=== PATIENT | male | born 1960 | race Caucasian/White ===

== ENCOUNTER 2023-09-29 14:32 | Inpatient (IN) | payer BC, SELFPAY ==
[2023-09-29] VITALS (13 sets, daily range): BP systolic 94–141; BP diastolic 51–78; BMI 30.2; BMI 28.4
[2023-09-29 07:57] LABS: Glucose - Point of Care 155 mg/dl (70-99)
--- NOTE | 2023-09-29 08:17 | PHANOTE ---
med rec note- patent unable to confirm medication at this time, daughters in room do not know patient medication
due spouse normally takes care of medication but they had pasted away about a week ago. called patient pcp at [phone] but they do not open until 9am
[2023-09-29 08:49] LABS: % Basophils 0.1 % (0-2); % Immature Granulocytes 0.5 % (0-0.5); % Lymphocytes 2.9 % (20.5-51.1); % Monocytes 6.8 % (1.7-9.3); % Neutrophils 89.7 % (42.2-75.2); Absolute Immature Granulocytes 0.1 10^3/uL (0-0.05); Absolute Lymphocytes 0.6 10^3/uL (1.2-3.4); Absolute Monocytes 1.3 10^3/uL (0.1-0.6); Absolute Neutrophils 17.3 10^3/uL (1.4-6.5); Hematocrit 39.1 % (39.0-52.0); Hemoglobin 13.5 g/dL (13.0-18.0); Mean Corp Hgb Conc. 34.5 g/dL (33.0-37.0); Mean Corpuscular Hgb 28.8 pg (27.0-31.0); Mean Corpuscular Volume 83.5 fL (80.0-94.0); Mean Platelet Volume 11.1 fL (7.4-10.4); Nucleated Red Blood Cells % 0 % (-); Platelet Count 228 10^3/uL (130-400); Red Blood Cell Count 4.68 10^6/uL (4.70-6.10); Red Cell Dist. Width 12.5 % (11.5-14.5); White Blood Cell Count 19.2 10^3/uL (4.8-10.8)
[2023-09-29 08:59] LABS: APTT 28.7 Sec (23.4-35.0); INR 1.14; PT 14.6 Sec (11.4-14.6)
[2023-09-29 09:07] LABS: ALT (SGPT) 198 U/L (0-50); Albumin 4.4 g/dl (3.5-5.0); Alcohol None Detected; Alkaline Phosphatase 133 U/L (38-126); Blood Urea Nitrogen 31 mg/dl (9-20); Calcium 9.1 mg/dl (8.4-10.2); Carbon Dioxide 22 mmol/L (22-30); Chloride 106 mmol/L (98-107); Estimated Creatinine Clearance 47 ml/min; Glucose 147 mg/dl (70-99); Sodium 140 mmol/L (135-145); Total Bilirubin 0.8 mg/dl (0.2-1.3); Total Protein 6.8 g/dl (6.3-8.2); eGFR 39.64
[2023-09-29 09:21] LABS: AST (SGOT) 1072 U/L (17-59)
[2023-09-29] MEDS: DEPACON 60 MG IV (09:45)
[2023-09-29 10:33] LABS: Urine Albumin 2+ (Neg - Trace); Urine Bilirubin 1+ (Negative); Urine Character Clear (Clear); Urine Color Yellow; Urine Glucose Negative (Negative); Urine Ketone 1+ (Negative); Urine Leukocyte Trace (Negative); Urine Nitrite Negative (Negative); Urine Occult Blood 4+ (Negative); Urine Specific Gravity 1.025 (<1.030); Urine Urobilinogen Negative (Neg - 1+)
[2023-09-29 10:50] LABS: Amphetamines Negative (Negative); Barbiturates Positive (Negative); Benzodiazepines Negative (Negative); Buprenorphine Negative (Negative); Cocaine Negative (Negative); Marijuana Negative (Negative); Methadone Negative (Negative); Methamphetamines Negative (Negative); Opiates Negative (Negative); Phencyclidine Negative (Negative); Tricyclic Antidepressants Negative (Negative)
[2023-09-29] MEDS: NSS 1000 IV ×5 (10:59→23:56)
[2023-09-29 11:12] LABS: Urine Amorphous Seen
--- NOTE | 2023-09-29 11:17 | ED.GENMED ---
History of Present Illness
General
Chief Complaint: Change in Mental Status
Source: patient, family and ambulance crew
Exam Limitations: clinical condition
Time Seen by Provider: 09/29/23 07:59
Nursing documentation reviewed up to this point in time: agreed with
History of Present Illness
History of Present Illness:
62-year-old male with a past medical history of seizures who presents to the emergency room via EMS from home for evaluation of change in mental status after being found down. Patient cannot meaningfully participate in history�initial history was
all obtained from EMS although about an hour after patient arrival his family was at the bedside and able to provide collateral history. Initial EMS report was that patient was found disoriented in his apartment by family�apparently apartment was
messy and patient covered in feces. He apparently had a known history of epilepsy but no witnessed seizure. Last seen normal by family yesterday evening.
On arrival of patient's family they note that patient is normal, highly functioning at baseline�he apparently has a job and rides his bike to work. He apparently lives in an apartment adjacent to family's house; they apparently see him quite
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 They apparently last saw him yesterday evening right around 6 PM and he was normal. Apparently this morning family noted that he had not picked up his newspaper which is
unusual for him. They checked the house security and noted that he had not left for work this morning. For this reason they went to the apartment to check on him and they found that the apartment looked 'like it had been ransacked' and patient was
on the ground leaning on the couch confused and covered in feces. He was wearing the same clothes as he was yesterday. EMS called to bring him to the hospital. He does have a history of seizures but apparently his typical seizures are brief and
have only a transient postictal period.
Review of Systems
Review of Systems
Unable to obtain full review of systems at this time due to: other (Acutely confused)
All Other Systems: Not applicable
Phy Exam
Physical Exam
Physical Exam:
General: Laying in bed sleeping but easily arousable and when he is awake he is agitated
Head: Normocephalic, atraumatic
Eyes: Conjunctiva normal, pupils equal round and reactive to light bilaterally, extraocular movements seem to be tracking across visual field but patient not cooperative with more thorough assessment
Throat: Airway intact, handling secretions
Neck: Trachea midline, supple without meningismus
Lungs: Clear to auscultation bilaterally, no wheezing, rales, rhonchi
Heart: Regular rate and rhythm, no murmurs, gallops, or rubs
Abd: Soft, non distended, no apparent tenderness
Neuro: Patient very difficult to examine given his altered mental state�he is not cooperative with neurologic assessment and only follows very simple one-step commands; no gross cranial nerve deficits noted, he has no dysarthria and is able to speak
a few words but it seems to be having stuttering/repetitive speech and is not consistently answering questions; he is moving all extremities, seems to preferentially move right side but somewhat difficult to assess
Skin: no rash or signs of acute trauma
Extremities: Patient has bilateral lower extremity edema, equal pulses in all extremities
Scores
NIH Stroke Score
Level of Consciousness: 1 - Arousable
LOC Questions: 2-Neither correct
LOC Commands: 1-Performs one correctly
Best Horizontal Gaze: 0-Normal
Visual Benjamin: 0=Normal, no visual loss
Facial Palsy: 0=Normal, symmetrical
Motor - Right Arm: 1=Drift < 10 seconds
Motor - Left Arm: 1=Drift < 10 seconds
Motor - Right Le-Drift < 5 seconds
Motor - Left Le-Drift < 5 seconds
Limb Ataxia: 0-Absent
Sensation: 0-Normal
Best Language: 1-Mild aphasia
Dysarthria: 0-Normal
Extinction and Inattention: 0-No abnormality
Total Score:: 9
Thrombolytic Contraindication
Inclusion and Exclusion criteria reviewed: Yes
Reasons for NON-Tx with Thrombolytics ABSOLUTE Exclusions: Greater than 4.5 hrs from onset of sxs
Heart Failure Risk
Heart Failure Risk Score: Not Applicable
Heart Score for Chest Pain Patients
STEMI patient?: Not applicable
Withdrawal Assessment of Alcohol
Withdrawal Assessment Completed?: Not applicable
Course
Orders/Labs/Results
Orders:
Orders
09/29/23 07:52
EKG [Electrocardiogram (*1)] Urgent
Reason for Study: Other
Other Reason for Exam: change in mental status
09/29/23 07:53
EKG- Treatment ONCE
09/29/23 08:00
CT Head W/o Cont STROKE ALERT Urgent
Comment:
Reason For Exam: expressive aphasia, lethergy
Bedside Glucose- Treatment ONCE
EKG- Treatment ONCE
Vital Signs- Treatment ONCE
Frequency: q30m
Pulse Ox/cont/shift [RESP] Stat
Quantity: 1
09/29/23 08:03
NEUROLOGY CONSULT Urgent
Consulting Provider: Earl Mckeon
Was physician already notified: Yes
09/29/23 08:35
Alcohol Urgent
Complete Blood Count/With Diff Urgent
Comprehensive Metabolic Panel Urgent
Creatine Phosphokinase Urgent
PTT Urgent
Prothrombin Time Urgent
09/29/23 09:00
Valproate Sodium [Depacon] 500 mg 0.9% Sodium Chloride 50 ml [Nss] 50 ml IV Q12H
09/29/23 09:06
Valproate Sodium [Depacon] 1,000 mg 0.9% Sodium Chloride 50 ml [Nss] 50 ml IV NOW
09/29/23 09:29
Add On- LAB Urgent
Tests Added?: CPK
09/29/23 10:19
Drug Screen, Urine [Urine Drug Abuse Screen] Urgent
Date Specimen was Collected: 09/29/23
Time Specimen was Collected: 10:16
Urinalysis Reflex To Culture Urgent
Date Specimen was Collected: 09/29/23
Time Specimen was Collected: 10:16
Urine Microscopic Reflex Cult Urgent
Urine Culture Urgent
FABIEN Source: U
Specimen Description:
Date Specimen was Collected: 09/29/23
Time Specimen was Collected: 10:16
09/29/23 10:36
CR Chest Portable - 1 View Urgent
Comment:
Reason For Exam: confused
Reason Study Needs to be Portable: Unable to Transport
09/29/23 10:55
0.9% Sodium Chloride 1000 ml [Nss] 1,000 ml IV BOLUS
09/29/23 11:00
0.9% Sodium Chloride 1000 ml [Nss] 1,000 ml IV 1,000 mls/hr
09/29/23 11:11
0.9% Sodium Chloride 1000 ml [Nss] 1,000 ml IV BOLUS
09/29/23 11:14
Aspirin 300 mg RECTAL NOW STA
09/29/23 11:21
EEG Routine Routine
Reason for Exam: ? CPS
Neurology Consult:: DR. NICOLE
09/29/23 11:42
Blood Culture Routine
FABIEN Source: Blood/Venous
Specimen Description:
Blood Culture Urgent
FABIEN Source: Blood/Venous
Specimen Description:
09/29/23 14:15
0.9% Sodium Chloride 1000 ml [Nss] 1,000 ml IV 250 mls/hr
09/29/23 14:16
Admit/Transfer Patient As Directed
Co-Sign Provider:
Level of Care: Inpatient admission
Assign to:: IMU- Intermediate Care
Physician / Group: Hospitalist
Diagnosis: Altered mental status
Reason for Hospitalization: Altered mental status
Expected length of stay greater than two midnights?: Yes
ELOS- Estimated Length of Stay in days: 3
I certify the patient meets the requirements for IP care: Yes
09/29/23 21:00
Valproate Sodium [Depacon] 500 mg 0.9% Sodium Chloride 50 ml [Nss] 50 ml IV Q12H
Abnormal Lab Results
09/29/23 09/29/23 09/29/23
07:56 08:35 10:19
WBC 19.2 H 10^3/uL
(4.8-10.8)
RBC 4.68 L 10^6/uL
(4.70-6.10)
MPV 11.1 H fL
(7.4-10.4)
Abs Immat Gran (auto) 0.1 H 10^3/uL
(0-0.05)
Absolute Neuts (auto) 17.3 H 10^3/uL
(1.4-6.5)
Absolute Lymphs (auto) 0.6 L 10^3/uL
(1.2-3.4)
Absolute Monos (auto) 1.3 H 10^3/uL
(0.1-0.6)
Neutrophils % 89.7 H %
(42.2-75.2)
Lymphocytes % 2.9 L %
(20.5-51.1)
BUN 31 H mg/dl
(9-20)
Creatinine 1.9 H mg/dL
(0.7-1.3)
Glucose 147 H mg/dl
(70-99)
AST 1072 H* U/L
(17-59)
ALT 198 H U/L
(0-50)
Alkaline Phosphatase 133 H U/L
(38-126)
Creatine Kinase 28969 H U/L
(55-170)
Urine Ketones 1+ A
(Negative)
Ur Occult Blood Reflex 4+ A
(Negative)
Urine Bilirubin 1+ A
(Negative)
Leukocyte Esterase Rfl Trace A
(Negative)
Urine RBC 3-6 A /HPF
(0-2)
Urine Albumin (Reflex) 2+ A
(Neg - Trace)
Ur Barbiturates Screen Positive H
(Negative)
POC Glucose 155 H mg/dl
(70-99)
09/29/23 08:35
09/29/23 08:35
Vital Signs
Initial and Last Documented VS:
Initial Vital Signs
Temp Pulse Resp BP Pulse Ox
37.2 C 89 24 138/78 93
09/29/23 07:44 09/29/23 07:44 09/29/23 07:44 09/29/23 07:44 09/29/23 07:44
Last Documented Vital Signs
Temp Pulse Resp BP Pulse Ox
37.9 C 59 28 113/73 94
09/29/23 12:00 09/29/23 14:45 09/29/23 14:45 09/29/23 14:00 09/29/23 11:15
MDM/Problems Addressed
Differential Diagnosis Includes:
Seizure with postictal period, acute CVA, drug/alcohol intoxication, infection
MDM/Problems Addressed:
62-year-old male presents to the emergency room acutely confused�found down this morning by family last seen normal 6 PM. Initially limited information and stroke alert was called, patient taken for stat CT head. IV placed labs sent off including
a CBC and a CMP, coags. Will send a urinalysis and obtain a chest x-ray. Check UDS and alcohol level. Case discussed with neurology who will assess at bedside.
CT head negative for any acute pathology. Neurology assessed they suspect more likely this is a seizure with postictal period although stroke must be considered; patient outside safe window for tenecteplase. We are awaiting rest of lab work. They
recommended admission for further workup and observation.
Initial labs reviewed: CBC shows a leukocytosis to 19.2 of unclear clinical significance�could be reactive in the setting of seizure or certainly could be a sign of infection although family does not indicate any infectious symptoms recently. Added
blood cultures. Hold empiric antibiotics given absence of fever, normal blood pressure and heart rate, no focal infectious source. CMP shows creatinine of 1.9 and abnormal transaminases with normal T. bili�question whether patient could have
rhabdomyolysis based on this clinical picture. Added the CPK. IV fluids in progress. Awaiting rest of workup.
Urinalysis positive for blood on dipstick with no significant amount of blood on microscopy�this would be consistent with rhabdomyolysis although CPK is pending. No signs of a urinary tract infection. UDS positive for barbiturates which apparently
patient is taking for seizure control, alcohol level negative. Chest x-ray reviewed by me shows no pneumonia.
CPK is markedly elevated at 75,000 consistent with rhabdomyolysis. IV fluids in progress. Patient's mental status has been essentially unchanged. Low clinical suspicion for meningitis with no fever and with patient's mental state normal yesterday
evening with no infectious signs or symptoms. Suspect this may be a seizure with prolonged postictal period versus acute CVA. Will admit for continued monitoring and treatment; will give a dose of rectal aspirin. Case discussed with hospitalist
for admission.
*Radiology
Radiology exam reviewed: preliminary read by ED provider and radiology read reviewed
*Pulse Oximetry
Patient hypoxic: no
*EKG
Interpreted by ED Provider?: Yes
Heart Rate: 74
Rate: normal
Rhythm: sinus
[place]: normal axis
Interval: normal interval
QRS Pattern: normal QRS
Ischemia: no ischemia
*Critical Care Note
Total Time (30-74mins, 75-104mins- exclusive of procedures): Not Applicable
Data Reviewed
Source: family and ambulance crew
Patient Management
Discussion with other providers: Hospitalist (Discussed with hospitalist) and Dispute Coordinator (Discussed with neurology)
Escalation/DeEscalation of care consider admission/obs:
Admission indicated
ED Attending Note
-
Portions of this chart may have been created with voice recognition software.� Occasional wrong word or��sound alike� substitutions may have occurred due to the inherent limitations of voice recognition software.
Discharge Plan
Departure
Patient Disposition: Admit
Date of Disposition: 09/29/23
Time of Disposition: 11:14
Admit to doctor: Sravanthi
Presentation/result/management discussed w/ accepting MD/DO: Hospitalist
Discharge Problem:
Acute CVA (cerebrovascular accident), Encephalopathy, Rhabdomyolysis, JEFERSON (acute kidney injury)
Interventions
Interventions:
*Risk Screen - Suicide Last Done: 09/29/23 07:44
*General Assessment Last Done: 09/29/23 07:44
*Neglect/Abuse Screening Last Done: 09/29/23 07:44
ED- Fall Risk Assessment Last Done: 09/29/23 07:29
ED-Psychological Assessment Last Done: 09/29/23 07:29
ED- Neurological Assessment Last Done: 09/29/23 14:36
ED- Cardiac Assessment Last Done: 09/29/23 07:29
ED Swallowing Screen Last Done: 09/29/23 11:48
[2023-09-29] MEDS: ASPIRIN 300 MG RECTAL (11:22)
[2023-09-29 11:25] LABS: Creatine Phosphokinase 74353 U/L (55-170)
--- NOTE | 2023-09-29 14:22 | CON.NEURO4 ---
Addendum entered and electronically signed by Earl Mckeon MD 09/29/23 22:45:
Assessment/Plan
1. 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
Plan:
1. Aspirin 81 mg daily.
2. Aspirin 300 mg suppository given in ER
3. Permissive HTN
4. Serial neuro exam
5. Echocardiogram
6. MRI/MRA head
7. Carotid doppler
Original Note:
Consultation - Neurology 4
-
CONSULTING PHYSICIAN: Earl Mckeon MD(Neurology)
REFERRING PHYSICIAN: ER/ Hospitalist
DICTATED BY: Earl Mckeon MD
DATE/TIME OF REQUEST: 09/29/2023
DATE/TIME OF CONSULTATION: September 29, 2023 0900
Reason for Consultation: Altered mental status
History of Present Illness:
This is a 62 year old right handed male with h/o autism, epilepsy since childhood who had been living independently at home who was admitted with c/o altered mental status. As per his sister he was last seen well on Friday at 4ptime and he was at
his baseline(regular speech able to communicate his needs). 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 When his sister went into the house, she found him kneeling over confused and unable to talk. Incontinent and soiled which
he never is at baseline.
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 This morning it was in total disarray. She could not find his seizure medications(Phenobarb, Dilantin, Valium).
She recalls it being filled in June-July 2023
EMS notified and he was brought to the ER. In the ER he was arousable but confused with limited speech. No Motor or sensory deficits.
As per his sister seizures were controlled and he has a breakthrough event once or twice a year with brief postictal phase.
He lived with his mother till her demise earlier this year.
After admission there has been no seizures. All history is obtained through his sisters. Pat speech is restricted and he can tell me his name and birthday.
He can be directed and follows simple one step commands
Past Medical History: Seizure disorder
Surgical History: None
Family History: Noncontributory
Social History: Lives alone at home
Allergies: No known drug allergies
Home Medications: Dilantin 100 mg 3 times a day, Phenobarb 90, Valium
Review of Symptoms:
Patient denies any fever, headache, chest pain, shortness of breath, GI or symptoms.
�Per the HPI.�All systems are reviewed negative except above.
�- Remove any of these problems that patient may have complained about in the HPI.
�- If patient is unresponsive, intubated or demented, say 'Per the HPI. I am unable to obtain a complete review of systems�because of patient's inability to provide history.'
Vital Signs:
Physical Exam:
The patient is afebrile, heart sounds S1 and S2 are (regular / irregular), and chest is clear to auscultation bilaterally.
- If not clear, describe.
NIH Stroke Scale (if applicable):
I performed the NIH stroke scale on the patient. The patient scored 4 on the NIH stroke scale assessment given limited arousal and aphasia:
Neurologic Examination:
The patient is arousable, confused and oriented x person. Speech is nonfluent aphasic He is able to follow commands. Answers are limited to name and birthday. There is aphasia and dysarthria. On cranial nerve assessment, pupils are 3 mm bilateral,
round and reactive to light and accommodation. Visual romero are full. Extraocular movements are intact. Facial sensations are intact and bilaterally symmetrical, there is no facial asymmetry. Hearing is intact bilaterally to normal conversation
volume. Tongue palate and uvula are midline. Sternocleidomastoid strengths are full bilaterally. Motor strengths are 5/5 bilateral upper and lower extremities on medical research [place] scale. There is no drift or involuntary movement noted. Deep
tendon reflexes are + bilateral upper and lower extremities and Babinski is absent bilaterally. Sensations of pain, touch, temperature and vibration are intact and bilaterally symmetrical. There was no extinction noted on double simultaneous
stimulation. Coordination is intact by finger to nose bilaterally.
Lab Results: Addendum
Neuro Imaging: CT head: Left posterior frontal ischemia
Impression:
Mr. MARTHA COLEMAN is a 62 year old M who has presented to the hospital with chief complaint of aphasia secondary to left MCA ischemia/infarction with no motor deficits and is postictal following seizure due to noncompliance with medication.
Given the length of noncompliance with his first generation AEDs and agitation will switch to Depakote for seizure prophylaxis and behavior control
Differentials for the patient's presentation include:
1. Seizure
Recommendations:
1. Load with Depakote 1000 mg IV
2. Depakote 500 mg IV twice a day. May switch to PO once pat awake and can swallow
3. EEG
4. MRI brain without
5. Speech therapy
6. PT/OT
7. Echocardiogram
8. Lipid profile
9. Lipitor
10. Depakote level.
11. B12 level
12. Thiamin
May need placement
Discussed patient care with: ER/Hospitalist
Vital Signs and Labs
-
Vital Signs and Labs:
Vital Signs
Temp Pulse Resp BP Pulse Ox
36.8 C 54 21 109/63 96
09/29/23 19:47 09/29/23 16:43 09/29/23 16:43 09/29/23 15:00 09/29/23 16:43
Lab Results
09/29/23 08:35
09/29/23 08:35
PT 14.6 Sec (11.4-14.6) 09/29/23 08:35
INR 1.14 09/29/23 08:35
APTT 28.7 Sec (23.4-35.0) 09/29/23 08:35
Sodium 140 mmol/L (135-145) 09/29/23 08:35
Potassium 4.0 mmol/L (3.5-5.1) 09/29/23 08:35
BUN 31 mg/dl (9-20) H 09/29/23 08:35
Glucose 147 mg/dl (70-99) H 09/29/23 08:35
Calcium 9.1 mg/dl (8.4-10.2) 09/29/23 08:35
Ur Buprenorphine Cancelled 09/29/23 10:19
Ur Buprenorphine Negative (Negative) 09/29/23 10:19
--- NOTE | 2023-09-29 15:00 | HPS.HSE ---
Addendum entered and electronically signed by Shamir Ruff MD 09/29/23 15:53:
I personally performed a history and physical exam of the patient and discussed management with the resident. I reviewed the resident's note and agree with the documented findings and plan of care HPI/CC except for changes in documentation.
History obtained after discussion with patient's sister. She stated that patient lives in his mother's house she recently. He lives in the main part of the house and sister lives in the in-law suite. Patient has a history of seizures
and he takes phenobarbital. She was also under the impression at 1 point he was on Dilantin and Valium. She is not sure what he takes now. But patient usually lang his medicines on the white board and she did not see the markings since Friday.
He was last seen yesterday afternoon normal. 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 Today he was found slumped over to the couch and covered in feces. Normally his seizures are mild per sister and usually he sleeps and wakes up normal. This
time he was very confused and not recognizing the family which made him call the ambulance.
On examination patient is confused
Keeps repeating his name for any questions asked.
He can sometimes say no to certain questions.
Awake states his name
Cardiovascular system S1-S2 appreciated
Chest x-ray and EKG reviewed by me
Left nipple area with a rash noted
Cardiovascular system S1-S2 appreciated
Chest clear to auscultation
Neuroexam is mostly nonfocal
No muscular tenderness, edema noted
# Change in mental status/TME
Differentials include TME from metabolic reasons,/seizures/CVA
Patient has expressive aphasia
Unclear if this secondary seizures versus RELISH MAKER event
Patient's sister thinks he was on female, Dilantin and Valium at 1 point she is not clear what his current medicines are.
Possibly patient missed medicines since Friday
Get MRI of the brain
EEG obtained-results pending
Continue valproate ordered per neurology
Neurology following
Neurochecks and seizure precautions
Keep n.p.o. until speech evaluation
Aspiration precautions
# Rhabdomyolysis
Likely secondary to seizures
No trauma per sister or heatstroke
IV fluids ordered
Follow CPK levels daily and also creatinine
Watch for any compartment syndrome
# Acute kidney injury
Likely secondary to rhabdo
Add on a urine sodium
Urinalysis noted
IV fluids and follow creatinine
# Albuminuria-follow urine analysis
# Mild fever
Likely secondary to rhabdo
But possible that he has aspiration pneumonia/pneumonitis
Await blood cultures and urine cultures
Chest x-ray reviewed by me
Cover with antibiotics for now and follow clinically
If improving stop antibiotics
# Elevated LFTs-check abdominal Doppler
Likely secondary to rhabdo-follow levels no right upper quadrant tenderness noted
May need serologies if does not improve or normalize.
# DVT prophylaxis-subcutaneous heparin
# Full code
Discussed with nursing and diesel technology instructor
Discussed with patient's sister on the phone
Medically complicated spent more than 75 minutes.
Original Note:
Family Physician
-
Family Physician: Isidro Pa
Chief Complaint
-
Altered Mental Status
History of Present Illness
Pt is a 62 year old male with known history of seizures, who was brought in by EMS after his family found him disoriented, slumped over the couch, covered in feces. Pt is unable to provide more history, but collateral information obtained from
family over the phone revealed that he was last noted to be well yesterday afternoon. He takes phenobarbital for his seizures, and tracks adherence to his medication via a whiteboard in his home. Sister notes that there was no med tracking logged
for Friday and Friday. He has used Dilantin and Valium in the past.
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 He was found when family checked in on him when he was not seen to collect the morning paper as he does daily. Pt's sister told
nursing staff that the family thinks he may have undiagnosed autism. Family is unsure of allergy history.
Medical History
Past Medical History
Past Medical History: Reports Seizures
Past Surgical History: Reports None
Social History
Tobacco: Non-smoker
Alcohol: Former (since 2 years)
Drug: None
Personal: Single
Living: Alone (near family)
Employment: Employed
Family History
Family History: Diabetes (father)
Allergies / Home Medications
Allergies reflects when Allergies were last updated in [facility].
Home Medications with original date entered in [facility]
Allergy/Medication List:
Allergies
Allergy/AdvReac Type Severity Reaction Status Date / Time
No Known Allergies Allergy Unverified 09/29/23 08:56
Home Medications
phenobarbital 64.8 mg tablet 194.4 mg PO DAILY 09/29/23
Review of Systems
-
History Source: Patient
Respiratory: Reports No Symptoms; Denies Cough or Trouble Breathing
Cardiac: Reports No Symptoms; Denies Chest Pain
Abdomen/GI: Reports No Symptoms; Denies Abdominal Pain, Nausea, Vomiting, Diarrhea or Constipated
: Reports No Symptoms
Musculoskeletal: Reports No Symptoms; Denies Muscle Pain or Muscle Stiffness
Neurological: Reports No Symptoms; Denies Headache, Weakness or Numbness
Physical Exam
Vital Signs
Vital Signs
Temp Pulse Resp BP Pulse Ox
100.2 F 59 28 113/73 94
09/29/23 12:00 09/29/23 14:45 09/29/23 14:45 09/29/23 14:00 09/29/23 11:15
Physical Exam
General: Well Developed, Well Nourished, No Apparent Distress and Comfortable; No Respiratory Distress
HEENT: NormoCephalic, Anicteric, Moist mucous membranes, Atraumatic, PERRLA and Other (No cheek or tongue lacerations)
Respiratory: Clear and Non Labored Respirations; No Wheezes, Rales, Rhonchi or Crackles
Cardiac: S1/S2 and Regular Rhythm; No Peripheral Edema, Calf Tenderness or Kristina's Sign
GI: Soft, Non Tender, Non Distended and Normal Bowel Sounds
Musculoskeletal: No Clubbing, No Cyanosis and No Edema
Skin: Warm and Dry
Neuro: Awake, Alert, Oriented (to person only), No Motor Deficits, Nonfocal/grossly intact, No Sensory Deficits, DTR's Intact & Symmetrical (patella) and Other (Expressive aphasia, follows all commands, inapproprate verbal responses)
Psych: Calm
Laboratory Results
-
09/29/23 08:35
09/29/23 08:35
Laboratory Results
PT 14.6 Sec (11.4-14.6) 09/29/23 08:35
INR 1.14 09/29/23 08:35
APTT 28.7 Sec (23.4-35.0) 09/29/23 08:35
Total Bilirubin 0.8 mg/dl (0.2-1.3) 09/29/23 08:35
AST 1072 U/L (17-59) H* 09/29/23 08:35
ALT 198 U/L (0-50) H 09/29/23 08:35
Alkaline Phosphatase 133 U/L (38-126) H 09/29/23 08:35
Impression/Plan
-
IMPRESSION: 62 year old male with history of seizure, who presented with altered mental status
PLAN:
Altered mental status:
CVA/TIA versus seizure postictal state vs other cause:
Steady improvement of neurological status on physical exam
CT head 09/28: No acute intracranial abnormality
ECG: Normal
EEG pending
JEFERSON:
Likely secondary to rhabdo. Creatinine 1.9
-IV fluids.
-Continue to follow BMP
Rhabdomyolysis:
Likely secondary to seizure. No focal muscle tightness or tenderness
-Aggressive IV fluids
Transaminitis:
Likely secondary to rhabdomyolysis vs acute liver failure
AST 1072, ALT 178, INR 1.14
-Check abdominal Doppler, ammonia level
Leukocytosis:
With fever to 100.2. Infectious cause vs rhabdomyolysis
Concern for aspiration from seizure. CXR: Low lung volumes, Minor bibasilar opacity most likely representing subsegmental atelectasis. Start Metronidazole
Urinalysis unremarkable. Urine culture pending
Blood cultures x 2 pending
History of seizure:
EEG pending
- Start Valproate
DVT prophylaxis: Lovenox
Code Status: Full Code
--- NOTE | 2023-09-29 15:36 | EEG.RPT ---
Electroencephalogram Report
Recording
Date of EE09/29/23
Type of EEG: Routine
Length of EEG recordin minutes
Done with Video Recording: Yes
Patient Status: Inpatient
Recording Conditions: Awake and Drowsy
Hyperventilation Performed: Yes
Photic Stimulation Performed: Yes
Report
LESS THAN 1 HOUR REPORT
LESS THAN 1 HOUR EEG INTERPRETATION:
Moderately to severely abnormal study for age based on bursts of generalized and generalized slowing demonstrated bihemispherically equally.
CLINICAL CORRELATION:
This study was suggestive of a generalized cortical disruption which was non-epileptiform.
Clinical correlation is advised.
METHODS:
A 21 channel digitized electroencephalogram (EEG) was performed at the bedside. The 10/20 international system of electrode placement was used with ECG and lateral/vertical eye movements recorded. The Zinio quantitative evaluation system was
utilized.
ELECTROENCEPHALOGRAPHER IMPRESSION(S):
Quality of study
Fair, limited by muscle artifact at times
Background
Medium amplitude
Fair anterior-posterior voltage gradient differentiation
Theta maximal background demonstrated, typically delta
Sleep
Drowsiness present
Hyperventilation
Not performed
Photic Stimulation
Failed to activate the record
ECG
Normal rhythm
--- NOTE | 2023-09-29 16:33 | PTOTSP ---
Dysphagia Evaluation
Oral/pharyngeal swallowing suspected to be grossly WFL. Further speech/language evaluation warranted given signs of expressive greater than receptive aphasia.
Recommend:
1. Regular, Thin Liquids
2. Medications as best tolerated
3. General aspiration precautions
4. Speech/language evaluation.
--- NOTE | 2023-09-29 16:51 | PTCARENOTE ---
Rec'd pt on admission from ED. Complete bed bath given. Pt with expressive aphasia but following most commands. Sinus Nick on tele. Cooperative, remains on room air. Unable to answer admission questions due to aphasia but following motor commands.
passed speech evaluation. vital signs stable.
[2023-09-29] MEDS: FLAGYL 500 MG PO ×2 (17:21→23:15)
[2023-09-29] MEDS: ROCEPHIN 1000 MG IV (17:33)
[2023-09-29] MEDS: STERILE WATER FOR INJECTION 10 ML IV (17:34)
[2023-09-29] MEDS: HEPARIN 5000 UNITS SC (20:23)
[2023-09-29] MEDS: DEPAKOTE (12 HR RELEASE) 500 MG PO (20:23)
[2023-09-30] VITALS (12 sets, daily range): BP systolic 98–142; BP diastolic 63–100; BMI 29.3
--- NOTE | 2023-09-30 00:46 | PTCARENOTE ---
Received pt at change of shift. NIH is a 4; still showing some expressive aphasia with lower extremity ataxia; unable to tell me where he currently is located but now able to state name and correctly. VSS at this time. NSS running at 250
ml/hr. No urine output; bladder scanned pt around 00:00 for 46 ml. Notified BUFFER INFLATED PAD to update her on his status. Pt resting in bed with call leonardo in reach.
[2023-09-30] MEDS: NSS 1000 IV ×4 (03:50→20:25)
[2023-09-30 04:20] LABS: Hematocrit 36.4 % (39.0-52.0); Hemoglobin 12.2 g/dL (13.0-18.0); Mean Corp Hgb Conc. 33.5 g/dL (33.0-37.0); Mean Corpuscular Hgb 28.8 pg (27.0-31.0); Mean Corpuscular Volume 86.1 fL (80.0-94.0); Mean Platelet Volume 10.6 fL (7.4-10.4); Platelet Count 174 10^3/uL (130-400); Red Blood Cell Count 4.23 10^6/uL (4.70-6.10); White Blood Cell Count 15.8 10^3/uL (4.8-10.8)
[2023-09-30 05:11] LABS: ALT (SGPT) 295 U/L (0-50); AST (SGOT) 1142 U/L (17-59); Alkaline Phosphatase 99 U/L (38-126); Blood Urea Nitrogen 43 mg/dl (9-20); Calcium 7.3 mg/dl (8.4-10.2); Carbon Dioxide 20 mmol/L (22-30); Chloride 111 mmol/L (98-107); Estimated Creatinine Clearance 24 ml/min; Glucose 112 mg/dl (70-99); Magnesium 2.3 mg/dl (1.6-2.3); Potassium 4.1 mmol/L (3.5-5.1); Sodium 139 mmol/L (135-145); Total Bilirubin 0.5 mg/dl (0.2-1.3); Total Protein 5.2 g/dl (6.3-8.2); eGFR 18.41
[2023-09-30 05:28] LABS: Creatine Phosphokinase 70520 U/L (55-170)
[2023-09-30 06:08] LABS: Vitamin B12 248 pg/ml (239-931)
--- NOTE | 2023-09-30 06:14 | PTCARENOTE ---
Labs resulted with AST increasing to 1142 and Creat rising to 3.6 from 1.9. Notified MACHINE DESIGN TEACHER. Nephrology consult placed and kirkland order placed and completed to monitor strict I&O. Pt tolerated placement well. 50 ml of tea colored urine drained. UA
sent to lab.
[2023-09-30 06:27] LABS: Urine Albumin 3+ (Neg - Trace); Urine Bilirubin 1+ (Negative); Urine Character Clear (Clear); Urine Color Brown; Urine Glucose 1+ (Negative); Urine Ketone 1+ (Negative); Urine Leukocyte 1+ (Negative); Urine Nitrite Positive (Negative); Urine Occult Blood 4+ (Negative); Urine Urobilinogen Negative (Neg - 1+); Urine pH 6.5 (5.0-9.0)
[2023-09-30 06:59] LABS: Urine Bacteria Many (Negative); Urine White Cell 16-20 /HPF (0-5)
--- NOTE | 2023-09-30 07:59 | W.PN.HOSP.TC ---
Addendum entered and electronically signed by Alvarez Nelson MD 09/30/23 12:19:
Nontraumatic rhabdomyolysis
Addendum entered and electronically signed by Alvarez Nelson MD 09/30/23 11:15:
I saw and evaluated the patient. I reviewed the resident�s note and agree with findings and plan as documented in the resident�s note.
Gen: NAD, AAOx3.
Eyes: EOMI, PERRLA, no scleral icterus.
Neck: supple.
CV: seble, reg rhythm, +S1/S2, no m/r/g.
Resp: CTAB, no rales, wheezes, or rhonchi.
Abd: +BS, soft, NT, ND
Skin: No rashes.
Neuro: CN 2-12 intact, non-focal.
Psych: Normal mood and affect.
CXR: Low lung volumes. Minor bibasilar opacity most likely representing subsegmental atelectasis.
Abd U/S: Nonspecific focal gallbladder wall thickening. No additional findings to suggest acute cholecystitis. Clinical and laboratory correlation recommended. Minimal ascites about the liver.
MRI brain:
1. No acute intracranial abnormality.
2. 2.3 cm lesion at the junction of the right zygomatic arch and maxilla favored to represent an osteoma. Imaging follow-up can be performed to confirm stability.
Acute metabolic encephalopathy due to acute seizure activity and postictal state:
-Case discussed with neurology
-Patient was on phenobarbital prior to admission and missed a couple days of dosing. He is now on Depakote, continue.
Acute kidney injury due to rhabdomyolysis due to acute seizure activity:
-Creatinine is worsening
-Continue IVFs
-check renal U/S
Low grade temperature:
-100.2 �F is not a fever. Leukocytosis could be reactive. Suspect chest x-ray findings due to subsegmental atelectasis.
-Urinalysis noted and could represent urinary tract infection. Continue Rocephin for now pending urine and blood cultures.
Transaminitis:
-Unremarkable abdominal ultrasound
-Hepatocellular injury pattern
-Consult GI
Total time spent on today's encounter was 50 minutes which included time spent in counseling the patient/family regarding diagnosis and treatment plan as listed above, goals of care, and symptom management. Case was discussed with nursing staff,
specialists, and care coordinators/case management. All labs and imaging personally reviewed by me. Remainder the time spent in detailed review of previous records, lab data, imaging, and other medical provider documentation.
Original Note:
Today's Communication/Plan
-
ABX, aggressive IV fluids
Assessment / Plan
Assessment / Plan
IMPRESSION: 62 year old male with history of seizure, who presented with altered mental status
PLAN:
Altered mental status:
CVA/TIA versus seizure postictal state vs TME:
Confused on arrival, with expressive aphasia. Steady improvement of neurological status on physical exam
CT head 09/28: No acute intracranial abnormality
ECG: Normal
EEG pending
Speech therapy evaluation -no aspiration
MRI to follow
Continue Depakote per neurology
Neurochecks, seizure precautions
Appreciate neuro input
JEFERSON:
Likely secondary to rhabdo. Creatinine 1.9 on arrival, worsening
-Continue generous IV fluids.
-Urine Na, Urine Cr labs
-Nephro consult
-Continue to follow BMP
Rhabdomyolysis:
Likely secondary to seizure. No known hx of trauma. No focal muscle tightness or tenderness
-Aggressive IV fluids
-Follow CPK level
Albuminuria:
Follow urinalysis
Transaminitis:
Likely secondary to rhabdomyolysis
AST 1072, ALT 178, INR 1.14, AST, ALT worsening.
-Hepatitis serology
-abdominal Doppler:
Fever, Leukocytosis:
low grade fever to 100.2. Infectious cause vs rhabdomyolysis
Concern for aspiration from seizure. CXR: Low lung volumes, Minor bibasilar opacity most likely representing subsegmental atelectasis. Ceftriaxone plus ceftriaxone to cover possible aspiration pneumonia
Urinalysis unremarkable. Repeat urinalysis positive. Already on ceftriaxone. Await urine culture
Blood cultures x 2 pending
History of seizure:
EEG pending
- Start Valproate
DVT prophylaxis: Lovenox
Code Status: Full Code
Anticipated Discharge: > 48 hours
Subjective/Interval History
-
Date of Service: September 30, 2023
Patient confirmed his phenobarbital dose is 90 mg 3 times daily. Last seizure about 10 years ago.
Objective Data
-
Labs:
Laboratory Results
09/30/23
04:00
WBC 15.8 H
Hgb 12.2 L
Hct 36.4 L
Plt Count 174 D
Sodium 139
Potassium 4.1
Chloride 111 H
Carbon Dioxide 20 L
BUN 43 H
Creatinine 3.6 H
Glucose 112 H
Calcium 7.3 L D
Total Bilirubin 0.5
AST 1142 H*
ALT 295 H
Alkaline Phosphatase 99
Vital Signs:
Vital Signs
Temp Pulse Resp BP Pulse Ox
97.7 F 54 27 127/71 97
09/30/23 07:21 09/30/23 06:00 09/30/23 06:00 09/30/23 06:00 09/30/23 06:00
I&O
09/29/23 09/30/23 10/01/23
06:59 06:59 06:59
Intake Total 3000 / 3000
Balance 3000 / 3000
Review of Systems
-
History Source: Patient
Constitutional: Reports No Symptoms; Denies Fever
Respiratory: Reports No Symptoms; Denies Cough or Trouble Breathing
Cardiac: Reports No Symptoms; Denies Chest Pain or Palpitations
Abdomen/GI: Reports No Symptoms; Denies Abdominal Pain, Nausea or Vomiting
Physical Exam
-
General: No Apparent Distress and Comfortable
Respiratory: Clear to Auscultation and Non Labored Respirations; Negative Wheezes, Rales, Rhonchi or Crackles
Cardiac: Regular Rhythm and S1/S2; Negative Murmur, Rub or Calf Tenderness
GI: Soft, Nontender, Nondistended and Normal Bowel Sounds
Genito-urinary: No Costovertebral Tender, Sanchez and Other (dark urine)
Musculoskeletal: No Clubbing, No Cyanosis, No Edema and Other (No focal tenderness or muscle tightness)
Skin: Warm and Dry
Neuro: Awake, Alert and Oriented
Psych: Calm
[2023-09-30] MEDS: VITAMIN B1 100 MG PO (08:50)
[2023-09-30] MEDS: FLAGYL 500 MG PO ×3 (08:50→20:26)
[2023-09-30] MEDS: DEPAKOTE (12 HR RELEASE) 500 MG PO (08:50)
[2023-09-30] MEDS: HEPARIN 5000 UNITS SC ×2 (08:50→20:25)
[2023-09-30] MEDS: ASPIR LOW (ENTERIC COATED) 81 MG PO (08:50)
--- NOTE | 2023-09-30 10:46 | W.PN.NEURO.1 ---
Today's Communication / Plan
-
62-year-old male with history of seizures who had a prolonged postictal phase whose mental status has improved. He is currently has rhabdomyolysis with worsening renal function and elevated liver enzymes.
PLAN:
1. Stop Depakote
2. Starting Vimpat 50 milligram twice daily
3. Monitor LFTs daily
4. IV fluids
5. Nephrology consult
6. GI consult
Subjective/Objective
Subjective Data
Date of Service: September 30, 2023
Patient is awake and alert and oriented to person place and time. Speech is fluent and the comprehension reading and repetition. He has no difficulty speaking or swallowing. He has no motor or sensory deficits
He is able to tell me about his seizure medications which is Phenobarb 90 mg 3 times a day. He claims compliance
Objective Data
Vital Signs
Temp Pulse Resp BP Pulse Ox
36.5 C 55 24 133/86 95
09/30/23 07:21 09/30/23 08:00 09/30/23 08:00 09/30/23 08:00 09/30/23 08:15
Lab Results
09/30/23 04:00
09/30/23 04:00
PT 14.6 Sec (11.4-14.6) 09/29/23 08:35
INR 1.14 09/29/23 08:35
APTT 28.7 Sec (23.4-35.0) 09/29/23 08:35
Sodium 139 mmol/L (135-145) 09/30/23 04:00
Potassium 4.1 mmol/L (3.5-5.1) 09/30/23 04:00
BUN 43 mg/dl (9-20) H 09/30/23 04:00
Glucose 112 mg/dl (70-99) H 09/30/23 04:00
Calcium 7.3 mg/dl (8.4-10.2) L D 09/30/23 04:00
Vitamin B12 248 pg/ml (056-640) 09/30/23 04:00
Ur Buprenorphine Cancelled 09/29/23 10:19
Ur Buprenorphine Negative (Negative) 09/29/23 10:19
Patient Allergies
No Known Allergies Allergy (Unverified 09/29/23 08:56)
Review of Systems
-
History Source: Patient
All other systems: Reviewed and negative
Constitutional: No Symptoms
EENT: No Symptoms Reported
Respiratory: No Symptoms
Cardiac: No Symptoms
Abdomen/GI: No Symptoms
Genitourinary: No Symptoms
Musculoskeletal: No Symptoms
Skin: No Symptoms
Neuro: No Symptoms
Endocrine: No Symptoms
Hematologic / Lymphatic: No Symptoms
Allergy / Immunology: No Symptoms
Physical Exam
-
General: Well Developed, Well Nourished, No Apparent Distress and Comfortable
Eyes: Unremarkable, No Ptosis and PERRLA
HEENT: Normocephalic, Atraumatic and Poor Dentition
Neck: Full Range of Motion
Respiratory: Clear to Auscultation
Cardiac: Regular Rhythm
GI: Normal Bowel Sounds
Skin: Unremarkable
Extremities: No Clubbing
Extended Neurological Exam
Mood & Affect: Mood Unremarkable and Affect Unremarkable
Attention Span & Concentration: Awake, Alert, Interactive and No Difficulty with 2 Step Request
Memory: Able to Recall
Tremor: Hand Tremor Absent and Head Tremor Absent
Involuntary Movement: None
Speech: Quality Unremarkable, Quantity Unremarkable and Rate of Production Unremarkable
Cranial Nerve II: Left Eye: Pupillary Reactivity Unremarkable, Pupillary Size Unremarkable and Visual Benjamin Intact
Cranial Nerve II: Right Eye: Pupillary Reactivity Unremarkable and Pupillary Size Unremarkable
Cranial Nerves III, IV, : Extraocular Movement: Other (LEFT Esotropia)
Cranial Nerve V: Facial Sensation: Intact to Pin Prick and Intact to Light Touch
Cranial Nerve VII: Facial Symmetry: Normal Facial Symmetry
Cranial Nerve VIII: Hearing: Unremarkable Hearing to Normal Conversational Volume
Cranial Nerves IX, X: Palate Movement: Palate Elevation Symmetric
Cranial Nerve XI: Shoulder Shrug: Unremarkable
Cranial Nerve XII: Tongue Protusion: Midline
Muscle Strength, Overall: Full Throughout
Muscle Bulk & Tone: Bulk Unremarkable and Tone Unremarkable
Pronator Drift: No Drift in Upper Extremities and No Drift in Lower Extremities
Deep Tendon Reflexes: Unremarkable Throughout
Cold Sensation: Unremarkable
Vibration Sensation: Unremarkable
Touch Sensation: Unremarkable
Coordination: [id number] Testing Unremarkable and Reaches for Objects without Difficulty
Babinski Sign: Absent Bilaterally
Gait & Station: Up from Seated Without Problem and Up from Lying with Difficulty
Modified Jellico Score (MRS)
-
Modified Robel Scale (mRS): No significant disability. Able to carry out usual activities.
Score: 1
Data Reviewed
-
MRI Head: Report Reviewed and Image Reviewed
[2023-09-30 11:26] LABS: Osmolality Urine 309 mOsm/kg (300-900)
[2023-09-30 11:46] LABS: Urine Sodium 81 mmol/L (30-90)
[2023-09-30] MEDS: VIMPAT 50 MG PO ×2 (11:46→21:20)
[2023-09-30] MEDS: CALCIUM GLUCONATE 100 IV (11:46)
--- NOTE | 2023-09-30 11:50 | PN.CDI ---
CDI
- -
CDI:
Physician Documentation Request
Admit Date: 09/29/23 14:32
Dear Doctor Yasir,
Please review the following and provide your response in the progress notes.
Clinical Indicators:
- 09/29 PN 'Rhabdomyolysis...Likely secondary to seizure'
- 09/28 ER Physician 'found disoriented in his apartment...Last seen normal by family yesterday evening'
- 09/28-09/29 7L IVF given
Laboratory Tests
09/29/23 09/30/23
08:35 04:00
Creatine Kinase 15757 H 55150 H
Please clarify the rhabdo type:
Traumatic rhabdomyolysis
Non-traumatic rhabdomyolysis
Other
Use of terms such as suspected, likely, concern for, or probable (associated with a specific diagnosis that is being evaluated, monitored, or treated as if it exists) are acceptable and can be coded in the inpatient setting, when documented at the
time of discharge.
Thank you,
René Werner RN
CDI Specialist
Please use your independent medical judgment in providing your response.
--- NOTE | 2023-09-30 11:51 | W.CON.NEPH ---
Consultation
-
Date/Time Consultation Requested: September 30, 2023 8 AM
Date/Time Consultation Performed: September 30, 2023 11 AM
Requesting Provider: Dr. Nelson
Performing Provider: Dr. Castro
Reason for Consultation: JEFERSON
Medical History
-
Chief Complaint: Seizure
History of Present Illness:
This is a 62-year-old gentleman with epilepsy on multiple antiepileptic drugs lives independently at home since his mother . His sister lives in the in-law suite. He does not have any other significant medical history other than history
of autism. He says that he sees his primary care physician Dr. Pa regularly and has blood work several times per year. He does not know the results of his usual blood work. The sister did not see him since Friday afternoon and went to
investigate and found him confused. He was also incontinent of feces. EMS was called and he was brought to emergency room where he was lethargic. He was found to have acute kidney injury which has not worsened with a creatinine up to 3.6. He
also has significant rhabdomyolysis with a CPK greater than 74,000. He also had metabolic acidosis as well as oliguria. We are asked to assist with management of his renal issues.
Past Medical History
Autism
Epilepsy
Social History
Tobacco: Non-Smoker
Alcohol: None
Family History
Family History: Not Pertinent
Allergies / Home Medications
Allergy/AdvReac Type Severity Reaction Status Date / Time
No Known Allergies Allergy Unverified 09/29/23 08:56
�Medication �Instructions �Recorded �Confirmed �Type
phenobarbital 64.8 mg tablet 194.4 mg PO DAILY 09/29/23 History
Review of Systems
-
Currently the patient has no complaints
All other systems: Negative unless noted
Physical Exam
Vital Signs
Vital Signs
Temp Pulse Resp BP Pulse Ox
98.3 F 61 21 142/81 96
09/30/23 11:41 07/09/24 10:38 09/30/23 10:38 09/30/23 10:38 09/30/23 10:38
Lab Results
WBC 15.8 10^3/uL (4.8-10.8) H 09/30/23 04:00
RBC 4.23 10^6/uL (4.70-6.10) L 09/30/23 04:00
Hgb 12.2 g/dL (13.0-18.0) L 09/30/23 04:00
Hct 36.4 % (39.0-52.0) L 09/30/23 04:00
Plt Count 174 10^3/uL (130-400) D 09/30/23 04:00
Sodium 139 mmol/L (135-145) 09/30/23 04:00
Potassium 4.1 mmol/L (3.5-5.1) 09/30/23 04:00
Chloride 111 mmol/L (98-107) H 09/30/23 04:00
Carbon Dioxide 20 mmol/L (22-30) L 09/30/23 04:00
BUN 43 mg/dl (9-20) H 09/30/23 04:00
Creatinine 3.6 mg/dL (0.7-1.3) H 09/30/23 04:00
eGFR 18.41 09/30/23 04:00
Glucose 112 mg/dl (70-99) H 09/30/23 04:00
Calcium 7.3 mg/dl (8.4-10.2) L D 09/30/23 04:00
Albumin 3.0 g/dl (3.5-5.0) L 09/30/23 04:00
Physical Exam
Patient is awake alert oriented and in no distress. Mood and affect were pleasant, insight and judgment were good. Pupils are equal round and reactive to light, extraocular movements are intact, sclera were anicteric. Hearing was normal, ears and
nose are intact. Oropharynx was clear. Neck was supple with trachea midline and no thyromegaly. Heart was regular rate and rhythm without rubs. Lower extremities without edema. Lungs were clear to auscultation bilaterally and with normal
excursion. Abdomen was soft, nontender, with normal active bowel sounds, and no hepatosplenomegaly. Skin was without rash and with normal turgor.
Data Reviewed
-
Radiology: Image Personally Visualized and interpreted (Chest x-ray on September 29, 2023 by my reading shows low lung volumes only)
MRI: Report Reviewed by me (MRI brain on September 30, 2023 shows no acute disease a 2.3 cm lesion at the junction of the right zygomatic arch and maxilla likely osteoma)
Medical Tests (Nuc Med, Echo etc): Image Personally Visualized and interpreted (EKG on September 29, 2023 by my read shows normal sinus rhythm)
Labs: Labs Reviewed by me (Sodium 139, potassium 4.1, bicarbonate 20, BUN 43, creatinine 3.6, calcium 7.3, AST 1142, ALT 295, CPK 70,520, albumin 3.0, urinalysis pH of 6.5 specific gravity 1.0101+ ketones 4+ blood positive nitrate many bacteria,
urine osmolality 309, urine creatinine 246, urine sodium 81, 3+ albumin)
Old Records: Requested
Assessment/Plan
-
Assessment
Seizure/epilepsy
Rhabdomyolysis
Metabolic acidosis
Elevated liver function tests
acute kidney injury
Low-grade fever
Oliguria
Plan
IV fluids with isotonic saline
Replete calcium
Follow urine output
Follow BMP
Follow LFTs
Follow CPK
I discussed with the patient the possibility of dialysis. He would not refuse.
--- NOTE | 2023-09-30 11:56 | CON.GI ---
Addendum entered and electronically signed by Yanique Thompson DO 09/30/23 19:10:
Patient seen and examined independently of JOSE LUIS. I agree with her note with my additions below
John is a 62yoM with history of seizure disorder found to be unresponsive incontinent of stool and feces apparently and rhabdomyolysis based on blood work with a CK of greater than 70,000, AST of greater than 1000, ALT 295, alkaline phosphatase
99, total bilirubin 0.5. Creatinine 3.6. We are asked by the hospitalist to assess his transaminases.
Patient has no known history of liver disease. No alcohol intake no family history of liver disease. Is unaware of ever having abnormal LFTs. Abdominal ultrasound shows nonspecific gallbladder wall thickening but otherwise normal-appearing liver
and no ductal dilatation. No known hepatitis risk factors.
He is comfortable in bed, answering appropriately and eating lunch.
No jaundice, no abdominal pain.
# The pattern of injury is majority AST in the setting of CK greater than 70,000. This is obviously rhabdomyolysis. Hepatocellular injury is majority ALT not AST. His bilirubin and alkaline phosphatase are completely normal. His ultrasound is
normal. Hepatitis panel is negative, Tylenol level is also negative but that would be a significantly elevated ALT. Normal coags. His urine is also brown and tea colored which is consistent.
--- Overall, rhabdomyolysis treatment per primary team and renal --muscle release is majority AST but also some ALT
-- Very rarely will patient develop DIC and would keep an eye on PT PTT, fibrinogen
-- Bilirubin and GGT are not found in muscle which is why the bilirubin is normal
-- if the bilirubin or coags become abnormal, please call us back
will sign off, please call with questions or concerns.
Original Note:
Consultation
-
Date/Time Consultation Requested: 09/30/23 @ 11:15
Date/Time Consultation Performed: 09/30/23 @ 12:00
Requesting Provider: Dr. Nelson
Performing Provider: JOSE LUIS Palomo; Dr. Yanique Thompson
Reason for Consultation: Transaminitis, hepatocellular injury
Medical History
Chief Complaint / HPI
Chief Complaint: Altered Mental Status
History of Present Illness:
The pt is a 62 yo male with a PMH significant for seizures on phenobarbital, who presented to the ER after being found unresponsive with altered mental status. Admitting notes reports that he was found by his family disoriented, slumped over the
couch, and covered in feces. He was essentially obtunded initially upon evaluation and history was obtained from his family. Upon admission he underwent workup for change in mental status with negative brain CT imaging. Chest x-ray showed
atelectasis but no overt signs of pneumonia. He has significant abnormalities of his labs including WBC of 19.2, BUN 31, creatinine 1.9, AST 1072, ALT 198, total bilirubin 0.8, alk phos 133, CPK 74,353. He is suspected to have rhabdomyolysis and
was started on IV fluids. Neurology was consulted given his history of seizures. He underwent an MRI of the brain which showed no acute abnormality but noted a 2.3 cm lesion at the junction of the right zygomatic arch and maxilla favored to
represent an osteoma. His urinalysis did show signs for possible infection and urine culture is pending. Blood cultures were sent which are negative to date. Due to his abnormal LFTs, he underwent an ultrasound of the abdomen with Doppler which
showed nonspecific focal gallbladder wall thickening with no additional findings to suggest acute cholecystitis. The liver appeared normal in size with normal echogenicity. There is no evidence of intrahepatic or extrahepatic biliary ductal
dilation. There is also minimal ascites about the liver. He is being evaluated by nephrology and neurology. The patient denies any history of liver disease. He denies any history of hepatitis or IV drug use. He denies any high risk behaviors.
He denies any changes in medications. He does not recall the events leading up to his hospitalization but reports he was feeling well prior to this. He denies any significant use of Tylenol or NSAIDs. He denies further denies any abdominal pain,
nausea, vomiting, dysphagia, odynophagia, fevers, chills, change of bowel habits, melena, hematochezia, hematemesis, weight loss, or loss of appetite. He has no significant family history for GI cancers or disorders. He denies any alcohol use. He
denies any smoking history. He continues on IV fluids for rhabdomyolysis. He is pending a renal ultrasound today. He was placed on antibiotics with ceftriaxone and Flagyl for possible UTI versus other abdominal etiology. He has never had an EGD
or colonoscopy.
Past Medical History
Past Medical History: Seizures
Past Surgical History: None
Social History
Tobacco: Non-Smoker
Alcohol: None
Drug: None
Living: With Family
Family History
Family History: Reviewed & Not Pertinent
Allergies / Home Medications
Allergy/AdvReac Type Severity Reaction Status Date / Time
No Known Allergies Allergy Unverified 09/29/23 08:56
�Medication �Instructions �Recorded
phenobarbital 64.8 mg tablet 194.4 mg PO DAILY 09/29/23
Review of Systems
-
History Source: Patient
Constitutional: Reports No Symptoms
EENT: Reports No Symptoms
Respiratory: Reports No Symptoms
Cardiac: Reports No Symptoms
Abdomen/GI: Reports No Symptoms
: Reports No Symptoms
Musculoskeletal: Reports No Symptoms
Skin: Reports No Symptoms
Neurological: Reports No Symptoms
Vital Signs
Temp Pulse Resp BP Pulse Ox
98.3 F 61 21 142/81 96
09/30/23 11:41 09/30/23 10:38 09/30/23 10:38 09/30/23 10:38 09/30/23 10:38
Physical Exam
Exam
General: Well Developed, Well Nourished, No Apparent Distress and Comfortable
HEENT: Normocephalic, Anicteric and Atraumatic
Respiratory: Clear
Cardiac: S1/S2 and Regular Rhythm
Breast: N/A
GI: Soft, Non Tender, Non Distended and Normal Bowel Sounds
Musculoskeletal: No Edema
Skin: Warm and Dry
Neuro: Awake, Alert and Oriented
Psych: Calm
Results
WBC 15.8 10^3/uL (4.8-10.8) H 09/30/23 04:00
Hgb 12.2 g/dL (13.0-18.0) L 09/30/23 04:00
Hct 36.4 % (39.0-52.0) L 09/30/23 04:00
MCV 86.1 fL (80.0-94.0) 09/30/23 04:00
Plt Count 174 10^3/uL (130-400) D 09/30/23 04:00
Absolute Neuts (auto) 17.3 10^3/uL (1.4-6.5) H 09/29/23 08:35
PT 14.6 Sec (11.4-14.6) 09/29/23 08:35
INR 1.14 09/29/23 08:35
APTT 28.7 Sec (23.4-35.0) 09/29/23 08:35
Sodium 139 mmol/L (135-145) 09/30/23 04:00
Potassium 4.1 mmol/L (3.5-5.1) 09/30/23 04:00
Chloride 111 mmol/L (98-107) H 09/30/23 04:00
Carbon Dioxide 20 mmol/L (22-30) L 09/30/23 04:00
BUN 43 mg/dl (9-20) H 09/30/23 04:00
Creatinine 3.6 mg/dL (0.7-1.3) H 09/30/23 04:00
Calcium 7.3 mg/dl (8.4-10.2) L D 09/30/23 04:00
Total Bilirubin 0.5 mg/dl (0.2-1.3) 09/30/23 04:00
AST 1142 U/L (17-59) H* 09/30/23 04:00
ALT 295 U/L (0-50) H 09/30/23 04:00
Alkaline Phosphatase 99 U/L (38-126) 07/09/24 04:00
Diagnostic Image Results:
09/29/23 CT Head: IMPRESSION: Mildly limited study as a result of motion artifact. No acute intracranial abnormality.
09/29/23 CXR: IMPRESSION: Low lung volumes. Minor bibasilar opacity most likely representing subsegmental atelectasis.
09/29/23 US doppler abdomen: Nonspecific focal gallbladder wall thickening. No additional findings to suggest acute cholecystitis. Clinical and laboratory correlation recommended. Minimal ascites about the liver.
09/30/23 Brain MRI: 1. No acute intracranial abnormality. 2. 2.3 cm lesion at the junction of the right zygomatic arch and maxilla favored to represent an osteoma. Imaging follow-up can be performed to confirm stability.
Prior GI Procedures:
EGD: none
Colonoscopy: none
Assessment / Plan
-
The pt is a 62 yo male with a PMH significant for seizures on phenobarbital, who presented to the ER after being found unresponsive with altered mental status, found to have rhabdomyolysis with significant JEFERSON and transaminitis. Has also had
intermittent episodes of hypotension as well. His LFT pattern is consistent with rhabdomyolysis. He denies any history of liver disease. He denies alcohol use. He denies any new medications. He has had worsening renal function with nephrology
following. Ultrasound Doppler imaging of the abdomen did not reveal any liver or biliary etiology.
Problem list:
-Altered mental status, improved
-Rhabdomyolysis
-Abnormal LFTs, AST greater than ALT pattern
-JEFERSON
-History of seizures on phenobarbital
-Possible UTI
-Leukocytosis, possibly reactive versus infectious etiology
Recommendations:
-Etiology of abnormal LFTs likely secondary to rhabdomyolysis versus low flow state given intermittent hypotension versus other. With primarily hepatocellular pattern
--- He has had normal Doppler imaging of the abdomen with no liver or biliary etiology. His LFT pattern with AST significant greater than ALT is consistent with rhabdo. CPK is over 70,000 but trending down.
-At this time recommend to trend LFTs
-Will add hepatitis serologies along and a Tylenol level although I do not anticipate this will be positive
-Would avoid hepatotoxic medications
-Nephrology and neurology are following
-Further management as per hospitalist
-No further recommendations at this time, but can monitor in the periphery and reevaluate if his LFTs are not improving
-
-
Thank you for consultation and allowing me to participate in the patient's care. Please call the front end developer javascript html css GI physician during the after hours with any questions or concerns.
[2023-09-30] MEDS: LOTRIMIN 1% CREAM 1 APPLIC TOPICAL ×2 (12:00→20:25)
[2023-09-30 14:46] LABS: Acetaminophen < 10 ug/ml (10-30)
--- NOTE | 2023-09-30 14:49 | PTCARENOTE ---
Assumed care of patient at beginning of this shift from previous RN. Patient able to say that he is in the hospital, but said [place] instead of [place]. He is able to give the year but forgetful to month. He was able to give his birthday
without difficulty. NIHSS = 3; no aphasia noted. Patient tolerating his diet. Patient's sister was in to visit and asked for basin in case patient became sick. This nurse went in to assess and patient stated he was not nauseous. MRI brain, Vascular
carotids and renal US completed. See worklist for full assessment and vital signs; see MAR for med administration.
[2023-09-30 16:04] LABS: Hepatitis B Surface Antigen Negative (Negative)
[2023-09-30 16:21] LABS: Hepatitis B Surface Antibody Negative; Hepatitis C Antibody Negative (Negative)
--- NOTE | 2023-09-30 17:25 | CM ---
Patient with Dx Altered mental status, seizure, JEFERSON, Rhabdomyolysis. Room air. Receiving IVF, IV Abx.
Met with patient and his sister Tawny;
the patient resides with his sister Martha and brother in law in a split level house with 6 [address] & 4 stairs to bedroom/bath.
The patient has been independent in ADLs and ambulation.
He was active and working however does not drive - he uses his bicycle to go to work or stores.
The patient has no DME, prior VN or SNF.
PCP - Isidro Pa
Pharmacy - [facility]
The patient has 4 sisters.
CM will follow patient for d/c needs.
Plan home.
[2023-09-30] MEDS: STERILE WATER FOR INJECTION 10 ML IV (17:34)
[2023-09-30] MEDS: ROCEPHIN 1000 MG IV (17:34)
[2023-09-30 17:54] LABS: Hepatitis A Antibody, Total Negative (Negative)
[2023-09-30] MEDS: NSS IV (20:26)
[2023-10-01] VITALS (20 sets, daily range): BP systolic 122–166; BP diastolic 69–82; BMI 31.3
[2023-10-01] MEDS: NSS 1000 IV ×2 (00:33→04:46)
[2023-10-01 04:21] LABS: Hematocrit 35.1 % (39.0-52.0); Hemoglobin 11.8 g/dL (13.0-18.0); Mean Corpuscular Volume 85.8 fL (80.0-94.0); Red Blood Cell Count 4.09 10^6/uL (4.70-6.10); White Blood Cell Count 15.5 10^3/uL (4.8-10.8)
[2023-10-01 04:22] LABS: Mean Corp Hgb Conc. 33.6 g/dL (33.0-37.0); Mean Corpuscular Hgb 28.9 pg (27.0-31.0); Mean Platelet Volume 10.8 fL (7.4-10.4); Platelet Count 165 10^3/uL (130-400); Red Cell Dist. Width 12.9 % (11.5-14.5)
[2023-10-01 04:41] LABS: INR 1.23; PT 15.3 Sec (11.4-14.6)
[2023-10-01 04:49] LABS: ALT (SGPT) 233 U/L (0-50); AST (SGOT) 449 U/L (17-59); Albumin 2.7 g/dl (3.5-5.0); Alkaline Phosphatase 89 U/L (38-126); Blood Urea Nitrogen 52 mg/dl (9-20); Calcium 7.3 mg/dl (8.4-10.2); Carbon Dioxide 15 mmol/L (22-30); Chloride 115 mmol/L (98-107); Estimated Creatinine Clearance 16 ml/min; Glucose 127 mg/dl (70-99); Potassium 4.3 mmol/L (3.5-5.1); Sodium 139 mmol/L (135-145); Total Bilirubin 0.3 mg/dl (0.2-1.3); Total Protein 4.8 g/dl (6.3-8.2); eGFR 10.18
[2023-10-01 05:39] LABS: Creatine Phosphokinase 29148 U/L (55-170)
--- NOTE | 2023-10-01 07:12 | W.PN.HOSP.TC ---
Addendum entered and electronically signed by Alvarez Nelson MD 10/01/23 13:09:
I saw and evaluated the patient. I reviewed the resident�s note and agree with findings and plan as documented in the resident�s note.
Gen: NAD, AAOx3.
Eyes: EOMI, PERRLA, no scleral icterus.
Neck: supple.
CV: seble, reg rhythm, +S1/S2, no m/r/g.
Resp: CTAB, no rales, wheezes, or rhonchi.
Abd: +BS, soft, NT, ND
Skin: No rashes.
Neuro: CN 2-12 intact, non-focal.
Psych: Normal mood and affect.
CXR: Low lung volumes. Minor bibasilar opacity most likely representing subsegmental atelectasis.
Abd U/S: Nonspecific focal gallbladder wall thickening. No additional findings to suggest acute cholecystitis. Clinical and laboratory correlation recommended. Minimal ascites about the liver.
Renal U/S: No evidence for pelvicalyceal dilation of either kidney. There appears to be a small amount of fluid surrounding each kidney. Suggestion of increased echogenicity of renal parenchyma bilaterally, a nonspecific finding suggesting medical
renal disease.
MRI brain:
1. No acute intracranial abnormality.
2. 2.3 cm lesion at the junction of the right zygomatic arch and maxilla favored to represent an osteoma. Imaging follow-up can be performed to confirm stability.
Acute metabolic encephalopathy due to acute seizure activity and postictal state as well as JEFERSON/rhabdo:
-Case discussed with neurology
-Patient was on phenobarbital prior to admission and missed a couple days of dosing. He is now on Depakote, continue.
Acute kidney injury due to rhabdomyolysis due to acute seizure activity:
-Creatinine continues to worsen
-renal U/S with medical renal disease
-case discussed with nephrology, will start HD
Low grade temperature:
-100.2 �F was not a fever. Leukocytosis likely reactive. Suspect chest x-ray findings due to subsegmental atelectasis.
-Urine culture no growth, blood cultures no growth to date
-Stop antibiotics
Transaminitis:
-due to rhabdomyolysis
-Unremarkable abdominal ultrasound
-Hepatocellular injury has been ruled out
-Improving
-Appreciate GI
Total time spent on today's encounter was 51 minutes which included time spent in counseling the patient/family regarding diagnosis and treatment plan as listed above, goals of care, and symptom management. Case was discussed with nursing staff,
specialists, and care coordinators/case management. All labs and imaging personally reviewed by me. Remainder the time spent in detailed review of previous records, lab data, imaging, and other medical provider documentation.
Original Note:
Today's Communication/Plan
-
IV fluids, hemodialysis
Assessment / Plan
Assessment / Plan
IMPRESSION: 62 year old male with history of seizure, who presented with altered mental status
PLAN:
Altered mental status:
Likely prolonged postictal state vs TME
Confused on arrival, with expressive aphasia. Appears at baseline mental status
CT head 09/28: No acute intracranial abnormality
ECG: Normal
EEG: suggestive of a generalized cortical disruption which was non-epileptiform
Speech therapy evaluation - no aspiration
MRI: No acute intracranial abnormality: Negative for flow-limiting carotid stenosis
Now on Lacosamide for seizure per neurology
-Neurochecks, seizure precautions
-Appreciate neuro input
JEFERSON:
Likely secondary to rhabdo. Creatinine 1.9 on arrival, worsenin.9
Oliguria: 125ml urine output in 24 hrs. 6.5kg Wt gain
-Continue generous IV fluids.
-Appreciate nephro input.
-Hemodialysis per nephro
-Continue to follow kidney function and urine output
Non-traumatic rhabdomyolysis:
Secondary to seizure. No known hx of trauma. No focal muscle tightness or tenderness
Improving. 29,148
-Aggressive IV fluids, hemodialysis
-Follow CPK level
Albuminuria:
Follow urinalysis
Transaminitis:
Likely secondary to rhabdomyolysis
AST 1072, ALT 178, INR 1.14, AST, ALT improving. Normal Bilirubin, acetaminophen wnl
-Hepatitis serology: negative
-abdominal US: Nonspecific focal gallbladder wall thickening, minimal ascites.
Leukocytosis:
Likely rhabdomyolysis
Concern for aspiration from seizure. CXR: Low lung volumes, Minor bibasilar opacity most likely representing subsegmental atelectasis.
Urinalysis unremarkable. Urine culture: no growth.
Blood cultures: Normal
- Normal lung exam, no symptoms. Discontinue Metronidazole and ceftriaxone
DVT prophylaxis: Lovenox
Code Status: Full Code
Anticipated Discharge: > 48 hours
Subjective/Interval History
-
Date of Service: October 01, 2023
Objective Data
-
Labs:
Laboratory Results
10/01/23
04:12
WBC 15.5 H
Hgb 11.8 L
Hct 35.1 L
Plt Count 165
PT 15.3 H
INR 1.23
Sodium 139
Potassium 4.3
Chloride 115 H
Carbon Dioxide 15 L
BUN 52 H
Creatinine 5.9 H*
Glucose 127 H
Calcium 7.3 L
Total Bilirubin 0.3
AST 449 H
ALT 233 H
Alkaline Phosphatase 89
Vital Signs:
Vital Signs
Temp Pulse Resp BP Pulse Ox
98.6 F 48 21 135/70 98
10/01/23 03:50 10/01/23 06:00 10/01/23 06:00 10/01/23 06:00 10/01/23 06:00
I&O
09/30/23 10/01/23 10/02/23
06:59 06:59 06:59
Intake Total 3000 / 3000 3690 / 3690
Output Total 125 / 125
Balance 3000 / 3000 3565 / 3565
Review of Systems
-
History Source: Patient
Constitutional: Denies Fever
Respiratory: Denies No Symptoms, Cough or Trouble Breathing
Cardiac: Denies Chest Pain
Abdomen/GI: Denies Abdominal Pain, Nausea or Vomiting
Physical Exam
-
General: Well Developed and Well Nourished
HEENT: Moist Mucous Membranes
Respiratory: Clear to Auscultation and Non Labored Respirations; Negative Wheezes, Rales, Rhonchi or Crackles
Cardiac: Regular Rhythm and S1/S2; Negative Murmur or Rub
GI: Soft, Nontender, Normal Bowel Sounds and Distended
Musculoskeletal: No Clubbing, No Cyanosis, Edema, Right Lower Extrem and Edema, Left Lower Extrem
Skin: Warm and Dry
Neuro: Awake, Alert and Oriented
Psych: Calm
[2023-10-01] MEDS: VITAMIN B1 100 MG PO (07:51)
[2023-10-01] MEDS: LOTRIMIN 1% CREAM 1 APPLIC TOPICAL ×2 (07:51→21:12)
[2023-10-01] MEDS: VIMPAT 50 MG PO ×2 (07:51→21:10)
[2023-10-01] MEDS: FLAGYL 500 MG PO (07:51)
--- NOTE | 2023-10-01 08:03 | W.PN.NEPH.PH ---
Today's Communication / Plan
-
For temporary dialysis catheter and dialysis today
IV fluids discontinued as patient becoming anuricwith positive I's and O's balance
Assessment/Plan
-
Assessment
Seizure/epilepsy
Rhabdomyolysis
Metabolic acidosis
Elevated liver function tests
acute kidney injury
Low-grade fever
Oliguria
Plan
IV fluids off as patient uop now decreasing
JEFERSON worsening to 5.9, essentially anuric overnight
Metabolic acidosis worsening
CPK levels down to 29,000 from 70,000
We will initiate dialysis today
IR consulted for temporary dialysis catheter placed
Follow BMP
Follow LFTs
Follow CPK
Patient is at high clinical risk with worsening renal failure in need of acute dialysis
-
-
Date of Service: October 01, 2023
CC / HPI / ROS
-
Chief Complaint:
Acute renal failure
History of Present Illness:
Acute renal failure worsened
Metabolic acidosis persist
Hemodynamically stable
Review of Systems
No chest pain or shortness of breath
Anuric
Labs
-
Labs:
WBC 15.5 10^3/uL (4.8-10.8) H 10/01/23 04:12
RBC 4.09 10^6/uL (4.70-6.10) L 10/01/23 04:12
Hgb 11.8 g/dL (13.0-18.0) L 10/01/23 04:12
Hct 35.1 % (39.0-52.0) L 10/01/23 04:12
Plt Count 165 10^3/uL (130-400) 10/01/23 04:12
Sodium 139 mmol/L (135-145) 10/01/23 04:12
Potassium 4.3 mmol/L (3.5-5.1) 10/01/23 04:12
Chloride 115 mmol/L (98-107) H 10/01/23 04:12
Carbon Dioxide 15 mmol/L (22-30) L 10/01/23 04:12
BUN 52 mg/dl (9-20) H 10/01/23 04:12
Creatinine 5.9 mg/dL (0.7-1.3) H* 10/01/23 04:12
eGFR 10.18 10/01/23 04:12
Glucose 127 mg/dl (70-99) H 10/01/23 04:12
Calcium 7.3 mg/dl (8.4-10.2) L 10/01/23 04:12
Albumin 2.7 g/dl (3.5-5.0) L 10/01/23 04:12
Physical Exam
-
Vital Signs:
Vital Signs
Temp Pulse Resp BP Pulse Ox
98.6 F 48 21 135/70 98
10/01/23 03:50 10/01/23 06:00 10/01/23 06:00 10/01/23 06:00 10/01/23 06:00
Cardiovascular:: Regular rate and rhythm
Respiratory:: Bilateral: CTA
Lung Excursion:: Normal
Abdomen:: Nontender and Soft
Bowel Sounds:: Normal
Extremity Edema:: None: Bilateral:
Sanchez Catheter: Yes
[2023-10-01] MEDS: HEPARIN 5000 UNITS SC ×2 (08:25→21:10)
[2023-10-01] MEDS: ASPIR LOW (ENTERIC COATED) 81 MG PO (08:25)
[2023-10-01] MEDS: NSS IV (08:30)
[2023-10-01 10:50] LABS: Magnesium 2.2 mg/dl (1.6-2.3); Phosphorus 4.8 mg/dl (2.5-4.5)
--- NOTE | 2023-10-01 14:56 | W.PN.NEPH.HD ---
Assessment
-
Patient seen on hemodialysis
Dialysis via IJ temporary catheter
UF 1 kg
systolic blood pressure stable at 145
Mannitol x 2
HD again tomorrow
Progress Note - Hemodialysis
-
Date of Service: October 01, 2023
Duration: 15 minutes and 2 hours
Potassium Bath: 2
Calcium Bath: 2.5
Opti-Dialyzer: 160
Ultrafiltration: Other (.5kg-1kg)
Blood Flow: 200
Dialysate Flow: 600
Heparin: none
EPO: none
[2023-10-01] MEDS: MANNITOL 25% 12.5 GRAMS IV ×2 (15:00→16:04)
--- NOTE | 2023-10-01 15:34 | PTCARENOTE ---
Assumed care of patient at beginning of this shift from previous RN. Patient awake, alert, talkative; he knows he is in the hospital but states, '[place]' instead of [place]. Dr Nelson, Dr Maldonado and Dr Mckeon all made aware of patient's weight
gain (up approx 14lbs since yesterday) and Cr 5.9 (up from 3.6 yesterday). Patient ordered HD (currently receiving tx) after temp R IJ HD cath placed in IR. NIHSS =2. See worklist for full assessment and vital signs, see MAR for med administration.
[2023-10-01] MEDS: HEPARIN 2200 UNITS INTRACATH (16:50)
--- NOTE | 2023-10-01 19:30 | PTCARENOTE ---
Patient to be transferred to [address] [place] [address]; report given to
--- NOTE | 2023-10-01 20:58 | W.PN.NEURO.1 ---
Today's Communication / Plan
-
Pat to proceed with dialysis
Neuro Assessment/Plan
Assessment
62 yr. old male admitted with breakthrough seizure and rhabdomyolysis with acute renal failure
Plan
Continue Vimpat
Start Dialysis
Subjective/Objective
Subjective Data
Date of Service: October 01, 2023
Pat doing well has had no seizures. Oriented x 3. Speech fluent. No difficulty swallowing. No weakness or numbness. Able to sit stand without issues States that he has not urinated in the last 2 days, but he is not concerned
Objective Data
Vital Signs
Temp Pulse Resp BP Pulse Ox
37.1 C 57 16 150/81 97
10/01/23 20:16 10/01/23 20:16 10/01/23 20:16 10/01/23 20:16 10/01/23 20:16
Lab Results
10/01/23 04:12
10/01/23 04:12
PT 15.3 Sec (11.4-14.6) H 10/01/23 04:12
INR 1.23 10/01/23 04:12
APTT 28.7 Sec (23.4-35.0) 09/29/23 08:35
Sodium 139 mmol/L (135-145) 10/01/23 04:12
Potassium 4.3 mmol/L (3.5-5.1) 10/01/23 04:12
BUN 52 mg/dl (9-20) H 10/01/23 04:12
Glucose 127 mg/dl (70-99) H 10/01/23 04:12
Calcium 7.3 mg/dl (8.4-10.2) L 10/01/23 04:12
Phosphorus Cancelled 10/01/23 08:24
Vitamin B12 248 pg/ml (239-931) 09/30/23 04:00
Ur Buprenorphine Cancelled 09/29/23 10:19
Ur Buprenorphine Negative (Negative) 09/29/23 10:19
Patient Allergies
No Known Allergies Allergy (Unverified 09/29/23 08:56)
Review of Systems
-
History Source: Patient
Constitutional: Weight Gain
Cardiac: No Symptoms
Abdomen/GI: No Symptoms
Genitourinary: Other (No urine output)
Musculoskeletal: No Symptoms
Skin: No Symptoms
Neuro: No Symptoms
Endocrine: No Symptoms
Hematologic / Lymphatic: No Symptoms
Allergy / Immunology: No Symptoms
Physical Exam
-
General: Well Developed, Well Nourished, No Apparent Distress and Comfortable
Eyes: Unremarkable
HEENT: Normocephalic, Atraumatic, Anicteric and Moist Mucous Membranes
Neck: No Bruits Bilaterally and Full Range of Motion
Respiratory: Clear to Auscultation
Cardiac: Regular Rhythm
GI: Normal Bowel Sounds
Skin: Unremarkable
Extremities: No Clubbing, No Cyanosis and Edema +1
Psych: Unremarkable
Extended Neurological Exam
Mood & Affect: Mood Unremarkable
Attention Span & Concentration: Awake, Alert, Interactive and No Difficulty with 2 Step Request
Memory: Unremarkable and Able to Recall
Tremor: Hand Tremor Absent and Head Tremor Absent
Involuntary Movement: None
Speech: Quality Unremarkable and Quantity Unremarkable
Cranial Nerve II: Left Eye: Pupillary Reactivity Unremarkable, Pupillary Size Unremarkable and Visual Benjamin Grossly Intact
Cranial Nerve II: Right Eye: Pupillary Reactivity Unremarkable, Pupillary Size Unremarkable and Visual Benjamin Grossly Intact
Cranial Nerves III, IV, : Extraocular Movement: Extraocular Movement Full in all Directions
Cranial Nerve V: Facial Sensation: Facial Sensation Unremarkable to Cold, Intact to Pin Prick and Intact to Light Touch
Cranial Nerve VII: Facial Symmetry: Normal Facial Symmetry
Cranial Nerve VIII: Hearing: Unremarkable Hearing to Normal Conversational Volume
Cranial Nerves IX, X: Palate Movement: Palate Elevation Symmetric
Cranial Nerve XI: Shoulder Shrug: Unremarkable
Cranial Nerve XII: Tongue Protusion: Midline
Muscle Strength, Overall: Full Throughout
Muscle Bulk & Tone: Bulk Unremarkable
Pronator Drift: No Drift in Upper Extremities
Deep Tendon Reflexes: Trace Throughout
Cold Sensation: Unremarkable
Vibration Sensation: Unremarkable
Touch Sensation: Unremarkable
Coordination: [id number]-qrcxxq Testing Unremarkable and Reaches for Objects without Difficulty
Babinski Sign: Absent Bilaterally
Modified Robel Score (MRS)
-
Modified Rockwall Scale (mRS): No significant disability. Able to carry out usual activities.
Score: 1
Data Reviewed
-
Medical Test Reports: Report Reviewed
Labs: Report Reviewed
Reviewed with: Physician and Nurse
[2023-10-02] VITALS (7 sets, daily range): BP systolic 148–161; BP diastolic 72–87; BMI 31.0
[2023-10-02 06:22] LABS: Hemoglobin 11.9 g/dL (13.0-18.0); Mean Corpuscular Hgb 28.8 pg (27.0-31.0); Mean Corpuscular Volume 84.7 fL (80.0-94.0); Platelet Count 167 10^3/uL (130-400); Red Blood Cell Count 4.13 10^6/uL (4.70-6.10); Red Cell Dist. Width 12.8 % (11.5-14.5); White Blood Cell Count 11.9 10^3/uL (4.8-10.8)
[2023-10-02 06:32] LABS: INR 1.19; PT 15.2 Sec (11.4-14.6)
[2023-10-02 06:59] LABS: ALT (SGPT) 207 U/L (0-50); AST (SGOT) 255 U/L (17-59); Albumin 2.9 g/dl (3.5-5.0); Alkaline Phosphatase 87 U/L (38-126); Blood Urea Nitrogen 50 mg/dl (9-20); Calcium 7.5 mg/dl (8.4-10.2); Carbon Dioxide 17 mmol/L (22-30); Chloride 108 mmol/L (98-107); Estimated Creatinine Clearance 15 ml/min; Glucose 88 mg/dl (70-99); Potassium 4.2 mmol/L (3.5-5.1); Sodium 135 mmol/L (135-145); Total Bilirubin 0.5 mg/dl (0.2-1.3); Total Protein 4.9 g/dl (6.3-8.2); eGFR 9.06
[2023-10-02 07:09] LABS: Creatine Phosphokinase 12752 U/L (55-170)
--- NOTE | 2023-10-02 08:43 | W.PN.HOSP.TC ---
Addendum entered and electronically signed by Alvarez Nelson MD 10/02/23 10:52:
I saw and evaluated the patient. I reviewed the resident�s note and agree with findings and plan as documented in the resident�s note.
Gen: NAD, AAOx3.
Eyes: EOMI, PERRLA, no scleral icterus.
Neck: supple.
CV: RRR, +S1/S2, no m/r/g.
Resp: remains CTAB, no rales, wheezes, or rhonchi.
Abd: remains +BS, soft, NT, ND
Skin: No rashes.
Neuro: CN 2-12 intact, non-focal.
Psych: Normal mood and affect.
CXR: Low lung volumes. Minor bibasilar opacity most likely representing subsegmental atelectasis.
Abd U/S: Nonspecific focal gallbladder wall thickening. No additional findings to suggest acute cholecystitis. Clinical and laboratory correlation recommended. Minimal ascites about the liver.
Renal U/S: No evidence for pelvicalyceal dilation of either kidney. There appears to be a small amount of fluid surrounding each kidney. Suggestion of increased echogenicity of renal parenchyma bilaterally, a nonspecific finding suggesting medical
renal disease.
MRI brain:
1. No acute intracranial abnormality.
2. 2.3 cm lesion at the junction of the right zygomatic arch and maxilla favored to represent an osteoma. Imaging follow-up can be performed to confirm stability.
Acute metabolic encephalopathy due to acute seizure activity and postictal state as well as JEFERSON/rhabdo:
-Patient was on phenobarbital prior to admission and missed a couple days of dosing. He is now on vimpat, continue.
Acute kidney injury due to rhabdomyolysis due to acute seizure activity:
-Creatinine continues to worsen
-renal U/S with medical renal disease
-started on HD
Low grade temperature:
-100.2 �F was not a fever. Leukocytosis likely reactive, improved. Suspect chest x-ray findings due to subsegmental atelectasis.
-Urine culture no growth, blood cultures no growth to date
-antibiotics have been stopped
Transaminitis:
-due to rhabdomyolysis
-Unremarkable abdominal ultrasound
-Hepatocellular injury has been ruled out
-Improving
Original Note:
Today's Communication/Plan
-
Dialysis
Assessment / Plan
Assessment / Plan
IMPRESSION: 62 year old male with history of seizure, who presented with altered mental status
PLAN:
Altered mental status:
Likely multifactorial: Prolonged postictal state + TME secondary to rhabdomyolysis/JEFERSON
Confused on arrival, with expressive aphasia. Appears at baseline mental status
CT head 09/28: No acute intracranial abnormality
ECG: Normal
EEG: suggestive of a generalized cortical disruption which was non-epileptiform
Speech therapy evaluation - no aspiration
MRI: No acute intracranial abnormality: Negative for flow-limiting carotid stenosis
Now on Lacosamide for seizure per neurology
-Neurochecks, seizure precautions
-Appreciate neuro input
JEFERSON:
Likely secondary to rhabdo. Creatinine 1.9 on arrival, worsenin.5
Oliguria noted. on HD
-Appreciate nephro input.
-Hemodialysis per nephro today
-Continue to follow kidney function and urine output
Non-traumatic rhabdomyolysis:
Secondary to seizure. No known hx of trauma. No focal muscle tightness or tenderness
Improving. CPK 12,752
-hemodialysis
-Follow CPK level
Albuminuria:
Follow urinalysis
Transaminitis:
Secondary to rhabdomyolysis
AST 1072, ALT 178, INR 1.14, AST, ALT improving. Normal Bilirubin, acetaminophen wnl
-Hepatitis serology: negative
-abdominal US: Nonspecific focal gallbladder wall thickening, minimal ascites.
-Appreciate GI input
Leukocytosis:
Likely rhabdomyolysis
Concern for aspiration from seizure. CXR: Low lung volumes, Minor bibasilar opacity most likely representing subsegmental atelectasis.
Urinalysis unremarkable. Urine culture: no growth.
Blood cultures: Normal
- Normal lung exam, no symptoms. Discontinue Metronidazole and ceftriaxone
DVT prophylaxis: Lovenox
Code Status: Full Code
Anticipated Discharge: > 48 hours
Subjective/Interval History
-
Date of Service: October 02, 2023
NIH = 0
Objective Data
-
Labs:
Laboratory Results
10/02/23
05:37
WBC 11.9 H
Hgb 11.9 L
Hct 35.0 L
Plt Count 167
PT 15.2 H
INR 1.19
Sodium 135
Potassium 4.2
Chloride 108 H
Carbon Dioxide 17 L
BUN 50 H
Creatinine 6.5 H*
Glucose 88
Calcium 7.5 L
Total Bilirubin 0.5
AST 255 H
ALT 207 H
Alkaline Phosphatase 87
Vital Signs:
Vital Signs
Temp Pulse Resp BP Pulse Ox
98.7 F 62 16 161/83 99
10/02/23 07:25 10/02/23 07:25 10/02/23 07:25 10/02/23 07:25 10/02/23 07:25
I&O
10/01/23 10/02/23 10/03/23
06:59 06:59 06:59
Intake Total 3690 / 3690 240 / 240
Output Total 125 / 125 50 / 50
Balance 3565 / 3565 190 / 190
Review of Systems
-
History Source: Patient
Constitutional: Reports No Symptoms; Denies Fever or Fatigue
Respiratory: Reports No Symptoms; Denies Cough or Trouble Breathing
Cardiac: Reports No Symptoms; Denies Chest Pain or Palpitations
Abdomen/GI: Reports Constipated; Denies Abdominal Pain or Diarrhea
Breast: Reports No Symptoms
Genitourinary: Reports Other (anuria)
Neuro: Denies Dizzy or Headache
Physical Exam
-
General: No Apparent Distress and Comfortable
HEENT: Normocephalic, Atraumatic, Moist Mucous Membranes and Anicteric
Respiratory: Clear to Auscultation and Non Labored Respirations; Negative Wheezes, Rales, Rhonchi or Crackles
Cardiac: Regular Rhythm, S1/S2 and Bradycardic; Negative Murmur, Rub or Calf Tenderness
GI: Soft, Nontender, Nondistended and Normal Bowel Sounds
Musculoskeletal: No Clubbing, No Cyanosis, Edema, Right Lower Extrem (2+) and Edema, Left Lower Extrem (2+)
Skin: Warm, Dry and Rash
Neuro: Awake, Alert, Oriented, No Motor Deficits and No Sensory Deficits
Psych: Calm
--- NOTE | 2023-10-02 08:43 | W.PN.NEPH.HD ---
Assessment
-
Patient seen on hemodialysis in setting of acute kidney injury secondary to rhabdomyolysis
CPK levels down to ~12K
Urine output remains an uric via Sanchez
Creatinine rising to 6.5 despite first dialysis initiated on 10/01/2019
Mannitol held on dialysis due to hypertension
Will attempt 0.5 kg UF, systolic blood pressure currently at 160
Dialysis will be performed again tomorrow, orders provided
Progress Note - Hemodialysis
-
Date of Service: October 02, 2023
Duration: 30 minutes and 2 hours
Potassium Bath: 3
Calcium Bath: 2.5
Opti-Dialyzer: 160
Ultrafiltration: Other (.5kg)
Blood Flow: 250
Dialysate Flow: 600
Heparin: None
EPO: None
[2023-10-02] MEDS: VIMPAT PO (11:02)
[2023-10-02] MEDS: VIMPAT 100 MG PO ×2 (11:08→20:12)
[2023-10-02] MEDS: VITAMIN B1 100 MG PO (11:08)
[2023-10-02] MEDS: ASPIR LOW (ENTERIC COATED) 81 MG PO (11:08)
[2023-10-02] MEDS: HEPARIN 5000 UNITS SC ×2 (11:08→20:12)
[2023-10-02] MEDS: LOTRIMIN 1% CREAM 1 APPLIC TOPICAL ×2 (11:10→20:12)
--- NOTE | 2023-10-02 12:45 | W.PN.NEURO.1 ---
Today's Communication / Plan
-
Patient to proceed with dialysis
Vimpat dose increased to 100 mg twice daily
Neuro Assessment/Plan
Assessment
62 yr. old male admitted with breakthrough seizure and rhabdomyolysis with acute renal failure undergoing Hemodialysis
Plan
Continue Vimpat 100 mg twice daily
Continue Dialysis
Subjective/Objective
Subjective Data
Date of Service: October 02, 2023
No breakthrough seizures following admission. On Vimpat 50 mg twice daily. Patient has had no urine output...Patient tolerating hemodialysis. Day 2 of hemodialysis.
Objective Data
Vital Signs
Temp Pulse Resp BP Pulse Ox
36.7 C 59 16 149/80 96
10/02/23 11:40 10/02/23 11:40 10/02/23 11:40 10/02/23 11:40 10/02/23 11:40
Lab Results
10/02/23 05:37
10/02/23 05:37
PT 15.2 Sec (11.4-14.6) H 10/02/23 05:37
INR 1.19 10/02/23 05:37
APTT 28.7 Sec (23.4-35.0) 09/29/23 08:35
Sodium 135 mmol/L (135-145) 10/02/23 05:37
Potassium 4.2 mmol/L (3.5-5.1) 10/02/23 05:37
BUN 50 mg/dl (9-20) H 10/02/23 05:37
Glucose 88 mg/dl (70-99) 10/02/23 05:37
Calcium 7.5 mg/dl (8.4-10.2) L 10/02/23 05:37
Phosphorus Cancelled 10/01/23 08:24
Vitamin B12 248 pg/ml (239-931) 09/30/23 04:00
Ur Buprenorphine Cancelled 09/29/23 10:19
Ur Buprenorphine Negative (Negative) 09/29/23 10:19
Patient Allergies
No Known Allergies Allergy (Unverified 09/29/23 08:56)
Review of Systems
-
History Source: Patient
Constitutional: No Symptoms
EENT: No Symptoms Reported
Respiratory: No Symptoms
Cardiac: No Symptoms
Abdomen/GI: No Symptoms
Genitourinary: Other (No urinary output)
Musculoskeletal: No Symptoms
Skin: No Symptoms
Neuro: No Symptoms
Endocrine: No Symptoms
Hematologic / Lymphatic: No Symptoms
Allergy / Immunology: No Symptoms
Physical Exam
-
General: Well Developed, Well Nourished, No Apparent Distress and Comfortable
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
HEENT: Normocephalic, Atraumatic and Anicteric
Neck: No Bruits Bilaterally and Full Range of Motion
Respiratory: Clear to Auscultation
Cardiac: Regular Rhythm
GI: Normal Bowel Sounds
Skin: Unremarkable
Extremities: No Clubbing
Psych: Unremarkable
Extended Neurological Exam
Mood & Affect: Mood Unremarkable and Affect Unremarkable
Attention Span & Concentration: Awake, Alert, Interactive and No Difficulty with 2 Step Request
Memory: Unremarkable and Able to Recall
Tremor: Hand Tremor Absent and Head Tremor Absent
Involuntary Movement: None
Speech: Quality Unremarkable, Quantity Unremarkable and Rate of Production Unremarkable
Cranial Nerve II: Left Eye: Pupillary Reactivity Unremarkable, Pupillary Size Unremarkable and Visual Benjamin Grossly Intact
Cranial Nerve II: Right Eye: Pupillary Reactivity Unremarkable, Pupillary Size Unremarkable and Visual Benjamin Grossly Intact
Cranial Nerves III, IV, : Extraocular Movement: Extraocular Movement Left (Left eye esotropia since childhood)
Cranial Nerve V: Facial Sensation: Facial Sensation Unremarkable to Cold, Intact to Pin Prick and Intact to Light Touch
Cranial Nerve VII: Facial Symmetry: Normal Facial Symmetry
Cranial Nerve VIII: Hearing: Unremarkable Hearing to Normal Conversational Volume
Cranial Nerves IX, X: Palate Movement: Palate Elevation Symmetric
Cranial Nerve XI: Shoulder Shrug: Unremarkable
Cranial Nerve XII: Tongue Protusion: Midline
Muscle Strength, Overall: Full Throughout
Muscle Bulk & Tone: Bulk Unremarkable and Tone Unremarkable
Pronator Drift: No Drift in Upper Extremities and No Drift in Lower Extremities
Deep Tendon Reflexes: Trace Throughout
Cold Sensation: Unremarkable
Vibration Sensation: Unremarkable
Touch Sensation: Unremarkable
Coordination: [id number] Testing Unremarkable
Babinski Sign: Absent Bilaterally
Gait & Station: Unremarkable Arm Swing
Data Reviewed
-
Total Time Spent with Patient (in minutes): CPK has decreased from 29,148 to12,750. Liver enzymes levels improving
--- NOTE | 2023-10-02 15:03 | CM ---
Reviewed the chart notes patient and his sister Leanne at the bedside. Patient received HD today and plan is for HD tomorrow. Patient will need PT/OT evaluation for discharge planning purposes. CM continues to be available to patient/family and is
monitoring medical plan for needs at discharge.
Plan: Discharge plans will depend on the patient's progress.
[2023-10-02 19:05] LABS: Hepatitis B Core Ab, Total Negative (Negative)
[2023-10-03 03:28] VITALS: BP 144/78
[2023-10-03 06:00] VITALS: BMI 31.2
[2023-10-03 07:39] VITALS: BP 165/80
[2023-10-03] MEDS: VIMPAT 100 MG PO ×2 (08:22→19:41)
[2023-10-03] MEDS: ASPIR LOW (ENTERIC COATED) 81 MG PO (08:22)
[2023-10-03] MEDS: HEPARIN 5000 UNITS SC ×2 (08:23→19:41)
[2023-10-03] MEDS: LOTRIMIN 1% CREAM 1 APPLIC TOPICAL ×2 (08:24→19:42)
--- NOTE | 2023-10-03 08:40 | W.PN.HOSP.TC ---
Addendum entered and electronically signed by Alvarez Nelson MD 10/03/23 10:45:
I saw and evaluated the patient. I reviewed the resident�s note and agree with findings and plan as documented in the resident�s note.
Gen: NAD, Awake and alert
Eyes: EOMI, PERRLA, no scleral icterus.
Neck: supple.
CV: remains RRR, +S1/S2, no m/r/g.
Resp: Continues to remain CTAB, no rales, wheezes, or rhonchi.
Abd: Continues to remain +BS, soft, NT, ND
Skin: No rashes.
Neuro: CN 2-12 intact, non-focal.
Psych: Normal mood and affect.
CXR: Low lung volumes. Minor bibasilar opacity most likely representing subsegmental atelectasis.
Abd U/S: Nonspecific focal gallbladder wall thickening. No additional findings to suggest acute cholecystitis. Clinical and laboratory correlation recommended. Minimal ascites about the liver.
Renal U/S: No evidence for pelvicalyceal dilation of either kidney. There appears to be a small amount of fluid surrounding each kidney. Suggestion of increased echogenicity of renal parenchyma bilaterally, a nonspecific finding suggesting medical
renal disease.
MRI brain:
1. No acute intracranial abnormality.
2. 2.3 cm lesion at the junction of the right zygomatic arch and maxilla favored to represent an osteoma. Imaging follow-up can be performed to confirm stability.
Acute metabolic encephalopathy due to acute seizure activity and postictal state as well as JEFERSON/rhabdo:
-Patient was on phenobarbital prior to admission and missed a couple days of dosing. He is now on vimpat, continue.
Acute kidney injury due to rhabdomyolysis due to acute seizure activity:
-Creatinine was worsening
-renal U/S with medical renal disease
-started on HD which continued
Low grade temperature:
-100.2 �F was not a fever. Leukocytosis likely reactive, improved. Suspect chest x-ray findings due to subsegmental atelectasis.
-Urine culture no growth, blood cultures no growth to date
-antibiotics have been stopped
Transaminitis:
-due to rhabdomyolysis
-Unremarkable abdominal ultrasound
-Hepatocellular injury has been ruled out
Essential hypertension:
-start Procardia XL 30 mg daily
All AM labs pending
Discussed with renal and neurology.
Original Note:
Today's Communication/Plan
-
Hemodialysis
Assessment / Plan
Assessment / Plan
IMPRESSION: 62 year old male with history of seizure, who presented with altered mental status
PLAN:
Altered mental status:
Likely multifactorial: Prolonged postictal state + TME secondary to rhabdomyolysis/JEFERSON
Confused on arrival, with expressive aphasia. Appears at baseline mental status
CT head 09/28: No acute intracranial abnormality
ECG: Normal
EEG: suggestive of a generalized cortical disruption which was non-epileptiform
Speech therapy evaluation - no aspiration
MRI: No acute intracranial abnormality: Negative for flow-limiting carotid stenosis
Now on Lacosamide 100 BID for seizure per neurology
-Neurochecks, seizure precautions
-Appreciate neuro input
JEFERSON:
Likely secondary to rhabdo. Creatinine 1.9 on arrival, worsening. Chemistries pending
Anuria noted. on HD
-Appreciate nephro input.
-Hemodialysis per nephro today
-Continue to follow kidney function and urine output
Non-traumatic rhabdomyolysis:
Secondary to seizure. No known hx of trauma. No focal muscle tightness or tenderness
Improving.
-hemodialysis
-Follow CPK level
Albuminuria:
Follow urinalysis
Transaminitis:
Secondary to rhabdomyolysis
AST 1072, ALT 178, INR 1.14, AST, ALT improving. Normal Bilirubin, acetaminophen wnl
-Hepatitis serology: negative
-abdominal US: Nonspecific focal gallbladder wall thickening, minimal ascites.
-Appreciate GI input
Leukocytosis:
Likely rhabdomyolysis
There was concern for aspiration from seizure. Normal physical exam. CXR: Low lung volumes, Minor bibasilar opacity most likely representing subsegmental atelectasis.
Urinalysis unremarkable. Urine culture: no growth.
Blood cultures: Normal
- Normal lung exam, no symptoms. Abx discontinued
DVT prophylaxis: Lovenox
Code Status: Full Code
Anticipated Discharge: > 48 hours
Subjective/Interval History
-
Date of Service: October 03, 2023
Objective Data
-
Labs:
Laboratory Results
10/03/23
07:00
Sodium Pending
Potassium Pending
Chloride Pending
Carbon Dioxide Pending
BUN Pending
Creatinine Pending
Glucose Pending
Calcium Pending
Vital Signs:
Vital Signs
Temp Pulse Resp BP Pulse Ox
98.2 F 60 18 165/80 93
10/03/23 07:39 10/03/23 07:39 10/03/23 07:39 10/03/23 07:39 10/03/23 07:39
I&O
10/02/23 10/03/23 10/04/23
06:59 06:59 06:59
Intake Total 240 / 240 720 / 720
Output Total 50 / 50
Balance 190 / 190 720 / 720
Review of Systems
-
History Source: Patient
Constitutional: Reports No Symptoms; Denies Fever or Fatigue
Respiratory: Reports No Symptoms; Denies Cough or Trouble Breathing
Cardiac: Reports No Symptoms; Denies Chest Pain, Palpitations or Syncope
Abdomen/GI: Reports Constipated
Genitourinary: Reports Other (anuria)
Physical Exam
-
HEENT: Moist Mucous Membranes and Anicteric
Respiratory: Clear to Auscultation and Non Labored Respirations; Negative Wheezes, Rales, Rhonchi or Crackles
Cardiac: Regular Rhythm and S1/S2; Negative Murmur, Rub or Calf Tenderness
GI: Soft, Nontender, Nondistended and Normal Bowel Sounds
Musculoskeletal: No Clubbing, No Cyanosis, Edema, Right Lower Extrem (2+) and Edema, Left Lower Extrem (2+)
Skin: Warm and Dry
Neuro: Awake, Alert and Oriented
Psych: Calm
[2023-10-03 10:20] VITALS: BP 164/88
--- NOTE | 2023-10-03 10:54 | W.PN.NEURO.1 ---
Today's Communication / Plan
-
Continue Vimpat 100 mg BID
Continue HD
Neuro Assessment/Plan
Assessment
62 yr. old male admitted with breakthrough seizure and rhabdomyolysis with acute renal failure undergoing Hemodialysis worsening creatinine
Plan
Continue Vimpat 100 mg twice daily
Continue Dialysis
Daily labs
Subjective/Objective
Subjective Data
Date of Service: October 03, 2023
Patient continues to remain seizure-free on Vimpat. Completed 2 sessions of hemodialysis. No urine output
Objective Data
Vital Signs
Temp Pulse Resp BP Pulse Ox
36.3 C 56 18 164/88 95
10/03/23 10:20 10/03/23 10:20 10/03/23 10:20 10/03/23 10:20 10/03/23 10:20
Lab Results
10/02/23 05:37
PT 15.2 Sec (11.4-14.6) H 10/02/23 05:37
INR 1.19 10/02/23 05:37
APTT 28.7 Sec (23.4-35.0) 09/29/23 08:35
Sodium 135 mmol/L (135-145) 10/02/23 05:37
Potassium 4.2 mmol/L (3.5-5.1) 10/02/23 05:37
BUN 50 mg/dl (9-20) H 10/02/23 05:37
Glucose 88 mg/dl (70-99) 10/02/23 05:37
Calcium 7.5 mg/dl (8.4-10.2) L 10/02/23 05:37
Phosphorus Cancelled 10/01/23 08:24
Vitamin B12 248 pg/ml (239-931) 09/30/23 04:00
Ur Buprenorphine Cancelled 09/29/23 10:19
Ur Buprenorphine Negative (Negative) 09/29/23 10:19
Patient Allergies
No Known Allergies Allergy (Unverified 09/29/23 08:56)
Review of Systems
-
History Source: Patient
Constitutional: No Symptoms
EENT: No Symptoms Reported
Respiratory: No Symptoms
Cardiac: No Symptoms
Abdomen/GI: No Symptoms
Genitourinary: Difficulty Voiding
Musculoskeletal: No Symptoms
Skin: No Symptoms
Neuro: No Symptoms
Endocrine: No Symptoms
Hematologic / Lymphatic: No Symptoms
Allergy / Immunology: No Symptoms
Physical Exam
-
General: Well Developed, Well Nourished, No Apparent Distress and Comfortable
Eyes: Unremarkable, No Ptosis and PERRLA
HEENT: Normocephalic, Atraumatic, Anicteric and Unremarkable
Neck: No Bruits Bilaterally and Full Range of Motion
Respiratory: Clear to Auscultation
Cardiac: Regular Rhythm and No Murmur
GI: Normal Bowel Sounds
Skin: Unremarkable
Extremities: No Clubbing
Psych: Unremarkable
Extended Neurological Exam
Mood & Affect: Mood Unremarkable and Affect Unremarkable
Attention Span & Concentration: Awake, Alert, Interactive and No Difficulty with 2 Step Request
Memory: Unremarkable
Tremor: Hand Tremor Absent and Head Tremor Absent
Involuntary Movement: None
Speech: Quality Unremarkable, Quantity Unremarkable and Rate of Production Unremarkable
Cranial Nerve II: Left Eye: Pupillary Reactivity Unremarkable
Vital Signs and Labs
-
Vital Signs and Labs:
Vital Signs
Temp Pulse Resp BP Pulse Ox
37.3 C 75 17 147/83 95
10/03/23 19:15 10/03/23 19:15 10/03/23 19:15 10/03/23 19:15 10/03/23 19:15
Lab Results
10/02/23 05:37
10/03/23 10:46
PT 15.2 Sec (11.4-14.6) H 10/02/23 05:37
INR 1.19 10/02/23 05:37
APTT 28.7 Sec (23.4-35.0) 09/29/23 08:35
Sodium 137 mmol/L (135-145) 10/03/23 10:46
Potassium 5.2 mmol/L (3.5-5.1) H 10/03/23 10:46
BUN 54 mg/dl (9-20) H 10/03/23 10:46
Glucose 93 mg/dl (70-99) 10/03/23 10:46
Calcium 7.9 mg/dl (8.4-10.2) L 10/03/23 10:46
Phosphorus 5.7 mg/dl (2.5-4.5) H 10/03/23 10:46
Vitamin B12 248 pg/ml (239-931) 09/30/23 04:00
Ur Buprenorphine Cancelled 09/29/23 10:19
Ur Buprenorphine Negative (Negative) 09/29/23 10:19
[2023-10-03 11:30] LABS: ALT (SGPT) 194 U/L (0-50); AST (SGOT) 186 U/L (17-59); Albumin 3.3 g/dl (3.5-5.0); Alkaline Phosphatase 100 U/L (38-126); Blood Urea Nitrogen 54 mg/dl (9-20); Calcium 7.9 mg/dl (8.4-10.2); Carbon Dioxide 23 mmol/L (22-30); Chloride 103 mmol/L (98-107); Creatine Phosphokinase 4583 U/L (55-170); Direct Bilirubin 0.5 mg/dl (0.0-0.4); Estimated Creatinine Clearance 11 ml/min; Glucose 93 mg/dl (70-99); Magnesium 2.1 mg/dl (1.6-2.3); Phosphorus 5.7 mg/dl (2.5-4.5); Potassium 5.2 mmol/L (3.5-5.1); Sodium 137 mmol/L (135-145); Total Bilirubin 0.6 mg/dl (0.2-1.3); Total Protein 5.4 g/dl (6.3-8.2); eGFR 6.57
--- NOTE | 2023-10-03 11:32 | CM ---
Reviewed the chart notes. Patient scheduled to have HD today. CM continues to be available to patient/family and is monitoring medical plan for needs at discharge.
Plan: Discharge plans will depend on the patient's progress. If patient to continue with HD at discharge will need to set-up outpatient HD.
[2023-10-03] MEDS: SENOKOT 17.2 MG PO ×2 (11:38→19:41)
[2023-10-03] MEDS: PROCARDIA XL (EXTENDED RELEASE) 30 MG PO (11:38)
[2023-10-03] MEDS: MIRALAX 17 GRAMS PO (11:39)
--- NOTE | 2023-10-03 13:02 | W.PN.NEPH.HD ---
Assessment
-
Seen on HD. no complaints. VSS, access temp CVC
anuric still
Progress Note - Hemodialysis
-
Date of Service: October 03, 2023
Duration: 45 minutes and 2 hours
Potassium Bath: 3
Calcium Bath: 2.5
Opti-Dialyzer: 160
Ultrafiltration: Other (1kg)
Blood Flow: 400
Dialysate Flow: 600
Heparin: no
EPO: no
[2023-10-03] MEDS: HEPARIN 2100 UNITS INTRACATH (15:03)
[2023-10-03 15:32] VITALS: BP 161/70
[2023-10-03 19:15] VITALS: BP 147/83
[2023-10-03 23:31] VITALS: BP 150/73
[2023-10-04 03:59] VITALS: BP 154/79
[2023-10-04 07:40] VITALS: BP 155/81
[2023-10-04 07:42] LABS: Hematocrit 35.8 % (39.0-52.0); Hemoglobin 12.4 g/dL (13.0-18.0); Mean Corp Hgb Conc. 34.6 g/dL (33.0-37.0); Mean Corpuscular Hgb 29.6 pg (27.0-31.0); Mean Corpuscular Volume 85.4 fL (80.0-94.0); Mean Platelet Volume 11.6 fL (7.4-10.4); Platelet Count 164 10^3/uL (130-400); Red Blood Cell Count 4.19 10^6/uL (4.70-6.10); Red Cell Dist. Width 12.1 % (11.5-14.5); White Blood Cell Count 11.6 10^3/uL (4.8-10.8)
--- NOTE | 2023-10-04 07:57 | W.PN.HOSP.TC ---
Today's Communication/Plan
-
see bold
Assessment / Plan
Assessment / Plan
Gen: NAD, awake and alert
Eyes: EOMI, PERRLA, no scleral icterus.
Neck: supple.
CV: remains RRR, +S1/S2, no m/r/g.
Resp: remains CTAB, no rales, wheezes, or rhonchi.
Abd: +BS, soft, NT, ND
Skin: No rashes.
Neuro: CN 2-12 intact, non-focal.
Psych: Normal mood and affect.
09/29/23 11:42 Blood/Venous Blood Culture - Preliminary
No Growth in 4 days- Final report to follow
09/29/23 11:42 Blood/Venous Blood Culture - Preliminary
No Growth in 4 days- Final report to follow
09/29/23 10:19 Urine Urine Culture - Final
NO GROWTH
CXR: Low lung volumes. Minor bibasilar opacity most likely representing subsegmental atelectasis.
Abd U/S: Nonspecific focal gallbladder wall thickening. No additional findings to suggest acute cholecystitis. Clinical and laboratory correlation recommended. Minimal ascites about the liver.
Renal U/S: No evidence for pelvicalyceal dilation of either kidney. There appears to be a small amount of fluid surrounding each kidney. Suggestion of increased echogenicity of renal parenchyma bilaterally, a nonspecific finding suggesting medical
renal disease.
MRI brain:
1. No acute intracranial abnormality.
2. 2.3 cm lesion at the junction of the right zygomatic arch and maxilla favored to represent an osteoma. Imaging follow-up can be performed to confirm stability.
Acute metabolic encephalopathy due to acute seizure activity and postictal state as well as JEFERSON/rhabdo:
-Patient was on phenobarbital prior to admission and missed a couple days of dosing. He is now on vimpat, continue.
Acute kidney injury due to nontraumatic rhabdomyolysis due to acute seizure activity:
-Creatinine worsening, CPK improving
-renal U/S with medical renal disease
-started on HD which continues
Low grade temperature:
-100.2 �F was not a fever. Leukocytosis likely reactive, improved. Suspect chest x-ray findings due to subsegmental atelectasis.
-Urine culture no growth, blood cultures no growth to date
-antibiotics have been stopped
Transaminitis:
-due to rhabdomyolysis
-Unremarkable abdominal ultrasound
-Hepatocellular injury has been ruled out
Essential hypertension:
-cont Procardia XL 30 mg daily
FULL/Lovenox
Anticipated Discharge: > 48 hours
Subjective/Interval History
-
Date of Service: October 04, 2023
No new complaints.
Objective Data
-
Labs:
Laboratory Results
10/04/23
06:42
WBC Pending
Hgb Pending
Hct Pending
Plt Count Pending
Sodium Pending
Potassium Pending
Chloride Pending
Carbon Dioxide Pending
BUN Pending
Creatinine Pending
Glucose Pending
Calcium Pending
Total Bilirubin Pending
AST Pending
ALT Pending
Alkaline Phosphatase Pending
Vital Signs:
Vital Signs
Temp Pulse Resp BP Pulse Ox
98.2 F 56 16 155/81 92
10/04/23 07:40 10/04/23 07:40 10/04/23 07:40 10/04/23 07:40 10/04/23 07:40
I&O
10/03/23 10/04/23 10/05/23
06:59 06:59 06:59
Intake Total 720 / 720 720 / 720
Output Total 50 / 50
Balance 720 / 720 670 / 670
[2023-10-04 08:03] LABS: ALT (SGPT) 175 U/L (0-50); AST (SGOT) 137 U/L (17-59); Alkaline Phosphatase 89 U/L (38-126); Blood Urea Nitrogen 49 mg/dl (9-20); Calcium 7.8 mg/dl (8.4-10.2); Carbon Dioxide 24 mmol/L (22-30); Chloride 101 mmol/L (98-107); Estimated Creatinine Clearance 13 ml/min; Glucose 96 mg/dl (70-99); Sodium 134 mmol/L (135-145); Total Bilirubin 0.5 mg/dl (0.2-1.3); Total Protein 5.1 g/dl (6.3-8.2); eGFR 7.75
--- NOTE | 2023-10-04 09:20 | W.PN.NEPH.PH ---
Today's Communication / Plan
-
follow BMP
Assessment/Plan
-
Assessment
Seizure/epilepsy
Rhabdomyolysis
Metabolic acidosis
Elevated liver function tests
acute kidney injury
Low-grade fever
Oliguria
Plan
follow BMP
follow UOP
HD friday
if no recovery soon will need to change to tunnelled HD CVC
-
-
Date of Service: October 04, 2023
CC / HPI / ROS
-
Chief Complaint:
Acute renal failure
History of Present Illness:
tolerated HD yesterday
still anuric essentially
Metabolic acidosis better
Hemodynamically stable
Review of Systems
No chest pain or shortness of breath
Anuric
flat affect
Labs
-
Labs:
WBC 11.6 10^3/uL (4.8-10.8) H 10/04/23 06:42
RBC 4.19 10^6/uL (4.70-6.10) L 10/04/23 06:42
Hgb 12.4 g/dL (13.0-18.0) L 10/04/23 06:42
Hct 35.8 % (39.0-52.0) L 10/04/23 06:42
Plt Count 164 10^3/uL (130-400) 10/04/23 06:42
Sodium 134 mmol/L (135-145) L 10/04/23 06:42
Potassium 4.0 mmol/L (3.5-5.1) 10/04/23 06:42
Chloride 101 mmol/L (98-107) 10/04/23 06:42
Carbon Dioxide 24 mmol/L (22-30) 10/04/23 06:42
BUN 49 mg/dl (9-20) H 10/04/23 06:42
Creatinine 7.4 mg/dL (0.7-1.3) H* 10/04/23 06:42
eGFR 7.75 10/04/23 06:42
Glucose 96 mg/dl (70-99) 10/04/23 06:42
Calcium 7.8 mg/dl (8.4-10.2) L 10/04/23 06:42
Phosphorus 5.7 mg/dl (2.5-4.5) H 10/03/23 10:46
Albumin 3.0 g/dl (3.5-5.0) L 10/04/23 06:42
Physical Exam
-
Vital Signs:
Vital Signs
Temp Pulse Resp BP Pulse Ox
98.2 F 56 16 155/81 92
10/04/23 07:40 10/04/23 07:40 10/04/23 07:40 10/04/23 07:40 10/04/23 07:40
Cardiovascular:: Regular rate and rhythm
Respiratory:: Bilateral: CTA
Lung Excursion:: Normal
Abdomen:: Nontender and Soft
Bowel Sounds:: Normal
Extremity Edema:: None: Bilateral:
[2023-10-04] MEDS: PROCARDIA XL (EXTENDED RELEASE) 30 MG PO (09:46)
[2023-10-04] MEDS: VIMPAT 100 MG PO (09:46)
[2023-10-04] MEDS: ASPIR LOW (ENTERIC COATED) 81 MG PO (09:46)
[2023-10-04] MEDS: HEPARIN 5000 UNITS SC ×2 (09:46→20:11)
[2023-10-04] MEDS: SENOKOT 17.2 MG PO ×2 (09:46→20:11)
[2023-10-04] MEDS: MIRALAX 17 GRAMS PO (09:46)
[2023-10-04] MEDS: LOTRIMIN 1% CREAM 1 APPLIC TOPICAL ×2 (09:52→20:11)
[2023-10-04 11:49] VITALS: BP 155/82
[2023-10-04 15:20] VITALS: BP 177/89
[2023-10-04 16:26] VITALS: BP 177/89
--- NOTE | 2023-10-04 16:52 | PTCARENOTE ---
Found pt sitting on edge of bed with dangling IJ and heart monitor off at bedside. Gown with blood on it. IJ site still sutured in but not actively bleeding. Manager Of [employer] made aware of situation. Need order for IR consult in am to replace IJ.
Pt unaware that he was not suppose to pull at objects attached to him. Will cont to monitor.
--- NOTE | 2023-10-04 17:06 | PTCARENOTE ---
Iv team made aware of expose IJ natalie was pulled out by pt. Suture cut to remove dangling IJ and dressing replaced by IV team. Pt stable. Site made sterile and Tegaderm applied. Will cont to monitor.
--- NOTE | 2023-10-04 17:10 | VATNOTE ---
Called to assess HDC being removed by patient. However dangling HDC noted with no blood oozing. This VAT RN cut one suture on left side of HDC, to remove dangling catheter as white catheter was already laying on patients back side of neck. HDC now
removed entirely and cleansed with chloraprep and vaseline gauze applied, folded 4x4 and tegaderm dsg. Informed PCNMagy, to notify turpentiner for IR consult for am to have HDC replaced.
[2023-10-04] MEDS: VIMPAT 150 MG PO (20:04)
[2023-10-04 23:34] VITALS: BP 150/81
[2023-10-05 04:53] VITALS: BMI 30.4
--- NOTE | 2023-10-05 05:40 | W.PN.NEURO.1 ---
Today's Communication / Plan
-
Continue Vimpat 150 mg BID. May titrate to 200mg BID. May need Phenobarb for future breakthrough seizure
Continue Hemodialysis
Neuro Assessment/Plan
Assessment
62 yr. old male admitted with breakthrough seizure and rhabdomyolysis with acute renal failure undergoing Hemodialysis worsening creatinine
Plan
Continue Vimpat 100 mg twice daily
Continue Dialysis
Daily labs
Subjective/Objective
Subjective Data
Date of Service: October 04, 2023
Mr Wesley had an episode of confusion with aphasia and slurred speech. No tonic clonic activity
Objective Data
Vital Signs
Temp Pulse Resp BP Pulse Ox
37.0 C 63 18 150/81 95
10/04/23 23:34 10/04/23 23:34 10/04/23 23:34 10/04/23 23:34 10/04/23 23:34
Lab Results
10/04/23 06:42
PT 15.2 Sec (11.4-14.6) H 10/02/23 05:37
INR 1.19 10/02/23 05:37
APTT 28.7 Sec (23.4-35.0) 09/29/23 08:35
Sodium 134 mmol/L (135-145) L 10/04/23 06:42
Potassium 4.0 mmol/L (3.5-5.1) 10/04/23 06:42
BUN 49 mg/dl (9-20) H 10/04/23 06:42
Glucose 96 mg/dl (70-99) 10/04/23 06:42
Calcium 7.8 mg/dl (8.4-10.2) L 10/04/23 06:42
Phosphorus 5.7 mg/dl (2.5-4.5) H 10/03/23 10:46
Vitamin B12 248 pg/ml (239-931) 09/30/23 04:00
Ur Buprenorphine Cancelled 09/29/23 10:19
Ur Buprenorphine Negative (Negative) 09/29/23 10:19
Patient Allergies
No Known Allergies Allergy (Unverified 09/29/23 08:56)
[2023-10-05 05:55] LABS: Blood Urea Nitrogen 64 mg/dl (9-20); Calcium 7.8 mg/dl (8.4-10.2); Carbon Dioxide 25 mmol/L (22-30); Chloride 99 mmol/L (98-107); Creatine Phosphokinase 852 U/L (55-170); Estimated Creatinine Clearance 10 ml/min; Glucose 116 mg/dl (70-99); Sodium 133 mmol/L (135-145); eGFR 5.82
[2023-10-05 07:53] VITALS: BP 158/87
[2023-10-05] MEDS: ASPIR LOW (ENTERIC COATED) 81 MG PO (08:05)
[2023-10-05] MEDS: PROCARDIA XL (EXTENDED RELEASE) 30 MG PO (08:05)
[2023-10-05] MEDS: MIRALAX 17 GRAMS PO (08:05)
--- NOTE | 2023-10-05 08:05 | W.PN.NEPH.PH ---
Today's Communication / Plan
-
Lasix trial
Assessment/Plan
-
Assessment
Seizure/epilepsy
Rhabdomyolysis
Metabolic acidosis
Elevated liver function tests
acute kidney injury
Low-grade fever
Oliguria
Plan
follow BMP
follow UOP
HD friday
Lasix trial
Tunneled HD catheter tomorrow
No evidence of recovery currently
-
-
Date of Service: October 05, 2023
CC / HPI / ROS
-
Chief Complaint:
Acute renal failure
History of Present Illness:
tolerated HD Friday
still anuric essentially
Metabolic acidosis better
Hemodynamically stable
Pulled out temporary dialysis catheter overnight
Review of Systems
No chest pain or shortness of breath
Anuric
flat affect
Labs
-
Labs:
WBC 11.6 10^3/uL (4.8-10.8) H 10/04/23 06:42
RBC 4.19 10^6/uL (4.70-6.10) L 10/04/23 06:42
Hgb 12.4 g/dL (13.0-18.0) L 10/04/23 06:42
Hct 35.8 % (39.0-52.0) L 10/04/23 06:42
Plt Count 164 10^3/uL (130-400) 10/04/23 06:42
Sodium 133 mmol/L (135-145) L 10/05/23 05:04
Potassium 4.0 mmol/L (3.5-5.1) 10/05/23 05:04
Chloride 99 mmol/L (98-107) 10/05/23 05:04
Carbon Dioxide 25 mmol/L (22-30) 10/05/23 05:04
BUN 64 mg/dl (9-20) H 10/05/23 05:04
Creatinine 9.4 mg/dL (0.7-1.3) H* 10/05/23 05:04
eGFR 5.82 10/05/23 05:04
Glucose 116 mg/dl (70-99) H 10/05/23 05:04
Calcium 7.8 mg/dl (8.4-10.2) L 10/05/23 05:04
Phosphorus 5.7 mg/dl (2.5-4.5) H 10/03/23 10:46
Albumin 3.0 g/dl (3.5-5.0) L 10/04/23 06:42
Physical Exam
-
Vital Signs:
Vital Signs
Temp Pulse Resp BP Pulse Ox
98.0 F 59 18 158/87 92
10/05/23 07:53 10/05/23 07:53 10/05/23 07:53 10/05/23 07:53 10/05/23 07:53
Cardiovascular:: Regular rate and rhythm
Respiratory:: Bilateral: Coarse
Lung Excursion:: Normal
Abdomen:: Nontender and Soft
Bowel Sounds:: Normal
Extremity Edema:: +3: Bilateral:
[2023-10-05] MEDS: HEPARIN 5000 UNITS SC ×2 (08:06→19:45)
[2023-10-05] MEDS: SENOKOT 17.2 MG PO ×2 (08:08→19:45)
[2023-10-05] MEDS: VIMPAT 150 MG PO ×2 (08:08→19:45)
[2023-10-05] MEDS: LASIX 80 MG IV (08:42)
[2023-10-05] MEDS: FLUSH (NSS) 2 FLUSH IV (08:43)
[2023-10-05] MEDS: LOTRIMIN 1% CREAM 1 APPLIC TOPICAL ×2 (08:43→19:45)
--- NOTE | 2023-10-05 09:17 | W.PN.HOSP.TC ---
Today's Communication/Plan
-
see bold
Assessment / Plan
Assessment / Plan
Gen: NAD, awake and alert
Eyes: EOMI, PERRLA, no scleral icterus.
Neck: supple.
CV: Continues to remain RRR, +S1/S2, no m/r/g.
Resp: Continues to remain CTAB, no rales, wheezes, or rhonchi.
Abd: +BS, soft, NT, ND
Skin: No rashes.
Neuro: Remains CN 2-12 intact, non-focal.
Psych: Normal mood and affect.
09/29/23 11:42 Blood/Venous Blood Culture - Final
No Growth - Final Report
09/29/23 11:42 Blood/Venous Blood Culture - Final
No Growth - Final Report
09/29/23 10:19 Urine Urine Culture - Final
NO GROWTH
CXR: Low lung volumes. Minor bibasilar opacity most likely representing subsegmental atelectasis.
Abd U/S: Nonspecific focal gallbladder wall thickening. No additional findings to suggest acute cholecystitis. Clinical and laboratory correlation recommended. Minimal ascites about the liver.
Renal U/S: No evidence for pelvicalyceal dilation of either kidney. There appears to be a small amount of fluid surrounding each kidney. Suggestion of increased echogenicity of renal parenchyma bilaterally, a nonspecific finding suggesting medical
renal disease.
MRI brain:
1. No acute intracranial abnormality.
2. 2.3 cm lesion at the junction of the right zygomatic arch and maxilla favored to represent an osteoma. Imaging follow-up can be performed to confirm stability.
Acute metabolic encephalopathy due to acute seizure activity and postictal state as well as JEFERSON/rhabdo:
-Patient was on phenobarbital prior to admission and missed a couple days of dosing. He is now on vimpat, continue.
Acute kidney injury due to nontraumatic rhabdomyolysis due to acute seizure activity:
-Creatinine worsening, CPK improving
-renal U/S with medical renal disease
-started on HD which continues
-Lasix trial
Low grade temperature:
-100.2 �F was not a fever. Leukocytosis likely reactive, improved. Suspect chest x-ray findings due to subsegmental atelectasis.
-Urine culture no growth, blood cultures no growth to date
-antibiotics have been stopped
Transaminitis:
-due to rhabdomyolysis
-Unremarkable abdominal ultrasound
-Hepatocellular injury has been ruled out
Essential hypertension:
-increase Procardia XL to 60mg daily
FULL/Lovenox
Anticipated Discharge: > 48 hours
Subjective/Interval History
-
Date of Service: October 05, 2023
No new complaints.
Objective Data
-
Labs:
Laboratory Results
10/05/23
05:04
Sodium 133 L
Potassium 4.0
Chloride 99
Carbon Dioxide 25
BUN 64 H
Creatinine 9.4 H*
Glucose 116 H
Calcium 7.8 L
Vital Signs:
Vital Signs
Temp Pulse Resp BP Pulse Ox
98.0 F 59 18 158/87 92
10/05/23 07:53 10/05/23 07:53 10/05/23 07:53 10/05/23 07:53 10/05/23 07:53
I&O
10/04/23 10/05/23 10/06/23
06:59 06:59 06:59
Intake Total 720 / 720 840 / 840
Output Total 50 / 50 0 / 0
Balance 670 / 670 840 / 840
[2023-10-05 14:22] VITALS: BP 138/89; BP_SYST 64
[2023-10-05 15:13] VITALS: BP 149/82
[2023-10-05 15:25] VITALS: BP 157/89
[2023-10-05 23:23] VITALS: BP 159/91
[2023-10-06] VITALS (27 sets, daily range): BP systolic 81–169; BP diastolic 50–92; PULSE 74; BMI 30.8; BMI 29.8
[2023-10-06 07:33] LABS: Hematocrit 34.3 % (39.0-52.0); Hemoglobin 11.9 g/dL (13.0-18.0); Mean Corp Hgb Conc. 34.7 g/dL (33.0-37.0); Mean Corpuscular Hgb 29.1 pg (27.0-31.0); Mean Corpuscular Volume 83.9 fL (80.0-94.0); Mean Platelet Volume 11.1 fL (7.4-10.4); Platelet Count 200 10^3/uL (130-400); Red Blood Cell Count 4.09 10^6/uL (4.70-6.10); Red Cell Dist. Width 12.4 % (11.5-14.5); White Blood Cell Count 14.3 10^3/uL (4.8-10.8)
[2023-10-06] MEDS: MIRALAX 17 GRAMS PO (07:40)
[2023-10-06] MEDS: SENOKOT 17.2 MG PO (07:41)
[2023-10-06 07:42] LABS: INR 1.29; PT 15.9 Sec (11.4-14.6)
[2023-10-06] MEDS: LOTRIMIN 1% CREAM 1 APPLIC TOPICAL ×2 (07:43→21:10)
[2023-10-06 08:12] LABS: Blood Urea Nitrogen 81 mg/dl (9-20); Calcium 8.1 mg/dl (8.4-10.2); Carbon Dioxide 23 mmol/L (22-30); Chloride 100 mmol/L (98-107); Estimated Creatinine Clearance 8 ml/min; Glucose 105 mg/dl (70-99); Potassium 4.5 mmol/L (3.5-5.1); Sodium 135 mmol/L (135-145); eGFR 4.43
--- NOTE | 2023-10-06 08:40 | W.PN.HOSP.TC ---
Today's Communication/Plan
-
see bold
Assessment / Plan
Assessment / Plan
Gen: remains NAD, awake and alert
Eyes: remains EOMI, PERRLA, no scleral icterus.
Neck: supple.
CV: RRR, +S1/S2, no m/r/g.
Resp: CTAB, no rales, wheezes, or rhonchi.
Abd: remains +BS, soft, NT, ND
Skin: No rashes.
Neuro: CN 2-12 intact, non-focal.
Psych: Normal mood and affect.
09/29/23 11:42 Blood/Venous Blood Culture - Final
No Growth - Final Report
09/29/23 11:42 Blood/Venous Blood Culture - Final
No Growth - Final Report
09/29/23 10:19 Urine Urine Culture - Final
NO GROWTH
CXR: Low lung volumes. Minor bibasilar opacity most likely representing subsegmental atelectasis.
Abd U/S: Nonspecific focal gallbladder wall thickening. No additional findings to suggest acute cholecystitis. Clinical and laboratory correlation recommended. Minimal ascites about the liver.
Renal U/S: No evidence for pelvicalyceal dilation of either kidney. There appears to be a small amount of fluid surrounding each kidney. Suggestion of increased echogenicity of renal parenchyma bilaterally, a nonspecific finding suggesting medical
renal disease.
MRI brain:
1. No acute intracranial abnormality.
2. 2.3 cm lesion at the junction of the right zygomatic arch and maxilla favored to represent an osteoma. Imaging follow-up can be performed to confirm stability.
Acute metabolic encephalopathy due to acute seizure activity and postictal state as well as JEFERSON/rhabdo:
-Patient was on phenobarbital prior to admission and missed a couple days of dosing. He is now on vimpat, continue.
Acute kidney injury due to nontraumatic rhabdomyolysis due to acute seizure activity:
-Creatinine worsening, CPK improving
-renal U/S with medical renal disease
-started on HD which continues
Low grade temperature:
-100.2 �F was not a fever. Leukocytosis likely reactive, improved. Suspect chest x-ray findings due to subsegmental atelectasis.
-Urine culture no growth, blood cultures no growth to date
-antibiotics have been stopped
Transaminitis:
-due to rhabdomyolysis
-Unremarkable abdominal ultrasound
-Hepatocellular injury has been ruled out
Essential hypertension:
-cont Procardia XL to 60mg daily
FULL/Lovenox
Anticipated Discharge: > 48 hours
Subjective/Interval History
-
Date of Service: October 06, 2023
No new complaints.
Objective Data
-
Labs:
Laboratory Results
10/06/23
07:11
WBC 14.3 H
Hgb 11.9 L
Hct 34.3 L
Plt Count 200 D
PT 15.9 H
INR 1.29
Sodium 135
Potassium 4.5
Chloride 100
Carbon Dioxide 23
BUN 81 H
Creatinine 11.8 H*
Glucose 105 H
Calcium 8.1 L
Vital Signs:
Vital Signs
Temp Pulse Resp BP Pulse Ox
98.1 F 62 18 159/91 96
10/05/23 23:23 10/05/23 23:23 10/05/23 23:23 10/05/23 23:23 10/05/23 23:23
I&O
10/05/23 10/06/23 10/07/23
06:59 06:59 06:59
Intake Total 840 / 840 1250 / 1250
Output Total 0 / 0
Balance 840 / 840 1250 / 1250
[2023-10-06] MEDS: HEPARIN 2300 UNITS INTRACATH (11:42)
[2023-10-06] MEDS: PROCARDIA XL (EXTENDED RELEASE) 60 MG PO (11:46)
[2023-10-06] MEDS: VIMPAT 150 MG PO (11:47)
[2023-10-06] MEDS: ASPIR LOW (ENTERIC COATED) 81 MG PO (11:47)
[2023-10-06] MEDS: HEPARIN 5000 UNITS SC ×2 (11:49→20:28)
--- NOTE | 2023-10-06 11:57 | W.PN.NEPH.HD ---
Assessment
-
- feeling well on HD no complaints
- minimal swelling noted with higher pressures, increased UF goal
Progress Note - Hemodialysis
-
Date of Service: October 06, 2023
Duration: 30 minutes and 3 hours
Potassium Bath: 2
Calcium Bath: 2.5
Opti-Dialyzer: 160
Ultrafiltration: Other (2L)
Blood Flow: 400
Dialysate Flow: 600
--- NOTE | 2023-10-06 16:36 | CM ---
Reviewed the chart notes. Patient received HD today. Per nephrology, 'no evidence of recovery currently'. CM continues to be available to patient/family and is monitoring medical plan for needs at discharge.
Plan: Discharge plans will depend on the patient's progress.
[2023-10-06 17:27] LABS: Glucose - Point of Care 125 mg/dl (70-99)
--- NOTE | 2023-10-06 17:49 | W.PN.UPDATE ---
Update Note
Progress Note Update
patient with active tonic clonic seizure, called in for TIE BINDER evaluation. Patient with active RUE and facial twitching consistent with acute seizure. Patient was admitted with seizure activity and is on Vimpat. Notably was previously on phenobarbital
so this may represent a withdrawal seizure.
Plan:
d/w floor RN and TIE BINDER team
VSS stable and glucose 125
stat 1mg Ativan now
Keppra load with 2g now and then Keppra 500mg q12h
check basic labs
check EEG
all above discussed with Neurology who agrees with above
Family sister Leanne updated
Transfer to ICU for close airway monitoring
--- NOTE | 2023-10-06 18:00 | PTCARENOTE ---
Medsitter phone went off and RN went in to find pt having a seizure. Seizure precautions maintained, RR called, tx pt to the ICU. Report given to HYDRAULIC MINER by this RN.
--- NOTE | 2023-10-06 18:13 | W.PN.NEURO.1 ---
Today's Communication / Plan
-
-Continue Vimpat same dosing
-Add Levetiracetam 500 mg q12hr after 2000 mg IV load
-If further seizure will need to restart Phenobarbital
-Check EEG
-Follow mental status
Neuro Assessment/Plan
Assessment
62 yr. old male admitted with breakthrough seizure and rhabdomyolysis with acute renal failure undergoing Hemodialysis worsening creatinine
At home on phenobarbital
Subjective/Objective
Subjective Data
Date of Service: October 06, 2023
Seizure starting with right arm then face clonic movements then generalizing, got 1 mg Ativan, getting Keppra load, nonverbal
Objective Data
Vital Signs
Temp Pulse Resp BP Pulse Ox
98.2 F 68 18 135/75 97
10/06/23 15:20 10/06/23 15:20 10/06/23 15:20 10/06/23 15:20 10/06/23 15:20
PT 15.9 Sec (11.4-14.6) H 10/06/23 07:11
INR 1.29 10/06/23 07:11
APTT 28.7 Sec (23.4-35.0) 09/29/23 08:35
Sodium 135 mmol/L (135-145) 10/06/23 07:11
Potassium 4.5 mmol/L (3.5-5.1) 10/06/23 07:11
BUN 81 mg/dl (9-20) H 10/06/23 07:11
Glucose 105 mg/dl (70-99) H 10/06/23 07:11
Calcium 8.1 mg/dl (8.4-10.2) L 10/06/23 07:11
Phosphorus 5.7 mg/dl (2.5-4.5) H 10/03/23 10:46
Vitamin B12 248 pg/ml (239-931) 09/30/23 04:00
Ur Buprenorphine Cancelled 09/29/23 10:19
Ur Buprenorphine Negative (Negative) 09/29/23 10:19
Patient Allergies
phenobarbital Allergy (Verified 10/06/23 17:54)
Pt. does not remember reaction
Review of Systems
-
Unable to obtain full review of systems at this time due to: Lethargy
Physical Exam
-
General: No Apparent Distress
Eyes: No Ptosis
HEENT: Normocephalic
Neck: No Bruits Bilaterally
Respiratory: Clear to Auscultation
Cardiac: Regular Rhythm
GI: Soft and Non-tender
Psych: Confused
Extended Neurological Exam
Attention Span & Concentration: Other (Obtunded, minimal grimace to pain, GCS E1V1M4, best motor response withdrawal)
Tremor: Hand Tremor Absent
Speech: Mute
Cranial Nerve II: Left Eye: Pupillary Reactivity Unremarkable and Pupillary Size Unremarkable
Cranial Nerve II: Right Eye: Pupillary Reactivity Unremarkable and Pupillary Size Unremarkable
Cranial Nerves III, IV, : Extraocular Movement: Other (Left gaze deviation)
--- NOTE | 2023-10-06 18:37 | PTCARENOTE ---
1726- arrived to pt's room for rapid response.Right arm and hand coarse tremors noted.Eyes deviated to the right.Slight reaction to threat?Snoring respirations.O2 6l NC applied.
1730-Whole facial twitching noted in addition to ongoing right arm and hand tremors.
1734-Tonic clonic movement noted bl upper and lower extremities.Eyes deviated to the left.Drs Chana and Aljean carlos texted.
1737-BL tonic clonic movement stopped.Left upper extremity twitching noted. + apnea lasting ~ 20 seconds. Snoring respirations.Incontinent of moderate amount yellow urine.
1744-facial twitching noted.
1747-1mg Ativan IV given as per MD order.
1750-Pt transported to ICU via bed.
Eyes deviated to the left.No response to tactile or noxious stimuli noted. Heart rate 79.BP 147/79.Decreased breath sounds throughout.POX 93% O2 6l NC.No BM.Circular rash noted around left areola.Pt's sister updated by MD.Seizure precautions
maintained.
--- NOTE | 2023-10-06 19:10 | PTCARENOTE ---
Eyes remain deviated.Down to left.+ bl eye twitching noted.Dr Velez made aware.
--- NOTE | 2023-10-06 19:35 | PTCARENOTE ---
Dr. Laureano notified about pt with consistent L eye deviation and twitching. Phenobarb ordered, notified of phenobarb allergy in chart. No knowledge of existing allergy or reaction found, MD continuing with med order. care ongoing.
[2023-10-06] MEDS: VIMPAT 200 MG IV (20:28)
[2023-10-06] MEDS: PHENOBARBITAL 65 MG IV (20:29)
[2023-10-06 20:50] LABS: Venous Blood Gas B.E. -0.7 mmol/L (-4 to +4); Venous Blood Gas HCO3 24.2 mmol/L (22-27); Venous Blood Gas pCO2 40 mmHg (35-48); Venous Blood Gas pH 7.39 (7.32-7.43); Venous Blood Gas pO2 232 mmHg (30-50)
[2023-10-06 20:58] LABS: Hematocrit 33.7 % (39.0-52.0); Hemoglobin 11.9 g/dL (13.0-18.0); Mean Corp Hgb Conc. 35.3 g/dL (33.0-37.0); Mean Corpuscular Hgb 29.3 pg (27.0-31.0); Mean Platelet Volume 10.6 fL (7.4-10.4); Platelet Count 184 10^3/uL (130-400); Red Blood Cell Count 4.06 10^6/uL (4.70-6.10); Red Cell Dist. Width 12.4 % (11.5-14.5); White Blood Cell Count 15.1 10^3/uL (4.8-10.8)
--- NOTE | 2023-10-06 21:07 | W.PN.UPDATE ---
Update Note
Progress Note Update
2110 Patient continuing to have refractory seizure activity. Despite receiving IV Vimpat and phenobarbital. Case discussed with neurology and decision made to intubation patient and start patient on 40 mcg/kg/min of Propofol and increase as
needed to help with seizure activity. Patient intubated without any issues. Sister updated.
[2023-10-06] MEDS: SENOKOT PO (21:10)
[2023-10-06] MEDS: DIPRIVAN 100 IV (21:10)
[2023-10-06 21:12] LABS: Blood Urea Nitrogen 58 mg/dl (9-20); Calcium 7.9 mg/dl (8.4-10.2); Carbon Dioxide 24 mmol/L (22-30); Chloride 98 mmol/L (98-107); Estimated Creatinine Clearance 10 ml/min; Glucose 116 mg/dl (70-99); Potassium 4.4 mmol/L (3.5-5.1); Sodium 134 mmol/L (135-145); Triglycerides 217 mg/dl (10-149); eGFR 6.21
[2023-10-06] MEDS: OFIRMEV 100 IV (21:12)
[2023-10-06 21:13] LABS: Dilantin < 3.0 ug/ml (10-20)
[2023-10-06] MEDS: VIMPAT PO (21:18)
--- NOTE | 2023-10-06 22:00 | PTCARENOTE ---
190- rec'd patient. pt not responsive, L eye deivation noted. SR on monitor, on 6L NC, diminished breath sounds. condom cath in place.
2019- pt with seizure activity (left hand twitching then jerking movements). ICU APPLIANCE SERVICE TECHNICIAN made aware, phenobarb and vimpat doses given. pt continued with seizure activity despite medication. ICU APPLIANCE SERVICE TECHNICIAN contacted neurology and decided to intubate patient for
airway protection. LOAN INSPECTOR at bedside, intubated with #8 ETT, 23 at lip on R side. vent settings: AC 16/500/5/60%. b/l breath sounds noted. propofol gtt initiated at 40mcg per ICU APPLIANCE SERVICE TECHNICIAN order with max dose of 60mcg. oral care provided. b/l soft wrist
restraints applied. sister updated by ICU APPLIANCE SERVICE TECHNICIAN. bladder scan for 168ml, pt not incontinent at this time. rectal temp 100.5, dose of ofirmev given. care ongoing.
--- NOTE | 2023-10-06 22:04 | W.PN.ANESINT ---
Anesthesia Intubation Note
- Intubation Note
Intubation Note:
Diagnosis: epilepticus
Blade: mac 3
Tube Size: 8.0
Depth: 23
Side Taped:right
Drugs Used: 80 mg propofol, 100mg succinylcholine
Grade View: 1
EtCO2 Present: yes
Atraumatic: yes
Attempts: 1
Insertion Start and Stop Time:
SaO2 Pre: 93
SaO2 Post: 97
Glidescope Used: yes
Other Airway Adjustments:
Pre-Oxygenated: yes
Portable Chest X-Ray:
RSI:
Suctioned: yes
Bilateral Breath Sounds Confirmed: yes
Vent Settings:
Settings per ___Attending Physician
[2023-10-06] MEDS: LEVOPHED 250 IV (22:53)
[2023-10-07] VITALS (56 sets, daily range): BP systolic 96–170; BP diastolic 52–96; BMI 29.8
[2023-10-07] MEDS: DIPRIVAN 100 IV ×5 (00:21→12:17)
--- NOTE | 2023-10-07 00:27 | PTCARENOTE ---
levo gtt initiated to maintain SBP >90. prop titrated per protocol. oral care provided. FiO2 decreased to 40%, pt satting 100%. care ongoing.
[2023-10-07 04:12] LABS: Hematocrit 30.7 % (39.0-52.0); Hemoglobin 10.6 g/dL (13.0-18.0); Mean Corp Hgb Conc. 34.5 g/dL (33.0-37.0); Mean Corpuscular Hgb 29.7 pg (27.0-31.0); Platelet Count 185 10^3/uL (130-400); Red Blood Cell Count 3.57 10^6/uL (4.70-6.10); Red Cell Dist. Width 12.6 % (11.5-14.5); White Blood Cell Count 11.7 10^3/uL (4.8-10.8)
[2023-10-07 04:59] LABS: Blood Urea Nitrogen 62 mg/dl (9-20); Calcium 7.6 mg/dl (8.4-10.2); Carbon Dioxide 23 mmol/L (22-30); Chloride 100 mmol/L (98-107); Estimated Creatinine Clearance 9 ml/min; Glucose 108 mg/dl (70-99); Sodium 132 mmol/L (135-145); eGFR 5.82
--- NOTE | 2023-10-07 05:00 | PTCARENOTE ---
AM labs sent. CHG bath, condom cath removed, pt bladder scanned for 154ml. oral care provided, pt repositioned. levo gtt titrated off, prop gtt continues. care ongoing.
--- NOTE | 2023-10-07 07:37 | W.PN.HOSP.TC ---
Addendum entered and electronically signed by Tere Fishman MD 10/07/23 08:08:
Total critical care time spent 40 min
Original Note:
Today's Communication/Plan
-
see A/P
Assessment / Plan
Assessment / Plan
CXR: Low lung volumes. Minor bibasilar opacity most likely representing subsegmental atelectasis.
Abd U/S: Nonspecific focal gallbladder wall thickening. No additional findings to suggest acute cholecystitis. Clinical and laboratory correlation recommended. Minimal ascites about the liver.
Renal U/S: No evidence for pelvicalyceal dilation of either kidney. There appears to be a small amount of fluid surrounding each kidney. Suggestion of increased echogenicity of renal parenchyma bilaterally, a nonspecific finding suggesting medical
renal disease.
MRI brain:
1. No acute intracranial abnormality.
2. 2.3 cm lesion at the junction of the right zygomatic arch and maxilla favored to represent an osteoma. Imaging follow-up can be performed to confirm stability.
A/P:
Acute metabolic encephalopathy due to acute seizure activity and postictal state as well as JEFERSON/rhabdo:
-Patient was on phenobarbital prior to admission and missed a couple days of dosing.
-active seizure noted (active RUE and facial twitching/ tonic clonic seizure) 10/05, s/p Keppra 2g load
-was started Keppra 500 Q12H -> restarted phenobarbital, cont Vimpat now at 200 BID
-Intubated for airway protection, cont sedation with Propofol
-Levophed started 10/05 for BP control
-EEG
-Neuro on board
Acute kidney injury due to nontraumatic rhabdomyolysis due to acute seizure activity
Now ESRD
-renal U/S with medical renal disease
-started on HD, to continue
Fever noted 10/05, likely due to active seizure at that time
-Check repeat blood culture
-Urine and blood culture from 09/28 showed no growth
-repeat CXR 10/05 after intubation noted slightly increased opacity in the retrocardiac left lower lobe, atelectasis versus pneumonia. Minor infiltrate versus atelectasis in the medial right lung base.
-Procal not useful in this case with ESRD
-Would restart empiric Abx Ceftriaxone/doxycycline while trending Temp curve and await repeat blood culture
Transaminitis due to rhabdomyolysis
-Unremarkable abdominal ultrasound
-Hepatocellular injury has been ruled out
Essential hypertension:
-cont Procardia XL to 60mg daily with holding parameter
FULL/Lovenox
DW RN
updated sister on the phone
Anticipated Discharge: > 48 hours
Subjective/Interval History
-
Date of Service: October 07, 2023
Objective Data
-
Labs:
Laboratory Results
10/06/23 10/07/23 10/07/23
20:50 04:04 04:05
WBC 15.1 H 11.7 H
Hgb 11.9 L 10.6 L
Hct 33.7 L 30.7 L
Plt Count 184 185
Sodium 134 L 132 L
Potassium 4.4 4.0
Chloride 98 100
Carbon Dioxide 24 23
BUN 58 H 62 H
Creatinine 8.9 H* 9.4 H*
Glucose 116 H 108 H
Calcium 7.9 L 7.6 L
Vital Signs:
Vital Signs
Temp Pulse Resp BP Pulse Ox
37.2 C 56 16 101/55 100
10/07/23 04:37 10/07/23 06:00 10/07/23 06:00 10/07/23 06:00 10/07/23 06:00
I&O
10/06/23 10/07/23 10/08/23
06:59 06:59 06:59
Intake Total 1250 / 1250 403.6 / 403.6
Balance 1250 / 1250 403.6 / 403.6
Review of Systems
-
Unable to obtain full review of systems at this time due to: Patient Intubation
Physical Exam
-
General: Intubated and Appears Chronically Ill
Respiratory: Clear to Auscultation and Non Labored Respirations; Negative Accessory Resp Muscle Use
Cardiac: Regular Rhythm and S1/S2
GI: Soft and Nondistended
Musculoskeletal: No Clubbing, No Cyanosis, Edema, Right Lower Extrem (2+) and Edema, Left Lower Extrem (2+)
Skin: Warm and Dry
Neuro: Sedated
Data Reviewed
-
Diagnostic Radiology: Image personally visualized and interpreted and Report Reviewed by me
Labs: Labs Reviewed by me
[2023-10-07] MEDS: ASPIR LOW (ENTERIC COATED) PO (07:45)
[2023-10-07] MEDS: MIRALAX PO (07:46)
--- NOTE | 2023-10-07 08:00 | PTCARENOTE ---
Received pt with eyes closed.Eyes open briefly to verbal stimuli.+ withdrawal to noxious stim bl upper and lower extremities.OLEGARIO 3mm.Does not follow commands.SB-SR noted.Propofol at 50 mcg maintained for anti epileptic.#8 ETT to vent.AC 16 500 40%
+5.No spontaneous breaths noted.+ gag and cough.Lung sounds decreased throughout.NPO.No BM.No void at this time.Skin integrity as documented.
[2023-10-07] MEDS: LOTRIMIN 1% CREAM 1 APPLIC TOPICAL ×2 (08:07→21:33)
[2023-10-07] MEDS: HEPARIN 5000 UNITS SC ×2 (08:07→16:14)
[2023-10-07] MEDS: PHENOBARBITAL 65 MG IV ×3 (08:08→21:34)
[2023-10-07] MEDS: PROCARDIA XL (EXTENDED RELEASE) PO (08:15)
[2023-10-07] MEDS: SENOKOT PO ×2 (08:15→21:00)
--- NOTE | 2023-10-07 08:51 | EEG.RPT ---
Electroencephalogram Report
Recording
Date of EE10/07/23
Length of EEG recordin hour 4 minutes
Patient Status: Inpatient
Recording Conditions: Drowsy and Asleep
Hyperventilation Performed: No
Photic Stimulation Performed: Yes
Report
GREATER THAN 1 HOUR EEG REPORT
GREATER THAN 1 HOUR EEG INTERPRETATION:
Minimally-mildly abnormal study for age based on generalized slowing demonstrated bihemispheric equally. No seizures or epileptiform discharges seen.
CLINICAL CORRELATION:
Moderate diffuse slowing is non-specific as to etiology and reflects mild hemispheric dysfunction, can be seen in variety of toxic metabolic encephalopathies as well as sedation.
Clinical correlation is advised.
METHODS:
A 21-channel digital electroencephalogram (EEG) was performed in the ICU. The 10/20 international system of electrode placement was used with ECG and lateral/vertical eye movements recorded. [employer] system quantitative analysis was performed.
Duration 1 hour 4 minutes.
IMPRESSION(S):
Quality:
Good
Background
Medium amplitude background mainly of delta background
No normal posterior dominant rhythm is seen
No background asymmetry seen
Sleep
Drowsiness present
Hyperventilation
Not performed
Photic Stimulation
Failed to activate the record
ECG
Normal rhythm
Abnormalities
Moderate diffuse slowing, no seizures or epileptiform discharges seen
--- NOTE | 2023-10-07 09:00 | PTCARENOTE ---
NIHSS deferred at this time secondary to propofol gtt.
[2023-10-07] MEDS: PROTONIX IV 40 MG IV (09:51)
[2023-10-07] MEDS: NSS (PRESERVATIVE FREE) 10 ML IV (09:51)
[2023-10-07] MEDS: VIMPAT 200 MG IV ×2 (09:56→21:33)
--- NOTE | 2023-10-07 10:00 | PTCARENOTE ---
Neuro check completed.Pt opened eyes to voice.No eye contact.Did move fingers to command.
[2023-10-07] MEDS: STERILE WATER FOR INJECTION 10 ML IV (10:14)
[2023-10-07] MEDS: ROCEPHIN 1000 MG IV (10:14)
--- NOTE | 2023-10-07 10:15 | PTCARENOTE ---
Propofol weaned with goal to SBT as per MD order.
[2023-10-07] MEDS: VIBRAMYCIN 260 MG IV (10:22)
--- NOTE | 2023-10-07 10:35 | CON.INTV ---
Consultation
Consultation Request
Date/Time Consultation Requested: 10/07/2023
Date/Time Consultation Performed: 10/07/2023
Requesting Provider: Dr. Zayas
Performing Provider: Dr. Kenneth Rojas
Reason for Consultation: Status epilepticus
Medical History
-
History of Present Illness:
62-year-old man with history of seizure disorder, autism, who was admitted initially on 09/29/2023. Patient has history of seizures and takes phenobarbital. 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
He was found down at home covered in feces. He was confused. Admitted for seizure activity. Possibly was not taking medications for a few days, details are not clear. Patient lives with his sister.
He was found to have significant rhabdomyolysis with acute kidney injury. He was fluid resuscitated and eventually required dialysis.
He was also started on antiseizure medications.
On 10/06/2023 patient developed active tonic-clonic seizure despite antiseizure medication. Due to refractory seizure activity despite Keppra loading, Vimpat he was transferred to the critical care unit. Intubated smoothly without any complications.
He was placed on a propofol drip
He was loaded with phenobarbital.
This morning 10/07/2023, he is comfortable on mechanical ventilation. On propofol drip. Opens eyes to verbal stimuli. Hemodynamically stable.
Mechanical ventilation settings acceptable, pulmonary mechanics acceptable.
Developed a low-grade fever. Chest x-ray with possible retrocardiac opacity atelectasis versus pneumonia. Started on antibiotics per primary team
Past Medical History
Past Medical History: Other (See assessment and plan section)
Social History
Tobacco: Non-smoker
Alcohol: Former (Since 2-year)
Drug: None
Personal: Single
Living: Alone (Sister lives in the same house)
Employment: Employed ([employer])
Family History
Family History: Unable to Obtain
Allergies / Home Medications
Allergies
Allergy/AdvReac Type Severity Reaction Status Date / Time
phenobarbital Allergy Pt. does Verified 10/06/23 17:54
not
remember
reaction
Home Medications
�Medication �Instructions �Recorded �Confirmed �Last Taken �Type
phenobarbital 64.8 mg tablet 194.4 mg PO DAILY 09/29/23 Unknown History
Review of Systems
-
Unable to Obtain full review of systems at this time due to: Patient Intubation
Vitals / Labs / Diagnostic Testing
Vital Signs
Temp Pulse Resp BP Pulse Ox
98.4 F 56 16 101/55 98
10/07/23 07:42 10/07/23 06:00 10/07/23 06:00 10/07/23 06:00 10/07/23 08:08
Lab Data
10/07/23 04:04
10/07/23 04:05
Microbiology
09/29/23 11:42 Blood/Venous Blood Culture - Final
No Growth - Final Report
09/29/23 11:42 Blood/Venous Blood Culture - Final
No Growth - Final Report
Diagnostic Testing:
Physical Exam
-
HEENT: Normocephalic and Other (ET tube in place without secretion)
Cardiovascular: S1/S2
Respiratory: Non-Labored Respirations
GI: Soft and Non Distended
Neurology: Other (Lethargic, sedated. Opening eyes to verbal stimuli.)
Skin: Warm and Good Color
General: Respiratory Distress
Assessment
-
62-year-old man admitted with change in mental status, likely due to seizures. Severe rhabdomyolysis, acute kidney injury requiring dialysis. Subsequently on 10/06/2023 developed refractory seizures despite Keppra and Vimpat. Transferred to the
critical care unit for IV phenobarbital loading, intubated for airway protection. We were consulted for evaluation.
Toxic metabolic encephalopathy: Status epilepticus-unclear whether patient was not taking his phenobarbital.
Brain MRI unremarkable.
Respiratory failure for airway protection intubated 10/06/2023
Rhabdomyolysis due to seizures
Acute kidney injury: Due to rhabdomyolysis/ATN-requiring acute dialysis this admission
Low-grade fever
Conditions present prior admission:
Hypertension
History of seizures
? Autism
Assessment and plan:
Critically ill, intubated for airway protection due to persistent seizures despite antiepileptic drugs.
-
EEG this morning without seizure activity
On phenobarbital/Vimpat
Propofol drip
Neurology following the patient
Per neurology okay to proceed with spontaneous breathing trial if patient appropriate.
-
Mechanical ventilation settings reviewed
ABG with adequate oxygenation on ventilation
No significant oxygen requirements
Lung exam relatively clear
Pulmonary mechanics acceptable
Chest x-ray noted with possible retrocardiac opacity, atelectasis versus infiltrate
Will attempt to wean off propofol and try spontaneous breathing trial today.
-
Initially hypotensive, now vasopressors discontinued
Okay to continue maintenance IV fluids for now.
-
Low-grade fevers 10/06/2023
Cannot rule out aspiration event.
Started on antibiotics 10/07/2023 per primary team. Will favor short course of antibiotics.
Continue to monitor closely.
-
N.p.o. for now
Head of the bed elevated
If not extubated today place Dobbhoff tube and tube feedings will be started
-
Acute kidney injury: Continue dialysis as needed per nephrology
Avoid nephrotoxic drugs
Right subclavian temporary dialysis catheter in place
Monitor electrolytes daily
-
DVT prophylaxis subcu heparin
GI prophylaxis with PPI
-
Critical care statement: A total of 38 minutes of critical care time was provided for this patient today. This includes management of unstable vital signs, evaluation of the patient at bedside, reviewing the patient's pertinent medical records
including ventilator settings, arterial blood gases, radiographs, microbiology, laboratory evaluations and discussion with primary team, critical care nursing, and respiratory therapy.

Reviewed:
CXR: 10/06/2023, low lung volumes. Minor bibasilar opacity most likely representing subsegmental atelectasis.
MRI brain:
1. No acute intracranial abnormality.
2. 2.3 cm lesion at the junction of the right zygomatic arch and maxilla favored to represent an osteoma. Imaging follow-up can be performed to confirm stability.
--- NOTE | 2023-10-07 11:14 | W.PN.NEURO.1 ---
Today's Communication / Plan
-
Increased to Vimpat 200 mg twice daily
Outpatient will need Midazolam nasal spray for breakthrough seizures.
Titrate downward propofol if possible
Phenobarbital 65 mg TID, may change to PO
monitor daily EEGs
Neuro Assessment/Plan
Assessment
62 yr. old male admitted with breakthrough seizure and rhabdomyolysis with acute renal failure undergoing Hemodialysis worsening creatinine
At home on phenobarbital
Plan
Increased to Vimpat 200 mg twice daily
Continue Dialysis
Outpatient will need Midazolam nasal spray for breakthrough seizures.
Titrate downward propofol if possible
Phenobarbital 65 mg TID, may change to PO
monitor daily EEGs
Will follow
Subjective/Objective
Subjective Data
Date of Service: October 07, 2023
Patient unable to provide own medical history
Objective Data
Vital Signs
Temp Pulse Resp BP Pulse Ox
36.5 C 56 16 101/55 97
10/07/23 11:08 10/07/23 06:00 10/07/23 06:00 10/07/23 06:00 10/07/23 10:52
Lab Results
10/07/23 04:04
10/07/23 04:05
PT 15.9 Sec (11.4-14.6) H 10/06/23 07:11
INR 1.29 10/06/23 07:11
APTT 28.7 Sec (23.4-35.0) 09/29/23 08:35
Sodium 132 mmol/L (135-145) L 10/07/23 04:05
Potassium 4.0 mmol/L (3.5-5.1) 10/07/23 04:05
BUN 62 mg/dl (9-20) H 10/07/23 04:05
Glucose 108 mg/dl (70-99) H 10/07/23 04:05
Calcium 7.6 mg/dl (8.4-10.2) L 10/07/23 04:05
Phosphorus 5.7 mg/dl (2.5-4.5) H 10/03/23 10:46
Vitamin B12 248 pg/ml (239-931) 09/30/23 04:00
Ur Buprenorphine Cancelled 09/29/23 10:19
Ur Buprenorphine Negative (Negative) 09/29/23 10:19
Patient Allergies
No Known Allergies Allergy (Verified 10/07/23 10:42)
Review of Systems
-
Unable to obtain full review of systems at this time due to: Lethargy
History Source: Patient
All other systems: Reviewed and negative
Physical Exam
-
General: No Apparent Distress and Intubated
Eyes: No Ptosis
HEENT: Normocephalic and Atraumatic
Neck: Full Range of Motion
Respiratory: Negative Accessory Resp Muscle Use
Cardiac: No JVD
GI: Non-distended
Skin: Unremarkable
Extremities: No Clubbing, No Cyanosis and No Edema
Psych: Unable to Assess
Extended Neurological Exam
Mood & Affect: Unable to Assess
Attention Span & Concentration: Lethargic, Closes Eyes after Stimulation (Instantly) and Other (GCS [id number])
Memory: Unable to Assess
Tremor: Hand Tremor Absent and Head Tremor Absent
Speech: Mute
Cranial Nerve II: Left Eye: Pupillary Size Unremarkable
Cranial Nerve II: Right Eye: Pupillary Size Unremarkable
Cranial Nerves III, IV, : Extraocular Movement: Other (Left gaze deviation)
Cranial Nerve VII: Facial Symmetry: Normal Facial Symmetry
Muscle Strength, Overall: Spontaneously Moves
Muscle Bulk & Tone: Bulk Unremarkable
Pronator Drift: Unable to Assess
Cold Sensation: Unable to Assess
Vibration Sensation: Unable to Assess
Gait & Station: Unable to Assess
Data Reviewed
-
MRI Head: Report Reviewed
EEG: Report Reviewed
Labs: Report Reviewed
Reviewed with: Physician and Nurse
Old Records: Summarized
Past History
Past History
ED Past Medical History: Seizures
Medications
-
Medications:
Generic Name Dose Route Start Last Admin
Trade Name Freq PRN Reason Stop Dose Admin
Aspirin 81 mg 09/30/23 08:00 10/07/23 07:45
Aspirin 81 Mg (Enteric Coated) Tablet PO 10/28/23 07:59 Not Given
DAILY LI
Ceftriaxone Sodium 1,000 mg 10/07/23 08:00 10/07/23 10:14
Ceftriaxone 1000 Mg / 10 Ml Vial IV 1,000 mg
Q24H LI Administration
Clotrimazole 0 applic 09/30/23 11:00 10/07/23 08:07
Clotrimazole 1% (Cream) 30 Gram Tube TOPICAL 10/28/23 10:59 1 applic
BID LI Administration
Heparin Sodium 5,000 units 10/07/23 16:00
Heparin 5,000 Units/Ml 1 Ml Vial SC 11/04/23 15:59
Q8 LI
Acetaminophen 1,000 mg in 100 mls @ 400 mls/hr 10/06/23 20:34 10/06/23 21:12
Ofirmev IV 10/07/23 20:33 100 mls
Q6HPRN PRN Administration
Temp > 100.4
Protocol
Propofol 1,000,000 mcg in 100 mls @ 0 mls/hr 10/06/23 21:00 10/07/23 09:29
Diprivan IV 100 mls
PER PROTOCOL LI Administration
Protocol
Per Protocol
Norepinephrine Bitartrate 4 mg in 250 mls @ 0 mls/hr 10/06/23 23:00 10/06/23 22:53
Levophed IV 250 mls
PER PROTOCOL LI Administration
Protocol
Per Protocol
Doxycycline Hyclate 100 mg/ 260 mls @ 260 mls/hr 10/07/23 10:00 10/07/23 10:22
Sodium Chloride IV 260 mls
Q12 LI Administration
Lacosamide 200 mg 10/07/23 09:00 10/07/23 09:56
Lacosamide (10 Mg/Ml) 200 Mg/20 Ml Vial IV 10/21/23 08:59 200 mg
Q12 LI Administration
Lorazepam 2 mg 10/06/23 20:25
Lorazepam 2 Mg/Ml Vial IV 11/03/23 20:24
Q4HPRN PRN
seizure
Nifedipine 60 mg 10/06/23 08:00 10/07/23 08:15
Nifedipine 30 Mg Extended Release Tablet PO 11/03/23 07:59 Not Given
DAILY LI
Pantoprazole Sodium 40 mg 10/07/23 09:00 10/07/23 09:51
Pantoprazole Sodium 40 Mg/10 Ml Vial IV 11/04/23 08:59 40 mg
DAILY LI Administration
Phenobarbital Sodium 65 mg 10/06/23 19:40 10/07/23 08:08
Phenobarbital (65 Mg/Ml) 1 Ml Vial IV 11/05/23 19:39 65 mg
TID LI Administration
Polyethylene Glycol 17 grams 10/03/23 10:00 10/07/23 07:46
Polyethylene Glycol Powder 17 Grams Packet PO 10/31/23 09:59 Not Given
DAILY LI
Sennosides 17.2 mg 10/03/23 10:00 10/07/23 08:15
Sennosides (Senokot) 8.6 Mg Tablet PO 10/31/23 09:59 Not Given
BID LI
Sodium Chloride 0 flush 09/29/23 17:00 10/05/23 08:43
Sodium Chloride 0.9% (Flush) Syringe IV 10/27/23 16:59 2 flush
PER PROTOCOL LI Administration
Sodium Chloride 1 ml 10/06/23 20:32
Nss (Pf) 10 Ml Vial For Ativan 2 Mg Dose IV 11/03/23 20:31
Q4HPRN PRN
IV LORAZEPAM DILUTION
Sodium Chloride 10 ml 10/07/23 09:00 10/07/23 09:51
Sodium Chloride 0.9% (Preservative Free) 10 Ml Vial IV 11/04/23 08:59 10 ml
DAILY LI Administration
Sterile Water 10 ml 10/07/23 08:00 10/07/23 10:14
Sterile Water For Injection 10 Ml Vial IV 11/04/23 07:59 10 ml
Q24H LI Administration
--- NOTE | 2023-10-07 12:00 | PTCARENOTE ---
Pt assessed, no change from previous assessment. No seizure activity, follows simple commands with persistent verbal stimulation. Propofol gtt weaned down to 35mcg/hr in preparation for SBT.
--- NOTE | 2023-10-07 13:55 | W.PN.NEPH.PH ---
Today's Communication / Plan
-
- HD tomorrow
Assessment/Plan
-
Assessment
Seizure/epilepsy
Rhabdomyolysis
Metabolic acidosis
Elevated liver function tests
acute kidney injury
Low-grade fever
Oliguria
Plan
HD tomorrow per usual schedule
intubated overnight for airway protection in the setting of seizures
follow BMP
follow UOP
No evidence of recovery currently
-
-
Date of Service: October 07, 2023
CC / HPI / ROS
-
Chief Complaint:
Acute renal failure
History of Present Illness:
tolerated HD Friday
still anuric essentially
Metabolic acidosis better
Hemodynamically stable
TDC in place
Review of Systems
intubated and sedated
anuric
Labs
-
Labs:
WBC 11.7 10^3/uL (4.8-10.8) H 10/07/23 04:04
RBC 3.57 10^6/uL (4.70-6.10) L 10/07/23 04:04
Hgb 10.6 g/dL (13.0-18.0) L 10/07/23 04:04
Hct 30.7 % (39.0-52.0) L 10/07/23 04:04
Plt Count 185 10^3/uL (130-400) 10/07/23 04:04
Sodium 132 mmol/L (135-145) L 10/07/23 04:05
Potassium 4.0 mmol/L (3.5-5.1) 10/07/23 04:05
Chloride 100 mmol/L (98-107) 10/07/23 04:05
Carbon Dioxide 23 mmol/L (22-30) 10/07/23 04:05
BUN 62 mg/dl (9-20) H 10/07/23 04:05
Creatinine 9.4 mg/dL (0.7-1.3) H* 10/07/23 04:05
eGFR 5.82 10/07/23 04:05
Glucose 108 mg/dl (70-99) H 10/07/23 04:05
Calcium 7.6 mg/dl (8.4-10.2) L 10/07/23 04:05
Phosphorus 5.7 mg/dl (2.5-4.5) H 10/03/23 10:46
Albumin 3.0 g/dl (3.5-5.0) L 10/04/23 06:42
Physical Exam
-
Vital Signs:
Vital Signs
Temp Pulse Resp BP Pulse Ox
97.7 F 48 11 109/63 99
10/07/23 11:08 10/07/23 13:30 10/07/23 13:30 10/07/23 13:30 10/07/23 13:30
Cardiovascular:: Regular rate and rhythm
Respiratory:: Bilateral: Coarse
Lung Excursion:: Normal
Abdomen:: Nontender and Soft
Bowel Sounds:: Normal
Extremity Edema:: None: Bilateral:
Sanchez Catheter: No
--- NOTE | 2023-10-07 15:18 | PTCARENOTE ---
Pt extubated as per MD order without difficulty. Pt with slow speech, but answers questions appropriately. Pt denies pain. Restraints d/c'd, medsitter put in place.
--- NOTE | 2023-10-07 15:33 | CON.ID ---
Consultation
-
Date/Time Consultation Requested: 10/07/2015 08:14
Date/Time Consultation Performed: 10/07/2023 1515
Requesting Provider: Dr. Fishman
Performing Provider: Dr. Braun
Reason for Consultation: Fever
Chief Complaint / Past History
History of Present Illness
John Wesley is a 62-year-old man with a significant past medical history of seizure disorder being evaluated at the request of Dr. Fishman in regards to fever. History is obtained from chart review, along with patient interview.
The patient initially presented to the emergency room at [facility] on 09/28 for change in mental status after being found by his family in his apartment disheveled and covered with feces. They evidently had seen him the day before, but when
they checked in to see how he was doing the following day, they found him as above. He was brought to the emergency room, where he was noted to have a leukocytosis, and was found to have rhabdomyolysis. Additionally he was found to be in JEFERSON.
His hospital course thus far has been significant for respiratory failure requiring ventilator support, along with requiring hemodialysis. His white count has fluctuated since admission. Late yesterday, he developed fever, and was placed on
empiric antibiotics. He was extubated earlier today. Infectious Diseases is asked to comment upon further antimicrobial management.
At present, little history is available from the patient as mental status is somewhat depressed. Additionally, he may be having ongoing seizure activity.
Past History
Additional Past Medical History:
Seizure disorder
Past Surgical History: None
Allergy History:
No Known Allergies Allergy (Verified 10/07/23 10:42)
Medications Reviewed: Yes
Current Antibiotics:
Ceftriaxone
Doxycycline
Social History
Tobacco: Non-Smoker
Alcohol: None
Drug: None
Personal: Single
Living: Alone
Review of Systems
Vital Signs
Temp Pulse Resp BP Pulse Ox
97.7 F 60 10 147/86 97
10/07/23 15:28 10/07/23 14:10 10/07/23 14:10 10/07/23 14:00 10/07/23 14:10
Physical Exam
Physical Exam
Constitutional: Acutely Ill and Non-toxic
Head: Normocephalic
Eyes: Pupils Equal, Pupils Round, No Conjunctival Hemorrhage and Sclera Anicteric
Cardiovascular: Regular Rate and S1/S2; Negative S3/S4
Pulmonary: Clear; Negative Wheezes or Rales
Gastrointestinal: Soft, Non Distended and Normal Bowel Sounds
Extremities: Negative Edema, Cyanosis or Erythema
Skin: Warm and Dry; Negative Rash or Jaundice
Neurological: Awake and Other; Negative Meningeal Signs
Psychological: Calm
.
Lab / Diagnostic Study Results
10/07/23 04:04
10/07/23 04:05
Abs Immat Gran (auto) 0.1 10^3/uL (0-0.05) H 09/29/23 08:35
Absolute Neuts (auto) 17.3 10^3/uL (1.4-6.5) H 09/29/23 08:35
Absolute Lymphs (auto) 0.6 10^3/uL (1.2-3.4) L 09/29/23 08:35
Absolute Monos (auto) 1.3 10^3/uL (0.1-0.6) H 09/29/23 08:35
Absolute Basos (auto) 0.0 10^3/uL (0-0.2) 09/29/23 08:35
Immature Gran % 0.5 % (0-0.5) 09/29/23 08:35
Neutrophils % 89.7 % (42.2-75.2) H 09/29/23 08:35
Lymphocytes % 2.9 % (20.5-51.1) L 09/29/23 08:35
Monocytes % 6.8 % (1.7-9.3) 09/29/23 08:35
Eosinophils % 0.0 % (0-6) 09/29/23 08:35
Basophils % 0.1 % (0-2) 09/29/23 08:35
PT 15.9 Sec (11.4-14.6) H 10/06/23 07:11
INR 1.29 10/06/23 07:11
Urine WBC 16-20 /HPF (0-5) A 09/30/23 06:09
Ur Squamous Epith Cells 3-5 /LPF (Few) 09/29/23 10:19
Microbiology Results
Micro:
10/07/23 10:13 MRSA Screen - Pending
Nose
10/07/23 10:13 Blood Culture - Pending
Blood/Venous
09/29/23 11:42 Blood Culture - Final
Blood/Venous No Growth - Final Report
09/29/23 11:42 Blood Culture - Final
Blood/Venous No Growth - Final Report
09/29/23 10:19 Urine Culture - Final
Urine NO GROWTH
Imaging:
10/06/2023 CXR (portable): Slightly increased opacity in the retrocardiac left lower lobe which may be atelectasis versus pneumonia. Minor infiltrate versus atelectasis in the right medial lung base. No pneumothorax seen. Please see full dictation
for additional detail.
Assessment / Plan
Fever
-Suspect may be secondary to ongoing seizure activity
Leukocytosis
JEFERSON now on hemodialysis
Rhabdomyolysis
Seizures
Recommendations:
Doubt fever is secondary to infectious process at present.
Would discontinue further antibiotics for now, with close clinical observation.
Monitor white count and temperature curve.
Will continue to follow along with you.
[2023-10-07] MEDS: ATIVAN 1 MG IV ×2 (15:43→15:46)
[2023-10-07] MEDS: NSS (PRESERVATIVE FREE) 0.5 ML IV (15:45)
--- NOTE | 2023-10-07 15:54 | W.PN.UPDATE ---
Update Note
Progress Note Update
Called to see patient.
Patient with less responsiveness having been extubated and with gaze preference to the left with flexion contractures at the elbow and wrist on the left.
Plan: Patient likely experiencing recurrent focal onset seizures with impaired awareness which is likely due to unclear etiology intractable epilepsy
Provide lorazepam 1 mg followed by 1 mg IV
Provide Brivaracetam as a third agent with loading of 300 mg followed by 100 mg twice a day.
Will repeat EEG in a.m.
[2023-10-07] MEDS: BRIVIACT 300 MG IV (16:02)
[2023-10-07] MEDS: THIAMINE INJECTION 100 MG IV (16:14)
--- NOTE | 2023-10-07 16:14 | W.PN.UPDATE ---
Update Note
Progress Note Update
Extubated after spontaneous breathing trial.
Tolerating well.
Had focal seizures. Neurology was notified. Additional adjustment of medication has been given.
Head of the bed elevation
N.p.o.
End-tidal CO2 monitoring.
--- NOTE | 2023-10-07 16:22 | PTCARENOTE ---
1530-Dr Braun at bedside noted facial contorting and left downward gaze preference.Pt assessed.Increased tone noted to left upper extremity,also arm is flexed.Pt does intermittently answer questions and following commands.Right upper extremity
tremors noted.Dr Aguilar made aware. Ativan IV given as ordered.Dr Aguilar at bedside.Brivacaetam given as ordered.
--- NOTE | 2023-10-07 17:20 | PTCARENOTE ---
Pt is more awake, oriented x2. NIHSS able to be completed with persistent reinforcement of commands, NIHSS = 3, see flowsheet. Attempted swallow screen with PO intake; pt opens mouth when prompted but does not swallow on command, despite multiple
commands. Pt's mouth suctioned, oral care performed.
--- NOTE | 2023-10-07 21:00 | PTCARENOTE ---
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 [place]. when asked to raise RUE pt will raise LUE instead, when assisted to encourage lifting RUE- extremity shaky. Sat 96% on 2LNC. B/L IV intact.
medsitter maintained. bed alarm on.
[2023-10-08] VITALS (51 sets, daily range): BP systolic 127–161; BP diastolic 40–128; PULSE 60; O2SAT 90; BMI 29.9
[2023-10-08] MEDS: HEPARIN 5000 UNITS SC ×3 (00:36→17:43)
--- NOTE | 2023-10-08 03:00 | DOWNTIME ---
There was a [employer] Client Lighter Captain Downtime on 10/08/2023 from 0100 to 10/08/2023 at 0255. Downtime documentation of patient's care, including medication administrations, has been reconciled in the electronic record per guidelines. Refer to the
patient's paper chart under the miscellaneous tab to see printed paper medication records and downtime forms.
[2023-10-08 04:50] LABS: % Basophils 0.3 % (0-2); % Eosinophils 1.8 % (0-6); % Immature Granulocytes 3.4 % (0-0.5); % Lymphocytes 4.6 % (20.5-51.1); % Monocytes 7.8 % (1.7-9.3); % Neutrophils 82.1 % (42.2-75.2); Absolute Eosinophils 0.2 10^3/uL (0-0.7); Absolute Immature Granulocytes 0.3 10^3/uL (0-0.05); Absolute Lymphocytes 0.5 10^3/uL (1.2-3.4); Absolute Monocytes 0.8 10^3/uL (0.1-0.6); Absolute Neutrophils 8.1 10^3/uL (1.4-6.5); Hemoglobin 11.1 g/dL (13.0-18.0); Mean Corp Hgb Conc. 33.6 g/dL (33.0-37.0); Mean Corpuscular Hgb 28.3 pg (27.0-31.0); Mean Corpuscular Volume 84.2 fL (80.0-94.0); Mean Platelet Volume 11.1 fL (7.4-10.4); Nucleated Red Blood Cells % 0 % (-); Platelet Count 201 10^3/uL (130-400); Red Blood Cell Count 3.92 10^6/uL (4.70-6.10); Red Cell Dist. Width 12.5 % (11.5-14.5); White Blood Cell Count 9.9 10^3/uL (4.8-10.8)
[2023-10-08 05:15] LABS: ALT (SGPT) 72 U/L (0-50); AST (SGOT) 30 U/L (17-59); Alkaline Phosphatase 92 U/L (38-126); Blood Urea Nitrogen 76 mg/dl (9-20); Carbon Dioxide 21 mmol/L (22-30); Chloride 100 mmol/L (98-107); Estimated Creatinine Clearance 8 ml/min; Glucose 81 mg/dl (70-99); Potassium 4.4 mmol/L (3.5-5.1); Sodium 135 mmol/L (135-145); Total Bilirubin 0.6 mg/dl (0.2-1.3); Total Protein 5.2 g/dl (6.3-8.2); eGFR 4.72
--- NOTE | 2023-10-08 07:22 | W.PN.HOSP.TC ---
Today's Communication/Plan
-
see A/P
Assessment / Plan
Assessment / Plan
CXR: Low lung volumes. Minor bibasilar opacity most likely representing subsegmental atelectasis.
Abd U/S: Nonspecific focal gallbladder wall thickening. No additional findings to suggest acute cholecystitis. Clinical and laboratory correlation recommended. Minimal ascites about the liver.
Renal U/S: No evidence for pelvicalyceal dilation of either kidney. There appears to be a small amount of fluid surrounding each kidney. Suggestion of increased echogenicity of renal parenchyma bilaterally, a nonspecific finding suggesting medical
renal disease.
MRI brain:
1. No acute intracranial abnormality.
2. 2.3 cm lesion at the junction of the right zygomatic arch and maxilla favored to represent an osteoma. Imaging follow-up can be performed to confirm stability.
A/P:
Acute metabolic encephalopathy due to acute seizure and postictal state as well as JEFERSON/rhabdo:
-Patient was on phenobarbital prior to admission and missed a couple days of dosing.
-active seizure noted (active RUE and facial twitching/ tonic clonic seizure) 10/05, s/p Keppra 2g load
-was started Keppra 500 Q12H -> restarted phenobarbital, also added Brivaracetam BID with Vimpat now at 200 BID
-Intubated for airway protection 10/05, extubated 10/06
-Off Levophed
-EEG 10/06: Moderate diffuse slowing, no seizures or epileptiform discharges seen
-Neuro on board
Acute kidney injury due to nontraumatic rhabdomyolysis due to acute seizure activity
Now ESRD
-renal U/S with medical renal disease
-started on HD, to continue
Fever noted 10/05, likely due to active seizure at that time
-Urine and blood culture from 09/28 showed no growth
-Follow repeat blood culture
-repeat CXR 10/05 after intubation noted slightly increased opacity in the retrocardiac left lower lobe, atelectasis versus pneumonia. Minor infiltrate versus atelectasis in the medial right lung base.
-Procal not useful in this case with ESRD
-was restarted empiric Abx Ceftriaxone/doxycycline -> now off
-Appreciate ID input
Transaminitis due to rhabdomyolysis, resolving
-Unremarkable abdominal ultrasound
-Hepatocellular injury has been ruled out
Essential hypertension:
-cont Procardia XL to 60mg daily with holding parameter
FULL/HSQ
DW RN
updated sister on the phone
Anticipated Discharge: > 48 hours
Subjective/Interval History
-
Date of Service: October 08, 2023
Objective Data
-
Labs:
Laboratory Results
10/08/23
04:12
WBC 9.9
Hgb 11.1 L
Hct 33.0 L
Plt Count 201
Sodium 135
Potassium 4.4
Chloride 100
Carbon Dioxide 21 L
BUN 76 H
Creatinine 11.2 H*
Glucose 81
Calcium 8.0 L
Total Bilirubin 0.6
AST 30
ALT 72 H
Alkaline Phosphatase 92
Vital Signs:
Vital Signs
Temp Pulse Resp BP Pulse Ox
36.7 C 58 21 154/76 94
10/08/23 07:15 10/08/23 06:00 10/08/23 06:00 10/08/23 06:00 10/08/23 06:00
I&O
10/07/23 10/08/23 10/09/23
06:59 06:59 06:59
Intake Total 403.6 / 433.5 188.3 / 188.3
Output Total 0 / 0
Balance 403.6 / 433.5 188.3 / 188.3
Review of Systems
-
Unable to obtain full review of systems at this time due to: Acuity
Physical Exam
-
General: Appears Chronically Ill
HEENT: Oxygen (2L NC)
Respiratory: Clear to Auscultation and Non Labored Respirations; Negative Accessory Resp Muscle Use
Cardiac: Regular Rhythm and S1/S2
GI: Soft and Nondistended
Musculoskeletal: No Clubbing, No Cyanosis, Edema, Right Lower Extrem (2+) and Edema, Left Lower Extrem (2+)
Skin: Warm and Dry
Neuro: Awake
Psych: Calm
--- NOTE | 2023-10-08 07:53 | W.PN.NEURO.1 ---
Today's Communication / Plan
-
-Continue Phenobarbital, Brivaracetam, Lacosamide at current doses
--Tentatively would like to have him on 2 seizure medications only upon discharge
--Monitor clinically for seizure
--Follow renal function
Supportive care
Will follow
Neuro Assessment/Plan
Assessment
62 yr. old male admitted with breakthrough seizure and rhabdomyolysis with acute renal failure undergoing Hemodialysis worsening creatinine
Patient has focal epilepsy, currently uncontrolled, did have episode of status epilepticus here 10/05 after several days of no seizures in hospital after an initial seizure prompting admission
At home on phenobarbital, phenytoin, valium
Suspect there was either medication non-compliance or simply head breakthrough seizure from epilepsy
JEFERSON and metabolic derangements could have triggered futher seizure
Suspicion of some degree of status epilepticus due to being off phenobarbital
Subjective/Objective
Subjective Data
Date of Service: October 08, 2023
Extubated yesterday, tells me he takes Phenobarbital, Dilantin, and valium at home
Objective Data
Vital Signs
Temp Pulse Resp BP Pulse Ox
98.1 F 58 21 154/76 94
10/08/23 07:15 10/08/23 06:00 10/08/23 06:00 10/08/23 06:00 10/08/23 06:00
Lab Results
10/08/23 04:12
10/08/23 04:12
PT 15.9 Sec (11.4-14.6) H 10/06/23 07:11
INR 1.29 10/06/23 07:11
APTT 28.7 Sec (23.4-35.0) 09/29/23 08:35
Sodium 135 mmol/L (135-145) 10/08/23 04:12
Potassium 4.4 mmol/L (3.5-5.1) 10/08/23 04:12
BUN 76 mg/dl (9-20) H 10/08/23 04:12
Glucose 81 mg/dl (70-99) 10/08/23 04:12
Calcium 8.0 mg/dl (8.4-10.2) L 10/08/23 04:12
Phosphorus 5.7 mg/dl (2.5-4.5) H 10/03/23 10:46
Vitamin B12 248 pg/ml (239-931) 09/30/23 04:00
Ur Buprenorphine Cancelled 09/29/23 10:19
Ur Buprenorphine Negative (Negative) 09/29/23 10:19
Patient Allergies
No Known Allergies Allergy (Verified 10/07/23 10:42)
Review of Systems
-
All other systems: Reviewed and negative
Constitutional: No Symptoms
EENT: No Symptoms Reported
Respiratory: No Symptoms
Cardiac: No Symptoms
Abdomen/GI: No Symptoms
Genitourinary: No Symptoms
Musculoskeletal: No Symptoms
Skin: No Symptoms
Neuro: See existing Neuro Note
Endocrine: No Symptoms
Hematologic / Lymphatic: No Symptoms
Allergy / Immunology: No Symptoms
Physical Exam
-
General: Comfortable; Negative Respiratory Distress
Eyes: No Ptosis
HEENT: Normocephalic
Neck: No Bruits Bilaterally
Respiratory: Clear to Auscultation
Cardiac: Regular Rhythm
GI: Normal Bowel Sounds
Skin: Unremarkable
Extremities: No Clubbing
Psych: Negative Agitated
Extended Neurological Exam
Attention Span & Concentration: Other (Awake and alert, answers basic questions appropriately, gives some medical history)
Memory: Reduced
Tremor: Hand Tremor Absent
Involuntary Movement: None
Speech: Negative Expressive Aphasia, Receptive Aphasia or Dysarthric
Cranial Nerve II: Left Eye: Pupillary Reactivity Unremarkable and Pupillary Size Unremarkable
Cranial Nerve II: Right Eye: Pupillary Reactivity Unremarkable and Pupillary Size Unremarkable
Cranial Nerves III, IV, : Extraocular Movement: Other (Left gaze preference, overcomes and can look to the right)
Cranial Nerve VII: Facial Symmetry: Normal Facial Symmetry
Muscle Strength, Overall: Other (Left arm drift)
Pronator Drift: Drift in Left Upper Extremity
Data Reviewed
-
CT Head: Report Reviewed and Image Reviewed
EEG: Report Reviewed
[2023-10-08] MEDS: PHENOBARBITAL 65 MG IV ×3 (07:55→22:26)
[2023-10-08] MEDS: PROTONIX IV 40 MG IV (07:55)
[2023-10-08] MEDS: NSS (PRESERVATIVE FREE) 10 ML IV (07:55)
[2023-10-08] MEDS: BRIVIACT 100 MG IV ×2 (07:56→19:40)
[2023-10-08] MEDS: THIAMINE INJECTION 100 MG IV (07:57)
[2023-10-08] MEDS: VIMPAT 200 MG IV ×2 (07:57→19:40)
[2023-10-08] MEDS: LOTRIMIN 1% CREAM 1 APPLIC TOPICAL ×2 (07:58→19:52)
--- NOTE | 2023-10-08 09:00 | PTCARENOTE ---
Received pt with eyes open.Oriented x 3.Tends to answer questions with 1 word answers.Occasionally perseverates.Follows commands consistently.+[place].Left upper and lower extremity slightly weaker.No drift or droop noted.Denies pain.No seizure activity
noted.Remote viewing maintained for pt safety.SB noted.Right HD cath intact.POX 94% on RA.Decreased breath sounds throughout.Pt encouraged to cough and deep breath.Pt seen by Speech Therapy.Swallowed oral medications with water without difficulty.Is
consistently refusing food and drink.Encouraged to eat.No BM.No void.Skin integrity as documented.Plan of care discussed with pt.EEG is ongoing at this time.
--- NOTE | 2023-10-08 09:56 | W.PN.ID1 ---
Date of Service
Date of Service: October 08, 2023
Today's Communication
Observe off antibiotics
Assessment / Plan
Fever
- improved
Leukocytosis
- improved
JEFERSON
- on hemodialysis
Rhabdomyolysis
Seizures
Recommendations:
Continue off antibiotics at the present, with close clinical observation.
Continue to monitor white count and temperature curve.
Will continue to follow along with you.
Chief Complaint
-: Leukocytosis and Pneumonia
Subjective / Review of Systems
Review of Systems: No Fever
Vital Signs / Physical Exam
Vital Signs
Vital Signs
Temp Pulse Resp BP Pulse Ox
98.1 F 58 21 154/76 94
10/08/23 07:15 10/08/23 06:00 10/08/23 06:00 10/08/23 06:00 10/08/23 06:00
Physical Exam
Constitutional: No Acute Distress, Comfortable and Non-toxic
Eyes: No Conjunctival Hemorrhage and Sclera Anicteric
Cardiovascular: S1/S2; Negative S3/S4 or Murmur
Pulmonary: Non Labored
Gastrointestinal: Soft, Non Tender, Non Distended and Normal Bowel Sounds
Extremities: Edema (1+) and Pulses; Negative Cyanosis or Erythema
Neurological: Other (Arousable and responsive)
Psychological: Calm
Lines: HD Cath (Right ACW.)
Objective Data
Lab Data
Lab Results
10/08/23 04:12
10/08/23 04:12
PT 15.9 Sec (11.4-14.6) H 10/06/23 07:11
INR 1.29 10/06/23 07:11
APTT 28.7 Sec (23.4-35.0) 09/29/23 08:35
Estimated Creat Clear 8 ml/min 10/08/23 04:12
Total Bilirubin 0.6 mg/dl (0.2-1.3) 10/08/23 04:12
AST 30 U/L (17-59) 10/08/23 04:12
ALT 72 U/L (0-50) H 10/08/23 04:12
Alkaline Phosphatase 92 U/L (38-126) 10/08/23 04:12
Most recent labs reviewed.
Chest X-Ray: Image Reviewed and Report Reviewed
Micro Results:
10/07/23 10:13 MRSA Screen - Pending
Nose
10/07/23 10:13 Blood Culture - Pending
Blood/Venous
09/29/23 11:42 Blood Culture - Final
Blood/Venous No Growth - Final Report
09/29/23 11:42 Blood Culture - Final
Blood/Venous No Growth - Final Report
09/29/23 10:19 Urine Culture - Final
Urine NO GROWTH
Imaging:
10/06/2023 CXR (portable): Slightly increased opacity in the retrocardiac left lower lobe which may be atelectasis versus pneumonia. Minor infiltrate versus atelectasis in the right medial lung base. No pneumothorax seen. Please see full dictation
for additional detail.
[2023-10-08] MEDS: PROCARDIA XL (EXTENDED RELEASE) 60 MG PO (10:29)
[2023-10-08] MEDS: ASPIR LOW (ENTERIC COATED) 81 MG PO (10:29)
--- NOTE | 2023-10-08 10:29 | EEG.RPT ---
Electroencephalogram Report
Recording
Date of EE10/08/23
Type of EEG: Routine
Length of EEG recordin minutes
Done with Video Recording: Yes
Patient Status: Inpatient
Recording Conditions: Awake and Drowsy
Hyperventilation Performed: No
Photic Stimulation Performed: Yes
Report
GREATER THAN 1 HOUR EEG REPORT
GREATER THAN 1 HOUR EEG INTERPRETATION:
Moderately-severely abnormal EEG for age due to intermittent 2/s medium amplitude polyspike and wave discharges with a background of slowing.
CLINICAL CORRELATION:
This study was suggestive of a high-risk for subclinical seizures, generalized in nature. In comparison with the prior studies, the multi-spike and wave discharges are new. Clinical correlation is advised.
METHODS:
A 21 channel digitized electroencephalogram (EEG) was performed at the bedside in the ICU. The 10/20 international system of electrode placement was used with ECG and lateral/vertical eye movements recorded. Video was recorded. Persyst quantitative
EEG evaluation was utilized.
ELECTROENCEPHALOGRAPHER IMPRESSION(S):
Quality of study: Good
Background
Amplitude: Unremarkable
Anterior-Posterior Organization: Good
Maximum: Theta
Asymmetry: None
Sleep
Drowsiness demonstrated by attenuation of the background rhythm
Photic Stimulation
Failed to activate the record
ECG
Normal sinus rhythm
ABNORMAL EEG Activity
Seen intermittently arrhythmically were medium amplitude fairly-well organized 2/s spike and wave discharges, generalizing, lasting for 2 second intervals. On page 145 the technicians and trades workers noted the patient extending arms and repeating phrases which was
associated with an increase in bifrontal frontal beta and multi-spike wave discharges.
[2023-10-08] MEDS: MIRALAX PO (10:30)
[2023-10-08] MEDS: SENOKOT 17.2 MG PO ×2 (10:30→19:40)
--- NOTE | 2023-10-08 10:40 | W.PN.INTV ---
Today's Communication / Plan
Recommendations
Dialysis today
Increase activity as able
A speech evaluation
Continue antiepileptic drugs
Continue antibiotic therapy
Incentive spirometry as able
Possible transfer to telemetry later today if there is no further seizures
Assessment
-
62-year-old man admitted with change in mental status, likely due to seizures. Severe rhabdomyolysis, acute kidney injury requiring dialysis. Subsequently on 10/06/2023 developed refractory seizures despite Keppra and Vimpat. Transferred to the
critical care unit for IV phenobarbital loading, intubated for airway protection. We were consulted for evaluation.
Toxic metabolic encephalopathy: Status epilepticus-unclear whether patient was not taking his phenobarbital.
Brain MRI unremarkable.
Respiratory failure for airway protection intubated 10/06/2023
Rhabdomyolysis due to seizures
Acute kidney injury: Due to rhabdomyolysis/ATN-requiring acute dialysis this admission
Low-grade fever
Conditions present prior admission:
Hypertension
History of seizures
? Autism
Assessment and plan:
Extubated 10/07/2023
Tolerating well without significant oxygen supplementation requirements
Lung exam with scattered rhonchi but not bronchospastic.
-
No further seizure activity since yesterday.
On phenobarbital/Vimpat
Status post propofol drip.
Neurology following the patient
-
Continue supplementation of oxygen as needed to maintain pulse ox above 90%.
Chest x-ray noted with possible retrocardiac opacity, atelectasis versus infiltrate
Encourage incentive spirometry
Acute activity as able
-
Initially hypotensive, now vasopressors discontinued
Okay to continue maintenance IV fluids for now.
-
Low-grade fevers 10/06/2023
Cannot rule out aspiration event.
Started on antibiotics 10/07/2023 per primary team. Recommend 5 days of antibiotics, once able to take orals transition to Augmentin
-
Speech evaluation, advance diet if able
Head of the bed elevated
-
Acute kidney injury: Continue dialysis as needed per nephrology
Avoid nephrotoxic drugs
Right subclavian temporary dialysis catheter in place
Monitor electrolytes daily
-
DVT prophylaxis subcu heparin
GI prophylaxis with PPI
-
If able to tolerate dialysis, out of bed, diet without breakthrough seizures then transferred to telemetry.
If transferred to telemetry critical care team will sign off.

Reviewed:
CXR: 10/06/2023, low lung volumes. Minor bibasilar opacity most likely representing subsegmental atelectasis.
MRI brain:
1. No acute intracranial abnormality.
2. 2.3 cm lesion at the junction of the right zygomatic arch and maxilla favored to represent an osteoma. Imaging follow-up can be performed to confirm stability.
Subjective Dataa
Subjective Data
Date of Service:
Date of Service: October 08, 2023
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
Subjective:
Remains extubated overnight
No further seizure activity
This morning with no particular complaints per
Denies any headache or blurry vision
Denies weakness
Denies nausea vomit
Review of Systems
General: Fever (n)
Cardiopulmonary: Dyspnea (n) and Cough (n)
GI: Abdominal Pain (n) and Nausea (n)
Neuro: Headache (n)
Objective Data
Data Reviewed
Vital Signs / I&O / Oxygen:
Vital Signs
Temp Pulse Resp BP Pulse Ox
98.1 F 58 21 140/70 94
10/08/23 07:15 10/08/23 06:00 10/08/23 06:00 10/08/23 10:29 10/08/23 06:00
Intake and Output
10/07/23 10/08/23 10/09/23
06:59 06:59 06:59
Intake Total 403.6 / 433.5 188.3 / 188.3
Output Total 0 / 0
Balance 403.6 / 433.5 188.3 / 188.3
SaO2 [A/C] 99
SaO2 94
Nasal Cannula flow liters per 2
minute
Physical Exam
General: Respiratory Distress (n) and Comfortable
HEENT: Normocephalic
Cardiovascular: S1-S2 and Regular Rhythm
Respiratory: Wheeze (n) and Rhonchi (Mild)
GI: Soft and Non Distended
Neurology: Awake, Alert and No Motor Deficits
Skin: Warm
Labs/Micro/Reports
Lab Data
10/08/23 04:12
10/08/23 04:12
Microbiology
10/07/23 10:13 Blood/Venous Blood Culture - Preliminary
No Growth in 24 hours- Final report to follow
--- NOTE | 2023-10-08 10:47 | PTOTSP ---
Dysphagia Therapy
Patient presents with at least mild-moderate oral and minimal pharyngeal dysphagia signs suspected to be due to acute changes to mentation after recent seizure.
Recommend:
1. IDDSI Level 6 (Soft/Bite Sized), Thin Liquids
2. Medications - whole and/or crushed in puree
3. Strategies: Full supervision, assist as needed, PO only when awake/alert, small single sips/bites, alternate sips/bites, check for oral residue
4. Oral care 3x daily
5. Continued dysphagia tx at the acute care level. Consider continued assessment of speech/language/cognition when no-longer felt to have acute factors impacting (i.e., recent seizure, medications).
*Discontinue oral diet if worsened cognition and/or worsened pocketing observed.
--- NOTE | 2023-10-08 12:30 | PTCARENOTE ---
Pt assessed.No change in assessment noted.PT/OT attempted to assist pt oob to chair.Pt was unable to follow directions and seemed to have disjointed muscle movement.HD is ongoing.Pt's niece at bedside.Plan of care discussed.Case management made
aware that the pt's sister Leanne would like a call regarding future plans.
--- NOTE | 2023-10-08 14:20 | CM ---
Addendum entered by Rafael Neumann 10/08/23 15:16:
CM had a long conversation with pt's sister Leanne and she brought her concerns regarding pt's well being and especially taking care of himself. Per Leanne, pt raised by his mother who 11 weeks ago. Pt has been on disability for all his life due to
Epilepsy and pt has been working at [employer]. Pt lives alone in mother's house and pt's sister lives in in-law suite attached to mother's house and she and her are checking on the pt periodically.
Per sister, pt might not able to manage his medications and he stopped his seizure meds. Pt's sister brought her concerns regarding obtaining POA and Living Will and pt's sister has been notified that this CN will provide with a copy of POA and
AD/Living Will and explained the process of completing.
Pt's sister is aware that PT and OT recommend SNF level of care. A list of SNFs discussed with pt;s sister and she stated she and her 2 other sister will come to tomorrow to meet with CM do discussed pt's discharge plan in details.
Original Note:
CM following re: discharge planning.
Reviewed pt's chart, met with pt. Per Rounds meeting, HD today, intubated 10/05, extubated yesterday, continue supportive care. pt might need outpatient HD treatment set up, will coordinate with bulk driver.
PT and OT evaluations noted - SNF level of care recommended. pt is aware, a list of SNFs provided and pt stated he will discuss it with his sister.
D/C plan: preferred SNF when medically stable with possible outpatient HD treatment
CM will follow with discharge plan updates as hospitalization progresses
--- NOTE | 2023-10-08 14:25 | W.PN.NEPH.HD ---
Assessment
-
Seen on HD. no complaints. VSS< access ok. not eating.
will need to identify POA in family
Progress Note - Hemodialysis
-
Date of Service: October 08, 2023
Duration: 30 minutes and 3 hours
Potassium Bath: 3
Calcium Bath: 2.5
Opti-Dialyzer: 160
Ultrafiltration: Other (2kg)
Blood Flow: 400
Dialysate Flow: 600
Heparin: 0
EPO: 0
--- NOTE | 2023-10-08 15:52 | W.PN.UPDATE ---
Update Note
Progress Note Update
No further seizures.
Hemodynamically stable
Tolerated dialysis
Will transfer to IMU.
Critical care team will sign off. Please call pulmonary if any respiratory issues arise.
--- NOTE | 2023-10-08 17:00 | PTCARENOTE ---
Pt assessed.No change in assessment noted.HD completed.2 kg off as per HD RN.Pt is more conversant.He ate 95% of his dinner tray as a complete feed.No difficulty chewing or swallowing noted.
[2023-10-09] VITALS (21 sets, daily range): BP systolic 101–164; BP diastolic 58–96; PULSE 68–69; O2SAT 97; BMI 29.5
[2023-10-09] MEDS: HEPARIN 5000 UNITS SC ×4 (00:55→23:34)
--- NOTE | 2023-10-09 03:50 | PTCARENOTE ---
Pt Ox2. Follows simple commands. NIH = 2, mild aphasia and ataxia--LE. Generalized weakness. Breath sounds diminished t/o. Pt on 2L NC while awake. Desat to 89% while asleep, NC increased to 4L while asleep. SR to sinus seble. Oliguric, no urine
output noted at this time. Safe environment maintained, medsitter continues, call leonardo within reach.
[2023-10-09 05:55] LABS: % Basophils 0.4 % (0-2); % Eosinophils 2.3 % (0-6); % Immature Granulocytes 2.6 % (0-0.5); % Lymphocytes 4.5 % (20.5-51.1); % Monocytes 7.9 % (1.7-9.3); % Neutrophils 82.3 % (42.2-75.2); Absolute Eosinophils 0.2 10^3/uL (0-0.7); Absolute Immature Granulocytes 0.2 10^3/uL (0-0.05); Absolute Lymphocytes 0.4 10^3/uL (1.2-3.4); Absolute Monocytes 0.7 10^3/uL (0.1-0.6); Absolute Neutrophils 7.5 10^3/uL (1.4-6.5); Hematocrit 35.7 % (39.0-52.0); Hemoglobin 12.1 g/dL (13.0-18.0); Mean Corp Hgb Conc. 33.9 g/dL (33.0-37.0); Mean Corpuscular Hgb 29.4 pg (27.0-31.0); Mean Corpuscular Volume 86.7 fL (80.0-94.0); Mean Platelet Volume 10.7 fL (7.4-10.4); Nucleated Red Blood Cells % 0 % (-); Platelet Count 198 10^3/uL (130-400); Red Blood Cell Count 4.12 10^6/uL (4.70-6.10); Red Cell Dist. Width 12.5 % (11.5-14.5); White Blood Cell Count 9.1 10^3/uL (4.8-10.8)
[2023-10-09 06:18] LABS: ALT (SGPT) 60 U/L (0-50); AST (SGOT) 25 U/L (17-59); Alkaline Phosphatase 114 U/L (38-126); Blood Urea Nitrogen 56 mg/dl (9-20); Calcium 8.2 mg/dl (8.4-10.2); Carbon Dioxide 23 mmol/L (22-30); Chloride 98 mmol/L (98-107); Estimated Creatinine Clearance 9 ml/min; Glucose 112 mg/dl (70-99); Potassium 3.9 mmol/L (3.5-5.1); Sodium 134 mmol/L (135-145); Total Bilirubin 0.5 mg/dl (0.2-1.3); Total Protein 5.3 g/dl (6.3-8.2); eGFR 5.75
[2023-10-09] MEDS: VIMPAT IV (08:40)
[2023-10-09] MEDS: PHENOBARBITAL IV (08:40)
[2023-10-09] MEDS: BRIVIACT IV (08:40)
[2023-10-09] MEDS: NSS (PRESERVATIVE FREE) IV (08:50)
[2023-10-09] MEDS: PROTONIX IV IV (08:50)
[2023-10-09] MEDS: ASPIR LOW (ENTERIC COATED) 81 MG PO (09:00)
[2023-10-09] MEDS: PROCARDIA XL (EXTENDED RELEASE) 60 MG PO (09:00)
[2023-10-09] MEDS: SENOKOT 17.2 MG PO ×2 (09:00→21:39)
[2023-10-09] MEDS: MIRALAX 17 GRAMS PO (09:00)
[2023-10-09] MEDS: LUMINAL 64.8 MG PO ×3 (09:00→21:44)
[2023-10-09] MEDS: VITAMIN B1 100 MG PO (09:00)
[2023-10-09] MEDS: PROTONIX 40 MG PO (09:00)
[2023-10-09] MEDS: LOTRIMIN 1% CREAM 1 APPLIC TOPICAL ×2 (09:01→21:41)
[2023-10-09] MEDS: THIAMINE INJECTION IV (09:12)
--- NOTE | 2023-10-09 09:58 | W.PN.HOSP.TC ---
Today's Communication/Plan
-
Discharge planning for rehab with dialysis
Continue wean off oxygen as possible
Assessment / Plan
Assessment / Plan
CXR: Low lung volumes. Minor bibasilar opacity most likely representing subsegmental atelectasis.
Abd U/S: Nonspecific focal gallbladder wall thickening. No additional findings to suggest acute cholecystitis. Clinical and laboratory correlation recommended. Minimal ascites about the liver.
Renal U/S: No evidence for pelvicalyceal dilation of either kidney. There appears to be a small amount of fluid surrounding each kidney. Suggestion of increased echogenicity of renal parenchyma bilaterally, a nonspecific finding suggesting medical
renal disease.
MRI brain:
1. No acute intracranial abnormality.
2. 2.3 cm lesion at the junction of the right zygomatic arch and maxilla favored to represent an osteoma. Imaging follow-up can be performed to confirm stability.

Acute metabolic encephalopathy due to acute seizure and postictal state as well as JEFERSON/rhabdo:
-Patient was on phenobarbital prior to admission and missed a couple days of dosing.
-active seizure noted (active RUE and facial twitching/ tonic clonic seizure) 10/05, s/p Keppra 2g load
-Intubated for airway protection 10/05, extubated 10/06
-Off of levophed
-EEG 10/06: Moderate diffuse slowing, no seizures or epileptiform discharges seen
-Neuro following and help appreciated
-Currently on regimen of phenobarbital/Vimpat -no reported seizure episode in last 48 hours
Acute kidney injury due to nontraumatic rhabdomyolysis due to acute seizure activity
Now ESRD on HD
-renal U/S with medical renal disease
-Right chest tunneled catheter site clean, no erythema/drainage
-Nephrology following and getting dialysis periodically
Fever noted 10/05, likely due to active seizure at that time
-Urine and blood culture from 09/28 showed no growth
- blood culture remains negative till date.
-repeat CXR 10/05 after intubation noted slightly increased opacity in the retrocardiac left lower lobe, atelectasis versus pneumonia. Minor infiltrate versus atelectasis in the medial right lung base.
-Procal not useful in this case with ESRD
-was restarted empiric Abx Ceftriaxone/doxycycline -> continue monitoring off of antibiotics.
-Appreciate ID input
Ventilator dependent respiratory failure -for airway protection
Acute hypoxic respiratory insufficiency
-Currently on oxygen 2-3 L per nasal cannula continue wean off as possible
Transaminitis due to rhabdomyolysis, resolving
-Unremarkable abdominal ultrasound
-Hepatocellular injury has been ruled out
Essential hypertension:
-cont Procardia XL to 60mg daily with holding parameter
Hyponatremia
-minimal, observe
FULL/HSQ
Anticipated Discharge: > 48 hours
Subjective/Interval History
-
Date of Service: October 09, 2023
Patient sitting comfortably in chair
Remains on oxygen 3 L nasal cannula
Able to provide some information although remains pleasantly disoriented in my opinion
Afebrile overnight
No acute issues reported
Objective Data
-
Labs:
Laboratory Results
10/09/23
05:32
WBC 9.1
Hgb 12.1 L
Hct 35.7 L
Plt Count 198
Sodium 134 L
Potassium 3.9
Chloride 98
Carbon Dioxide 23
BUN 56 H
Creatinine 9.5 H*
Glucose 112 H
Calcium 8.2 L
Total Bilirubin 0.5
AST 25
ALT 60 H
Alkaline Phosphatase 114
Vital Signs:
Vital Signs
Temp Pulse Resp BP Pulse Ox
98.1 F 87 19 125/86 95
10/09/23 07:34 10/09/23 09:00 10/09/23 09:00 10/09/23 09:00 10/09/23 08:42
I&O
10/08/23 10/09/23 10/10/23
06:59 06:59 06:59
Intake Total 188.3 / 188.3 120 / 120
Output Total 0 / 0 0 / 0 0 / 0
Balance 188.3 / 188.3 120 / 120 0 / 0
Review of Systems
-
Respiratory: Reports No Symptoms
Cardiac: Reports No Symptoms
Abdomen/GI: Reports No Symptoms
Physical Exam
-
General: Appears Chronically Ill
HEENT: Oxygen (3L NC)
Respiratory: Clear to Auscultation and Non Labored Respirations
Cardiac: Regular Rhythm and S1/S2; Negative Murmur
GI: Soft and Nondistended
Musculoskeletal: No Edema
Skin: Warm and Dry
Neuro: Awake, Alert and No Motor Deficits; Negative Oriented
Psych: Calm
--- NOTE | 2023-10-09 10:12 | W.PN.NEURO.1 ---
Today's Communication / Plan
-
-Stop Brivaracetam
-Switch to PO Phenobarbital 64.8 TID and Lacosamide 200 mg PO
-Follow clinically for seizure
-Minimize sedating medications
Neuro Assessment/Plan
Assessment
62 yr. old male admitted with breakthrough seizure and rhabdomyolysis with acute renal failure undergoing Hemodialysis worsening creatinine
Patient has focal epilepsy, currently uncontrolled, did have episode of status epilepticus here 10/05 after several days of no seizures in hospital after an initial seizure prompting admission
At home on phenobarbital, phenytoin, valium
Suspect there was either medication non-compliance or simply head breakthrough seizure from epilepsy
JEFERSON and metabolic derangements could have triggered futher seizure
Suspicion of some degree of status epilepticus due to being off phenobarbital
Subjective/Objective
Subjective Data
Date of Service: October 09, 2023
Patient awakens easily to voice, conversational, knows is in hospital, no complaints
Objective Data
Vital Signs
Temp Pulse Resp BP Pulse Ox
98.1 F 87 19 125/86 95
10/09/23 07:34 10/09/23 09:00 10/09/23 09:00 10/09/23 09:00 10/09/23 08:42
Lab Results
10/09/23 05:32
10/09/23 05:32
PT 15.9 Sec (11.4-14.6) H 10/06/23 07:11
INR 1.29 10/06/23 07:11
APTT 28.7 Sec (23.4-35.0) 09/29/23 08:35
Sodium 134 mmol/L (135-145) L 10/09/23 05:32
Potassium 3.9 mmol/L (3.5-5.1) 10/09/23 05:32
BUN 56 mg/dl (9-20) H 10/09/23 05:32
Glucose 112 mg/dl (70-99) H 10/09/23 05:32
Calcium 8.2 mg/dl (8.4-10.2) L 10/09/23 05:32
Phosphorus 5.7 mg/dl (2.5-4.5) H 10/03/23 10:46
Vitamin B12 248 pg/ml (239-931) 09/30/23 04:00
Ur Buprenorphine Cancelled 09/29/23 10:19
Ur Buprenorphine Negative (Negative) 09/29/23 10:19
Patient Allergies
No Known Allergies Allergy (Verified 10/07/23 10:42)
Review of Systems
-
History Source: Patient
All other systems: Reviewed and negative
Constitutional: No Symptoms
EENT: No Symptoms Reported
Respiratory: No Symptoms
Cardiac: No Symptoms
Abdomen/GI: No Symptoms
Genitourinary: No Symptoms
Musculoskeletal: No Symptoms
Skin: No Symptoms
Neuro: See existing Neuro Note
Endocrine: No Symptoms
Hematologic / Lymphatic: No Symptoms
Allergy / Immunology: No Symptoms
Physical Exam
-
General: Comfortable and Appears Stated Age
Eyes: No Ptosis
HEENT: Normocephalic
Neck: Full Range of Motion
Respiratory: Clear to Auscultation and No Dyspnea
Cardiac: Regular Rhythm and No Murmur
GI: Soft and Non-tender
Skin: Warm and Dry; Negative Rash
Extremities: No Cyanosis
Psych: Negative Agitated
Extended Neurological Exam
Attention Span & Concentration: Awake, Alert, Interactive and No Difficulty with 2 Step Request
Memory: Reduced and Other (Recalls medical history, seizure history, medications)
Tremor: Hand Tremor Absent
Speech: Negative Expressive Aphasia, Receptive Aphasia or Dysarthric
Cranial Nerve II: Left Eye: Pupillary Reactivity Unremarkable and Pupillary Size Unremarkable
Cranial Nerve II: Right Eye: Pupillary Reactivity Unremarkable and Pupillary Size Unremarkable
Cranial Nerves III, IV, : Extraocular Movement: Extraocular Movement Full in all Directions
Muscle Strength, Overall: Full Throughout
Pronator Drift: No Drift in Upper Extremities
Data Reviewed
-
CT Head: Report Reviewed and Image Reviewed
EEG: Report Reviewed
[2023-10-09] MEDS: VIMPAT 200 MG PO ×2 (10:39→21:41)
--- NOTE | 2023-10-09 10:44 | W.PN.NEPH.PH ---
Today's Communication / Plan
-
HD tomorrow
Assessment/Plan
-
Assessment
Seizure/epilepsy
Rhabdomyolysis
Metabolic acidosis
Elevated liver function tests
acute kidney injury
Low-grade fever
Oliguria
Plan
HD tomorrow per usual schedule
follow [facility]
No evidence of recovery currently, will need OP HD arrangements
-
-
Date of Service: October 09, 2023
CC / HPI / ROS
-
Chief Complaint:
Acute renal failure
History of Present Illness:
tolerated HD yesterday
still anuric essentially
Hemodynamically stable
no new seizures
Review of Systems
no CP/SOB
anuric
Labs
-
Labs:
WBC 9.1 10^3/uL (4.8-10.8) 10/09/23 05:32
RBC 4.12 10^6/uL (4.70-6.10) L 10/09/23 05:32
Hgb 12.1 g/dL (13.0-18.0) L 10/09/23 05:32
Hct 35.7 % (39.0-52.0) L 10/09/23 05:32
Plt Count 198 10^3/uL (130-400) 10/09/23 05:32
Sodium 134 mmol/L (135-145) L 10/09/23 05:32
Potassium 3.9 mmol/L (3.5-5.1) 10/09/23 05:32
Chloride 98 mmol/L (98-107) 10/09/23 05:32
Carbon Dioxide 23 mmol/L (22-30) 10/09/23 05:32
BUN 56 mg/dl (9-20) H 10/09/23 05:32
Creatinine 9.5 mg/dL (0.7-1.3) H* 10/09/23 05:32
eGFR 5.75 10/09/23 05:32
Glucose 112 mg/dl (70-99) H 10/09/23 05:32
Calcium 8.2 mg/dl (8.4-10.2) L 10/09/23 05:32
Phosphorus 5.7 mg/dl (2.5-4.5) H 10/03/23 10:46
Albumin 3.0 g/dl (3.5-5.0) L 10/09/23 05:32
Physical Exam
-
Vital Signs:
Vital Signs
Temp Pulse Resp BP Pulse Ox
98.1 F 87 19 125/86 95
10/09/23 07:34 10/09/23 09:00 10/09/23 09:00 10/09/23 09:00 10/09/23 08:42
Cardiovascular:: Regular rate and rhythm
Respiratory:: Bilateral: Coarse
Lung Excursion:: Normal
Abdomen:: Nontender and Soft
Bowel Sounds:: Normal
Extremity Edema:: +1: Bilateral:
--- NOTE | 2023-10-09 10:50 | PTCARENOTE ---
Patient sitting in chair position in bed. Answers orientation questions appropriately. Slow to respond. Pleasantly confused and forgetful at times. Asking RN 'what trouble have you been in' upon every entry into room. Requiring reminders about fall
risk. Bed alarm on and medsitter in place. VSS. Attempted to wean to RA. Pulse ox 88%. Placed back on 2L nc. No seizure activity observed.
--- NOTE | 2023-10-09 11:10 | W.PN.ID1 ---
Date of Service
Date of Service: October 09, 2023
Today's Communication
sign off
Assessment / Plan
Fever
- improved
Leukocytosis
- Appears resolved
JEFERSON
- on hemodialysis
Rhabdomyolysis
Seizures
Recommendations:
White count and temperature curve remains normal off antibiotics.
Overall appears clinically stable from a Infectious Disease standpoint.
Little more to offer at this time.
Will see again at your request.
����������������������������������������������������������
Chief Complaint
-: Leukocytosis and Pneumonia
Subjective / Review of Systems
Review of Systems: No Fever and No Chills
Vital Signs / Physical Exam
Vital Signs
Vital Signs
Temp Pulse Resp BP Pulse Ox
98.1 F 76 22 164/96 94
10/09/23 07:34 10/09/23 10:00 10/09/23 10:00 10/09/23 10:00 10/09/23 10:00
Physical Exam
Constitutional: No Acute Distress, Comfortable, Chronically Ill and Non-toxic
Cardiovascular: S1/S2; Negative S3/S4
Pulmonary: Clear and Non Labored
Gastrointestinal: Soft, Non Tender and Non Distended
Neurological: Awake and Alert
Psychological: Calm
Objective Data
Lab Data
Lab Results
10/09/23 05:32
10/09/23 05:32
PT 15.9 Sec (11.4-14.6) H 10/06/23 07:11
INR 1.29 10/06/23 07:11
APTT 28.7 Sec (23.4-35.0) 09/29/23 08:35
Estimated Creat Clear 9 ml/min 10/09/23 05:32
Total Bilirubin 0.5 mg/dl (0.2-1.3) 10/09/23 05:32
AST 25 U/L (17-59) 10/09/23 05:32
ALT 60 U/L (0-50) H 10/09/23 05:32
Alkaline Phosphatase 114 U/L (38-126) 10/09/23 05:32
Most recent labs reviewed.
Micro Results:
10/07/23 10:13 Blood Culture - Preliminary
Blood/Venous No Growth in 48 hours- Final report to follow
10/07/23 10:13 MRSA Screen - Final
Nose No Methicillin Resistant Staphylococcus aureus isolated.
09/29/23 11:42 Blood Culture - Final
Blood/Venous No Growth - Final Report
09/29/23 11:42 Blood Culture - Final
Blood/Venous No Growth - Final Report
09/29/23 10:19 Urine Culture - Final
Urine NO GROWTH
Imaging:
10/06/2023 CXR (portable): Slightly increased opacity in the retrocardiac left lower lobe which may be atelectasis versus pneumonia. Minor infiltrate versus atelectasis in the right medial lung base. No pneumothorax seen. Please see full dictation
for additional detail.
Care Review
Plan reviewed with: Physician (Nephrology)
--- NOTE | 2023-10-09 11:17 | PTCARENOTE ---
Addendum entered by Kandy Pack RN 10/09/23 11:37:
Pt OOB in chair. Chair alarm on.
Original Note:
PT/OT at bedside.
--- NOTE | 2023-10-09 12:14 | PTCARENOTE ---
Patient downgraded to tele.
--- NOTE | 2023-10-09 14:42 | CM ---
CM following re: discharge planning.
Reviewed pt's chart, met with pt.
CM has a long family meeting with 3 pt's sisters to discuss detailed options of discharge planning, community resources, etc. Pt's sisters requested a copy of POA and it provided with explanation of how to complete. Per Nephrology, pt still
receiving acute dialysis with a potential of kidney recovery and pt's sisters are aware that SNF option will depend whether or not pt will need outpatient HD treatment for a short term or permanent. A list of SNFs provided. Per sisters, if pt needs
outpatient HD treatment then following SNFs preferred: [facility], [facility], [facility] or [facility]. Per sisters, if pt will not need outpatient HD treatment then they requested [facility]. Pt's sisters are aware that
PT and OT recommend SNF level of care at discharge. Pt;s sister stated they are working with p[t's employer on short term disability and they feel that they will apply for a [place] or [place] [facility]. per sisters, pt will be 63 year old next week. CM
provided pt's sister with resources of community based living including personal assisted vs prison care. Per sisters, pt will not be able to continue living alone and they are looking for more structured form of living.
D/C plan: preferred SNF.
CM will follow with discharge plan updates as hospitalization progresses.
--- NOTE | 2023-10-09 15:11 | PTCARENOTE ---
Report given to DAVID Kang. Patient to be moved after lunch.
--- NOTE | 2023-10-09 16:09 | TRANSFER ---
Patient transferred in bed to room 424 with belongings.
--- NOTE | 2023-10-09 16:23 | PTCARENOTE ---
Pt received as transfer from ICU. AAOx3. NSR on surveillance monitor. HR 70s. SaO2 90% on RA. VSS. Neuro check WDL. Per Dr. Wu, no need to continue NIHSS for pt. Seizure precautions in place. R CW HD cath dressing CDI. Pt remains on med sitter at this
time. Assessment documented. Pt resting in bed, call leonardo in reach.
[2023-10-10] VITALS (7 sets, daily range): BP systolic 149–171; BP diastolic 74–87; BMI 30.3
[2023-10-10] MEDS: LUMINAL 64.8 MG PO ×3 (08:46→21:02)
[2023-10-10] MEDS: PROCARDIA XL (EXTENDED RELEASE) 60 MG PO (08:46)
[2023-10-10] MEDS: VIMPAT 200 MG PO ×2 (08:46→21:02)
[2023-10-10] MEDS: VITAMIN B1 100 MG PO (08:47)
[2023-10-10] MEDS: ASPIR LOW (ENTERIC COATED) 81 MG PO (08:47)
[2023-10-10] MEDS: SENOKOT 17.2 MG PO ×2 (08:47→21:02)
[2023-10-10] MEDS: MIRALAX 17 GRAMS PO (08:47)
[2023-10-10] MEDS: HEPARIN 5000 UNITS SC ×3 (08:47→23:00)
[2023-10-10] MEDS: PROTONIX 40 MG PO (08:47)
[2023-10-10] MEDS: LOTRIMIN 1% CREAM 1 APPLIC TOPICAL ×2 (08:48→21:02)
[2023-10-10 08:52] LABS: Hematocrit 32.5 % (39.0-52.0); Hemoglobin 10.9 g/dL (13.0-18.0)
--- NOTE | 2023-10-10 09:06 | W.PN.NEURO.1 ---
Today's Communication / Plan
-
-Remain off Brivaracetam
-Continue Phenobarbital 63.8 TID
-Lacosamide 200 mg BID
-Follow renal function
-Minimize sedating medications
-Appears will continue to need hemodialysis
Neuro Assessment/Plan
Assessment
62 yr. old male admitted with breakthrough seizure and rhabdomyolysis with acute renal failure undergoing Hemodialysis worsening creatinine
Patient has focal epilepsy, currently uncontrolled, did have episode of status epilepticus here 10/05 after several days of no seizures in hospital after an initial seizure prompting admission
At home on phenobarbital, phenytoin, valium
Suspect there was either medication non-compliance or simply head breakthrough seizure from epilepsy
JEFERSON and metabolic derangements could have triggered futher seizure
Suspicion of some degree of status epilepticus due to being off phenobarbital
Subjective/Objective
Subjective Data
Date of Service: October 10, 2023
No acute events, patient with no complaints, inquires about when he can go home, discussed my recommendation to come off Dilantin, use Lacosamide instead
Objective Data
Vital Signs
Temp Pulse Resp BP Pulse Ox
98 F 61 20 171/87 98
10/10/23 07:55 10/10/23 08:46 10/10/23 07:55 10/10/23 08:46 10/10/23 07:55
Lab Results
10/10/23 07:31
PT 15.9 Sec (11.4-14.6) H 10/06/23 07:11
INR 1.29 10/06/23 07:11
APTT 28.7 Sec (23.4-35.0) 09/29/23 08:35
Sodium 134 mmol/L (135-145) L 10/09/23 05:32
Potassium 3.9 mmol/L (3.5-5.1) 10/09/23 05:32
BUN 56 mg/dl (9-20) H 10/09/23 05:32
Glucose 112 mg/dl (70-99) H 10/09/23 05:32
Calcium 8.2 mg/dl (8.4-10.2) L 10/09/23 05:32
Phosphorus 5.7 mg/dl (2.5-4.5) H 10/03/23 10:46
Vitamin B12 248 pg/ml (239-931) 09/30/23 04:00
Ur Buprenorphine Cancelled 09/29/23 10:19
Ur Buprenorphine Negative (Negative) 09/29/23 10:19
Patient Allergies
No Known Allergies Allergy (Verified 10/07/23 10:42)
Review of Systems
-
History Source: Patient
All other systems: Reviewed and negative
Constitutional: No Symptoms
EENT: No Symptoms Reported
Respiratory: No Symptoms
Cardiac: No Symptoms
Abdomen/GI: No Symptoms
Genitourinary: No Symptoms
Musculoskeletal: No Symptoms
Skin: No Symptoms
Neuro: See existing Neuro Note
Endocrine: No Symptoms
Hematologic / Lymphatic: No Symptoms
Allergy / Immunology: No Symptoms
Physical Exam
-
General: Comfortable and Appears Stated Age
Eyes: No Ptosis and Other (Clear)
HEENT: Other (Right dialysis catheter in place clean dry no abnormalities, covered)
Neck: Full Range of Motion
Respiratory: No Dyspnea; Negative Wheezes
Cardiac: No Murmur
GI: Soft and Non-tender
Skin: Warm and Dry; Negative Rash
Psych: Intact Judgement/Insight; Negative Confused or Agitated
Extended Neurological Exam
Attention Span & Concentration: Awake, Alert and Interactive
Tremor: Hand Tremor Absent
Involuntary Movement: None
Speech: Negative Expressive Aphasia, Receptive Aphasia or Dysarthric
Cranial Nerve II: Left Eye: Pupillary Reactivity Unremarkable and Pupillary Size Unremarkable
Cranial Nerve II: Right Eye: Pupillary Reactivity Unremarkable and Pupillary Size Unremarkable
Cranial Nerves III, IV, : Extraocular Movement: Extraocular Movement Full in all Directions
Muscle Strength, Overall: Full Throughout
Pronator Drift: No Drift in Upper Extremities
Deep Tendon Reflexes: Trace Throughout
Data Reviewed
-
CT Head: Report Reviewed and Image Reviewed
EEG: Report Reviewed
--- NOTE | 2023-10-10 09:36 | W.PN.HOSP.TC ---
Today's Communication/Plan
-
discharge planning for rehab with HD
Assessment / Plan
Assessment / Plan
CXR: Low lung volumes. Minor bibasilar opacity most likely representing subsegmental atelectasis.
Abd U/S: Nonspecific focal gallbladder wall thickening. No additional findings to suggest acute cholecystitis. Clinical and laboratory correlation recommended. Minimal ascites about the liver.
Renal U/S: No evidence for pelvicalyceal dilation of either kidney. There appears to be a small amount of fluid surrounding each kidney. Suggestion of increased echogenicity of renal parenchyma bilaterally, a nonspecific finding suggesting medical
renal disease.
MRI brain:
1. No acute intracranial abnormality.
2. 2.3 cm lesion at the junction of the right zygomatic arch and maxilla favored to represent an osteoma. Imaging follow-up can be performed to confirm stability.

Acute metabolic encephalopathy due to acute seizure and postictal state as well as JEFERSON/rhabdo:
-Patient was on phenobarbital prior to admission and missed a couple days of dosing.
-active seizure noted (active RUE and facial twitching/ tonic clonic seizure) 10/05, s/p Keppra 2g load
-Intubated for airway protection 10/05, extubated 10/06
-Off of levophed
-EEG 10/06: Moderate diffuse slowing, no seizures or epileptiform discharges seen
-Neuro following and help appreciated
-Currently on regimen of phenobarbital/Vimpat -no reported seizure episode in last 48 hours
Acute kidney injury due to nontraumatic rhabdomyolysis due to acute seizure activity
Now ESRD on HD
-renal U/S with medical renal disease
-Right chest tunneled catheter site clean, no erythema/drainage
-Nephrology following and getting dialysis periodically
Fever noted 10/05, likely due to active seizure at that time
-Urine and blood culture from 09/28 showed no growth
- blood culture remains negative till date.
-repeat CXR 10/05 after intubation noted slightly increased opacity in the retrocardiac left lower lobe, atelectasis versus pneumonia. Minor infiltrate versus atelectasis in the medial right lung base.
-Procal not useful in this case with ESRD
-was restarted empiric Abx Ceftriaxone/doxycycline -> continue monitoring off of antibiotics.
-Appreciate ID input
Ventilator dependent respiratory failure -for airway protection
Acute hypoxic respiratory insufficiency
-weaned off of o2
Transaminitis due to rhabdomyolysis, resolving
-Unremarkable abdominal ultrasound
-Hepatocellular injury has been ruled out
Essential hypertension:
-cont Procardia XL to 60mg daily with holding parameter
Hyponatremia
-minimal, observe
FULL/HSQ
Anticipated Discharge: Within 24 hours
Subjective/Interval History
-
Date of Service: October 10, 2023
resting comfortably in bed
no reported seizure episodes
mentation better
Objective Data
-
Labs:
Laboratory Results
10/10/23
07:31
Hgb 10.9 L
Hct 32.5 L
Sodium Pending
Potassium Pending
Chloride Pending
Carbon Dioxide Pending
BUN Pending
Creatinine Pending
Glucose Pending
Calcium Pending
Vital Signs:
Vital Signs
Temp Pulse Resp BP Pulse Ox
98 F 61 20 171/87 98
10/10/23 07:55 10/10/23 08:46 10/10/23 07:55 10/10/23 08:46 10/10/23 07:55
I&O
10/09/23 10/10/23 10/11/23
06:59 06:59 06:59
Intake Total 120 / 120 600 / 600
Output Total 0 / 0 0 / 0
Balance 120 / 120 600 / 600
Review of Systems
-
Respiratory: Reports No Symptoms
Cardiac: Reports No Symptoms
Abdomen/GI: Reports No Symptoms
Physical Exam
-
General: Appears Chronically Ill
Respiratory: Clear to Auscultation and Non Labored Respirations
Cardiac: Regular Rhythm and S1/S2; Negative Murmur
GI: Soft, Nontender and Nondistended
Musculoskeletal: No Edema
Skin: Warm and Dry
Neuro: Awake, Alert and No Motor Deficits; Negative Oriented
Psych: Calm
--- NOTE | 2023-10-10 09:49 | W.PN.HOSP.TC ---
Today's Communication/Plan
-
discharge planning for rehab
Assessment / Plan
Assessment / Plan
CXR: Low lung volumes. Minor bibasilar opacity most likely representing subsegmental atelectasis.
Abd U/S: Nonspecific focal gallbladder wall thickening. No additional findings to suggest acute cholecystitis. Clinical and laboratory correlation recommended. Minimal ascites about the liver.
Renal U/S: No evidence for pelvicalyceal dilation of either kidney. There appears to be a small amount of fluid surrounding each kidney. Suggestion of increased echogenicity of renal parenchyma bilaterally, a nonspecific finding suggesting medical
renal disease.
MRI brain:
1. No acute intracranial abnormality.
2. 2.3 cm lesion at the junction of the right zygomatic arch and maxilla favored to represent an osteoma. Imaging follow-up can be performed to confirm stability.

Acute metabolic encephalopathy due to acute seizure and postictal state as well as JEFERSON/rhabdomyolysis:
-Patient was on phenobarbital prior to admission and missed a couple days of dosing.
-active seizure noted (active RUE and facial twitching/ tonic clonic seizure) 10/05, s/p Keppra 2g load
-Intubated for airway protection 10/05, extubated 10/06
-Off of Levophed
-EEG 10/06: Moderate diffuse slowing, no seizures or epileptiform discharges seen
-Neuro following and help appreciated
-Currently on regimen of phenobarbital/Vimpat -no reported seizure episode in last 48 hours
Acute kidney injury due to nontraumatic rhabdomyolysis due to acute seizure activity
Now ESRD on HD
-renal U/S with medical renal disease
-Right chest tunneled catheter site clean, no erythema/drainage
-Nephrology following and getting dialysis periodically
Fever noted 10/05, likely due to active seizure at that time
-Urine and blood culture from 09/28 showed no growth
- blood culture remains negative till date.
-repeat CXR 10/05 after intubation noted slightly increased opacity in the retrocardiac left lower lobe, atelectasis versus pneumonia. Minor infiltrate versus atelectasis in the medial right lung base.
-Procal not useful in this case with ESRD
-was restarted empiric Abx Ceftriaxone/doxycycline -> continue monitoring off of antibiotics.
-Appreciate ID input
Ventilator dependent respiratory failure -for airway protection - extubated
Acute hypoxic respiratory insufficiency -resolved
-weaned off of o2
Transaminitis due to rhabdomyolysis, resolving
-Unremarkable abdominal ultrasound
-Hepatocellular injury has been ruled out
Essential hypertension:
-cont Procardia XL to 60mg daily with holding parameter
Hyponatremia
-minimal, observe
FULL/HSQ
Anticipated Discharge: Today
Subjective/Interval History
-
Date of Service: October 10, 2023
no issues overnight
Objective Data
-
Labs:
Laboratory Results
10/10/23
07:31
Hgb 10.9 L
Hct 32.5 L
Sodium Pending
Potassium Pending
Chloride Pending
Carbon Dioxide Pending
BUN Pending
Creatinine Pending
Glucose Pending
Calcium Pending
Vital Signs:
Vital Signs
Temp Pulse Resp BP Pulse Ox
98 F 61 20 171/87 98
10/10/23 07:55 10/10/23 08:46 10/10/23 07:55 10/10/23 08:46 10/10/23 07:55
I&O
10/09/23 10/10/23 10/11/23
06:59 06:59 06:59
Intake Total 120 / 120 600 / 600
Output Total 0 / 0 0 / 0
Balance 120 / 120 600 / 600
Review of Systems
-
Respiratory: Reports No Symptoms
Cardiac: Reports No Symptoms
Abdomen/GI: Reports No Symptoms
Physical Exam
-
General: Appears Chronically Ill
Respiratory: Clear to Auscultation and Non Labored Respirations
Cardiac: Regular Rhythm and S1/S2; Negative Murmur
GI: Soft, Nontender and Nondistended
Musculoskeletal: No Edema
Skin: Warm and Dry
Neuro: Awake, Alert and No Motor Deficits; Negative Oriented
Psych: Calm
[2023-10-10 09:53] LABS: Blood Urea Nitrogen 68 mg/dl (9-20); Calcium 8.4 mg/dl (8.4-10.2); Carbon Dioxide 23 mmol/L (22-30); Chloride 98 mmol/L (98-107); Estimated Creatinine Clearance 8 ml/min; Glucose 105 mg/dl (70-99); Sodium 133 mmol/L (135-145); eGFR 4.57
--- NOTE | 2023-10-10 15:34 | W.PN.NEPH.HD ---
Assessment
-
- doing well on HD
- no complaints
Progress Note - Hemodialysis
-
Date of Service: October 10, 2023
Duration: 30 minutes and 3 hours
Potassium Bath: 3
Calcium Bath: 2.5
Opti-Dialyzer: 160
Ultrafiltration: Other
Blood Flow: 400
Dialysate Flow: 600
[2023-10-10] MEDS: HEPARIN 4300 UNITS INTRACATH (16:03)
--- NOTE | 2023-10-10 16:06 | CM ---
TC from sister Leanne.
Skilled facilities [facility] is interested in [facility], did not want [facility].
PT/OT recommending skilled rehab.
Will need auth.
Plan: skilled rehab, new HD.
referrals entered.
--- NOTE | 2023-10-10 18:02 | PTCARENOTE ---
Addendum entered by Lupe Garza LPN 10/10/23 18:06:
medsitter discontinued
Original Note:
pt was received in bed with bilateral eyes closed. pt was easily aroused to sound and touch. pt denied any discomfort or pain during this shift. pt did not make any attempt to stand unassisted and was not seen with any seizure activity during this
shift. pt received his dialysis and had 2 kilos removed. pt remains in bed watching television with call leonardo within reach and bed in the lowest position possible
[2023-10-11 03:00] VITALS: BP 163/88
[2023-10-11 06:00] VITALS: BMI 29.2
[2023-10-11 08:10] VITALS: BP 186/97
[2023-10-11] MEDS: LUMINAL 64.8 MG PO ×3 (08:51→21:08)
[2023-10-11] MEDS: MIRALAX 17 GRAMS PO (08:51)
[2023-10-11] MEDS: VIMPAT 200 MG PO ×2 (08:52→21:10)
[2023-10-11] MEDS: ASPIR LOW (ENTERIC COATED) 81 MG PO (08:52)
[2023-10-11] MEDS: LOTRIMIN 1% CREAM 1 APPLIC TOPICAL ×2 (08:52→21:08)
[2023-10-11] MEDS: PROTONIX 40 MG PO (08:53)
[2023-10-11] MEDS: SENOKOT 17.2 MG PO ×2 (08:53→21:08)
[2023-10-11] MEDS: HEPARIN 5000 UNITS SC ×2 (08:54→17:21)
[2023-10-11] MEDS: PROCARDIA XL (EXTENDED RELEASE) 60 MG PO (08:54)
[2023-10-11] MEDS: VITAMIN B1 100 MG PO (08:56)
[2023-10-11 10:04] LABS: Blood Urea Nitrogen 53 mg/dl (9-20); Calcium 8.3 mg/dl (8.4-10.2); Carbon Dioxide 25 mmol/L (22-30); Chloride 96 mmol/L (98-107); Estimated Creatinine Clearance 10 ml/min; Glucose 93 mg/dl (70-99); Potassium 4.3 mmol/L (3.5-5.1); Sodium 133 mmol/L (135-145); eGFR 6.47
--- NOTE | 2023-10-11 10:42 | W.PN.NEPH.PH ---
Today's Communication / Plan
-
- HD on Friday
Assessment/Plan
-
Assessment
Seizure/epilepsy
Rhabdomyolysis
Metabolic acidosis
Elevated liver function tests
acute kidney injury
Low-grade fever
Oliguria
Plan
HD Friday per usual schedule
follow UOP
No evidence of recovery currently, will need OP HD arrangements
-
-
Date of Service: October 11, 2023
CC / HPI / ROS
-
Chief Complaint:
Acute renal failure
History of Present Illness:
tolerated HD yesterday
still anuric essentially
Hemodynamically stable
no new seizures
Review of Systems
no CP/SOB
anuric
Labs
-
Labs:
WBC 9.1 10^3/uL (4.8-10.8) 10/09/23 05:32
RBC 4.12 10^6/uL (4.70-6.10) L 10/09/23 05:32
Hgb 10.9 g/dL (13.0-18.0) L 10/10/23 07:31
Hct 32.5 % (39.0-52.0) L 10/10/23 07:31
Plt Count 198 10^3/uL (130-400) 10/09/23 05:32
Sodium 133 mmol/L (135-145) L 10/11/23 07:43
Potassium 4.3 mmol/L (3.5-5.1) 10/11/23 07:43
Chloride 96 mmol/L (98-107) L 10/11/23 07:43
Carbon Dioxide 25 mmol/L (22-30) 10/11/23 07:43
BUN 53 mg/dl (9-20) H 10/11/23 07:43
Creatinine 8.6 mg/dL (0.7-1.3) H* 10/11/23 07:43
eGFR 6.47 10/11/23 07:43
Glucose 93 mg/dl (70-99) 10/11/23 07:43
Calcium 8.3 mg/dl (8.4-10.2) L 10/11/23 07:43
Phosphorus 5.7 mg/dl (2.5-4.5) H 10/03/23 10:46
Albumin 3.0 g/dl (3.5-5.0) L 10/09/23 05:32
Physical Exam
-
Vital Signs:
Vital Signs
Temp Pulse Resp BP Pulse Ox
98.9 F 60 19 186/97 94
10/11/23 08:10 10/11/23 08:54 10/11/23 08:10 10/11/23 08:54 10/11/23 08:10
Cardiovascular:: Regular rate and rhythm
Respiratory:: Bilateral: CTA
Lung Excursion:: Normal
Abdomen:: Nontender and Soft
Bowel Sounds:: Normal
Extremity Edema:: None: Bilateral:
Sanchez Catheter: No
--- NOTE | 2023-10-11 11:14 | W.PN.HOSP.TC ---
Today's Communication/Plan
-
Medically cleared for discharge. Case management aware.
Assessment / Plan
Assessment / Plan
Gen: NAD, AAOx3.
Eyes: EOMI, PERRLA, no scleral icterus.
Neck: supple.
CV: RRR, +S1/S2, no m/r/g.
Resp: CTAB, no rales, wheezes, or rhonchi.
Abd: +BS, soft, NT, ND
Skin: No rashes.
Neuro: CN 2-12 intact, non-focal.
Psych: Normal mood and affect.
10/07/23 10:13 Blood/Venous Blood Culture - Preliminary
No Growth in 4 days- Final report to follow
10/07/23 10:13 Nose MRSA Screen - Final
No Methicillin Resistant Staphylococcus aureus isolated.
09/29/23 11:42 Blood/Venous Blood Culture - Final
No Growth - Final Report
09/29/23 11:42 Blood/Venous Blood Culture - Final
No Growth - Final Report
09/29/23 10:19 Urine Urine Culture - Final
NO GROWTH
CXR: Low lung volumes. Minor bibasilar opacity most likely representing subsegmental atelectasis.
Abd U/S: Nonspecific focal gallbladder wall thickening. No additional findings to suggest acute cholecystitis. Clinical and laboratory correlation recommended. Minimal ascites about the liver.
Renal U/S: No evidence for pelvicalyceal dilation of either kidney. There appears to be a small amount of fluid surrounding each kidney. Suggestion of increased echogenicity of renal parenchyma bilaterally, a nonspecific finding suggesting medical
renal disease.
MRI brain:
1. No acute intracranial abnormality.
2. 2.3 cm lesion at the junction of the right zygomatic arch and maxilla favored to represent an osteoma. Imaging follow-up can be performed to confirm stability.
Acute metabolic encephalopathy due to acute seizure and postictal state as well as JEFERSON/rhabdo:
-Patient was on phenobarbital prior to admission and missed a couple days of dosing.
-active seizure noted (active RUE and facial twitching/ tonic clonic seizure) 10/05, s/p Keppra 2g load
-Intubated for airway protection 10/05, extubated 10/06
-Off of Levophed
-EEG 10/06: Moderate diffuse slowing, no seizures or epileptiform discharges seen
-Neuro following
-Currently on regimen of phenobarbital/Vimpat
-had seizure activity 10/06/23, none since. Fever at that time was likely due to seizure activity. Was briefly restarted on Rocephin/Doxy, now off abx.
Acute kidney injury due to nontraumatic rhabdomyolysis due to acute seizure activity:
-Now ESRD on HD
-renal U/S with medical renal disease
-Nephrology following and getting dialysis periodically
Transaminitis due to rhabdomyolysis, resolving
-Unremarkable abdominal ultrasound
-Hepatocellular injury has been ruled out
Essential hypertension:
-cont Procardia XL to 60mg daily with holding parameter
Hyponatremia
-minimal, observe
FULL/Heparin
Anticipated Discharge: Today
Subjective/Interval History
-
Date of Service: October 11, 2023
No new complaints.
Objective Data
-
Labs:
Laboratory Results
10/11/23
07:43
Sodium 133 L
Potassium 4.3
Chloride 96 L
Carbon Dioxide 25
BUN 53 H
Creatinine 8.6 H*
Glucose 93
Calcium 8.3 L
Vital Signs:
Vital Signs
Temp Pulse Resp BP Pulse Ox
98.9 F 60 19 186/97 94
10/11/23 08:10 10/11/23 08:54 10/11/23 08:10 10/11/23 08:54 10/11/23 08:10
I&O
10/10/23 10/11/23 10/12/23
06:59 06:59 06:59
Intake Total 600 / 600 1040 / 1040
Output Total 0 / 0 100 / 100
Balance 600 / 600 940 / 940
[2023-10-11 11:40] VITALS: BP 157/83
[2023-10-11 16:00] VITALS: BP 176/85
[2023-10-11 23:00] VITALS: BP 168/94
[2023-10-12] MEDS: HEPARIN 5000 UNITS SC ×3 (00:15→15:48)
[2023-10-12 03:00] VITALS: BP 170/89
[2023-10-12 06:00] VITALS: BMI 29.4
[2023-10-12 07:52] VITALS: BP 162/91
[2023-10-12] MEDS: VITAMIN B1 100 MG PO (08:06)
[2023-10-12] MEDS: LUMINAL 64.8 MG PO ×3 (08:07→20:40)
[2023-10-12] MEDS: PROCARDIA XL (EXTENDED RELEASE) 60 MG PO (08:07)
[2023-10-12] MEDS: MIRALAX 17 GRAMS PO (08:07)
[2023-10-12] MEDS: ASPIR LOW (ENTERIC COATED) 81 MG PO (08:07)
[2023-10-12] MEDS: PROTONIX 40 MG PO (08:07)
[2023-10-12] MEDS: VIMPAT 200 MG PO ×2 (08:07→20:40)
[2023-10-12] MEDS: SENOKOT 17.2 MG PO ×2 (08:07→20:40)
[2023-10-12] MEDS: LOTRIMIN 1% CREAM 1 APPLIC TOPICAL ×2 (08:08→20:46)
[2023-10-12 08:49] LABS: Blood Urea Nitrogen 63 mg/dl (9-20); Calcium 8.7 mg/dl (8.4-10.2); Carbon Dioxide 26 mmol/L (22-30); Chloride 96 mmol/L (98-107); Estimated Creatinine Clearance 8 ml/min; Glucose 98 mg/dl (70-99); Potassium 5.3 mmol/L (3.5-5.1); Sodium 133 mmol/L (135-145); eGFR 5.04
--- NOTE | 2023-10-12 10:35 | W.PN.HOSP.TC ---
Today's Communication/Plan
-
see bold
Assessment / Plan
Assessment / Plan
Gen: NAD, AAOx3.
Eyes: EOMI, PERRLA, no scleral icterus.
Neck: supple.
CV: remains RRR, +S1/S2, no m/r/g.
Resp: remains CTAB, no rales, wheezes, or rhonchi.
Abd: remains +BS, soft, NT, ND
Skin: No rashes.
Neuro: CN 2-12 intact, non-focal.
Psych: Normal mood and affect.
10/07/23 10:13 Blood/Venous Blood Culture - Final
No Growth - Final Report
10/07/23 10:13 Nose MRSA Screen - Final
No Methicillin Resistant Staphylococcus aureus isolated.
09/29/23 11:42 Blood/Venous Blood Culture - Final
No Growth - Final Report
09/29/23 11:42 Blood/Venous Blood Culture - Final
No Growth - Final Report
09/29/23 10:19 Urine Urine Culture - Final
NO GROWTH
CXR: Low lung volumes. Minor bibasilar opacity most likely representing subsegmental atelectasis.
Abd U/S: Nonspecific focal gallbladder wall thickening. No additional findings to suggest acute cholecystitis. Clinical and laboratory correlation recommended. Minimal ascites about the liver.
Renal U/S: No evidence for pelvicalyceal dilation of either kidney. There appears to be a small amount of fluid surrounding each kidney. Suggestion of increased echogenicity of renal parenchyma bilaterally, a nonspecific finding suggesting medical
renal disease.
MRI brain:
1. No acute intracranial abnormality.
2. 2.3 cm lesion at the junction of the right zygomatic arch and maxilla favored to represent an osteoma. Imaging follow-up can be performed to confirm stability.
Acute metabolic encephalopathy due to acute seizure and postictal state as well as JEFERSON/rhabdo:
-Patient was on phenobarbital prior to admission and missed a couple days of dosing.
-active seizure noted (active RUE and facial twitching/ tonic clonic seizure) 10/05, s/p Keppra 2g load
-Intubated for airway protection 10/05, extubated 10/06
-Off of Levophed
-EEG 10/06: Moderate diffuse slowing, no seizures or epileptiform discharges seen
-Neuro following
-Currently on regimen of phenobarbital/Vimpat
-had seizure activity 10/06/23, none since. Fever at that time was likely due to seizure activity. Was briefly restarted on Rocephin/Doxy, now off abx.
Acute kidney injury due to nontraumatic rhabdomyolysis due to acute seizure activity:
-Now ESRD on HD
-renal U/S with medical renal disease
-Nephrology following and getting dialysis periodically
Transaminitis due to rhabdomyolysis, resolving
-Unremarkable abdominal ultrasound
-Hepatocellular injury has been ruled out
Essential hypertension:
-cont Procardia XL to 60mg daily with holding parameter
Hyponatremia
-minimal, observe
FULL/Heparin
Medically cleared for discharge after hemodialysis on 10/13/23. Case management aware.
Anticipated Discharge: Within 24 hours
Subjective/Interval History
-
Date of Service: October 12, 2023
No new complaints.
Objective Data
-
Labs:
Laboratory Results
10/12/23
07:40
Sodium 133 L
Potassium 5.3 H
Chloride 96 L
Carbon Dioxide 26
BUN 63 H
Creatinine 10.6 H*
Glucose 98
Calcium 8.7
Vital Signs:
Vital Signs
Temp Pulse Resp BP Pulse Ox
98.8 F 66 17 162/91 94
10/12/23 07:52 10/12/23 08:07 10/12/23 07:52 10/12/23 08:07 10/12/23 07:52
I&O
10/11/23 10/12/23 10/13/23
06:59 06:59 06:59
Intake Total 1040 / 1040 1230 / 1230
Output Total 100 / 100 50 / 50
Balance 940 / 940 1180 / 1180
--- NOTE | 2023-10-12 13:17 | W.PN.NEPH.PH ---
Today's Communication / Plan
-
- HD Friday
Assessment/Plan
-
Assessment
Seizure/epilepsy
Rhabdomyolysis
Metabolic acidosis
Elevated liver function tests
acute kidney injury
Low-grade fever
Oliguria
Plan
HD Friday per usual schedule
follow UOP
No evidence of recovery currently, will need OP HD arrangements
-
-
Date of Service: October 12, 2023
CC / HPI / ROS
-
Chief Complaint:
Acute renal failure
History of Present Illness:
tolerated HD yesterday
still anuric essentially with fast rate of rise in between HD sessions
Hemodynamically stable
no new seizures
Review of Systems
no CP/SOB
anuric
Labs
-
Labs:
WBC 9.1 10^3/uL (4.8-10.8) 10/09/23 05:32
RBC 4.12 10^6/uL (4.70-6.10) L 10/09/23 05:32
Hgb 10.9 g/dL (13.0-18.0) L 10/10/23 07:31
Hct 32.5 % (39.0-52.0) L 10/10/23 07:31
Plt Count 198 10^3/uL (130-400) 10/09/23 05:32
Sodium 133 mmol/L (135-145) L 10/12/23 07:40
Potassium 5.3 mmol/L (3.5-5.1) H 10/12/23 07:40
Chloride 96 mmol/L (98-107) L 10/12/23 07:40
Carbon Dioxide 26 mmol/L (22-30) 10/12/23 07:40
BUN 63 mg/dl (9-20) H 10/12/23 07:40
Creatinine 10.6 mg/dL (0.7-1.3) H* 10/12/23 07:40
eGFR 5.04 10/12/23 07:40
Glucose 98 mg/dl (70-99) 10/12/23 07:40
Calcium 8.7 mg/dl (8.4-10.2) 10/12/23 07:40
Phosphorus 5.7 mg/dl (2.5-4.5) H 10/03/23 10:46
Albumin 3.0 g/dl (3.5-5.0) L 10/09/23 05:32
Physical Exam
-
Vital Signs:
Vital Signs
Temp Pulse Resp BP Pulse Ox
98.8 F 66 17 162/91 94
10/12/23 07:52 10/12/23 08:07 10/12/23 07:52 10/12/23 08:07 10/12/23 07:52
Cardiovascular:: Regular rate and rhythm
Respiratory:: Bilateral: CTA
Lung Excursion:: Normal
Abdomen:: Nontender and Soft
Bowel Sounds:: Normal
Extremity Edema:: None: Bilateral:
Sanchez Catheter: No
--- NOTE | 2023-10-12 14:01 | CM ---
Chart reviewed and patient is for skilled placement possible at [facility] or [facility], therapeutic case manager will need updated PT/OT notes to proceed with skilled placement. Patient is a new HD patient and HD will need to be arranged.
Plan; Skilled placement.
[2023-10-12 15:15] VITALS: BP 152/98; PULSE 60; O2SAT 97
[2023-10-12 15:18] VITALS: BP 152/98
[2023-10-12 23:28] VITALS: BP 176/89
[2023-10-13] MEDS: HEPARIN 5000 UNITS SC ×3 (00:13→16:40)
[2023-10-13 01:41] VITALS: BP 158/84
[2023-10-13 06:14] VITALS: BMI 29.3
[2023-10-13 07:10] VITALS: BP 170/93
[2023-10-13] MEDS: ASPIR LOW (ENTERIC COATED) 81 MG PO (08:58)
[2023-10-13] MEDS: SENOKOT 17.2 MG PO ×2 (08:59→20:10)
[2023-10-13] MEDS: PROTONIX 40 MG PO (08:59)
[2023-10-13] MEDS: VIMPAT 200 MG PO ×2 (08:59→20:10)
[2023-10-13] MEDS: MIRALAX 17 GRAMS PO (08:59)
[2023-10-13] MEDS: LOTRIMIN 1% CREAM 1 APPLIC TOPICAL ×2 (08:59→20:09)
[2023-10-13] MEDS: PROCARDIA XL (EXTENDED RELEASE) 60 MG PO (09:00)
[2023-10-13] MEDS: LUMINAL 64.8 MG PO ×3 (09:00→21:01)
[2023-10-13] MEDS: VITAMIN B1 100 MG PO (09:01)
--- NOTE | 2023-10-13 09:26 | CM ---
Addendum entered by Lala Gerardo 10/13/23 14:52:
Faxed request for level II assessment to [facility]. no response to .
Addendum entered by Lala Gerardo 10/13/23 10:38:
VM left for [facility], requesting review of PASSR form.
Addendum entered by Lala Gerardo 10/13/23 10:27:
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 Patient has lived with family all his life, but his mother recently June and he will need detention placement most likely due to
sister. Patient sister indicated that they could not care for patient and he is new to HD. Patient will need Level II assessment, CM will call to [facility], CM will continue to follow for discharge planning needs.
Plan; SNF pending Level II assessment.
Original Note:
Patient looking for SNF; referrals sent awaiting response. Will need auth. Patient may need community HD bed prior to acceptance, CM will follow with possible SNF options. CM will continue to follow for discharge planning needs.
Plan; SNF
[2023-10-13 10:57] LABS: Albumin 3.2 g/dl (3.5-5.0); Blood Urea Nitrogen 74 mg/dl (9-20); Calcium 8.6 mg/dl (8.4-10.2); Carbon Dioxide 24 mmol/L (22-30); Chloride 93 mmol/L (98-107); Estimated Creatinine Clearance 8 ml/min; Glucose 169 mg/dl (70-99); Phosphorus 6.8 mg/dl (2.5-4.5); Potassium 5.1 mmol/L (3.5-5.1); Sodium 129 mmol/L (135-145); eGFR 4.77
[2023-10-13 11:17] LABS: Hematocrit 32.7 % (39.0-52.0); Hemoglobin 11.5 g/dL (13.0-18.0); Mean Corp Hgb Conc. 35.2 g/dL (33.0-37.0); Mean Corpuscular Hgb 29.3 pg (27.0-31.0); Mean Corpuscular Volume 83.2 fL (80.0-94.0); Mean Platelet Volume 10.7 fL (7.4-10.4); Platelet Count 246 10^3/uL (130-400); Red Blood Cell Count 3.93 10^6/uL (4.70-6.10); Red Cell Dist. Width 12.3 % (11.5-14.5); White Blood Cell Count 15.1 10^3/uL (4.8-10.8)
[2023-10-13 15:10] VITALS: BP 151/91
--- NOTE | 2023-10-13 15:16 | W.PN.NEPH.HD ---
Assessment
-
pt seen during HD
vitals stable, SBP 150
UF as tolerates
CVC functions well
need placement, CM working
hyponatremia dilutional -cont FR
no renal recovery noted yet, although unmeasured void noted
monitor leucocytosis, no fever
Progress Note - Hemodialysis
-
Date of Service: October 13, 2023
Duration: 30 minutes and 3 hours
Potassium Bath: 2
Calcium Bath: 2.5
Opti-Dialyzer: 160
Ultrafiltration: Other (1-1.5kg)
Blood Flow: 400
Dialysate Flow: 600
Heparin: no
EPO: no
[2023-10-13 23:00] VITALS: BP 170/64
[2023-10-14] MEDS: ATIVAN 0.25 MG PO (01:05)
[2023-10-14] MEDS: HEPARIN 5000 UNITS SC ×3 (01:06→15:10)
[2023-10-14 06:00] VITALS: BMI 28.5
[2023-10-14 07:04] VITALS: BP 175/87
[2023-10-14] MEDS: LOTRIMIN 1% CREAM 1 APPLIC TOPICAL ×2 (08:32→21:05)
[2023-10-14] MEDS: ASPIR LOW (ENTERIC COATED) 81 MG PO (08:32)
[2023-10-14] MEDS: MIRALAX 17 GRAMS PO (08:33)
[2023-10-14] MEDS: PROCARDIA XL (EXTENDED RELEASE) 60 MG PO (08:33)
[2023-10-14] MEDS: LUMINAL 64.8 MG PO ×3 (08:33→21:05)
[2023-10-14] MEDS: VITAMIN B1 100 MG PO (08:34)
[2023-10-14] MEDS: SENOKOT 17.2 MG PO ×2 (08:34→21:05)
[2023-10-14] MEDS: VIMPAT 200 MG PO ×2 (08:34→21:05)
[2023-10-14] MEDS: PROTONIX 40 MG PO (08:34)
[2023-10-14 12:09] VITALS: BP 119/80; BP 150/82; PULSE 76; O2SAT 88
[2023-10-14 13:21] VITALS: BP 122/75; BP 127/75; PULSE 84
--- NOTE | 2023-10-14 14:46 | W.PN.NEPH.PH ---
Today's Communication / Plan
-
HD tomorrow
add hydralaizne for HTN
Assessment/Plan
-
Assessment
Seizure/epilepsy
Rhabdomyolysis
Metabolic acidosis
Elevated liver function tests
acute kidney injury
Low-grade fever
Oliguria
Plan
HD MWF schedule
BP are high-cont CCB, add hydralazine,
also try UF as tolerates-wt decreasaing
CM working on HD unit placement
no evidence of recovery currently though unmeasured voids noted
d/w pt
-
-
Date of Service: October 14, 2023
CC / HPI / ROS
-
Chief Complaint:
Acute renal failure
History of Present Illness:
tolerated HD yesterday
Hemodynamically stable, has high Bps
no new seizures
Review of Systems
no CP/SOB
no dysuria
Labs
-
Labs:
WBC 15.1 10^3/uL (4.8-10.8) H 10/13/23 10:41
RBC 3.93 10^6/uL (4.70-6.10) L 10/13/23 10:41
Hgb 11.5 g/dL (13.0-18.0) L 10/13/23 10:41
Hct 32.7 % (39.0-52.0) L 10/13/23 10:41
Plt Count 246 10^3/uL (130-400) D 10/13/23 10:41
Sodium 129 mmol/L (135-145) L 10/13/23 09:35
Potassium 5.1 mmol/L (3.5-5.1) 10/13/23 09:35
Chloride 93 mmol/L (98-107) L 10/13/23 09:35
Carbon Dioxide 24 mmol/L (22-30) 10/13/23 09:35
BUN 74 mg/dl (9-20) H 10/13/23 09:35
Creatinine 11.1 mg/dL (0.7-1.3) H* 10/13/23 09:35
eGFR 4.77 10/13/23 09:35
Glucose 169 mg/dl (70-99) H 10/13/23 09:35
Calcium 8.6 mg/dl (8.4-10.2) 10/13/23 09:35
Phosphorus 6.8 mg/dl (2.5-4.5) H 10/13/23 09:35
Albumin 3.2 g/dl (3.5-5.0) L 10/13/23 09:35
Physical Exam
-
Vital Signs:
Vital Signs
Temp Pulse Resp BP Pulse Ox
98.2 F 60 18 175/87 94
10/14/23 07:04 10/14/23 07:04 10/14/23 07:04 10/14/23 07:04 10/14/23 08:45
Cardiovascular:: Regular rate and rhythm
Respiratory:: Bilateral: CTA
Lung Excursion:: Normal
Abdomen:: Nontender and Soft
Extremity Edema:: None: Bilateral:
Sanchez Catheter: No
--- NOTE | 2023-10-14 14:51 | CM ---
Spoke with patent and sister Leanne.
Explained Level 2 evaluation to sister Leanne.
Per Leanne she and her siblings are working on completing POA forms.
Level 2 forms completed, signed by patient and faxed to [facility] [phone].
Per Leanne she is looking for LTC for her brother.
Referrals to [facility] and [facility].
Plan: skilled rehab once level 2 [facility]
Patient will require insurance authorization once bed available.
[2023-10-14 15:00] VITALS: BP 141/84
--- NOTE | 2023-10-14 16:04 | PTOTSP ---
ST Follow-Up
Pt continues to present with mild oral dysphagia and mildly reduced insight/judgment pertaining to safety. No overt s/s of penetration or aspiration observed at bedside.
Recommendations:
- Pt can be upgraded to REGULAR SOLIDS with THIN LIQUIDS, and MEDS TOLERATED.
- General aspiration precautions: make sure pt cuts his food into small bite sizes, eat slowly, and spit out anything he can't chew.
- SOLAR INSTALLER PV will continue to follow to ensure pt is safely consuming this recommended diet upgrade.
--- NOTE | 2023-10-14 16:20 | W.PN.HOSP.TC ---
Today's Communication/Plan
-
d/c planning for SNF
Assessment / Plan
Assessment / Plan
CXR: Low lung volumes. Minor bibasilar opacity most likely representing subsegmental atelectasis.
Abd U/S: Nonspecific focal gallbladder wall thickening. No additional findings to suggest acute cholecystitis. Clinical and laboratory correlation recommended. Minimal ascites about the liver.
Renal U/S: No evidence for pelvicalyceal dilation of either kidney. There appears to be a small amount of fluid surrounding each kidney. Suggestion of increased echogenicity of renal parenchyma bilaterally, a nonspecific finding suggesting medical
renal disease.
MRI brain:
1. No acute intracranial abnormality.
2. 2.3 cm lesion at the junction of the right zygomatic arch and maxilla favored to represent an osteoma. Imaging follow-up can be performed to confirm stability.

Acute metabolic encephalopathy due to acute seizure and postictal state as well as JEFERSON/rhabdomyolysis:
-Patient was on phenobarbital prior to admission and missed a couple days of dosing.
-active seizure noted (active RUE and facial twitching/ tonic clonic seizure) 10/05, s/p Keppra 2g load
-Intubated for airway protection 10/05, extubated 10/06
-Off of Levophed
-EEG 10/06: Moderate diffuse slowing, no seizures or epileptiform discharges seen
-Neuro following and help appreciated
-Currently on regimen of phenobarbital/Vimpat -no reported seizure episode in last 48 hours
Acute kidney injury due to nontraumatic rhabdomyolysis due to acute seizure activity
Now ESRD on HD
-renal U/S with medical renal disease
-Right chest tunneled catheter site clean, no erythema/drainage
-Nephrology following and getting dialysis periodically
Fever noted 10/05, likely due to active seizure at that time
-Urine and blood culture from 09/28 showed no growth
- blood culture remains negative till date.
-repeat CXR 10/05 after intubation noted slightly increased opacity in the retrocardiac left lower lobe, atelectasis versus pneumonia. Minor infiltrate versus atelectasis in the medial right lung base.
-Procal not useful in this case with ESRD
-was restarted empiric Abx Ceftriaxone/doxycycline -> continue monitoring off of antibiotics.
-Appreciate ID input
Ventilator dependent respiratory failure -for airway protection - extubated
Acute hypoxic respiratory insufficiency -resolved
-weaned off of o2
Transaminitis due to rhabdomyolysis, resolving
-Unremarkable abdominal ultrasound
-Hepatocellular injury has been ruled out
Essential hypertension:
-cont Procardia XL to 60mg daily with holding parameter
Hyponatremia
-minimal, observe
FULL/HSQ
Delayed entry for service provided on 10/13/23 AM
Anticipated Discharge: Today
Subjective/Interval History
-
Date of Service: October 13, 2023
no complains overnight
Objective Data
-
Vital Signs:
Vital Signs
Temp Pulse Resp BP Pulse Ox
98.2 F 66 17 141/84 95
10/14/23 15:00 10/14/23 15:00 10/14/23 15:00 10/14/23 15:00 10/14/23 15:00
I&O
10/13/23 10/14/23 10/15/23
06:59 06:59 06:59
Intake Total 720 / 720 720 / 720
Balance 720 / 720 720 / 720
Review of Systems
-
Respiratory: Reports No Symptoms
Cardiac: Reports No Symptoms
Abdomen/GI: Reports No Symptoms
Physical Exam
-
General: Appears Chronically Ill
Respiratory: Clear to Auscultation and Non Labored Respirations
Cardiac: Regular Rhythm and S1/S2; Negative Murmur
GI: Soft, Nontender and Nondistended
Musculoskeletal: No Edema
Skin: Warm and Dry
Neuro: Awake, Alert and No Motor Deficits; Negative Oriented
Psych: Calm
--- NOTE | 2023-10-14 17:02 | W.PN.HOSP.TC ---
Today's Communication/Plan
-
needs level II clearance per CM
zyprexa ordered to use in night
Assessment / Plan
Assessment / Plan
CXR: Low lung volumes. Minor bibasilar opacity most likely representing subsegmental atelectasis.
Abd U/S: Nonspecific focal gallbladder wall thickening. No additional findings to suggest acute cholecystitis. Clinical and laboratory correlation recommended. Minimal ascites about the liver.
Renal U/S: No evidence for pelvi-calyceal dilation of either kidney. There appears to be a small amount of fluid surrounding each kidney. Suggestion of increased echogenicity of renal parenchyma bilaterally, a nonspecific finding suggesting medical
renal disease.
MRI brain:
1. No acute intracranial abnormality.
2. 2.3 cm lesion at the junction of the right zygomatic arch and maxilla favored to represent an osteoma. Imaging follow-up can be performed to confirm stability.

Acute metabolic encephalopathy due to acute seizure and postictal state as well as JEFERSON/rhabdomyolysis:
-Patient was on phenobarbital prior to admission and missed a couple days of dosing.
-active seizure noted (active RUE and facial twitching/ tonic clonic seizure) 10/05, s/p Keppra 2g load
-Intubated for airway protection 10/05, extubated 10/06
-Off of Levophed
-EEG 10/06: Moderate diffuse slowing, no seizures or epileptiform discharges seen
-Neuro following and help appreciated
-Currently on regimen of phenobarbital/Vimpat -no reported seizure episode in last 48 hours
-Patient had an episode of confusion last night and required 1:1 monitoring, started on zyprexa night time dose for now.
Acute kidney injury due to nontraumatic rhabdomyolysis due to acute seizure activity
Now ESRD on HD
-renal U/S with medical renal disease
-Right chest tunneled catheter site clean, no erythema/drainage
-Nephrology following and getting dialysis periodically
-Check renal profile in morning.
Fever noted 10/05, likely due to active seizure at that time
-Urine and blood culture from 09/28 showed no growth
- blood culture remains negative till date.
-repeat CXR 10/05 after intubation noted slightly increased opacity in the retrocardiac left lower lobe, atelectasis versus pneumonia. Minor infiltrate versus atelectasis in the medial right lung base.
-Procal not useful in this case with ESRD
-was restarted empiric Abx Ceftriaxone/doxycycline -> continue monitoring off of antibiotics.
-Appreciate ID input
Ventilator dependent respiratory failure -for airway protection - extubated
Acute hypoxic respiratory insufficiency -resolved
-weaned off of o2
Transaminitis due to rhabdomyolysis, resolving
-Unremarkable abdominal ultrasound
-Hepatocellular injury has been ruled out
Essential hypertension:
-cont Procardia XL to 60mg daily with holding parameter
Hyponatremia
-minimal, observe
FULL/HSQ
Anticipated Discharge: Today
Subjective/Interval History
-
Date of Service: October 14, 2023
patient denies of having any issues
overnight patient had episode of confusion
patient does not remember events of night, apparently was trying to go to bathroom
Objective Data
-
Vital Signs:
Vital Signs
Temp Pulse Resp BP Pulse Ox
98.2 F 66 17 141/84 95
10/14/23 15:00 10/14/23 15:00 10/14/23 15:00 10/14/23 15:00 10/14/23 15:00
I&O
10/13/23 10/14/23 10/15/23
06:59 06:59 06:59
Intake Total 720 / 720 720 / 720
Balance 720 / 720 720 / 720
Review of Systems
-
Respiratory: Reports No Symptoms
Cardiac: Reports No Symptoms
Abdomen/GI: Reports No Symptoms
Physical Exam
-
General: Appears Chronically Ill
Respiratory: Clear to Auscultation and Non Labored Respirations
Cardiac: Regular Rhythm and S1/S2; Negative Murmur
GI: Soft, Nontender and Nondistended
Musculoskeletal: No Edema
Skin: Warm and Dry
Neuro: Awake, Alert and No Motor Deficits; Negative Oriented
Psych: Calm
[2023-10-14] MEDS: APRESOLINE 25 MG PO (21:05)
[2023-10-14] MEDS: ZYPREXA 5 MG PO (21:05)
[2023-10-14 23:00] VITALS: BP 154/88
[2023-10-15] MEDS: HEPARIN 5000 UNITS SC ×3 (00:28→16:18)
[2023-10-15 06:00] VITALS: BMI 28.7
[2023-10-15 07:14] VITALS: BP 168/78
[2023-10-15] MEDS: MIRALAX 17 GRAMS PO (08:34)
[2023-10-15] MEDS: ASPIR LOW (ENTERIC COATED) 81 MG PO (08:35)
[2023-10-15] MEDS: PROCARDIA XL (EXTENDED RELEASE) 60 MG PO ×2 (08:35→21:14)
[2023-10-15] MEDS: SENOKOT 17.2 MG PO ×2 (08:35→21:15)
[2023-10-15] MEDS: APRESOLINE 25 MG PO ×2 (08:35→21:14)
[2023-10-15] MEDS: LUMINAL 64.8 MG PO ×3 (08:36→21:15)
[2023-10-15] MEDS: VITAMIN B1 100 MG PO (08:36)
[2023-10-15] MEDS: PROTONIX 40 MG PO (08:36)
[2023-10-15] MEDS: VIMPAT 200 MG PO ×2 (08:36→21:15)
[2023-10-15] MEDS: LOTRIMIN 1% CREAM 1 APPLIC TOPICAL ×2 (08:36→21:16)
[2023-10-15 10:14] LABS: Hematocrit 34.5 % (39.0-52.0); Hemoglobin 11.9 g/dL (13.0-18.0); Mean Corp Hgb Conc. 34.5 g/dL (33.0-37.0); Mean Corpuscular Volume 86.9 fL (80.0-94.0); Mean Platelet Volume 10.8 fL (7.4-10.4); Platelet Count 241 10^3/uL (130-400); Red Blood Cell Count 3.97 10^6/uL (4.70-6.10); Red Cell Dist. Width 12.7 % (11.5-14.5); White Blood Cell Count 10.8 10^3/uL (4.8-10.8)
--- NOTE | 2023-10-15 11:25 | CM ---
Addendum entered by Ana Rosa Talbert 10/16/23 15:51:
Roxy from [facility] will be out to completed level 2 evaluation tomorrow between 10-11 am.
Addendum entered by Ana Rosa Talbert 10/16/23 15:46:
Psychiatric evaluation completed and faxed to [phone].
Plan: skilled rehab once level 2 completed.
Addendum entered by Ana Rosa Talbert 10/15/23 14:20:
Additional infor sent to [facility].
Addendum entered by Ana Rosa Talbert 10/15/23 11:39:
TC to [facility], fax received minus 3 pages of the PASSR, will refax to [phone].
Original Note:
patient remains on 1:1.
Level 2 eval (P).
Spoke with sister Leanne- they are going to visit the facilities today and will let CM know which facility is preferred- [facility] or [facility].
Plan: skilled rehab once bed available, level 2 completed, and auth obtained.
[2023-10-15 11:26] LABS: Albumin 3.6 g/dl (3.5-5.0); Blood Urea Nitrogen 46 mg/dl (9-20); Calcium 9.1 mg/dl (8.4-10.2); Carbon Dioxide 23 mmol/L (22-30); Chloride 96 mmol/L (98-107); Estimated Creatinine Clearance 11 ml/min; Glucose 88 mg/dl (70-99); Phosphorus 6.4 mg/dl (2.5-4.5); Potassium 4.7 mmol/L (3.5-5.1); Sodium 132 mmol/L (135-145); eGFR 7.02
[2023-10-15] MEDS: HEPARIN 500 UNITS IV ×2 (12:10→13:10)
--- NOTE | 2023-10-15 14:01 | W.PN.HOSP.TC ---
Today's Communication/Plan
-
waiting SNF rehab placement
continue HS zyprexa
Assessment / Plan
Assessment / Plan
CXR: Low lung volumes. Minor bibasilar opacity most likely representing subsegmental atelectasis.
Abd U/S: Nonspecific focal gallbladder wall thickening. No additional findings to suggest acute cholecystitis. Clinical and laboratory correlation recommended. Minimal ascites about the liver.
Renal U/S: No evidence for pelvi-calyceal dilation of either kidney. There appears to be a small amount of fluid surrounding each kidney. Suggestion of increased echogenicity of renal parenchyma bilaterally, a nonspecific finding suggesting medical
renal disease.
MRI brain:
1. No acute intracranial abnormality.
2. 2.3 cm lesion at the junction of the right zygomatic arch and maxilla favored to represent an osteoma. Imaging follow-up can be performed to confirm stability.

Acute metabolic encephalopathy due to acute seizure and postictal state as well as JEFERSON/rhabdomyolysis:
-Patient was on phenobarbital prior to admission and missed a couple days of dosing.
-active seizure noted (active RUE and facial twitching/ tonic clonic seizure) 10/05, s/p Keppra 2g load
-Intubated for airway protection 10/05, extubated 10/06
-Off of Levophed
-EEG 10/06: Moderate diffuse slowing, no seizures or epileptiform discharges seen
-Neuro following and help appreciated
-Currently on regimen of phenobarbital/Vimpat -no reported seizure episode in last 48 hours
-Patient had an episode of confusion last night and required 1:1 monitoring, started on Zyprexa night time small dose for now.
Acute kidney injury due to nontraumatic rhabdomyolysis due to acute seizure activity
Now ESRD on HD
-renal U/S with medical renal disease
-Right chest tunneled catheter site clean, no erythema/drainage
-Nephrology following and getting dialysis periodically
Fever noted 10/05, likely due to active seizure at that time
-Urine and blood culture from 09/28 showed no growth
- blood culture remains negative till date.
-repeat CXR 10/05 after intubation noted slightly increased opacity in the retrocardiac left lower lobe, atelectasis versus pneumonia. Minor infiltrate versus atelectasis in the medial right lung base.
-Procal not useful in this case with ESRD
-was restarted empiric Abx Ceftriaxone/doxycycline -> continue monitoring off of antibiotics.
-Appreciate ID input
Ventilator dependent respiratory failure -for airway protection - extubated
Acute hypoxic respiratory insufficiency -resolved
-weaned off of o2
Transaminitis due to rhabdomyolysis, resolving
-Unremarkable abdominal ultrasound
-Hepatocellular injury has been ruled out
Essential hypertension:
-cont Procardia XL to 60mg daily with holding parameter
Hyponatremia
-minimal, observe
FULL/HSQ
Anticipated Discharge: > 48 hours
Subjective/Interval History
-
Date of Service: October 15, 2023
Denies any episodes of nighttime disorientation/confusion
no other reported problems
Objective Data
-
Labs:
Laboratory Results
10/15/23
08:56
WBC 10.8
Hgb 11.9 L
Hct 34.5 L
Plt Count 241
Sodium 132 L
Potassium 4.7
Chloride 96 L
Carbon Dioxide 23
BUN 46 H
Creatinine 8.0 H*
Glucose 88
Calcium 9.1
Vital Signs:
Vital Signs
Temp Pulse Resp BP Pulse Ox
98.2 F 67 16 168/78 91
10/15/23 07:14 10/15/23 07:14 10/15/23 07:14 10/15/23 07:14 10/15/23 07:14
I&O
10/14/23 10/15/23 10/16/23
06:59 06:59 06:59
Intake Total 720 / 720 1080 / 1080 450 / 450
Output Total 50 / 50
Balance 720 / 720 1030 / 1030 450 / 450
Review of Systems
-
Respiratory: Reports No Symptoms
Cardiac: Reports No Symptoms
Abdomen/GI: Reports No Symptoms
Physical Exam
-
General: Appears Chronically Ill
Respiratory: Clear to Auscultation and Non Labored Respirations
Cardiac: Regular Rhythm and S1/S2; Negative Murmur
GI: Soft, Nontender and Nondistended
Musculoskeletal: No Edema
Skin: Warm and Dry
Neuro: Awake, Alert and No Motor Deficits; Negative Oriented
Psych: Calm
--- NOTE | 2023-10-15 14:19 | W.PN.NEPH.HD ---
Assessment
-
- no complaints on HD
- awaiting placement
Progress Note - Hemodialysis
-
Date of Service: October 15, 2023
Duration: 30 minutes and 3 hours
Potassium Bath: 3
Calcium Bath: 2.5
Opti-Dialyzer: 160
Ultrafiltration: Other
Blood Flow: 400
Dialysate Flow: 600
[2023-10-15 16:05] VITALS: BP 151/89
[2023-10-15] MEDS: ZYPREXA 5 MG PO (21:15)
[2023-10-15 23:00] VITALS: BP 130/78
[2023-10-16] MEDS: HEPARIN 5000 UNITS SC ×3 (00:22→15:04)
[2023-10-16 06:00] VITALS: BMI 27.8
[2023-10-16 07:35] VITALS: BP 140/85
[2023-10-16] MEDS: MIRALAX 17 GRAMS PO (07:52)
[2023-10-16] MEDS: PROTONIX 40 MG PO (07:53)
[2023-10-16] MEDS: LUMINAL 64.8 MG PO ×3 (07:53→21:16)
[2023-10-16] MEDS: APRESOLINE 25 MG PO ×2 (07:53→21:17)
[2023-10-16] MEDS: VIMPAT 200 MG PO ×2 (07:53→21:16)
[2023-10-16] MEDS: PROCARDIA XL (EXTENDED RELEASE) 60 MG PO ×2 (07:53→21:17)
[2023-10-16] MEDS: ASPIR LOW (ENTERIC COATED) 81 MG PO (07:53)
[2023-10-16] MEDS: SENOKOT 17.2 MG PO ×2 (07:53→21:16)
[2023-10-16] MEDS: VITAMIN B1 100 MG PO (07:53)
[2023-10-16] MEDS: LOTRIMIN 1% CREAM 1 APPLIC TOPICAL ×2 (07:54→21:16)
[2023-10-16 11:01] VITALS: BP 145/76; PULSE 92
--- NOTE | 2023-10-16 14:01 | W.PN.NEPH.PH ---
Today's Communication / Plan
-
- HD tomorrow
Assessment/Plan
-
Assessment
Seizure/epilepsy
Rhabdomyolysis
Metabolic acidosis
Elevated liver function tests
acute kidney injury
Low-grade fever
Oliguria
Plan
HD MWF schedule
BP are high-cont CCB, add hydralazine,
also try UF as tolerates-wt decreasaing
CM working on HD unit placement
no evidence of recovery currently though unmeasured voids noted
d/w pt
-
-
Date of Service: October 16, 2023
CC / HPI / ROS
-
Chief Complaint:
Acute renal failure
History of Present Illness:
tolerated HD yesterday
Hemodynamically stable, has high Bps
no new seizures
Review of Systems
no CP/SOB
no dysuria
Labs
-
Labs:
WBC 10.8 10^3/uL (4.8-10.8) 10/15/23 08:56
RBC 3.97 10^6/uL (4.70-6.10) L 10/15/23 08:56
Hgb 11.9 g/dL (13.0-18.0) L 10/15/23 08:56
Hct 34.5 % (39.0-52.0) L 10/15/23 08:56
Plt Count 241 10^3/uL (130-400) 10/15/23 08:56
Sodium 132 mmol/L (135-145) L 10/15/23 08:56
Potassium 4.7 mmol/L (3.5-5.1) 10/15/23 08:56
Chloride 96 mmol/L (98-107) L 10/15/23 08:56
Carbon Dioxide 23 mmol/L (22-30) 07/24/24 08:56
BUN 46 mg/dl (9-20) H 10/15/23 08:56
Creatinine 8.0 mg/dL (0.7-1.3) H* 10/15/23 08:56
eGFR 7.02 10/15/23 08:56
Glucose 88 mg/dl (70-99) 10/15/23 08:56
Calcium 9.1 mg/dl (8.4-10.2) 10/15/23 08:56
Phosphorus 6.4 mg/dl (2.5-4.5) H 10/15/23 08:56
Albumin 3.6 g/dl (3.5-5.0) 10/15/23 08:56
Physical Exam
-
Vital Signs:
Vital Signs
Temp Pulse Resp BP Pulse Ox
99.1 F 69 18 140/85 92
10/16/23 07:35 10/16/23 07:35 10/16/23 07:35 10/16/23 07:35 10/16/23 07:35
Cardiovascular:: Regular rate and rhythm
Respiratory:: Bilateral: CTA
Lung Excursion:: Normal
Abdomen:: Nontender and Soft
Bowel Sounds:: Normal
Extremity Edema:: +1: Bilateral:
Sanchez Catheter: No
[2023-10-16 14:18] VITALS: BP 129/80
--- NOTE | 2023-10-16 14:45 | CON.MD ---
Consultation - Medical
-
patient seen chart reviewed. discussed w nursing. the patient is a 63 year old male admitted for a seizure after being found down unresponsive. he was found to have suffered aphasia secondary to left mca ischemia. he has hx of sz disorder and at
this point has been stabilized on vimpat and phenobarbital. he is speaking normally at this point. further complications included kidney injury secondary to rhabdo, transaminase elevation also thought related to rhabdo. see medical hx below. the
patient denies any psych hx . he has been neither depressed nor anxious. 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 he sleeps okay. appetite is good. he can enjoy some
activities. until now energy level has been normal. he offers no particular complaint at this point. he has been taking zyprexa 5 mg after an episode a few days ago of agitation in the evening and is currently on med sitter but nursing reports no
issues w his behavior
past psychiatric hx patient denies prior psych hx
past medical hx see above the patient also has hx htn mri shows no acute changes. he is currently on dialysis cxr raised ? atelectasis vs pneumonia but infectious disease did not feel patient was infected and recommended dc of antibiotics. mild
hyponatremia (132) since admission qtc 426 some elevations of bp noted in the record. mild anemia w hgb 11.9 creatinine over * (atn)
fh denied
substance abuse denied
social resides within family home. sister is also living there . both parents . patient is one of five children. he works at [employer] see above hobbies include reading newspaper walking riding his bike and collecting baseball cards
supportive family
mse pleasant 63 year old seated in chair. speech and thought process normal. no psychosis mood is good affect ok no si low aver intelligence fully oriented knows president and who is running for president. insight judgment seem okay
dx adjustment disorder unspecified
plan would consider dc of med sitter as patient very pleasant and cooperative and nursing sees no reason to continue either. not clear whether patient still needs zyprexa would cut back to 2.5 mg and if not further incidents over the next week
would dc. this assessment being done for a level two placement. psych will sign off at this point.
--- NOTE | 2023-10-16 15:13 | W.PN.HOSP.TC ---
Today's Communication/Plan
-
zyprexa dose decreased
psych consulted
discharge planning for rehab
Assessment / Plan
Assessment / Plan
CXR: Low lung volumes. Minor bibasilar opacity most likely representing subsegmental atelectasis.
Abd U/S: Nonspecific focal gallbladder wall thickening. No additional findings to suggest acute cholecystitis. Clinical and laboratory correlation recommended. Minimal ascites about the liver.
Renal U/S: No evidence for pelvi-calyceal dilation of either kidney. There appears to be a small amount of fluid surrounding each kidney. Suggestion of increased echogenicity of renal parenchyma bilaterally, a nonspecific finding suggesting medical
renal disease.
MRI brain:
1. No acute intracranial abnormality.
2. 2.3 cm lesion at the junction of the right zygomatic arch and maxilla favored to represent an osteoma. Imaging follow-up can be performed to confirm stability.

Acute metabolic encephalopathy due to acute seizure and postictal state as well as JEFERSON/rhabdomyolysis:
-Patient was on phenobarbital prior to admission and missed a couple days of dosing.
-active seizure noted (active RUE and facial twitching/ tonic clonic seizure) 10/05, s/p Keppra 2g load
-Intubated for airway protection 10/05, extubated 10/06
-Off of Levophed
-EEG 10/06: Moderate diffuse slowing, no seizures or epileptiform discharges seen
-Neuro following and help appreciated
-Currently on regimen of phenobarbital/Vimpat -no reported seizure episode in last 48 hours
-Patient had an episode of confusion last night and required 1:1 monitoring, started on Zyprexa night time small dose for now.
Acute kidney injury due to nontraumatic rhabdomyolysis due to acute seizure activity
Now ESRD on HD
-renal U/S with medical renal disease
-Right chest tunneled catheter site clean, no erythema/drainage
-Nephrology following and getting dialysis periodically
Fever noted 10/05, likely due to active seizure at that time
-Urine and blood culture from 09/28 showed no growth
- blood culture remains negative till date.
-repeat CXR 10/05 after intubation noted slightly increased opacity in the retrocardiac left lower lobe, atelectasis versus pneumonia. Minor infiltrate versus atelectasis in the medial right lung base.
-Procal not useful in this case with ESRD
-was restarted empiric Abx Ceftriaxone/doxycycline -> continue monitoring off of antibiotics.
-Appreciate ID input
Ventilator dependent respiratory failure -for airway protection - extubated
Acute hypoxic respiratory insufficiency -resolved
-weaned off of o2
Transaminitis due to rhabdomyolysis, resolving
-Unremarkable abdominal ultrasound
-Hepatocellular injury has been ruled out
Essential hypertension:
-cont Procardia XL to 60mg daily with holding parameter
Hyponatremia
-minimal, observe
FULL/HSQ
Anticipated Discharge: Today
Subjective/Interval History
-
Date of Service: October 16, 2023
no complains overnight
Objective Data
-
Vital Signs:
Vital Signs
Temp Pulse Resp BP Pulse Ox
99.1 F 69 18 140/85 92
10/16/23 07:35 10/16/23 07:35 10/16/23 07:35 10/16/23 07:35 10/16/23 07:35
I&O
10/15/23 10/16/23 10/17/23
06:59 06:59 06:59
Intake Total 1080 / 1080 2029
Output Total 50 / 50
Balance 1030 / 1030 2029
Review of Systems
-
Respiratory: Reports No Symptoms
Cardiac: Reports No Symptoms
Abdomen/GI: Reports No Symptoms
Physical Exam
-
General: Negative Appears in Distress
HEENT: Negative Oxygen
Neuro: Awake, Alert, Oriented and No Motor Deficits
Psych: Calm
[2023-10-16] MEDS: ZYPREXA 2.5 MG PO (21:16)
[2023-10-16 23:08] VITALS: BP 149/78
[2023-10-17] MEDS: HEPARIN 5000 UNITS SC ×4 (01:00→23:18)
[2023-10-17 06:00] VITALS: BMI 27.8
[2023-10-17 07:25] VITALS: BP 143/85
[2023-10-17 08:14] LABS: Hematocrit 33.8 % (39.0-52.0); Hemoglobin 11.5 g/dL (13.0-18.0); Mean Corpuscular Hgb 29.5 pg (27.0-31.0); Mean Corpuscular Volume 86.7 fL (80.0-94.0); Mean Platelet Volume 10.1 fL (7.4-10.4); Platelet Count 233 10^3/uL (130-400); Red Cell Dist. Width 12.8 % (11.5-14.5); White Blood Cell Count 7.4 10^3/uL (4.8-10.8)
[2023-10-17 08:43] LABS: Blood Urea Nitrogen 45 mg/dl (9-20); Calcium 9.1 mg/dl (8.4-10.2); Carbon Dioxide 29 mmol/L (22-30); Chloride 99 mmol/L (98-107); Estimated Creatinine Clearance 14 ml/min; Glucose 105 mg/dl (70-99); Potassium 4.1 mmol/L (3.5-5.1); Sodium 137 mmol/L (135-145); eGFR 9.53
[2023-10-17] MEDS: LUMINAL 64.8 MG PO ×3 (08:52→22:03)
[2023-10-17] MEDS: ASPIR LOW (ENTERIC COATED) 81 MG PO (08:52)
[2023-10-17] MEDS: LOTRIMIN 1% CREAM 1 APPLIC TOPICAL ×2 (08:54→20:12)
--- NOTE | 2023-10-17 10:08 | W.PN.NEPH.HD ---
Assessment
-
pt seen during hD
vitals stable
cr seem to decreasing, monitor pre HD cr
cont HD for time being likely hoping to see renal recovery
await HD unit palcement
Progress Note - Hemodialysis
-
Date of Service: October 17, 2023
Duration: 30 minutes and 3 hours
Potassium Bath: 3
Calcium Bath: 2.5
Opti-Dialyzer: 160
Ultrafiltration: Other (1-2kg)
Blood Flow: 400
Dialysate Flow: 600
Heparin: no
EPO: no
[2023-10-17] MEDS: VITAMIN B1 100 MG PO (11:33)
[2023-10-17] MEDS: PROTONIX 40 MG PO (11:34)
[2023-10-17] MEDS: VIMPAT 200 MG PO ×2 (11:34→20:13)
[2023-10-17] MEDS: SENOKOT 17.2 MG PO ×2 (11:35→20:13)
[2023-10-17] MEDS: PROCARDIA XL (EXTENDED RELEASE) 60 MG PO (11:35)
[2023-10-17] MEDS: APRESOLINE 25 MG PO ×2 (11:35→20:12)
[2023-10-17] MEDS: MIRALAX 17 GRAMS PO (11:38)
--- NOTE | 2023-10-17 12:15 | CM ---
Addendum entered by Ana Rosa Talbert 10/17/23 15:03:
Flow sheets, face sheet and ss# faxed to [phone].
Addendum entered by Ana Rosa Talbert 10/17/23 12:37:
[facility] requesting H+P, nephrology notes, HD sheets, labs, CXR or PPD, hep b surface antigen.
Addendum entered by Ana Rosa Talbert 10/17/23 12:30:
Spoke with patients sister Leanne.
She toured [facility] and would like patient to go there post hospitalization.
[facility] liaison updated.
[facility] Liaison updated and will send clinicals for HD clearance via [facility] to [facility] per liaisons request.
Original Note:
Patient seen bedside.
Roxy from [facility] out to completed level 2 eval.
Bed available at [facility] once level 2 received.
Patient will need insurance auth.
HD today.
PT/OT recommending skilled rehab.
Plan: await level 2 determination, then skilled rehab.
[2023-10-17 14:07] VITALS: BP 141/79; PULSE 97; O2SAT 97
--- NOTE | 2023-10-17 14:22 | W.PN.HOSP.TC ---
Today's Communication/Plan
-
d/c planning for rehab
Assessment / Plan
Assessment / Plan
CXR: Low lung volumes. Minor bibasilar opacity most likely representing subsegmental atelectasis.
Abd U/S: Nonspecific focal gallbladder wall thickening. No additional findings to suggest acute cholecystitis. Clinical and laboratory correlation recommended. Minimal ascites about the liver.
Renal U/S: No evidence for pelvi-calyceal dilation of either kidney. There appears to be a small amount of fluid surrounding each kidney. Suggestion of increased echogenicity of renal parenchyma bilaterally, a nonspecific finding suggesting medical
renal disease.
MRI brain:
1. No acute intracranial abnormality.
2. 2.3 cm lesion at the junction of the right zygomatic arch and maxilla favored to represent an osteoma. Imaging follow-up can be performed to confirm stability.

Acute metabolic encephalopathy due to acute seizure and postictal state as well as JEFERSON/rhabdomyolysis:
-Patient was on phenobarbital prior to admission and missed a couple days of dosing.
-active seizure noted (active RUE and facial twitching/ tonic clonic seizure) 10/05, s/p Keppra 2g load
-Intubated for airway protection 10/05, extubated 10/06
-Off of Levophed
-EEG 10/06: Moderate diffuse slowing, no seizures or epileptiform discharges seen
-Neuro following and help appreciated
-Currently on regimen of phenobarbital/Vimpat -no reported seizure for last one week.
-Patient had an episode of confusion friday night and required 1:1 monitoring, now off of it.
-zyprexa dose decreased, psych input noted.
Acute kidney injury due to nontraumatic rhabdomyolysis due to acute seizure activity
Now ESRD on HD
-renal U/S with medical renal disease
-Right chest tunneled catheter site clean, no erythema/drainage
-Nephrology following and getting dialysis periodically
Fever noted 10/05, likely due to active seizure at that time
-Urine and blood culture from 09/28 showed no growth
- blood culture remains negative till date.
-repeat CXR 10/05 after intubation noted slightly increased opacity in the retrocardiac left lower lobe, atelectasis versus pneumonia. Minor infiltrate versus atelectasis in the medial right lung base.
-Procal not useful in this case with ESRD
-was restarted empiric Abx Ceftriaxone/doxycycline -> continue monitoring off of antibiotics.
-Appreciate ID input
Ventilator dependent respiratory failure -for airway protection - extubated
Acute hypoxic respiratory insufficiency -resolved
-weaned off of o2
Transaminitis due to rhabdomyolysis, resolving
-Unremarkable abdominal ultrasound
-Hepatocellular injury has been ruled out
Essential hypertension:
-cont Procardia XL to 60mg daily with holding parameter
Hyponatremia
-minimal, observe
FULL/HSQ
Anticipated Discharge: > 48 hours
Subjective/Interval History
-
Date of Service: October 17, 2023
no complains
Objective Data
-
Labs:
Laboratory Results
10/17/23
08:00
WBC 7.4
Hgb 11.5 L
Hct 33.8 L
Plt Count 233
Sodium 137
Potassium 4.1
Chloride 99
Carbon Dioxide 29
BUN 45 H
Creatinine 6.2 H*
Glucose 105 H
Calcium 9.1
Vital Signs:
Vital Signs
Temp Pulse Resp BP Pulse Ox
97.9 F 73 18 164/83 96
07/26/24 07:25 10/17/23 11:35 10/17/23 07:25 10/17/23 11:35 10/17/23 08:40
I&O
10/16/23 10/17/23 10/18/23
06:59 06:59 06:59
Intake Total 2029 840 / 840
Balance 2029 840 / 840
Review of Systems
-
Respiratory: Reports No Symptoms
Cardiac: Reports No Symptoms
Abdomen/GI: Reports No Symptoms
Physical Exam
-
General: Negative Appears in Distress
HEENT: Negative Oxygen
Neuro: Awake, Alert, Oriented and No Motor Deficits
Psych: Calm
[2023-10-17 15:03] VITALS: BP 115/73
[2023-10-17] MEDS: PROCARDIA XL (EXTENDED RELEASE) PO (20:13)
[2023-10-17] MEDS: ZYPREXA 2.5 MG PO (22:03)
[2023-10-17 23:22] VITALS: BP 134/75
[2023-10-18 06:00] VITALS: BMI 27.0
[2023-10-18 07:00] VITALS: BP 146/85
[2023-10-18] MEDS: VITAMIN B1 100 MG PO (09:05)
[2023-10-18] MEDS: APRESOLINE 25 MG PO ×2 (09:05→19:32)
[2023-10-18] MEDS: PROCARDIA XL (EXTENDED RELEASE) 60 MG PO ×2 (09:05→19:33)
[2023-10-18] MEDS: VIMPAT 200 MG PO ×2 (09:05→19:32)
[2023-10-18] MEDS: LUMINAL 64.8 MG PO ×3 (09:05→21:32)
[2023-10-18] MEDS: PROTONIX 40 MG PO (09:05)
[2023-10-18] MEDS: ASPIR LOW (ENTERIC COATED) 81 MG PO (09:06)
[2023-10-18] MEDS: HEPARIN 5000 UNITS SC ×3 (09:06→23:03)
[2023-10-18] MEDS: SENOKOT 17.2 MG PO ×2 (09:06→19:33)
[2023-10-18] MEDS: LOTRIMIN 1% CREAM 1 APPLIC TOPICAL ×2 (09:06→19:30)
[2023-10-18] MEDS: MIRALAX 17 GRAMS PO (09:07)
--- NOTE | 2023-10-18 12:48 | W.PN.NEPH.PH ---
Today's Communication / Plan
-
HD on Friday
Assessment/Plan
-
Assessment
Seizure/epilepsy
Rhabdomyolysis
Metabolic acidosis
Elevated liver function tests
acute kidney injury
Low-grade fever
Oliguria
Plan
HD MWF schedule
BP are stable on CCB and hydralazine,
cr seem to improve and subjective increase in UOP likely some renal recovery is expected, follow pre HD cr
CM working on HD unit placement
no evidence of recovery currently though unmeasured voids noted
d/w pt
-
-
Date of Service: October 18, 2023
CC / HPI / ROS
-
Chief Complaint:
Acute renal failure
History of Present Illness:
tolerated HD yesterday
Hemodynamically stable,
no new seizures
wt decreasing
Review of Systems
no CP/SOB
no dysuria
Labs
-
Labs:
WBC 7.4 10^3/uL (4.8-10.8) 10/17/23 08:00
RBC 3.90 10^6/uL (4.70-6.10) L 10/17/23 08:00
Hgb 11.5 g/dL (13.0-18.0) L 10/17/23 08:00
Hct 33.8 % (39.0-52.0) L 10/17/23 08:00
Plt Count 233 10^3/uL (130-400) 10/17/23 08:00
Sodium 137 mmol/L (135-145) 10/17/23 08:00
Potassium 4.1 mmol/L (3.5-5.1) 10/17/23 08:00
Chloride 99 mmol/L (98-107) 10/17/23 08:00
Carbon Dioxide 29 mmol/L (22-30) 10/17/23 08:00
BUN 45 mg/dl (9-20) H 10/17/23 08:00
Creatinine 6.2 mg/dL (0.7-1.3) H* 10/17/23 08:00
eGFR 9.53 10/17/23 08:00
Glucose 105 mg/dl (70-99) H 10/17/23 08:00
Calcium 9.1 mg/dl (8.4-10.2) 10/17/23 08:00
Phosphorus 6.4 mg/dl (2.5-4.5) H 10/15/23 08:56
Albumin 3.6 g/dl (3.5-5.0) 10/15/23 08:56
Physical Exam
-
Vital Signs:
Vital Signs
Temp Pulse Resp BP Pulse Ox
98.5 F 73 16 146/85 97
10/18/23 07:00 10/18/23 07:00 10/18/23 07:00 10/18/23 07:00 10/18/23 07:00
Cardiovascular:: Regular rate and rhythm
Respiratory:: Bilateral: CTA
Lung Excursion:: Normal
Abdomen:: Nontender and Soft
Extremity Edema:: None: Bilateral:
Sanchez Catheter: No
--- NOTE | 2023-10-18 14:03 | W.PN.HOSP.TC ---
Today's Communication/Plan
-
discharge planning for rehab
Assessment / Plan
Assessment / Plan
CXR: Low lung volumes. Minor bibasilar opacity most likely representing subsegmental atelectasis.
Abd U/S: Nonspecific focal gallbladder wall thickening. No additional findings to suggest acute cholecystitis. Clinical and laboratory correlation recommended. Minimal ascites about the liver.
Renal U/S: No evidence for pelvi-calyceal dilation of either kidney. There appears to be a small amount of fluid surrounding each kidney. Suggestion of increased echogenicity of renal parenchyma bilaterally, a nonspecific finding suggesting medical
renal disease.
MRI brain:
1. No acute intracranial abnormality.
2. 2.3 cm lesion at the junction of the right zygomatic arch and maxilla favored to represent an osteoma. Imaging follow-up can be performed to confirm stability.

Acute metabolic encephalopathy due to acute seizure and postictal state as well as JEFERSON/rhabdomyolysis:
-Patient was on phenobarbital prior to admission and missed a couple days of dosing.
-active seizure noted (active RUE and facial twitching/ tonic clonic seizure) 10/05, s/p Keppra 2g load
-Intubated for airway protection 10/05, extubated 10/06
-Off of Levophed
-EEG 10/06: Moderate diffuse slowing, no seizures or epileptiform discharges seen
-Neuro following and help appreciated
-Currently on regimen of phenobarbital/Vimpat -no reported seizure for last one week.
-Patient had an episode of confusion friday night and required 1:1 monitoring, now off of it.
-Zyprexa dose decreased, psych input noted.
Acute kidney injury due to nontraumatic rhabdomyolysis due to acute seizure activity
Now ESRD on HD
-renal U/S with medical renal disease
-Right chest tunneled catheter site clean, no erythema/drainage
-Nephrology following and getting dialysis periodically
Fever noted 10/05, likely due to active seizure at that time
-Urine and blood culture from 09/28 showed no growth
- blood culture remains negative till date.
-repeat CXR 10/05 after intubation noted slightly increased opacity in the retrocardiac left lower lobe, atelectasis versus pneumonia. Minor infiltrate versus atelectasis in the medial right lung base.
-Procal not useful in this case with ESRD
-was restarted empiric Abx Ceftriaxone/doxycycline -> continue monitoring off of antibiotics.
-Appreciate ID input
Ventilator dependent respiratory failure -for airway protection - extubated
Acute hypoxic respiratory insufficiency -resolved
-weaned off of o2
Transaminitis due to rhabdomyolysis, resolving
-Unremarkable abdominal ultrasound
-Hepatocellular injury has been ruled out
Essential hypertension:
-cont Procardia XL to 60mg daily with holding parameter
Hyponatremia
-minimal, observe
FULL/HSQ
Anticipated Discharge: > 48 hours
Subjective/Interval History
-
Date of Service: October 18, 2023
no issues overnight
Objective Data
-
Vital Signs:
Vital Signs
Temp Pulse Resp BP Pulse Ox
98.5 F 73 16 146/85 97
10/18/23 07:00 10/18/23 07:00 10/18/23 07:00 10/18/23 07:00 10/18/23 07:00
I&O
10/17/23 10/18/23 10/19/23
06:59 06:59 06:59
Intake Total 840 / 840 720 / 720
Balance 840 / 840 720 / 720
Review of Systems
-
Respiratory: Reports No Symptoms
Cardiac: Reports No Symptoms
Abdomen/GI: Reports No Symptoms
Physical Exam
-
General: Negative Appears in Distress
HEENT: Negative Oxygen
Neuro: Awake, Alert, Oriented and No Motor Deficits
Psych: Calm
--- NOTE | 2023-10-18 14:54 | CM ---
CM reviewed chart, awaiting level 2 determination from [facility]. All clinicals previously faxed to [facility] for HD/SNF. Patient will need insurance auth for SNF. CM will continue to follow for all discharge planning needs.
Plan; awaiting level 2 from [facility], SNF [facility].
[2023-10-18 15:00] VITALS: BP 138/80
[2023-10-18] MEDS: ZYPREXA 2.5 MG PO (21:32)
[2023-10-18 23:20] VITALS: BP 138/71
[2023-10-19 06:00] VITALS: BMI 26.7
[2023-10-19 07:41] VITALS: BP 143/78
[2023-10-19] MEDS: ASPIR LOW (ENTERIC COATED) 81 MG PO (08:16)
[2023-10-19] MEDS: VIMPAT 200 MG PO ×2 (08:17→19:58)
[2023-10-19] MEDS: LUMINAL 64.8 MG PO ×3 (08:17→22:42)
[2023-10-19] MEDS: APRESOLINE 25 MG PO ×2 (08:17→19:57)
[2023-10-19] MEDS: SENOKOT 17.2 MG PO ×2 (08:17→19:58)
[2023-10-19] MEDS: PROCARDIA XL (EXTENDED RELEASE) 60 MG PO ×2 (08:17→19:57)
[2023-10-19] MEDS: VITAMIN B1 100 MG PO (08:17)
[2023-10-19] MEDS: PROTONIX 40 MG PO (08:17)
[2023-10-19] MEDS: LOTRIMIN 1% CREAM 1 APPLIC TOPICAL ×2 (08:18→19:57)
[2023-10-19] MEDS: HEPARIN 5000 UNITS SC ×2 (08:18→16:06)
[2023-10-19] MEDS: MIRALAX 17 GRAMS PO (08:18)
[2023-10-19 09:48] LABS: Blood Urea Nitrogen 44 mg/dl (9-20); Calcium 9.5 mg/dl (8.4-10.2); Carbon Dioxide 26 mmol/L (22-30); Chloride 99 mmol/L (98-107); Estimated Creatinine Clearance 15 ml/min; Glucose 191 mg/dl (70-99); Potassium 4.2 mmol/L (3.5-5.1); Sodium 136 mmol/L (135-145); eGFR 10.54
[2023-10-19] MEDS: DULCOLAX 10 MG RECTAL (10:12)
--- NOTE | 2023-10-19 10:14 | PTCARENOTE ---
pt without bowel movement since 10/13. Dr Wu aware. Ordered stat suppository and Lactulose for 6 doses. Pt updated on new orders.
--- NOTE | 2023-10-19 13:00 | W.PN.HOSP.TC ---
Today's Communication/Plan
-
Awaiting SNF placement
Assessment / Plan
Assessment / Plan
CXR: Low lung volumes. Minor bibasilar opacity most likely representing subsegmental atelectasis.
Abd U/S: Nonspecific focal gallbladder wall thickening. No additional findings to suggest acute cholecystitis. Clinical and laboratory correlation recommended. Minimal ascites about the liver.
Renal U/S: No evidence for pelvi-calyceal dilation of either kidney. There appears to be a small amount of fluid surrounding each kidney. Suggestion of increased echogenicity of renal parenchyma bilaterally, a nonspecific finding suggesting medical
renal disease.
MRI brain:
1. No acute intracranial abnormality.
2. 2.3 cm lesion at the junction of the right zygomatic arch and maxilla favored to represent an osteoma. Imaging follow-up can be performed to confirm stability.

Acute metabolic encephalopathy due to acute seizure and postictal state as well as JEFERSON/rhabdomyolysis:
-Patient was on phenobarbital prior to admission and missed a couple days of dosing.
-active seizure noted (active RUE and facial twitching/ tonic clonic seizure) 10/05, s/p Keppra 2g load
-Intubated for airway protection 10/05, extubated 10/06
-Off of Levophed
-EEG 10/06: Moderate diffuse slowing, no seizures or epileptiform discharges seen
-Neuro following and help appreciated
-Currently on regimen of phenobarbital/Vimpat -no reported seizure for last one week.
-Patient had an episode of confusion friday night and required 1:1 monitoring, now off of it.
-Zyprexa dose decreased, psych input noted.
Acute kidney injury due to nontraumatic rhabdomyolysis due to acute seizure activity
Now ESRD on HD
-renal U/S with medical renal disease
-Right chest tunneled catheter site clean, no erythema/drainage
-Nephrology following and getting dialysis periodically
Fever noted 10/05, likely due to active seizure at that time
-Urine and blood culture from 09/28 showed no growth
- blood culture remains negative till date.
-repeat CXR 10/05 after intubation noted slightly increased opacity in the retrocardiac left lower lobe, atelectasis versus pneumonia. Minor infiltrate versus atelectasis in the medial right lung base.
-Procal not useful in this case with ESRD
-was restarted empiric Abx Ceftriaxone/doxycycline -> continue monitoring off of antibiotics.
-Appreciate ID input
Ventilator dependent respiratory failure -for airway protection - extubated
Acute hypoxic respiratory insufficiency -resolved
-weaned off of o2
Transaminitis due to rhabdomyolysis, resolving
-Unremarkable abdominal ultrasound
-Hepatocellular injury has been ruled out
Essential hypertension:
-cont Procardia XL to 60mg daily with holding parameter
Hyponatremia
-minimal, observe
FULL/HSQ
Anticipated Discharge: Today
Subjective/Interval History
-
Date of Service: October 19, 2023
No issues overnight
Objective Data
-
Labs:
Laboratory Results
10/19/23 10/19/23
06:25 08:38
Sodium Cancelled 136
Potassium Cancelled 4.2
Chloride Cancelled 99
Carbon Dioxide Cancelled 26
BUN Cancelled 44 H
Creatinine Cancelled 5.7 H*
Glucose Cancelled 191 H
Calcium Cancelled 9.5
Vital Signs:
Vital Signs
Temp Pulse Resp BP Pulse Ox
98.2 F 77 16 143/78 97
10/19/23 07:41 10/19/23 07:41 10/19/23 07:41 10/19/23 07:41 10/19/23 08:17
I&O
10/18/23 10/19/23 10/20/23
06:59 06:59 06:59
Intake Total 720 / 720 960 / 960 240 / 240
Balance 720 / 720 960 / 960 240 / 240
Review of Systems
-
Respiratory: Reports No Symptoms
Cardiac: Reports No Symptoms
Abdomen/GI: Reports No Symptoms
Physical Exam
-
General: Negative Appears in Distress
HEENT: Negative Oxygen
Neuro: Awake, Alert, Oriented and No Motor Deficits
Psych: Calm
--- NOTE | 2023-10-19 13:05 | CM ---
CM reviewed chart, awaiting level 2 determination from [facility] for SNF placement to [facility]. CM will continue to follow for all discharge planning needs.
Plan; SNF [facility], awaiting level 2 from [facility].
[2023-10-19 15:11] VITALS: BP 144/92
[2023-10-19] MEDS: DUPHALAC/CHRONULAC 20 GRAMS PO ×2 (16:06→22:42)
--- NOTE | 2023-10-19 17:10 | W.PN.NEPH.PH ---
Today's Communication / Plan
-
HD tomorrow
Assessment/Plan
-
Assessment
Seizure/epilepsy
Rhabdomyolysis
Metabolic acidosis
Elevated liver function tests
acute kidney injury
Low-grade fever
Oliguria
Plan
HD MWF schedule
BP are stable on CCB and hydralazine,
cr seem to improve likely some renal recovery is expected, follow pre HD cr
CM working on HD unit placement
d/w pt
-
-
Date of Service: October 19, 2023
CC / HPI / ROS
-
Chief Complaint:
Acute renal failure
History of Present Illness:
tolerated HD 10/16
Hemodynamically stable,
no new seizures
wt decreasing
Review of Systems
no CP/SOB
no dysuria
Labs
-
Labs:
WBC 7.4 10^3/uL (4.8-10.8) 10/17/23 08:00
RBC 3.90 10^6/uL (4.70-6.10) L 10/17/23 08:00
Hgb 11.5 g/dL (13.0-18.0) L 10/17/23 08:00
Hct 33.8 % (39.0-52.0) L 10/17/23 08:00
Plt Count 233 10^3/uL (130-400) 10/17/23 08:00
Sodium 136 mmol/L (135-145) 10/19/23 08:38
Potassium 4.2 mmol/L (3.5-5.1) 10/19/23 08:38
Chloride 99 mmol/L (98-107) 10/19/23 08:38
Carbon Dioxide 26 mmol/L (22-30) 10/19/23 08:38
BUN 44 mg/dl (9-20) H 10/19/23 08:38
Creatinine 5.7 mg/dL (0.7-1.3) H* 10/19/23 08:38
eGFR 10.54 10/19/23 08:38
Glucose 191 mg/dl (70-99) H 10/19/23 08:38
Calcium 9.5 mg/dl (8.4-10.2) 10/19/23 08:38
Phosphorus 6.4 mg/dl (2.5-4.5) H 10/15/23 08:56
Albumin 3.6 g/dl (3.5-5.0) 10/15/23 08:56
Physical Exam
-
Vital Signs:
Vital Signs
Temp Pulse Resp BP Pulse Ox
98.3 F 87 16 144/92 96
10/19/23 15:11 10/19/23 15:11 10/19/23 15:11 10/19/23 15:11 10/19/23 15:11
Cardiovascular:: Regular rate and rhythm
Respiratory:: Bilateral: CTA
Lung Excursion:: Normal
Abdomen:: Nontender and Soft
Extremity Edema:: None: Bilateral:
Sanchez Catheter: No
[2023-10-19] MEDS: ZYPREXA 2.5 MG PO (22:42)
[2023-10-19 23:05] VITALS: BP 136/80
[2023-10-20] MEDS: HEPARIN 5000 UNITS SC ×4 (00:11→23:06)
[2023-10-20 06:00] VITALS: BMI 26.5
--- NOTE | 2023-10-20 06:26 | PTCARENOTE ---
Patient observed turning off bed alarm periodically throughout shift. Patient educated on safety and fall risks. Frequent rounds made and patient re educated on each round.
[2023-10-20 07:35] VITALS: BP 138/88
--- NOTE | 2023-10-20 08:42 | W.PN.HOSP.TC ---
Today's Communication/Plan
-
ct head and HD today.
Assessment / Plan
Assessment / Plan
Physical exam:
General: Well Developed, Well Nourished and No Apparent Distress
HEENT: Normocephalic, Atraumatic and Moist Mucous Membranes
Respiratory: Clear to Auscultation; Negative Wheezes, Rales or Rhonchi
Cardiac: Regular Rhythm and S1/S2
GI: Soft, Nontender and Nondistended
Musculoskeletal: No Clubbing, No Cyanosis and No Edema
Neuro: Awake, Alert and Disoriented
Psych: Limited judgment and insight
A/P:
CXR: Low lung volumes. Minor bibasilar opacity most likely representing subsegmental atelectasis.
Abd U/S: Nonspecific focal gallbladder wall thickening. No additional findings to suggest acute cholecystitis. Clinical and laboratory correlation recommended. Minimal ascites about the liver.
Renal U/S: No evidence for pelvi-calyceal dilation of either kidney. There appears to be a small amount of fluid surrounding each kidney. Suggestion of increased echogenicity of renal parenchyma bilaterally, a nonspecific finding suggesting medical
renal disease.
MRI brain:
1. No acute intracranial abnormality.
2. 2.3 cm lesion at the junction of the right zygomatic arch and maxilla favored to represent an osteoma. Imaging follow-up can be performed to confirm stability.

Acute metabolic encephalopathy due to acute seizure and postictal state as well as JEFERSON/rhabdomyolysis:
-Patient was on phenobarbital prior to admission and missed a couple days of dosing.
-active seizure noted (active RUE and facial twitching/ tonic clonic seizure) 10/05, s/p Keppra 2g load
-Intubated for airway protection 10/05, extubated 10/06
-Off of Levophed
-EEG 10/06: Moderate diffuse slowing, no seizures or epileptiform discharges seen
-Neuro following and help appreciated
-Currently on regimen of phenobarbital/Vimpat -no reported seizure for last one week.
-Patient had an episode of confusion friday night and required 1:1 monitoring, now off of it.
-Zyprexa dose decreased, psych input noted
-Repeat CT head today
-Med sitter today
Acute kidney injury due to nontraumatic rhabdomyolysis due to acute seizure activity
Now ESRD on HD
-renal U/S with medical renal disease
-Right chest tunneled catheter site clean, no erythema/drainage
-Nephrology following and getting dialysis periodically
Fever noted 10/05, likely due to active seizure at that time
-Urine and blood culture from 09/28 showed no growth
- blood culture remains negative till date.
-repeat CXR 10/05 after intubation noted slightly increased opacity in the retrocardiac left lower lobe, atelectasis versus pneumonia. Minor infiltrate versus atelectasis in the medial right lung base.
-Procal not useful in this case with ESRD
-was restarted empiric Abx Ceftriaxone/doxycycline -> continue monitoring off of antibiotics.
-Appreciate ID input
Ventilator dependent respiratory failure -for airway protection - extubated
Acute hypoxic respiratory insufficiency -resolved
-weaned off of o2
Transaminitis due to rhabdomyolysis, resolving
-Unremarkable abdominal ultrasound
-Hepatocellular injury has been ruled out
Essential hypertension:
-cont Procardia XL to 60mg daily with holding parameter
Hyponatremia
-minimal, observe
FULL/HSQ
Anticipated Discharge: > 48 hours
Subjective/Interval History
-
Date of Service: October 20, 2023
sleepy by the time I saw him but RN reports agitation on off. HD today
Objective Data
-
Labs:
Laboratory Results
10/20/23
06:00
WBC Pending
Hgb Pending
Hct Pending
Plt Count Pending
Sodium Pending
Potassium Pending
Chloride Pending
Carbon Dioxide Pending
BUN Pending
Creatinine Pending
Glucose Pending
Calcium Pending
Vital Signs:
Vital Signs
Temp Pulse Resp BP Pulse Ox
98.6 F 83 18 138/88 95
10/20/23 07:35 10/20/23 07:35 10/20/23 07:35 10/20/23 07:35 10/20/23 07:35
I&O
10/19/23 10/20/23 10/21/23
06:59 06:59 06:59
Intake Total 960 / 960 1440 / 1440
Output Total 200 / 200
Balance 960 / 960 1240 / 1240
[2023-10-20] MEDS: DUPHALAC/CHRONULAC 20 GRAMS PO ×3 (09:08→21:13)
[2023-10-20] MEDS: SENOKOT 17.2 MG PO ×2 (09:08→21:12)
[2023-10-20] MEDS: VIMPAT 200 MG PO ×2 (09:08→21:12)
[2023-10-20] MEDS: ASPIR LOW (ENTERIC COATED) 81 MG PO (09:08)
[2023-10-20] MEDS: PROTONIX 40 MG PO (09:08)
[2023-10-20] MEDS: VITAMIN B1 100 MG PO (09:08)
[2023-10-20] MEDS: MIRALAX 17 GRAMS PO (09:08)
[2023-10-20] MEDS: LUMINAL 64.8 MG PO ×3 (09:08→21:12)
[2023-10-20] MEDS: LOTRIMIN 1% CREAM 1 APPLIC TOPICAL ×2 (09:20→21:13)
[2023-10-20 09:37] VITALS: BP 124/73; PULSE 91; O2SAT 93
--- NOTE | 2023-10-20 10:53 | CM ---
Addendum entered by Ana Rosa Talbert 10/20/23 15:46:
Attempting to determine insurance.
TC to admissions requesting information re insurance.
Possibly [facility].
Original Note:
Await Level 2 determination.
Sister requested medical disability forms be completed. Sister directed to PCP.
Sister requested copy of medical chart, medical release form provided.
Plan: [facility] when stable.
Patient will require insurance auth.
[2023-10-20] MEDS: HEPARIN 500 UNITS IV ×2 (12:55→13:55)
[2023-10-20 13:01] LABS: Hematocrit 33.1 % (39.0-52.0); Hemoglobin 11.1 g/dL (13.0-18.0); Mean Corp Hgb Conc. 33.5 g/dL (33.0-37.0); Mean Corpuscular Hgb 29.2 pg (27.0-31.0); Mean Corpuscular Volume 87.1 fL (80.0-94.0); Mean Platelet Volume 10.2 fL (7.4-10.4); Platelet Count 247 10^3/uL (130-400); Red Cell Dist. Width 12.8 % (11.5-14.5); White Blood Cell Count 6.9 10^3/uL (4.8-10.8)
[2023-10-20 13:38] LABS: Blood Urea Nitrogen 48 mg/dl (9-20); Calcium 9.4 mg/dl (8.4-10.2); Chloride 101 mmol/L (98-107); Estimated Creatinine Clearance 16 ml/min; Glucose 127 mg/dl (70-99); Potassium 3.9 mmol/L (3.5-5.1); Sodium 138 mmol/L (135-145); eGFR 11.77
--- NOTE | 2023-10-20 13:47 | W.PN.NEPH.HD ---
Assessment
-
Patient seen on dialysis
Systolic blood pressure 134 at current UF of 1.5 kg
Dialysis via catheter
Patient for discharge today after dialysis and will follow-up at [facility] under our care at our dialysis unit
We will continue to assess for recovery on dialysis
Progress Note - Hemodialysis
-
Date of Service: October 20, 2023
Duration: 30 minutes and 3 hours
Potassium Bath: 3
Calcium Bath: 2.5
Opti-Dialyzer: 160
Ultrafiltration: Other (1.5kg)
Blood Flow: 400
Dialysate Flow: 600
Heparin: 500 times two
EPO: none
[2023-10-20 13:49] LABS: Carbon Dioxide 26 mmol/L (22-30)
[2023-10-20 14:20] VITALS: BP 138/91
[2023-10-20] MEDS: APRESOLINE PO (15:12)
[2023-10-20] MEDS: PROCARDIA XL (EXTENDED RELEASE) PO (15:12)
[2023-10-20] MEDS: HEPARIN 4300 UNITS INTRACATH (16:27)
--- NOTE | 2023-10-20 16:43 | PTCARENOTE ---
Patient confused today. Oriented to self and time, but not place. Turning off bed alarm by himself, and wandering halls going in to other patient rooms. Patient now on med sitter for safety. MD aware. HD in progress, will have CT of head done once
HD completed.
[2023-10-20 21:11] VITALS: BP 111/75
[2023-10-20] MEDS: PROCARDIA XL (EXTENDED RELEASE) 60 MG PO (21:12)
[2023-10-20] MEDS: APRESOLINE 25 MG PO (21:12)
[2023-10-20] MEDS: ZYPREXA 2.5 MG PO (21:12)
[2023-10-20 23:14] VITALS: BP 123/76
[2023-10-21 06:00] VITALS: BMI 26.1
[2023-10-21 07:30] VITALS: BP 116/80
--- NOTE | 2023-10-21 09:09 | W.PN.HOSP.TC ---
Today's Communication/Plan
-
Discharge planning
Assessment / Plan
Assessment / Plan
Physical exam:
General: Well Developed, Well Nourished and No Apparent Distress
HEENT: Normocephalic, Atraumatic and Moist Mucous Membranes
Respiratory: Clear to Auscultation; Negative Wheezes, Rales or Rhonchi
Cardiac: Regular Rhythm and S1/S2
GI: Soft, Nontender and Nondistended
Musculoskeletal: No Clubbing, No Cyanosis and No Edema
Neuro: Awake, Alert and Disoriented
Psych: Limited judgment and insight
A/P:
CXR: Low lung volumes. Minor bibasilar opacity most likely representing subsegmental atelectasis.
Abd U/S: Nonspecific focal gallbladder wall thickening. No additional findings to suggest acute cholecystitis. Clinical and laboratory correlation recommended. Minimal ascites about the liver.
Renal U/S: No evidence for pelvi-calyceal dilation of either kidney. There appears to be a small amount of fluid surrounding each kidney. Suggestion of increased echogenicity of renal parenchyma bilaterally, a nonspecific finding suggesting medical
renal disease.
MRI brain:
1. No acute intracranial abnormality.
2. 2.3 cm lesion at the junction of the right zygomatic arch and maxilla favored to represent an osteoma. Imaging follow-up can be performed to confirm stability.

Acute metabolic encephalopathy due to acute seizure and postictal state as well as JEFERSON/rhabdomyolysis:
-Patient was on phenobarbital prior to admission and missed a couple days of dosing.
-active seizure noted (active RUE and facial twitching/ tonic clonic seizure) 10/05, s/p Keppra 2g load
-Intubated for airway protection 10/05, extubated 10/06
-Off of Levophed
-EEG 10/06: Moderate diffuse slowing, no seizures or epileptiform discharges seen
-Neuro following and help appreciated
-Currently on regimen of phenobarbital/Vimpat -no reported seizure for last one week.
-Patient had an episode of confusion friday night and required 1:1 monitoring, now off of it.
-Zyprexa dose decreased, psych input noted
-Repeat CT head yesterday unremarkable.
Acute kidney injury due to nontraumatic rhabdomyolysis due to acute seizure activity
Now ESRD on HD
-renal U/S with medical renal disease
-Right chest tunneled catheter site clean, no erythema/drainage
-Nephrology following and getting dialysis periodically
Fever noted 10/05, likely due to active seizure at that time
-Urine and blood culture from 09/28 showed no growth
- blood culture remains negative till date.
-repeat CXR 10/05 after intubation noted slightly increased opacity in the retrocardiac left lower lobe, atelectasis versus pneumonia. Minor infiltrate versus atelectasis in the medial right lung base.
-Procal not useful in this case with ESRD
-was restarted empiric Abx Ceftriaxone/doxycycline -> continue monitoring off of antibiotics.
-Appreciate ID input
Ventilator dependent respiratory failure -for airway protection - extubated
Acute hypoxic respiratory insufficiency -resolved
-weaned off of o2
Transaminitis due to rhabdomyolysis, resolving
-Unremarkable abdominal ultrasound
-Hepatocellular injury has been ruled out
Essential hypertension:
-cont Procardia XL to 60mg daily with holding parameter
Hyponatremia
-minimal, observe
FULL/HSQ
Anticipated Discharge: > 48 hours
Subjective/Interval History
-
Date of Service: October 21, 2023
Patient much better today in terms of alertness and behavior. Afebrile
Objective Data
-
Vital Signs:
Vital Signs
Temp Pulse Resp BP Pulse Ox
99.1 F 90 18 116/80 92
10/21/23 07:30 10/21/23 07:30 10/21/23 07:30 10/21/23 07:30 10/21/23 07:30
I&O
10/20/23 10/21/23 10/22/23
06:59 06:59 06:59
Intake Total 1440 / 1440 420 / 420
Output Total 200 / 200
Balance 1240 / 1240 420 / 420
[2023-10-21] MEDS: PROCARDIA XL (EXTENDED RELEASE) 60 MG PO ×2 (10:08→20:38)
[2023-10-21] MEDS: DUPHALAC/CHRONULAC 20 GRAMS PO (10:08)
[2023-10-21] MEDS: VIMPAT 200 MG PO ×2 (10:09→20:39)
[2023-10-21] MEDS: SENOKOT 17.2 MG PO ×2 (10:09→20:38)
[2023-10-21] MEDS: ASPIR LOW (ENTERIC COATED) 81 MG PO (10:14)
[2023-10-21] MEDS: PROTONIX 40 MG PO (10:15)
[2023-10-21] MEDS: HEPARIN 5000 UNITS SC ×2 (10:16→16:48)
[2023-10-21] MEDS: MIRALAX 17 GRAMS PO (10:16)
[2023-10-21] MEDS: APRESOLINE 25 MG PO ×2 (10:18→20:46)
[2023-10-21] MEDS: LUMINAL 64.8 MG PO ×3 (10:27→22:19)
[2023-10-21] MEDS: VITAMIN B1 100 MG PO (10:27)
[2023-10-21] MEDS: LOTRIMIN 1% CREAM 1 APPLIC TOPICAL ×2 (10:28→20:40)
--- NOTE | 2023-10-21 14:22 | W.PN.NEPH.PH ---
Today's Communication / Plan
-
Dialysis tomorrow
Assessment/Plan
-
Assessment
Seizure/epilepsy
Rhabdomyolysis
Metabolic acidosis
Elevated liver function tests
acute kidney injury
Low-grade fever
Oliguria
Plan
HD MWF schedule
Dialysis tomorrow orders provided
BP are stable on CCB and hydralazine,
cr seem to improve likely some renal recovery is expected, follow pre HD cr
CM working on HD unit placement
-
-
Date of Service: October 21, 2023
CC / HPI / ROS
-
Chief Complaint:
Acute renal failure
History of Present Illness:
tolerated HD 10/16
Hemodynamically stable,
no new seizures
wt decreasing
Acute kidney injury now on Friday dialysis schedule
Review of Systems
no CP/SOB
no dysuria
No urine output recorded
Labs
-
Labs:
WBC 6.9 10^3/uL (4.8-10.8) 10/20/23 12:42
RBC 3.80 10^6/uL (4.70-6.10) L 10/20/23 12:42
Hgb 11.1 g/dL (13.0-18.0) L 10/20/23 12:42
Hct 33.1 % (39.0-52.0) L 10/20/23 12:42
Plt Count 247 10^3/uL (130-400) 10/20/23 12:42
Sodium 138 mmol/L (135-145) 10/20/23 12:42
Potassium 3.9 mmol/L (3.5-5.1) 10/20/23 12:42
Chloride 101 mmol/L (98-107) 10/20/23 12:42
Carbon Dioxide 26 mmol/L (22-30) 10/20/23 12:42
BUN 48 mg/dl (9-20) H 10/20/23 12:42
Creatinine 5.2 mg/dL (0.7-1.3) H* 10/20/23 12:42
eGFR 11.77 10/20/23 12:42
Glucose 127 mg/dl (70-99) H 10/20/23 12:42
Calcium 9.4 mg/dl (8.4-10.2) 10/20/23 12:42
Phosphorus 6.4 mg/dl (2.5-4.5) H 10/15/23 08:56
Albumin 3.6 g/dl (3.5-5.0) 10/15/23 08:56
Physical Exam
-
Vital Signs:
Vital Signs
Temp Pulse Resp BP Pulse Ox
99.1 F 90 18 116/80 92
10/21/23 07:30 10/21/23 07:30 10/21/23 07:30 10/21/23 07:30 10/21/23 07:30
Cardiovascular:: Regular rate and rhythm
Respiratory:: Bilateral: CTA
Lung Excursion:: Normal
Abdomen:: Nontender and Soft
Extremity Edema:: None: Bilateral:
Sanchez Catheter: No
[2023-10-21 14:25] VITALS: BP 112/77
[2023-10-21 15:50] VITALS: BP 137/82; PULSE 85; O2SAT 97
[2023-10-21 19:51] LABS: Urine Albumin Negative (Neg - Trace); Urine Bilirubin Negative (Negative); Urine Character Clear (Clear); Urine Color Yellow; Urine Glucose Negative (Negative); Urine Ketone Negative (Negative); Urine Leukocyte Trace (Negative); Urine Nitrite Negative (Negative); Urine Occult Blood Negative (Negative); Urine Specific Gravity 1.015 (<1.030); Urine Urobilinogen Negative (Neg - 1+)
[2023-10-21 19:56] LABS: Urine Red Blood Cell 0-2 /HPF (0-2); Urine Squamous Cell 0-2 /LPF (Few)
[2023-10-21 19:57] LABS: Urine Bacteria Few (Negative)
[2023-10-21 20:37] VITALS: BP 119/71
[2023-10-21] MEDS: APRESOLINE PO (20:38)
[2023-10-21] MEDS: ZYPREXA 2.5 MG PO (22:19)
[2023-10-21 22:51] VITALS: BP 128/72
[2023-10-22] MEDS: HEPARIN 5000 UNITS SC ×4 (00:17→23:54)
[2023-10-22 06:00] VITALS: BMI 26.0
[2023-10-22 07:20] VITALS: BP 122/74
[2023-10-22] MEDS: LUMINAL 64.8 MG PO ×3 (08:19→22:23)
[2023-10-22] MEDS: MIRALAX 17 GRAMS PO (08:19)
[2023-10-22] MEDS: SENOKOT 17.2 MG PO ×2 (08:19→19:59)
[2023-10-22] MEDS: PROTONIX 40 MG PO (08:20)
[2023-10-22] MEDS: PROCARDIA XL (EXTENDED RELEASE) 60 MG PO ×2 (08:20→19:59)
[2023-10-22] MEDS: VITAMIN B1 100 MG PO (08:20)
[2023-10-22] MEDS: ASPIR LOW (ENTERIC COATED) 81 MG PO (08:20)
[2023-10-22] MEDS: APRESOLINE 25 MG PO ×2 (08:20→19:59)
[2023-10-22] MEDS: VIMPAT 200 MG PO ×2 (08:20→19:59)
[2023-10-22] MEDS: LOTRIMIN 1% CREAM 1 APPLIC TOPICAL ×2 (08:21→20:00)
[2023-10-22 08:58] LABS: Hematocrit 35.9 % (39.0-52.0); Mean Corp Hgb Conc. 33.4 g/dL (33.0-37.0); Mean Corpuscular Hgb 29.1 pg (27.0-31.0); Mean Corpuscular Volume 86.9 fL (80.0-94.0); Mean Platelet Volume 10.7 fL (7.4-10.4); Platelet Count 235 10^3/uL (130-400); Red Blood Cell Count 4.13 10^6/uL (4.70-6.10); Red Cell Dist. Width 12.6 % (11.5-14.5); White Blood Cell Count 6.7 10^3/uL (4.8-10.8)
--- NOTE | 2023-10-22 09:05 | W.PN.HOSP.TC ---
Today's Communication/Plan
-
Hemodialysis today.
Assessment / Plan
Assessment / Plan
Physical exam:
General: Well Developed, Well Nourished and No Apparent Distress
HEENT: Normocephalic, Atraumatic and Moist Mucous Membranes
Respiratory: Clear to Auscultation; Negative Wheezes, Rales or Rhonchi
Cardiac: Regular Rhythm and S1/S2
GI: Soft, Nontender and Nondistended
Musculoskeletal: No Clubbing, No Cyanosis and No Edema
Neuro: Awake, Alert and Disoriented
Psych: Limited judgment and insight
A/P:
CXR: Low lung volumes. Minor bibasilar opacity most likely representing subsegmental atelectasis.
Abd U/S: Nonspecific focal gallbladder wall thickening. No additional findings to suggest acute cholecystitis. Clinical and laboratory correlation recommended. Minimal ascites about the liver.
Renal U/S: No evidence for pelvi-calyceal dilation of either kidney. There appears to be a small amount of fluid surrounding each kidney. Suggestion of increased echogenicity of renal parenchyma bilaterally, a nonspecific finding suggesting medical
renal disease.
MRI brain:
1. No acute intracranial abnormality.
2. 2.3 cm lesion at the junction of the right zygomatic arch and maxilla favored to represent an osteoma. Imaging follow-up can be performed to confirm stability.

Acute metabolic encephalopathy due to acute seizure and postictal state as well as JEFERSON/rhabdomyolysis:
-Patient was on phenobarbital prior to admission and missed a couple days of dosing.
-active seizure noted (active RUE and facial twitching/ tonic clonic seizure) 10/05, s/p Keppra 2g load
-Intubated for airway protection 10/05, extubated 10/06
-Off of Levophed
-EEG 10/06: Moderate diffuse slowing, no seizures or epileptiform discharges seen
-Neuro following and help appreciated
-Currently on regimen of phenobarbital/Vimpat -no reported seizure for last one week.
-Patient had an episode of confusion friday night and required 1:1 monitoring, now off of it.
-Zyprexa dose decreased, psych input noted
-Repeat CT head yesterday unremarkable.
-Hemodialysis today
-Discharge planning in progress and business case analyst working on it
Acute kidney injury due to nontraumatic rhabdomyolysis due to acute seizure activity
Now ESRD on HD
-renal U/S with medical renal disease
-Right chest tunneled catheter site clean, no erythema/drainage
-Nephrology following and getting dialysis periodically
Fever noted 10/05, likely due to active seizure at that time
-Urine and blood culture from 09/28 showed no growth
- blood culture remains negative till date.
-repeat CXR 10/05 after intubation noted slightly increased opacity in the retrocardiac left lower lobe, atelectasis versus pneumonia. Minor infiltrate versus atelectasis in the medial right lung base.
-Procal not useful in this case with ESRD
-was restarted empiric Abx Ceftriaxone/doxycycline -> continue monitoring off of antibiotics.
-Appreciate ID input
Ventilator dependent respiratory failure -for airway protection - extubated
Acute hypoxic respiratory insufficiency -resolved
-weaned off of o2
Transaminitis due to rhabdomyolysis, resolving
-Unremarkable abdominal ultrasound
-Hepatocellular injury has been ruled out
Essential hypertension:
-cont Procardia XL to 60mg daily with holding parameter
Hyponatremia
-minimal, observe
FULL/HSQ
Anticipated Discharge: > 48 hours
Subjective/Interval History
-
Date of Service: October 22, 2023
Patient seen and examined. No new complaints
Objective Data
-
Labs:
Laboratory Results
10/22/23
08:09
WBC 6.7
Hgb 12.0 L
Hct 35.9 L
Plt Count 235
Sodium Pending
Potassium Pending
Chloride Pending
Carbon Dioxide Pending
BUN Pending
Creatinine Pending
Glucose Pending
Calcium Pending
Vital Signs:
Vital Signs
Temp Pulse Resp BP Pulse Ox
98.1 F 82 17 122/74 95
10/22/23 07:20 10/22/23 08:20 10/22/23 07:20 10/22/23 08:20 10/22/23 07:20
I&O
10/21/23 10/22/23 10/23/23
06:59 06:59 06:59
Intake Total 420 / 420 930 / 930
Balance 420 / 420 930 / 930
[2023-10-22 10:27] LABS: Blood Urea Nitrogen 40 mg/dl (9-20); Calcium 9.3 mg/dl (8.4-10.2); Carbon Dioxide 25 mmol/L (22-30); Chloride 95 mmol/L (98-107); Estimated Creatinine Clearance 21 ml/min; Glucose 99 mg/dl (70-99); Sodium 132 mmol/L (135-145); eGFR 15.65
--- NOTE | 2023-10-22 10:50 | CM ---
Left VM for Kareen from [facility] to check on level 2.
Patient accepted at [facility], will need insurance auth.
Patient remains on Medsittter.
Plan: skilled rehab once level 2 determination received and insurance auth obtained. ([facility]- info needs to be faxed)
[2023-10-22] MEDS: HEPARIN 500 UNITS IV ×2 (13:00→13:01)
--- NOTE | 2023-10-22 14:37 | W.PN.NEPH.HD ---
Assessment
-
pt seen dduring HD
vitals stable
cr improving hoping for renal recovery
for now still cont HD till more recovery noted
await placement
CVC functions well
Progress Note - Hemodialysis
-
Date of Service: October 22, 2023
Duration: 30 minutes and 3 hours
Potassium Bath: 3
Calcium Bath: 2.5
Opti-Dialyzer: 160
Ultrafiltration: Other (0.5kg)
Blood Flow: 400
Dialysate Flow: 600
Heparin: yesx2
EPO: no
[2023-10-22 15:47] VITALS: BP 120/76
[2023-10-22] MEDS: HEPARIN 4300 UNITS INTRACATH (15:58)
[2023-10-22 19:58] VITALS: BP 120/73
[2023-10-22] MEDS: ZYPREXA 2.5 MG PO (22:23)
[2023-10-22 23:31] VITALS: BP 92/60
[2023-10-22 23:49] VITALS: BP 105/70
[2023-10-23 05:29] VITALS: BMI 25.7
[2023-10-23 08:00] VITALS: BP 123/76
[2023-10-23] MEDS: MIRALAX 17 GRAMS PO (08:43)
[2023-10-23] MEDS: VITAMIN B1 100 MG PO (08:43)
[2023-10-23] MEDS: PROTONIX 40 MG PO (08:43)
[2023-10-23] MEDS: VIMPAT 200 MG PO ×2 (08:44→20:19)
[2023-10-23] MEDS: LUMINAL 64.8 MG PO ×3 (08:44→22:20)
[2023-10-23] MEDS: ASPIR LOW (ENTERIC COATED) 81 MG PO (08:44)
[2023-10-23] MEDS: SENOKOT 17.2 MG PO ×2 (08:44→20:19)
[2023-10-23] MEDS: HEPARIN 5000 UNITS SC ×2 (08:44→17:21)
[2023-10-23] MEDS: LOTRIMIN 1% CREAM 1 APPLIC TOPICAL ×2 (08:48→20:20)
--- NOTE | 2023-10-23 09:09 | W.PN.HOSP.TC ---
Today's Communication/Plan
-
Continue current management
Assessment / Plan
Assessment / Plan
Physical exam:
General: Well Developed, Well Nourished and No Apparent Distress
HEENT: Normocephalic, Atraumatic and Moist Mucous Membranes
Respiratory: Clear to Auscultation; Negative Wheezes, Rales or Rhonchi
Cardiac: Regular Rhythm and S1/S2
GI: Soft, Nontender and Nondistended
Musculoskeletal: No Clubbing, No Cyanosis and No Edema
Neuro: Awake, Alert and Disoriented
Psych: Limited judgment and insight
A/P:
CXR: Low lung volumes. Minor bibasilar opacity most likely representing subsegmental atelectasis.
Abd U/S: Nonspecific focal gallbladder wall thickening. No additional findings to suggest acute cholecystitis. Clinical and laboratory correlation recommended. Minimal ascites about the liver.
Renal U/S: No evidence for pelvi-calyceal dilation of either kidney. There appears to be a small amount of fluid surrounding each kidney. Suggestion of increased echogenicity of renal parenchyma bilaterally, a nonspecific finding suggesting medical
renal disease.
MRI brain:
1. No acute intracranial abnormality.
2. 2.3 cm lesion at the junction of the right zygomatic arch and maxilla favored to represent an osteoma. Imaging follow-up can be performed to confirm stability.

Acute metabolic encephalopathy due to acute seizure and postictal state as well as JEFERSON/rhabdomyolysis:
-Patient was on phenobarbital prior to admission and missed a couple days of dosing.
-active seizure noted (active RUE and facial twitching/ tonic clonic seizure) 10/05, s/p Keppra 2g load
-Intubated for airway protection 10/05, extubated 10/06
-Off of Levophed
-EEG 10/06: Moderate diffuse slowing, no seizures or epileptiform discharges seen
-Neuro following and help appreciated
-Currently on regimen of phenobarbital/Vimpat -no reported seizure for last one week.
-Patient had an episode of confusion friday night and required 1:1 monitoring, now off of it.
-Zyprexa dose decreased, psych input noted
-Repeat CT head yesterday unremarkable.
-Hemodialysis today
-Discharge planning in progress and case hardener working on it
Acute kidney injury due to nontraumatic rhabdomyolysis due to acute seizure activity
Now ESRD on HD
-renal U/S with medical renal disease
-Right chest tunneled catheter site clean, no erythema/drainage
-Nephrology following and getting dialysis periodically
Fever noted 10/05, likely due to active seizure at that time
-Urine and blood culture from 09/28 showed no growth
- blood culture remains negative till date.
-repeat CXR 10/05 after intubation noted slightly increased opacity in the retrocardiac left lower lobe, atelectasis versus pneumonia. Minor infiltrate versus atelectasis in the medial right lung base.
-Procal not useful in this case with ESRD
-was restarted empiric Abx Ceftriaxone/doxycycline -> continue monitoring off of antibiotics.
-Appreciate ID input
Ventilator dependent respiratory failure -for airway protection - extubated
Acute hypoxic respiratory insufficiency -resolved
-weaned off of o2
Transaminitis due to rhabdomyolysis, resolving
-Unremarkable abdominal ultrasound
-Hepatocellular injury has been ruled out
Essential hypertension:
-cont Procardia XL to 60mg daily with holding parameter
Hyponatremia
-minimal, observe
FULL/HSQ
Anticipated Discharge: > 48 hours
Subjective/Interval History
-
Date of Service: October 23, 2023
Patient seen and examined. No new complaints
Objective Data
-
Vital Signs:
Vital Signs
Temp Pulse Resp BP Pulse Ox
98.1 F 90 16 123/76 96
10/23/23 08:00 10/23/23 08:00 10/23/23 08:00 10/23/23 08:00 10/23/23 08:00
I&O
10/22/23 10/23/23 10/24/23
06:59 06:59 06:59
Intake Total 930 / 930 960 / 960
Balance 930 / 930 960 / 960
[2023-10-23] MEDS: APRESOLINE 25 MG PO ×2 (09:21→20:19)
[2023-10-23] MEDS: PROCARDIA XL (EXTENDED RELEASE) 60 MG PO ×2 (09:22→20:20)
[2023-10-23 12:36] VITALS: BP 104/71; BP 90/64; PULSE 103; PULSE 95
--- NOTE | 2023-10-23 16:25 | W.PN.NEPH.PH ---
Today's Communication / Plan
-
- HD tomorrow
Assessment/Plan
-
Assessment
Seizure/epilepsy
Rhabdomyolysis
Metabolic acidosis
Elevated liver function tests
acute kidney injury
Low-grade fever
Oliguria
Plan
HD MWF schedule
Dialysis tomorrow orders provided
BP are stable on CCB and hydralazine,
cr seem to improve likely some renal recovery is expected, follow pre HD cr
CM working on HD unit placement
-
-
Date of Service: October 23, 2023
CC / HPI / ROS
-
Chief Complaint:
Acute renal failure
History of Present Illness:
tolerated HD
Hemodynamically stable,
no new seizures
wt decreasing
Acute kidney injury now on Friday dialysis schedule
Review of Systems
no CP/SOB
no dysuria
No urine output recorded
Labs
-
Labs:
WBC 6.7 10^3/uL (4.8-10.8) 10/22/23 08:09
RBC 4.13 10^6/uL (4.70-6.10) L 10/22/23 08:09
Hgb 12.0 g/dL (13.0-18.0) L 10/22/23 08:09
Hct 35.9 % (39.0-52.0) L 10/22/23 08:09
Plt Count 235 10^3/uL (130-400) 10/22/23 08:09
Sodium 132 mmol/L (135-145) L 10/22/23 08:09
Potassium 4.0 mmol/L (3.5-5.1) 10/22/23 08:09
Chloride 95 mmol/L (98-107) L 10/22/23 08:09
Carbon Dioxide 25 mmol/L (22-30) 10/22/23 08:09
BUN 40 mg/dl (9-20) H 10/22/23 08:09
Creatinine 4.1 mg/dL (0.7-1.3) H* 10/22/23 08:09
eGFR 15.65 10/22/23 08:09
Glucose 99 mg/dl (70-99) 10/22/23 08:09
Calcium 9.3 mg/dl (8.4-10.2) 10/22/23 08:09
Phosphorus 6.4 mg/dl (2.5-4.5) H 10/15/23 08:56
Albumin 3.6 g/dl (3.5-5.0) 10/15/23 08:56
Physical Exam
-
Vital Signs:
Vital Signs
Temp Pulse Resp BP Pulse Ox
98.1 F 90 16 123/76 96
10/23/23 08:00 10/23/23 09:21 10/23/23 08:00 10/23/23 09:21 10/23/23 08:00
Cardiovascular:: Regular rate and rhythm
Respiratory:: Bilateral: CTA
Lung Excursion:: Normal
Abdomen:: Nontender and Soft
Bowel Sounds:: Normal
Extremity Edema:: None: Bilateral:
Sanchez Catheter: No
--- NOTE | 2023-10-23 16:35 | CM ---
Await level 2 determination and insurance auth.
Plan: [facility] once insurance approves.
[2023-10-23 20:19] VITALS: BP 113/71
[2023-10-23] MEDS: ZYPREXA 2.5 MG PO (22:20)
[2023-10-23 23:21] VITALS: BP 102/62
[2023-10-24] MEDS: HEPARIN 5000 UNITS SC ×3 (00:12→17:09)
[2023-10-24 06:00] VITALS: BMI 25.9
[2023-10-24 07:15] VITALS: BP 107/78
[2023-10-24] MEDS: MIRALAX PO (08:44)
[2023-10-24] MEDS: VIMPAT 200 MG PO ×2 (08:44→19:26)
[2023-10-24] MEDS: PROCARDIA XL (EXTENDED RELEASE) PO (08:44)
[2023-10-24] MEDS: ASPIR LOW (ENTERIC COATED) 81 MG PO (08:44)
[2023-10-24] MEDS: LOTRIMIN 1% CREAM 1 APPLIC TOPICAL ×2 (08:45→19:37)
[2023-10-24] MEDS: PROTONIX 40 MG PO (08:45)
[2023-10-24] MEDS: VITAMIN B1 100 MG PO (08:47)
[2023-10-24] MEDS: APRESOLINE 25 MG PO ×2 (08:47→19:36)
[2023-10-24] MEDS: LUMINAL 64.8 MG PO ×3 (08:47→23:00)
[2023-10-24] MEDS: SENOKOT PO (08:48)
--- NOTE | 2023-10-24 09:57 | W.PN.HOSP.TC ---
Today's Communication/Plan
-
Continue current management.
Assessment / Plan
Assessment / Plan
Physical exam:
General: Well Developed, Well Nourished and No Apparent Distress
HEENT: Normocephalic, Atraumatic and Moist Mucous Membranes
Respiratory: Clear to Auscultation; Negative Wheezes, Rales or Rhonchi
Cardiac: Regular Rhythm and S1/S2
GI: Soft, Nontender and Nondistended
Musculoskeletal: No Clubbing, No Cyanosis and No Edema
Neuro: Awake, Alert and Disoriented
Psych: Limited judgment and insight
A/P:
CXR: Low lung volumes. Minor bibasilar opacity most likely representing subsegmental atelectasis.
Abd U/S: Nonspecific focal gallbladder wall thickening. No additional findings to suggest acute cholecystitis. Clinical and laboratory correlation recommended. Minimal ascites about the liver.
Renal U/S: No evidence for pelvi-calyceal dilation of either kidney. There appears to be a small amount of fluid surrounding each kidney. Suggestion of increased echogenicity of renal parenchyma bilaterally, a nonspecific finding suggesting medical
renal disease.
MRI brain:
1. No acute intracranial abnormality.
2. 2.3 cm lesion at the junction of the right zygomatic arch and maxilla favored to represent an osteoma. Imaging follow-up can be performed to confirm stability.

Acute metabolic encephalopathy due to acute seizure and postictal state as well as JEFERSON/rhabdomyolysis:
-Patient was on phenobarbital prior to admission and missed a couple days of dosing.
-active seizure noted (active RUE and facial twitching/ tonic clonic seizure) 10/05, s/p Keppra 2g load
-Intubated for airway protection 10/05, extubated 10/06
-Off of Levophed
-EEG 10/06: Moderate diffuse slowing, no seizures or epileptiform discharges seen
-Neuro following and help appreciated
-Currently on regimen of phenobarbital/Vimpat -no reported seizure for last one week.
-Patient had an episode of confusion friday night and required 1:1 monitoring, now off of it.
-Zyprexa dose decreased, psych input noted
-Repeat CT head yesterday unremarkable.
-Hemodialysis today
-Discharge planning in progress and immigration case manager working on it
Acute kidney injury due to nontraumatic rhabdomyolysis due to acute seizure activity
Now ESRD on HD
-renal U/S with medical renal disease
-Right chest tunneled catheter site clean, no erythema/drainage
-Nephrology following and getting dialysis periodically
Fever noted 10/05, likely due to active seizure at that time
-Urine and blood culture from 09/28 showed no growth
- blood culture remains negative till date.
-repeat CXR 10/05 after intubation noted slightly increased opacity in the retrocardiac left lower lobe, atelectasis versus pneumonia. Minor infiltrate versus atelectasis in the medial right lung base.
-Procal not useful in this case with ESRD
-was restarted empiric Abx Ceftriaxone/doxycycline -> continue monitoring off of antibiotics.
-Appreciate ID input
Ventilator dependent respiratory failure -for airway protection - extubated
Acute hypoxic respiratory insufficiency -resolved
-weaned off of o2
Transaminitis due to rhabdomyolysis, resolving
-Unremarkable abdominal ultrasound
-Hepatocellular injury has been ruled out
Essential hypertension:
-cont Procardia XL to 60mg daily with holding parameter
Hyponatremia
-minimal, observe
FULL/HSQ
Anticipated Discharge: > 48 hours
Subjective/Interval History
-
Date of Service: October 24, 2023
No new complaints.
Objective Data
-
Labs:
Laboratory Results
10/24/23
06:00
WBC Pending
Hgb Pending
Hct Pending
Plt Count Pending
Sodium Pending
Potassium Pending
Chloride Pending
Carbon Dioxide Pending
BUN Pending
Creatinine Pending
Glucose Pending
Calcium Pending
Vital Signs:
Vital Signs
Temp Pulse Resp BP Pulse Ox
98.0 F 82 17 108/60 96
10/24/23 07:15 10/24/23 07:15 10/24/23 07:15 10/24/23 08:47 10/24/23 07:15
I&O
10/23/23 10/24/23 10/25/23
06:59 06:59 06:59
Intake Total 960 / 960 840 / 840
Output Total 400 / 400
Balance 960 / 960 440 / 440
--- NOTE | 2023-10-24 11:11 | CM ---
Addendum entered by Ana Rosa Talbert 10/24/23 13:00:
TC from Justin from [facility], admission form will need to be faxed with clinicals to [phone] for skilled authorization.
Addendum entered by Ana Rosa Talbert 10/24/23 12:10:
Kristyn from [facility] is f/u on level 2 and will get back to this .
Original Note:
Left message with Tamara from [facility] re determination.
Plan is for [facility] Skilled rehab once inpatient is cleared by the [facility].
Patient will require [facility] authorization.
Sister Leanne updated yesterday.
Plan: skilled rehab once level 2 complete, and auth obtained.
--- NOTE | 2023-10-24 12:41 | W.PN.NEPH.HD ---
Assessment
-
Patient seen on dialysis
Systolic blood pressure 107, UF lowered to 0.5 kg, weights now well below admission weight
Follow-up BMP today to assess for recovery
Next dialysis will be tentatively scheduled for Friday
Progress Note - Hemodialysis
-
Date of Service: October 24, 2023
Duration: 30 minutes and 3 hours
Potassium Bath: 3
Calcium Bath: 2.5
Opti-Dialyzer: 160
Ultrafiltration: Other (.5kg (lowered u/f goal) sbp 107)
Blood Flow: 350
Dialysate Flow: 600
Heparin: none
EPO: none
[2023-10-24 12:54] LABS: Hemoglobin 11.5 g/dL (13.0-18.0); Mean Corp Hgb Conc. 32.9 g/dL (33.0-37.0); Mean Corpuscular Hgb 28.5 pg (27.0-31.0); Mean Corpuscular Volume 86.6 fL (80.0-94.0); Mean Platelet Volume 10.9 fL (7.4-10.4); Platelet Count 232 10^3/uL (130-400); Red Blood Cell Count 4.04 10^6/uL (4.70-6.10); Red Cell Dist. Width 12.7 % (11.5-14.5); White Blood Cell Count 7.9 10^3/uL (4.8-10.8)
[2023-10-24 13:01] LABS: Blood Urea Nitrogen 41 mg/dl (9-20); Calcium 9.4 mg/dl (8.4-10.2); Carbon Dioxide 28 mmol/L (22-30); Chloride 99 mmol/L (98-107); Estimated Creatinine Clearance 23 ml/min; Glucose 128 mg/dl (70-99); Potassium 4.1 mmol/L (3.5-5.1); Sodium 136 mmol/L (135-145)
[2023-10-24 15:05] VITALS: BP 138/65
[2023-10-24] MEDS: SENOKOT 17.2 MG PO (19:25)
[2023-10-24] MEDS: PROCARDIA XL (EXTENDED RELEASE) 60 MG PO (19:37)
[2023-10-24] MEDS: ZYPREXA 2.5 MG PO (23:00)
[2023-10-25] MEDS: HEPARIN 5000 UNITS SC ×4 (00:34→22:59)
[2023-10-25 06:00] VITALS: BMI 26.1
[2023-10-25 07:15] VITALS: BP 120/68
--- NOTE | 2023-10-25 08:55 | W.PN.HOSP.TC ---
Today's Communication/Plan
-
Continue current management.
Assessment / Plan
Assessment / Plan
Physical exam:
General: Well Developed, Well Nourished and No Apparent Distress
HEENT: Normocephalic, Atraumatic and Moist Mucous Membranes
Respiratory: Clear to Auscultation; Negative Wheezes, Rales or Rhonchi
Cardiac: Regular Rhythm and S1/S2
GI: Soft, Nontender and Nondistended
Musculoskeletal: No Clubbing, No Cyanosis and No Edema
Neuro: Awake, Alert and Disoriented
Psych: Limited judgment and insight
A/P:
CXR: Low lung volumes. Minor bibasilar opacity most likely representing subsegmental atelectasis.
Abd U/S: Nonspecific focal gallbladder wall thickening. No additional findings to suggest acute cholecystitis. Clinical and laboratory correlation recommended. Minimal ascites about the liver.
Renal U/S: No evidence for pelvi-calyceal dilation of either kidney. There appears to be a small amount of fluid surrounding each kidney. Suggestion of increased echogenicity of renal parenchyma bilaterally, a nonspecific finding suggesting medical
renal disease.
MRI brain:
1. No acute intracranial abnormality.
2. 2.3 cm lesion at the junction of the right zygomatic arch and maxilla favored to represent an osteoma. Imaging follow-up can be performed to confirm stability.

Acute metabolic encephalopathy due to acute seizure and postictal state as well as JEFERSON/rhabdomyolysis:
Currently on Vimpat 200 mg twice a day, phenobarbital 64.8 mg 3 times daily
Seizures free
Remains on hemodialysis per nephrology-tentative schedule Friday
Nephrology to assess for renal recovery
Level 2 assessment pending prior to discharge disposition
online affiliate marketing manager following for discharge disposition
Prior to today:
-Patient was on phenobarbital prior to admission and missed a couple days of dosing.
-active seizure noted (active RUE and facial twitching/ tonic clonic seizure) 10/05, s/p Keppra 2g load
-Intubated for airway protection 10/05, extubated 10/06
-Off of Levophed
-EEG 10/06: Moderate diffuse slowing, no seizures or epileptiform discharges seen
-Neuro following and help appreciated
-Currently on regimen of phenobarbital/Vimpat -no reported seizure for last one week.
-Patient had an episode of confusion friday night and required 1:1 monitoring, now off of it.
-Zyprexa dose decreased, psych input noted
-Repeat CT head yesterday unremarkable.
-Hemodialysis today
-Discharge planning in progress and bilingual patient support caseworker working on it
Acute kidney injury due to nontraumatic rhabdomyolysis due to acute seizure activity
Now ESRD on HD
-renal U/S with medical renal disease
-Right chest tunneled catheter site clean, no erythema/drainage
-Nephrology following and getting dialysis periodically
Fever noted 10/05, likely due to active seizure at that time
-Urine and blood culture from 09/28 showed no growth
- blood culture remains negative till date.
-repeat CXR 10/05 after intubation noted slightly increased opacity in the retrocardiac left lower lobe, atelectasis versus pneumonia. Minor infiltrate versus atelectasis in the medial right lung base.
-Procal not useful in this case with ESRD
-was restarted empiric Abx Ceftriaxone/doxycycline -> continue monitoring off of antibiotics.
-Appreciate ID input
Ventilator dependent respiratory failure -for airway protection - extubated
Acute hypoxic respiratory insufficiency -resolved
-weaned off of o2
Transaminitis due to rhabdomyolysis, resolving
-Unremarkable abdominal ultrasound
-Hepatocellular injury has been ruled out
Essential hypertension:
-cont Procardia XL to 60mg daily with holding parameter
Hyponatremia
-minimal, observe
FULL/HSQ
Anticipated Discharge: > 48 hours
Subjective/Interval History
-
Date of Service: October 25, 2023
Patient seen and examined. No new complaints.
Objective Data
-
Vital Signs:
Vital Signs
Temp Pulse Resp BP Pulse Ox
97.8 F 88 17 120/68 98
10/25/23 07:15 10/25/23 07:15 10/25/23 07:15 10/25/23 07:15 10/25/23 07:15
I&O
10/24/23 10/25/23 10/26/23
06:59 06:59 06:59
Intake Total 840 / 840 240 / 240
Output Total 400 / 400 50 / 50
Balance 440 / 440 190 / 190
[2023-10-25] MEDS: LUMINAL 64.8 MG PO ×3 (09:00→22:53)
[2023-10-25] MEDS: ASPIR LOW (ENTERIC COATED) 81 MG PO (09:29)
[2023-10-25] MEDS: PROCARDIA XL (EXTENDED RELEASE) 60 MG PO ×2 (09:29→20:21)
[2023-10-25] MEDS: VIMPAT 200 MG PO ×2 (09:29→20:22)
[2023-10-25] MEDS: PROTONIX 40 MG PO (09:29)
[2023-10-25] MEDS: SENOKOT 17.2 MG PO ×2 (09:29→20:22)
[2023-10-25] MEDS: APRESOLINE 25 MG PO ×2 (09:30→20:22)
[2023-10-25] MEDS: LOTRIMIN 1% CREAM 1 APPLIC TOPICAL ×2 (09:31→20:22)
[2023-10-25] MEDS: VITAMIN B1 100 MG PO (09:31)
[2023-10-25] MEDS: MIRALAX PO (09:32)
--- NOTE | 2023-10-25 14:11 | W.PN.NEPH.PH ---
Today's Communication / Plan
-
Follow BMP
Next dialysis planned for Friday
Assessment/Plan
-
Assessment
Seizure/epilepsy
Rhabdomyolysis
Metabolic acidosis
Elevated liver function tests
acute kidney injury
Low-grade fever
Oliguria
Plan
HD MWF schedule
Dialysis Friday
I will check BMP tomorrow to assess for recovery of kidney function
BP are stable on CCB and hydralazine,
cr seem to improve likely some renal recovery is expected, follow pre HD cr
CM working on HD unit placement
-
-
Date of Service: October 25, 2023
CC / HPI / ROS
-
Chief Complaint:
Acute renal failure
History of Present Illness:
tolerated HD
Hemodynamically stable,
no new seizures
wt decreasing
Acute kidney injury now on Friday dialysis schedule
Review of Systems
no CP/SOB
no dysuria
No urine output recorded
Labs
-
Labs:
WBC 7.9 10^3/uL (4.8-10.8) 10/24/23 12:
RBC 4.04 10^6/uL (4.70-6.10) L 10/24/23 12:
Hgb 11.5 g/dL (13.0-18.0) L 10/24/23 12:
Hct 35.0 % (39.0-52.0) L 10/24/23 12:
Plt Count 232 10^3/uL (130-400) 10/24/23 12:29
Sodium 136 mmol/L (135-145) 10/24/23 12:
Potassium 4.1 mmol/L (3.5-5.1) 10/24/23 12:
Chloride 99 mmol/L (98-107) 10/24/23 12:29
Carbon Dioxide 28 mmol/L (22-30) 10/24/23 12:29
BUN 41 mg/dl (9-20) H 10/24/23 12:29
Creatinine 3.7 mg/dL (0.7-1.3) H 10/24/23 12:29
eGFR 17.70 10/24/23 12:29
Glucose 128 mg/dl (70-99) H 10/24/23 12:29
Calcium 9.4 mg/dl (8.4-10.2) 10/24/23 12:29
Phosphorus 6.4 mg/dl (2.5-4.5) H 10/15/23 08:56
Albumin 3.6 g/dl (3.5-5.0) 10/15/23 08:56
Physical Exam
-
Vital Signs:
Vital Signs
Temp Pulse Resp BP Pulse Ox
97.8 F 88 17 120/68 98
10/25/23 07:15 10/25/23 09:30 10/25/23 07:15 10/25/23 09:30 10/25/23 07:15
Cardiovascular:: Regular rate and rhythm
Respiratory:: Bilateral: CTA
Lung Excursion:: Normal
Abdomen:: Nontender and Soft
Bowel Sounds:: Normal
Extremity Edema:: None: Bilateral:
Sanchez Catheter: No
[2023-10-25 15:15] VITALS: BP 99/56
[2023-10-25] MEDS: ZYPREXA 2.5 MG PO (22:53)
[2023-10-25 23:51] VITALS: BP 104/73
[2023-10-26 05:55] VITALS: BMI 25.5
[2023-10-26] MEDS: APRESOLINE 25 MG PO ×2 (07:54→19:47)
[2023-10-26] MEDS: ASPIR LOW (ENTERIC COATED) 81 MG PO (07:54)
[2023-10-26] MEDS: PROCARDIA XL (EXTENDED RELEASE) 60 MG PO ×2 (07:55→19:46)
[2023-10-26] MEDS: VITAMIN B1 100 MG PO (07:55)
[2023-10-26] MEDS: PROTONIX 40 MG PO (07:55)
[2023-10-26] MEDS: LUMINAL 64.8 MG PO ×3 (07:55→21:15)
[2023-10-26] MEDS: SENOKOT 17.2 MG PO ×2 (07:55→19:40)
[2023-10-26] MEDS: HEPARIN 5000 UNITS SC ×3 (07:55→23:15)
[2023-10-26] MEDS: LOTRIMIN 1% CREAM 1 APPLIC TOPICAL ×2 (07:55→19:48)
[2023-10-26] MEDS: VIMPAT 200 MG PO ×2 (07:55→19:40)
[2023-10-26] MEDS: MIRALAX PO (07:57)
[2023-10-26 08:04] VITALS: BP 111/69
[2023-10-26 09:09] LABS: Blood Urea Nitrogen 42 mg/dl (9-20); Calcium 9.6 mg/dl (8.4-10.2); Carbon Dioxide 29 mmol/L (22-30); Chloride 100 mmol/L (98-107); Estimated Creatinine Clearance 26 ml/min; Glucose 120 mg/dl (70-99); Potassium 4.3 mmol/L (3.5-5.1); Sodium 137 mmol/L (135-145); eGFR 21.07
--- NOTE | 2023-10-26 09:27 | W.PN.HOSP.TC ---
Today's Communication/Plan
-
Continue current management.
Assessment / Plan
Assessment / Plan
Physical exam:
General: Well Developed, Well Nourished and No Apparent Distress
HEENT: Normocephalic, Atraumatic and Moist Mucous Membranes
Respiratory: Clear to Auscultation; Negative Wheezes, Rales or Rhonchi
Cardiac: Regular Rhythm and S1/S2
GI: Soft, Nontender and Nondistended
Musculoskeletal: No Clubbing, No Cyanosis and No Edema
Neuro: Awake, Alert and Disoriented
Psych: Limited judgment and insight
A/P:
CXR: Low lung volumes. Minor bibasilar opacity most likely representing subsegmental atelectasis.
Abd U/S: Nonspecific focal gallbladder wall thickening. No additional findings to suggest acute cholecystitis. Clinical and laboratory correlation recommended. Minimal ascites about the liver.
Renal U/S: No evidence for pelvi-calyceal dilation of either kidney. There appears to be a small amount of fluid surrounding each kidney. Suggestion of increased echogenicity of renal parenchyma bilaterally, a nonspecific finding suggesting medical
renal disease.
MRI brain:
1. No acute intracranial abnormality.
2. 2.3 cm lesion at the junction of the right zygomatic arch and maxilla favored to represent an osteoma. Imaging follow-up can be performed to confirm stability.

Acute metabolic encephalopathy due to acute seizure and postictal state as well as JEFERSON/rhabdomyolysis:
Currently on Vimpat 200 mg twice a day, phenobarbital 64.8 mg 3 times daily
Seizures free
Remains on hemodialysis per nephrology-tentative schedule Friday
Nephrology to assess for renal recovery
Level 2 assessment pending prior to discharge disposition
manager materials management following for discharge disposition
Prior to today:
-Patient was on phenobarbital prior to admission and missed a couple days of dosing.
-active seizure noted (active RUE and facial twitching/ tonic clonic seizure) 10/05, s/p Keppra 2g load
-Intubated for airway protection 10/05, extubated 10/06
-Off of Levophed
-EEG 10/06: Moderate diffuse slowing, no seizures or epileptiform discharges seen
-Neuro following and help appreciated
-Currently on regimen of phenobarbital/Vimpat -no reported seizure for last one week.
-Patient had an episode of confusion friday night and required 1:1 monitoring, now off of it.
-Zyprexa dose decreased, psych input noted
-Repeat CT head yesterday unremarkable.
-Hemodialysis tomorrow
-Discharge planning in progress and casey saw operator working on it
Acute kidney injury due to nontraumatic rhabdomyolysis due to acute seizure activity
Now ESRD on HD
-renal U/S with medical renal disease
-Right chest tunneled catheter site clean, no erythema/drainage
-Nephrology following and getting dialysis periodically
Fever noted 10/05, likely due to active seizure at that time
-Urine and blood culture from 09/28 showed no growth
- blood culture remains negative till date.
-repeat CXR 10/05 after intubation noted slightly increased opacity in the retrocardiac left lower lobe, atelectasis versus pneumonia. Minor infiltrate versus atelectasis in the medial right lung base.
-Procal not useful in this case with ESRD
-was restarted empiric Abx Ceftriaxone/doxycycline -> continue monitoring off of antibiotics.
-Appreciate ID input
Ventilator dependent respiratory failure -for airway protection - extubated
Acute hypoxic respiratory insufficiency -resolved
-weaned off of o2
Transaminitis due to rhabdomyolysis, resolving
-Unremarkable abdominal ultrasound
-Hepatocellular injury has been ruled out
Essential hypertension:
-cont Procardia XL to 60mg daily with holding parameter
Hyponatremia
-minimal, observe
FULL/HSQ
Anticipated Discharge: 24 - 48 hours
Subjective/Interval History
-
Date of Service: October 26, 2023
Patient seen and examined. No seizures. Mentation about baseline. Afebrile
Objective Data
-
Labs:
Laboratory Results
10/26/23
08:02
Sodium 137
Potassium 4.3
Chloride 100
Carbon Dioxide 29
BUN 42 H
Creatinine 3.2 H
Glucose 120 H
Calcium 9.6
Vital Signs:
Vital Signs
Temp Pulse Resp BP Pulse Ox
97.5 F 78 18 111/69 94
10/26/23 08:04 10/26/23 08:04 10/26/23 08:04 10/26/23 08:04 10/26/23 08:04
I&O
10/25/23 10/26/23 10/27/23
06:59 06:59 06:59
Intake Total 720 / 720
Output Total 250 / 250
Balance 470 / 470
--- NOTE | 2023-10-26 12:33 | W.PN.NEPH.PH ---
Today's Communication / Plan
-
HD tomorrow
Assess for renal
Assessment/Plan
-
Assessment
Seizure/epilepsy
Rhabdomyolysis
Metabolic acidosis
Elevated liver function tests
acute kidney injury
Low-grade fever
Oliguria
Plan
HD MWF schedule
Dialysis Friday, but will check pre HD bmp to assess for recovery
BP are stable on CCB and hydralazine,
cr seem to improve likely some renal recovery is expected, follow pre HD cr
CM working on HD unit placement
-
-
Date of Service: October 26, 2023
CC / HPI / ROS
-
Chief Complaint:
Acute renal failure
History of Present Illness:
tolerated HD
Hemodynamically stable,
no new seizures
wt decreasing
Acute kidney injury now on Friday dialysis schedule
Review of Systems
no CP/SOB
no dysuria
No urine output recorded
Labs
-
Labs:
WBC 7.9 10^3/uL (4.8-10.8) 10/24/23 12:29
RBC 4.04 10^6/uL (4.70-6.10) L 10/24/23 12:29
Hgb 11.5 g/dL (13.0-18.0) L 10/24/23 12:29
Hct 35.0 % (39.0-52.0) L 10/24/23 12:29
Plt Count 232 10^3/uL (130-400) 10/24/23 12:29
Sodium 137 mmol/L (135-145) 10/26/23 08:02
Potassium 4.3 mmol/L (3.5-5.1) 10/26/23 08:
Chloride 100 mmol/L (98-107) 10/26/23 08:02
Carbon Dioxide 29 mmol/L (22-30) 10/26/23 08:02
BUN 42 mg/dl (9-20) H 10/26/23 08:02
Creatinine 3.2 mg/dL (0.7-1.3) H 10/26/23 08:02
eGFR 21.07 10/26/23 08:02
Glucose 120 mg/dl (70-99) H 10/26/23 08:02
Calcium 9.6 mg/dl (8.4-10.2) 10/26/23 08:02
Phosphorus 6.4 mg/dl (2.5-4.5) H 10/15/23 08:56
Albumin 3.6 g/dl (3.5-5.0) 10/15/23 08:56
Physical Exam
-
Vital Signs:
Vital Signs
Temp Pulse Resp BP Pulse Ox
97.5 F 78 18 111/69 94
10/26/23 08:04 10/26/23 08:04 10/26/23 08:04 10/26/23 08:04 10/26/23 08:04
Cardiovascular:: Regular rate and rhythm
Respiratory:: Bilateral: CTA
Lung Excursion:: Normal
Abdomen:: Nontender and Soft
Bowel Sounds:: Normal
Extremity Edema:: None: Bilateral:
Sanchez Catheter: No
[2023-10-26 15:41] VITALS: BP 102/86
[2023-10-26] MEDS: ZYPREXA 2.5 MG PO (21:15)
[2023-10-26 23:46] VITALS: BP 105/65
[2023-10-27 05:25] VITALS: BMI 25.6
[2023-10-27 07:44] VITALS: BP 114/77
--- NOTE | 2023-10-27 07:47 | W.PN.HOSP.TC ---
Today's Communication/Plan
-
Continue monitoring for seizures, patient will continue current medications
Assessment / Plan
Assessment / Plan
A/P: No Acute events overnight, patient was given dialysis today. Awaiting placement into SNF

Acute metabolic encephalopathy due to acute seizure and postictal state as well as JEFERSON/rhabdomyolysis:
-Currently on Vimpat 200 mg twice a day, phenobarbital 64.8 mg 3 times daily
-Seizures free for one week
-Zyprexa dose was decreased- psych input appreciated
-Remains on hemodialysis per nephrology-tentative schedule Friday
Acute kidney injury due to nontraumatic rhabdomyolysis due to acute seizure activity
Now ESRD on HD
-renal U/S with medical renal disease
-Right chest tunneled catheter site clean, no erythema/drainage
-Nephrology following and getting dialysis periodically
-No issues with hemodialysis today, next one planned for Friday
Fever noted 10/05, likely due to active seizure at that time
-Urine and blood culture from 09/28 showed no growth
-blood culture remains negative till date.
-repeat CXR 10/05 after intubation noted slightly increased opacity in the retrocardiac left lower lobe, atelectasis versus pneumonia. Minor infiltrate versus atelectasis in the medial right lung base.
-Procal not useful in this case with ESRD
-was restarted empiric Abx Ceftriaxone/doxycycline -> continue monitoring off of antibiotics.
-Appreciate ID input
Ventilator dependent respiratory failure -for airway protection - extubated
Acute hypoxic respiratory insufficiency -resolved
-weaned off of o2
Transaminitis due to rhabdomyolysis, resolving
-Unremarkable abdominal ultrasound
-Hepatocellular injury has been ruled out
Essential hypertension:
-cont Procardia XL to 60mg daily with holding parameter
-monitor blood pressure
Hyponatremia
-minimal, observe
-monitor BMP
FULL/HSQ
Anticipated Discharge: 24 - 48 hours
Subjective/Interval History
-
Date of Service: October 27, 2023
Patient had no adverse events overnight. Still waiting for a room at [facility].
Objective Data
-
Labs:
Laboratory Results
10/27/23
06:00
WBC Pending
Hgb Pending
Hct Pending
Plt Count Pending
Sodium Pending
Potassium Pending
Chloride Pending
Carbon Dioxide Pending
BUN Pending
Creatinine Pending
Glucose Pending
Calcium Pending
Vital Signs:
Vital Signs
Temp Pulse Resp BP Pulse Ox
98 F 80 19 114/77 96
10/27/23 07:44 10/27/23 07:44 10/27/23 07:44 10/27/23 07:44 10/27/23 07:44
I&O
10/26/23 10/27/23 10/28/23
06:59 06:59 06:59
Intake Total 720 / 720 630 / 630 240 / 240
Output Total 250 / 250
Balance 470 / 470 630 / 630 240 / 240
Review of Systems
-
History Source: Patient
Constitutional: Denies Fever, Fatigue, Night Sweats or Chills
Respiratory: Denies Cough, Trouble Breathing or Wheezing
Cardiac: Denies Chest Pain, Diaphoresis or Palpitations
Neuro: Denies Dizzy, Headache or Weakness
Physical Exam
-
General: Well Developed and No Apparent Distress
Respiratory: Clear to Auscultation and Non Labored Respirations
Cardiac: Regular Rhythm and S1/S2
GI: Soft, Nontender and Nondistended
Musculoskeletal: No Clubbing, No Cyanosis and No Edema
Skin: Warm and Dry
Neuro: Awake, Alert, Oriented and AO x 3
Data Reviewed
-
Labs: Labs Reviewed by me, Discussed with Physician and Discussed with Patient
[2023-10-27 08:39] LABS: Hematocrit 33.7 % (39.0-52.0); Hemoglobin 11.1 g/dL (13.0-18.0); Mean Corp Hgb Conc. 32.9 g/dL (33.0-37.0); Mean Corpuscular Hgb 28.7 pg (27.0-31.0); Mean Corpuscular Volume 87.1 fL (80.0-94.0); Mean Platelet Volume 10.9 fL (7.4-10.4); Platelet Count 211 10^3/uL (130-400); Red Blood Cell Count 3.87 10^6/uL (4.70-6.10); Red Cell Dist. Width 12.6 % (11.5-14.5); White Blood Cell Count 5.5 10^3/uL (4.8-10.8)
[2023-10-27] MEDS: MANNITOL 25% 12.5 GRAMS IV (08:42)
[2023-10-27 09:08] LABS: Blood Urea Nitrogen 52 mg/dl (9-20); Calcium 9.2 mg/dl (8.4-10.2); Carbon Dioxide 25 mmol/L (22-30); Chloride 102 mmol/L (98-107); Estimated Creatinine Clearance 26 ml/min; Glucose 109 mg/dl (70-99); Potassium 3.9 mmol/L (3.5-5.1); Sodium 137 mmol/L (135-145); eGFR 21.07
[2023-10-27] MEDS: LOTRIMIN 1% CREAM 1 APPLIC TOPICAL ×2 (10:52→20:28)
[2023-10-27] MEDS: MIRALAX PO (10:53)
[2023-10-27] MEDS: PROCARDIA XL (EXTENDED RELEASE) PO (10:54)
[2023-10-27] MEDS: SENOKOT PO (10:56)
[2023-10-27] MEDS: APRESOLINE PO (10:57)
[2023-10-27] MEDS: VITAMIN B1 PO (10:58)
[2023-10-27] MEDS: HEPARIN 5000 UNITS SC ×2 (11:03→17:37)
[2023-10-27] MEDS: HEPARIN 4300 UNITS INTRACATH (11:22)
--- NOTE | 2023-10-27 12:09 | CM ---
Sent Email to Tamara from [facility], await response re level 2.
Plan [facility] once Level 2 received and auth compelted.
{
[2023-10-27] MEDS: MIRALAX 17 GRAMS PO (13:16)
[2023-10-27] MEDS: VIMPAT 200 MG PO ×2 (13:17→20:28)
[2023-10-27] MEDS: LUMINAL 64.8 MG PO ×2 (13:17→17:36)
[2023-10-27] MEDS: ASPIR LOW (ENTERIC COATED) 81 MG PO (13:17)
[2023-10-27] MEDS: PROTONIX 40 MG PO (13:17)
--- NOTE | 2023-10-27 14:00 | W.PN.NEPH.HD ---
Assessment
-
- Cr stable, likely indicative of renal recovery
- gentle HD session today
- plan to hold HD on Friday
Progress Note - Hemodialysis
-
Date of Service: October 27, 2023
Duration: 30 minutes and 3 hours
Potassium Bath: 3
Calcium Bath: 2.5
Opti-Dialyzer: 160
Ultrafiltration: Other
Blood Flow: 400
Dialysate Flow: 600
[2023-10-27 14:10] VITALS: BP 99/64
--- NOTE | 2023-10-27 15:17 | W.PN.UPDATE ---
Update Note
Progress Note Update
I saw and evaluated the patient. I reviewed the resident�s note and agree with findings and plan as documented in the resident�s note.
No reported acute issues overnight
Acute metabolic encephalopathy due to acute seizure and postictal state as well as JEFERSON/rhabdomyolysis:
-Patient was on phenobarbital prior to admission and missed a couple days of dosing.
-active seizure noted (active RUE and facial twitching/ tonic clonic seizure) 10/05, s/p Keppra 2g load
-Intubated for airway protection 10/05, extubated 10/06
-Off of Levophed
-EEG 10/06: Moderate diffuse slowing, no seizures or epileptiform discharges seen
-Currently on regimen of phenobarbital/Vimpat -no reported seizure for last one week.
-Zyprexa dose decreased, psych input noted
Acute kidney injury due to nontraumatic rhabdomyolysis due to acute seizure activity
Now ESRD on HD
-renal U/S with medical renal disease
-Right chest tunneled catheter site clean, no erythema/drainage
-Nephrology following and getting dialysis periodically
Fever noted 10/05, likely due to active seizure at that time
-Urine and blood culture from 09/28 showed no growth
-blood culture remains negative till date.
-repeat CXR 10/05 after intubation noted slightly increased opacity in the retrocardiac left lower lobe, atelectasis versus pneumonia. Minor infiltrate versus atelectasis in the medial right lung base.
-Procalcitonin not useful in this case with ESRD
-was restarted empiric Abx Ceftriaxone/doxycycline -> continue monitoring off of antibiotics.
-Appreciate ID input
Ventilator dependent respiratory failure -for airway protection - extubated
Acute hypoxic respiratory insufficiency -resolved
-weaned off of o2
Transaminitis due to rhabdomyolysis, resolving
-Unremarkable abdominal ultrasound
-Hepatocellular injury has been ruled out
Essential hypertension:
-cont Procardia XL to 60mg daily with holding parameter
Hyponatremia
-minimal, observe
FULL/HSQ
Awaiting discharge to SNF
[2023-10-27 16:14] VITALS: BP 103/66
[2023-10-27] MEDS: APRESOLINE 25 MG PO (20:26)
[2023-10-27] MEDS: PROCARDIA XL (EXTENDED RELEASE) 60 MG PO (20:27)
[2023-10-27] MEDS: SENOKOT 17.2 MG PO (20:27)
[2023-10-27 23:25] VITALS: BP 107/60
[2023-10-28] MEDS: LUMINAL 64.8 MG PO ×4 (00:31→22:46)
[2023-10-28] MEDS: ZYPREXA 2.5 MG PO ×2 (00:31→22:46)
[2023-10-28] MEDS: HEPARIN 5000 UNITS SC ×4 (00:32→23:09)
[2023-10-28 06:00] VITALS: BMI 25.6
[2023-10-28 07:46] VITALS: BP 101/69
[2023-10-28] MEDS: PROCARDIA XL (EXTENDED RELEASE) PO (10:21)
[2023-10-28] MEDS: VITAMIN B1 100 MG PO (10:26)
[2023-10-28] MEDS: APRESOLINE 25 MG PO ×2 (10:26→21:31)
[2023-10-28] MEDS: MIRALAX 17 GRAMS PO (10:27)
[2023-10-28] MEDS: LOTRIMIN 1% CREAM 1 APPLIC TOPICAL ×2 (10:28→21:32)
[2023-10-28] MEDS: SENOKOT 17.2 MG PO ×2 (10:29→21:22)
[2023-10-28] MEDS: ASPIR LOW (ENTERIC COATED) 81 MG PO (10:29)
[2023-10-28] MEDS: VIMPAT 200 MG PO ×2 (10:30→21:22)
[2023-10-28] MEDS: PROTONIX 40 MG PO (10:30)
[2023-10-28 14:08] VITALS: BP 102/74; PULSE 96; O2SAT 98
--- NOTE | 2023-10-28 15:26 | W.PN.HOSP.TC ---
Today's Communication/Plan
-
discharge planning snf/rehab
Assessment / Plan
Assessment / Plan
Acute metabolic encephalopathy due to acute seizure and postictal state as well as JEFERSON/rhabdomyolysis:
-Patient was on phenobarbital prior to admission and missed a couple days of dosing.
-active seizure noted (active RUE and facial twitching/ tonic clonic seizure) 10/05, s/p Keppra 2g load
-Intubated for airway protection 10/05, extubated 10/06
-Off of Levophed
-EEG 10/06: Moderate diffuse slowing, no seizures or epileptiform discharges seen
-Currently on regimen of phenobarbital/Vimpat -no reported seizure for last one week.
-Zyprexa dose decreased, psych input noted
Acute kidney injury due to nontraumatic rhabdomyolysis due to acute seizure activity
Now ESRD on HD
-renal U/S with medical renal disease
-Right chest tunneled catheter site clean, no erythema/drainage
-Nephrology following and getting dialysis periodically
Fever noted 10/05, likely due to active seizure at that time
-Urine and blood culture from 09/28 showed no growth
-blood culture remains negative till date.
-repeat CXR 10/05 after intubation noted slightly increased opacity in the retrocardiac left lower lobe, atelectasis versus pneumonia. Minor infiltrate versus atelectasis in the medial right lung base.
-Procalcitonin not useful in this case with ESRD
-was restarted empiric Abx Ceftriaxone/doxycycline -> continue monitoring off of antibiotics.
-Appreciate ID input
Ventilator dependent respiratory failure -for airway protection - extubated
Acute hypoxic respiratory insufficiency -resolved
-weaned off of o2
Transaminitis due to rhabdomyolysis, resolved
-Unremarkable abdominal ultrasound
Essential hypertension:
-cont Procardia XL to 60mg daily with holding parameter
Hyponatremia
-minimal, observe
FULL/HSQ
Anticipated Discharge: Today
Subjective/Interval History
-
Date of Service: October 28, 2023
no issues overnight
Objective Data
-
Vital Signs:
Vital Signs
Temp Pulse Resp BP Pulse Ox
98.1 F 82 18 101/69 96
10/28/23 07:46 10/28/23 07:46 10/28/23 07:46 10/28/23 07:46 10/28/23 07:46
I&O
10/27/23 10/28/23 10/29/23
06:59 06:59 06:59
Intake Total 630 / 630 1560 / 1560
Balance 630 / 630 1560 / 1560
Review of Systems
-
Respiratory: Reports No Symptoms
Cardiac: Reports No Symptoms
Abdomen/GI: Reports No Symptoms
Physical Exam
-
General: Well Developed and No Apparent Distress
Respiratory: Clear to Auscultation and Non Labored Respirations
Cardiac: Regular Rhythm and S1/S2
GI: Soft, Nontender and Nondistended
Musculoskeletal: No Clubbing, No Cyanosis and No Edema
Skin: Warm and Dry
Neuro: Awake, Alert, Oriented and AO x 3
--- NOTE | 2023-10-28 15:26 | W.PN.NEPH.PH ---
Today's Communication / Plan
-
- follow labs
Assessment/Plan
-
Assessment
Seizure/epilepsy
Rhabdomyolysis
Metabolic acidosis
Elevated liver function tests
acute kidney injury
Low-grade fever
Oliguria
Plan
HD MWF schedule
no plan for dialysis tomorrow as Cr was stabilizing prior to HD on Friday
BP are stable on CCB and hydralazine
please continue to trend Cr daily
-
-
Date of Service: October 28, 2023
CC / HPI / ROS
-
Chief Complaint:
Acute renal failure
History of Present Illness:
tolerated HD
Hemodynamically stable,
no new seizures
wt decreasing
Acute kidney injury now on Friday dialysis schedule
Review of Systems
no CP/SOB
no dysuria
UOP improving
Labs
-
Labs:
WBC 5.5 10^3/uL (4.8-10.8) 10/27/23 08:17
RBC 3.87 10^6/uL (4.70-6.10) L 10/27/23 08:17
Hgb 11.1 g/dL (13.0-18.0) L 10/27/23 08:17
Hct 33.7 % (39.0-52.0) L 10/27/23 08:17
Plt Count 211 10^3/uL (130-400) 10/27/23 08:17
Sodium 137 mmol/L (135-145) 10/27/23 08:17
Potassium 3.9 mmol/L (3.5-5.1) 10/27/23 08:17
Chloride 102 mmol/L (98-107) 10/27/23 08:17
Carbon Dioxide 25 mmol/L (22-30) 10/27/23 08:17
BUN 52 mg/dl (9-20) H 10/27/23 08:17
Creatinine 3.2 mg/dL (0.7-1.3) H 10/27/23 08:17
eGFR 21.07 10/27/23 08:17
Glucose 109 mg/dl (70-99) H 10/27/23 08:17
Calcium 9.2 mg/dl (8.4-10.2) 10/27/23 08:17
Phosphorus 6.4 mg/dl (2.5-4.5) H 10/15/23 08:56
Albumin 3.6 g/dl (3.5-5.0) 10/15/23 08:56
Physical Exam
-
Vital Signs:
Vital Signs
Temp Pulse Resp BP Pulse Ox
98.1 F 82 18 101/69 96
10/28/23 07:46 10/28/23 07:46 10/28/23 07:46 10/28/23 07:46 10/28/23 07:46
Cardiovascular:: Regular rate and rhythm
Respiratory:: Bilateral: CTA
Lung Excursion:: Normal
Abdomen:: Nontender and Soft
Bowel Sounds:: Normal
Extremity Edema:: None: Bilateral:
Sanchez Catheter: No
[2023-10-28 15:35] VITALS: BP 101/58
--- NOTE | 2023-10-28 15:35 | CM ---
Spoke with patients sister Leanne, permission given to add sister Jess to the contact list.
Family requesting medical disability forms be completed.
Patient for transfer to [facility] rehab once level 2 completed by [facility] and once insurance auth initiated and obtained.
TC to [facility] to check status of level 2, still pending. sent to the state on 10/17/23.
No HD planned for tomorrow, continue to follow labs.
Plan:[facility] rehab once level 2 completed by [facility] and once insurance auth initiated and obtained
[2023-10-28] MEDS: PROCARDIA XL (EXTENDED RELEASE) 60 MG PO (21:32)
[2023-10-28 23:16] VITALS: BP 111/68
[2023-10-29 06:00] VITALS: BMI 25.7
[2023-10-29 07:12] VITALS: BP 106/73
[2023-10-29 08:14] LABS: Hematocrit 35.1 % (39.0-52.0); Hemoglobin 11.7 g/dL (13.0-18.0); Mean Corp Hgb Conc. 33.3 g/dL (33.0-37.0); Mean Corpuscular Hgb 29.2 pg (27.0-31.0); Mean Corpuscular Volume 87.5 fL (80.0-94.0); Mean Platelet Volume 10.6 fL (7.4-10.4); Platelet Count 200 10^3/uL (130-400); Red Blood Cell Count 4.01 10^6/uL (4.70-6.10); Red Cell Dist. Width 12.2 % (11.5-14.5); White Blood Cell Count 5.9 10^3/uL (4.8-10.8)
[2023-10-29 09:08] LABS: Blood Urea Nitrogen 48 mg/dl (9-20); Calcium 9.5 mg/dl (8.4-10.2); Carbon Dioxide 23 mmol/L (22-30); Chloride 102 mmol/L (98-107); Estimated Creatinine Clearance 29 ml/min; Glucose 111 mg/dl (70-99); Potassium 4.1 mmol/L (3.5-5.1); Sodium 134 mmol/L (135-145); eGFR 23.72
[2023-10-29] MEDS: SENOKOT 17.2 MG PO ×2 (09:11→19:34)
[2023-10-29] MEDS: HEPARIN 5000 UNITS SC ×3 (09:12→23:11)
[2023-10-29] MEDS: VIMPAT 200 MG PO ×2 (09:12→19:34)
[2023-10-29] MEDS: PROTONIX 40 MG PO (09:12)
[2023-10-29] MEDS: ASPIR LOW (ENTERIC COATED) 81 MG PO (09:12)
[2023-10-29] MEDS: MIRALAX 17 GRAMS PO (09:12)
[2023-10-29] MEDS: VITAMIN B1 100 MG PO (09:12)
[2023-10-29] MEDS: LUMINAL 64.8 MG PO ×3 (09:12→20:25)
[2023-10-29] MEDS: APRESOLINE 25 MG PO ×2 (09:13→19:33)
[2023-10-29] MEDS: LOTRIMIN 1% CREAM 1 APPLIC TOPICAL ×2 (09:14→19:34)
[2023-10-29] MEDS: PROCARDIA XL (EXTENDED RELEASE) PO (09:14)
[2023-10-29 09:30] VITALS: BP 106/73; PULSE 80
--- NOTE | 2023-10-29 14:34 | W.PN.NEPH.PH ---
Today's Communication / Plan
-
No dialysis today
Follow-up BMP in a.m.
Assessment/Plan
-
Assessment
Seizure/epilepsy
Rhabdomyolysis
Metabolic acidosis
Elevated liver function tests
acute kidney injury
Low-grade fever
Oliguria
Plan
Holding dialysis today as creatinine is down to 2.9 patient remains grossly nonoliguric
Follow-up BMP tomorrow
If creatinine remains lower we will discontinue catheter
BP are stable on CCB and hydralazine
-
-
Date of Service: October 29, 2023
CC / HPI / ROS
-
Chief Complaint:
Acute renal failure
History of Present Illness:
Creatinine down to 2.9 today
Hemodynamically stable,
no new seizures
wt decreasing
Acute kidney injury now on Friday dialysis schedule
Review of Systems
no CP/SOB
no dysuria
UOP improving
Labs
-
Labs:
WBC 5.9 10^3/uL (4.8-10.8) 10/29/23 08:00
RBC 4.01 10^6/uL (4.70-6.10) L 10/29/23 08:00
Hgb 11.7 g/dL (13.0-18.0) L 10/29/23 08:00
Hct 35.1 % (39.0-52.0) L 10/29/23 08:00
Plt Count 200 10^3/uL (130-400) 10/29/23 08:00
Sodium 134 mmol/L (135-145) L 10/29/23 08:00
Potassium 4.1 mmol/L (3.5-5.1) 10/29/23 08:00
Chloride 102 mmol/L (98-107) 10/29/23 08:00
Carbon Dioxide 23 mmol/L (22-30) 10/29/23 08:00
BUN 48 mg/dl (9-20) H 10/29/23 08:00
Creatinine 2.9 mg/dL (0.7-1.3) H 10/29/23 08:00
eGFR 23.72 10/29/23 08:00
Glucose 111 mg/dl (70-99) H 10/29/23 08:00
Calcium 9.5 mg/dl (8.4-10.2) 10/29/23 08:00
Phosphorus 6.4 mg/dl (2.5-4.5) H 10/15/23 08:56
Albumin 3.6 g/dl (3.5-5.0) 10/15/23 08:56
Physical Exam
-
Vital Signs:
Vital Signs
Temp Pulse Resp BP Pulse Ox
97.8 F 85 24 106/73 98
10/29/23 07:12 10/29/23 07:12 10/29/23 07:12 10/29/23 09:14 10/29/23 10:19
Cardiovascular:: Regular rate and rhythm
Respiratory:: Bilateral: CTA
Lung Excursion:: Normal
Abdomen:: Nontender and Soft
Bowel Sounds:: Normal
Extremity Edema:: None: Bilateral:
Sanchez Catheter: No
[2023-10-29 15:47] VITALS: BP 121/65
--- NOTE | 2023-10-29 15:51 | W.PN.HOSP.TC ---
Today's Communication/Plan
-
d/c planning for rehab
Assessment / Plan
Assessment / Plan
Acute metabolic encephalopathy due to acute seizure and postictal state as well as JEFERSON/rhabdomyolysis:
-Patient was on phenobarbital prior to admission and missed a couple days of dosing.
-active seizure noted (active RUE and facial twitching/ tonic clonic seizure) 10/05, s/p Keppra 2g load
-Intubated for airway protection 10/05, extubated 10/06
-Off of Levophed
-EEG 10/06: Moderate diffuse slowing, no seizures or epileptiform discharges seen
-Currently on regimen of phenobarbital/Vimpat -no reported seizure for last one week.
-Zyprexa dose decreased, psych input noted
Acute kidney injury due to nontraumatic rhabdomyolysis due to acute seizure activity
Now ESRD on HD
-renal U/S with medical renal disease
-Right chest tunneled catheter site clean, no erythema/drainage
-Nephrology following and getting dialysis periodically
Fever noted 10/05, likely due to active seizure at that time
-Urine and blood culture from 09/28 showed no growth
-blood culture remains negative till date.
-repeat CXR 10/05 after intubation noted slightly increased opacity in the retrocardiac left lower lobe, atelectasis versus pneumonia. Minor infiltrate versus atelectasis in the medial right lung base.
-Procalcitonin not useful in this case with ESRD
-was restarted empiric Abx Ceftriaxone/doxycycline -> continue monitoring off of antibiotics.
-Appreciate ID input
Ventilator dependent respiratory failure -for airway protection - extubated
Acute hypoxic respiratory insufficiency -resolved
-weaned off of o2
Transaminitis due to rhabdomyolysis, resolved
-Unremarkable abdominal ultrasound
Essential hypertension:
-cont Procardia XL to 60mg daily with holding parameter
Hyponatremia
-minimal, observe
FULL/Heparin subq
Anticipated Discharge: Today
Subjective/Interval History
-
Date of Service: October 29, 2023
no complains overnight
Objective Data
-
Labs:
Laboratory Results
10/29/23
08:00
WBC 5.9
Hgb 11.7 L
Hct 35.1 L
Plt Count 200
Sodium 134 L
Potassium 4.1
Chloride 102
Carbon Dioxide 23
BUN 48 H
Creatinine 2.9 H
Glucose 111 H
Calcium 9.5
Vital Signs:
Vital Signs
Temp Pulse Resp BP Pulse Ox
97.3 F 75 18 121/65 97
10/29/23 15:47 10/29/23 15:47 10/29/23 15:47 10/29/23 15:47 10/29/23 15:47
I&O
10/28/23 10/29/23 10/30/23
06:59 06:59 06:59
Intake Total 1560 / 1560 1440 / 1440
Output Total 1949 / 1949
Balance 1560 / 1560 -510 / -510
Review of Systems
-
Respiratory: Reports No Symptoms
Cardiac: Reports No Symptoms
Abdomen/GI: Reports No Symptoms
Physical Exam
-
General: Well Developed and No Apparent Distress
Respiratory: Clear to Auscultation and Non Labored Respirations
Cardiac: Regular Rhythm and S1/S2
GI: Soft, Nontender and Nondistended
Musculoskeletal: No Clubbing, No Cyanosis and No Edema
Skin: Warm and Dry
Neuro: Awake, Alert, Oriented and AO x 3
--- NOTE | 2023-10-29 16:15 | CM ---
[facility]
Plan skilled re[facility] once stable.
No HD today.
Medical disability forms faxed to daughter, copyon chart.
Plan: skilled rehab once determination received from [facility] and auth submitted and obtained.
[2023-10-29] MEDS: PROCARDIA XL (EXTENDED RELEASE) 60 MG PO (19:33)
[2023-10-29] MEDS: ZYPREXA 2.5 MG PO (20:25)
[2023-10-29 23:35] VITALS: BP 102/61
[2023-10-30 05:58] VITALS: BMI 25.4
[2023-10-30] MEDS: LUMINAL 64.8 MG PO ×3 (07:43→20:34)
[2023-10-30] MEDS: MIRALAX 17 GRAMS PO (07:43)
[2023-10-30] MEDS: APRESOLINE 25 MG PO ×2 (07:43→20:34)
[2023-10-30] MEDS: PROCARDIA XL (EXTENDED RELEASE) PO (07:44)
[2023-10-30] MEDS: PROTONIX 40 MG PO (07:44)
[2023-10-30] MEDS: VITAMIN B1 100 MG PO (07:44)
[2023-10-30] MEDS: SENOKOT 17.2 MG PO (07:44)
[2023-10-30] MEDS: VIMPAT 200 MG PO ×2 (07:44→20:34)
[2023-10-30] MEDS: ASPIR LOW (ENTERIC COATED) 81 MG PO (07:44)
[2023-10-30] MEDS: HEPARIN 5000 UNITS SC ×3 (07:44→23:10)
[2023-10-30] MEDS: LOTRIMIN 1% CREAM 1 APPLIC TOPICAL ×2 (07:46→20:37)
--- NOTE | 2023-10-30 08:40 | PTOTSP ---
Speech Language Pathology
Pt seen for dysphagia tx. PRACTICE ADMINISTRATOR had recommended regular solids/thin liquids since 10/13, but pt remains on IDDSI Level 6. Pt cooperative and pleasant with PRACTICE ADMINISTRATOR. P.O. trials of puree, regular solids, and thin liquids provided. Adequate mastication,
bolus formation, and A-P transit noted with no oral residue. No overt signs of aspiration.
Recommend:
(1) Regular solids/thin liquids
(2) General aspiration precautions
(3) Meds as tolerated
(4) PRACTICE ADMINISTRATOR to sign off. Please reconsult as indicated
[2023-10-30 08:53] VITALS: BP 105/71
[2023-10-30 09:14] LABS: Blood Urea Nitrogen 46 mg/dl (9-20); Calcium 9.6 mg/dl (8.4-10.2); Carbon Dioxide 28 mmol/L (22-30); Chloride 102 mmol/L (98-107); Estimated Creatinine Clearance 31 ml/min; Glucose 115 mg/dl (70-99); Potassium 4.9 mmol/L (3.5-5.1); Sodium 138 mmol/L (135-145); eGFR 25.84
--- NOTE | 2023-10-30 12:23 | CM ---
[facility]
Plan skilled re[facility] once stable.
Plan: skilled rehab once determination received from [facility] and auth submitted and obtained.
--- NOTE | 2023-10-30 13:29 | W.PN.HOSP.TC ---
Today's Communication/Plan
-
d/c planning for snf rehab
Assessment / Plan
Assessment / Plan
Acute metabolic encephalopathy due to acute seizure and postictal state as well as JEFERSON/rhabdomyolysis:
-Patient was on phenobarbital prior to admission and missed a couple days of dosing.
-active seizure noted (active RUE and facial twitching/ tonic clonic seizure) 10/05, s/p Keppra 2g load
-Intubated for airway protection 10/05, extubated 10/06
-Off of Levophed
-EEG 10/06: Moderate diffuse slowing, no seizures or epileptiform discharges seen
-Currently on regimen of phenobarbital/Vimpat -no reported seizure for last one week.
-Zyprexa dose decreased, psych input noted
Acute kidney injury due to nontraumatic rhabdomyolysis due to acute seizure activity
Now ESRD on HD
-renal U/S with medical renal disease
-Right chest tunneled catheter site clean, no erythema/drainage
-Patient renal function has stabilized and nephrology following renal function. No dialysis indicated today.
Fever noted 10/05, likely due to active seizure at that time
-Urine and blood culture from 09/28 showed no growth
-blood culture remains negative till date.
-repeat CXR 10/05 after intubation noted slightly increased opacity in the retrocardiac left lower lobe, atelectasis versus pneumonia. Minor infiltrate versus atelectasis in the medial right lung base.
-Procalcitonin not useful in this case with ESRD
-was restarted empiric Abx Ceftriaxone/doxycycline -> continue monitoring off of antibiotics.
-Appreciate ID input
Ventilator dependent respiratory failure -for airway protection - extubated
Acute hypoxic respiratory insufficiency -resolved
-weaned off of o2
Transaminitis due to rhabdomyolysis, resolved
-Unremarkable abdominal ultrasound
Essential hypertension:
-cont Procardia XL to 60mg daily with holding parameter
Hyponatremia
-minimal, observe
FULL/Heparin subq
Anticipated Discharge: Today
Subjective/Interval History
-
Date of Service: October 30, 2023
no complains overnight
Objective Data
-
Labs:
Laboratory Results
10/30/23
08:14
Sodium 138
Potassium 4.9
Chloride 102
Carbon Dioxide 28
BUN 46 H
Creatinine 2.7 H
Glucose 115 H
Calcium 9.6
Vital Signs:
Vital Signs
Temp Pulse Resp BP Pulse Ox
97.9 F 80 20 105/71 96
10/30/23 08:53 10/30/23 08:53 10/30/23 08:53 10/30/23 08:53 10/30/23 08:53
I&O
10/29/23 10/30/23 10/31/23
06:59 06:59 06:59
Intake Total 1440 / 1440 840 / 840
Output Total 1950 / 1950 1700 / 1700
Balance -510 / -510 -860 / -860
Review of Systems
-
Respiratory: Reports No Symptoms
Cardiac: Reports No Symptoms
Abdomen/GI: Reports No Symptoms
Physical Exam
-
General: Well Developed and No Apparent Distress
Respiratory: Clear to Auscultation and Non Labored Respirations
Cardiac: Regular Rhythm and S1/S2
GI: Soft, Nontender and Nondistended
Musculoskeletal: No Clubbing, No Cyanosis and No Edema
Skin: Warm and Dry
Neuro: Awake, Alert, Oriented and AO x 3
--- NOTE | 2023-10-30 14:12 | W.PN.NEPH.PH ---
Today's Communication / Plan
-
JEFERSON continues to improve off dialysis
Assessment/Plan
-
Assessment
Seizure/epilepsy
Rhabdomyolysis
Metabolic acidosis
Elevated liver function tests
acute kidney injury
Low-grade fever
Oliguria
Plan
Holding dialysis today as creatinine is down to 2.7patient remains grossly nonoliguric
Follow-up BMP tomorrow,
If creatinine remains lower we will discontinue catheter tomorrow
BP are stable on CCB and hydralazine
-
-
Date of Service: October 30, 2023
CC / HPI / ROS
-
Chief Complaint:
Acute renal failure
History of Present Illness:
Creatinine down to 2.7 today
Hemodynamically stable,
no new seizures
wt decreasing
Acute kidney injury now on Friday dialysis schedule
Review of Systems
no CP/SOB
no dysuria
UOP improving
Labs
-
Labs:
WBC 5.9 10^3/uL (4.8-10.8) 10/29/23 08:00
RBC 4.01 10^6/uL (4.70-6.10) L 10/29/23 08:00
Hgb 11.7 g/dL (13.0-18.0) L 10/29/23 08:00
Hct 35.1 % (39.0-52.0) L 10/29/23 08:00
Plt Count 200 10^3/uL (130-400) 10/29/23 08:00
Sodium 138 mmol/L (135-145) 10/30/23 08:14
Potassium 4.9 mmol/L (3.5-5.1) 10/30/23 08:14
Chloride 102 mmol/L (98-107) 10/30/23 08:14
Carbon Dioxide 28 mmol/L (22-30) 10/30/23 08:14
BUN 46 mg/dl (9-20) H 10/30/23 08:14
Creatinine 2.7 mg/dL (0.7-1.3) H 10/30/23 08:14
eGFR 25.84 10/30/23 08:14
Glucose 115 mg/dl (70-99) H 10/30/23 08:14
Calcium 9.6 mg/dl (8.4-10.2) 10/30/23 08:14
Phosphorus 6.4 mg/dl (2.5-4.5) H 10/15/23 08:56
Albumin 3.6 g/dl (3.5-5.0) 10/15/23 08:56
Physical Exam
-
Vital Signs:
Vital Signs
Temp Pulse Resp BP Pulse Ox
97.9 F 80 20 105/71 96
10/30/23 08:53 10/30/23 08:53 10/30/23 08:53 10/30/23 08:53 10/30/23 08:53
Cardiovascular:: Regular rate and rhythm
Respiratory:: Bilateral: CTA
Lung Excursion:: Normal
Abdomen:: Nontender and Soft
Bowel Sounds:: Normal
Extremity Edema:: None: Bilateral:
Sanchez Catheter: No
[2023-10-30 15:45] VITALS: BP 124/63
[2023-10-30] MEDS: PROCARDIA XL (EXTENDED RELEASE) 60 MG PO (20:34)
[2023-10-30] MEDS: ZYPREXA 2.5 MG PO (20:36)
[2023-10-30 23:00] VITALS: BP 137/73
[2023-10-31 06:00] VITALS: BMI 25.4
[2023-10-31 08:08] VITALS: BP 110/77
[2023-10-31] MEDS: PROCARDIA XL (EXTENDED RELEASE) 60 MG PO ×2 (09:16→19:36)
[2023-10-31] MEDS: ASPIR LOW (ENTERIC COATED) 81 MG PO (09:16)
[2023-10-31] MEDS: VIMPAT 200 MG PO ×2 (09:16→19:36)
[2023-10-31] MEDS: PROTONIX 40 MG PO (09:16)
[2023-10-31] MEDS: LUMINAL 64.8 MG PO ×3 (09:17→21:23)
[2023-10-31] MEDS: APRESOLINE 25 MG PO ×2 (09:17→19:36)
[2023-10-31] MEDS: VITAMIN B1 100 MG PO (09:17)
[2023-10-31] MEDS: LOTRIMIN 1% CREAM 1 APPLIC TOPICAL ×2 (09:17→19:38)
[2023-10-31] MEDS: HEPARIN 5000 UNITS SC ×3 (09:17→23:02)
[2023-10-31 11:39] LABS: Blood Urea Nitrogen 48 mg/dl (9-20); Calcium 9.6 mg/dl (8.4-10.2); Carbon Dioxide 24 mmol/L (22-30); Chloride 102 mmol/L (98-107); Estimated Creatinine Clearance 34 ml/min; Glucose 182 mg/dl (70-99); Potassium 4.3 mmol/L (3.5-5.1); Sodium 137 mmol/L (135-145); eGFR 28.34
--- NOTE | 2023-10-31 12:03 | CM ---
[facility] skilled rehab once stable.
Plan: skilled rehab once determination received from [facility] and auth submitted and obtained.
[2023-10-31 12:55] VITALS: BP 85/57; BP 97/61; PULSE 82; O2SAT 98
--- NOTE | 2023-10-31 13:20 | W.PN.NEPH.PH ---
Today's Communication / Plan
-
dc CVC
Assessment/Plan
-
Assessment
Seizure/epilepsy
Rhabdomyolysis
Metabolic acidosis
Elevated liver function tests
acute kidney injury
Low-grade fever
Oliguria
Plan
no further HD needs
follow BMP
remove HD CVC
-
-
Date of Service: October 31, 2023
CC / HPI / ROS
-
Chief Complaint:
Acute renal failure
History of Present Illness:
Creatinine down to 2.5 today
Hemodynamically stable
no new seizures
Review of Systems
no CP/SOB
no dysuria
nonoligurc
Labs
-
Labs:
WBC 5.9 10^3/uL (4.8-10.8) 10/29/23 08:00
RBC 4.01 10^6/uL (4.70-6.10) L 10/29/23 08:00
Hgb 11.7 g/dL (13.0-18.0) L 10/29/23 08:00
Hct 35.1 % (39.0-52.0) L 10/29/23 08:00
Plt Count 200 10^3/uL (130-400) 10/29/23 08:00
eGFR 28.34 10/31/23 09:34
Phosphorus 6.4 mg/dl (2.5-4.5) H 10/15/23 08:56
Albumin 3.6 g/dl (3.5-5.0) 10/15/23 08:56
Physical Exam
-
Vital Signs:
Vital Signs
Temp Pulse Resp BP Pulse Ox
97.7 F 99 18 110/77 100
10/31/23 08:08 10/31/23 08:08 10/31/23 08:08 10/31/23 08:08 10/31/23 08:08
Cardiovascular:: Regular rate and rhythm
Respiratory:: Bilateral: Coarse
Lung Excursion:: Normal
Abdomen:: Nontender and Soft
Bowel Sounds:: Normal
Extremity Edema:: None: Bilateral:
[2023-10-31 13:30] LABS: Blood Urea Nitrogen 46 mg/dl (9-20); Calcium 9.4 mg/dl (8.4-10.2); Carbon Dioxide 28 mmol/L (22-30); Chloride 103 mmol/L (98-107); Estimated Creatinine Clearance 34 ml/min; Glucose 112 mg/dl (70-99); Potassium 4.2 mmol/L (3.5-5.1); Sodium 138 mmol/L (135-145); eGFR 28.34
--- NOTE | 2023-10-31 13:33 | PTCARENOTE ---
ARTHUR RN- right chest tunneled HD cath removed by Harvey Coulter RTR using sterile technique. Sterile dressing in place CDI. patient instructed to leave bandage in place x 2 days.
--- NOTE | 2023-10-31 15:30 | TRANSFER ---
Pt received back into room s/p IR for HD cath removal. Dressing to right chest CDI, patient with no complaints, ambulated from stretcher to bed. Dressing to remain in place for 2 days.
--- NOTE | 2023-10-31 15:49 | W.PN.HOSP.TC ---
Today's Communication/Plan
-
d/c planning for rehab
Assessment / Plan
Assessment / Plan
Acute metabolic encephalopathy due to acute seizure and postictal state as well as JEFERSON/rhabdomyolysis - resolved
-Patient was on phenobarbital prior to admission and missed a couple days of dosing.
-active seizure noted (active RUE and facial twitching/ tonic clonic seizure) 10/05, s/p Keppra 2g load
-Intubated for airway protection 10/05, extubated 10/06
-Off of Levophed
-EEG 10/06: Moderate diffuse slowing, no seizures or epileptiform discharges seen
-Currently on regimen of phenobarbital/Vimpat -no reported seizure for last one week.
-Zyprexa dose decreased, psych input noted
Acute kidney injury due to nontraumatic rhabdomyolysis due to acute seizure activity
ESRD ruled out
-renal U/S with medical renal disease
-Right chest tunneled catheter site clean, no erythema/drainage
-Nephrology recommended to discontinue central line as no further hemodialysis would be required
Fever noted 10/05, likely due to active seizure at that time
-Urine and blood culture from 09/28 showed no growth
-blood culture remains negative till date.
-repeat CXR 10/05 after intubation noted slightly increased opacity in the retrocardiac left lower lobe, atelectasis versus pneumonia. Minor infiltrate versus atelectasis in the medial right lung base.
-Procalcitonin not useful in this case with ESRD
-was restarted empiric Abx Ceftriaxone/doxycycline -> continue monitoring off of antibiotics.
-Appreciate ID input
Ventilator dependent respiratory failure -for airway protection - extubated
Acute hypoxic respiratory insufficiency -resolved
-weaned off of o2
Transaminitis due to rhabdomyolysis, resolved
-Unremarkable abdominal ultrasound
Essential hypertension:
-cont Procardia XL to 60mg daily with holding parameter
Hyponatremia
-minimal, observe
Full/Heparin subq
Anticipated Discharge: > 48 hours
Subjective/Interval History
-
Date of Service: October 31, 2023
no issues overnight
Objective Data
-
Labs:
Laboratory Results
10/31/23 10/31/23
09:34 12:28
Sodium 137 138
Potassium 4.3 4.2
Chloride 102 103
Carbon Dioxide 24 28
BUN 48 H 46 H
Creatinine 2.5 H 2.5 H
Glucose 182 H 112 H
Calcium 9.6 9.4
Vital Signs:
Vital Signs
Temp Pulse Resp BP Pulse Ox
97.7 F 99 18 110/77 100
10/31/23 08:08 10/31/23 08:08 10/31/23 08:08 10/31/23 08:08 10/31/23 08:08
I&O
10/30/23 10/31/23 11/01/23
06:59 06:59 06:59
Intake Total 840 / 840 1060 / 1060
Output Total 1700 / 1700 1350 / 1350
Balance -860 / -860 -290 / -290
Review of Systems
-
Respiratory: Reports No Symptoms
Cardiac: Reports No Symptoms
Abdomen/GI: Reports No Symptoms
Physical Exam
-
General: Well Developed and No Apparent Distress
Respiratory: Clear to Auscultation and Non Labored Respirations
Cardiac: Regular Rhythm and S1/S2
GI: Soft, Nontender and Nondistended
Musculoskeletal: No Clubbing, No Cyanosis and No Edema
Skin: Warm and Dry
Neuro: Awake, Alert, Oriented and AO x 3
[2023-10-31 16:00] VITALS: BP 101/71
[2023-10-31] MEDS: ZYPREXA 2.5 MG PO (21:23)
[2023-10-31 23:32] VITALS: BP 88/58
[2023-11-01 02:00] VITALS: BP 124/68
[2023-11-01 06:00] VITALS: BMI 25.1
[2023-11-01 07:00] VITALS: BP 109/69
[2023-11-01] MEDS: APRESOLINE 25 MG PO ×2 (09:37→21:27)
[2023-11-01] MEDS: ASPIR LOW (ENTERIC COATED) 81 MG PO (09:38)
[2023-11-01] MEDS: LUMINAL 64.8 MG PO ×3 (09:38→21:27)
[2023-11-01] MEDS: HEPARIN 5000 UNITS SC ×3 (09:38→23:11)
[2023-11-01] MEDS: PROTONIX 40 MG PO (09:39)
[2023-11-01] MEDS: VIMPAT 200 MG PO ×2 (09:39→21:23)
[2023-11-01] MEDS: PROCARDIA XL (EXTENDED RELEASE) PO (09:39)
[2023-11-01] MEDS: VITAMIN B1 100 MG PO (09:40)
[2023-11-01] MEDS: LOTRIMIN 1% CREAM 1 APPLIC TOPICAL ×2 (09:44→21:27)
--- NOTE | 2023-11-01 11:41 | W.PN.NEPH.PH ---
Today's Communication / Plan
-
follow BMP
Assessment/Plan
-
Assessment
Seizure/epilepsy
Rhabdomyolysis
Metabolic acidosis
Elevated liver function tests
acute kidney injury
Low-grade fever
Oliguria
Plan
no further HD needs
follow BMP
removed HD CVC
dc planning
-
-
Date of Service: November 01, 2023
CC / HPI / ROS
-
Chief Complaint:
Acute renal failure
History of Present Illness:
Creatinine stable at 2.5
Hemodynamically stable
no new seizures
Review of Systems
no CP/SOB
no dysuria
nonoligurc
Labs
-
Labs:
WBC 5.9 10^3/uL (4.8-10.8) 10/29/23 08:00
RBC 4.01 10^6/uL (4.70-6.10) L 10/29/23 08:00
Hgb 11.7 g/dL (13.0-18.0) L 10/29/23 08:00
Hct 35.1 % (39.0-52.0) L 10/29/23 08:00
Plt Count 200 10^3/uL (130-400) 10/29/23 08:00
Sodium 138 mmol/L (135-145) 10/31/23 12:28
Potassium 4.2 mmol/L (3.5-5.1) 10/31/23 12:28
Chloride 103 mmol/L (98-107) 10/31/23 12:28
Carbon Dioxide 28 mmol/L (22-30) 10/31/23 12:28
BUN 46 mg/dl (9-20) H 10/31/23 12:28
Creatinine 2.5 mg/dL (0.7-1.3) H 10/31/23 12:28
eGFR 28.34 10/31/23 12:28
Glucose 112 mg/dl (70-99) H 10/31/23 12:28
Calcium 9.4 mg/dl (8.4-10.2) 10/31/23 12:28
Phosphorus 6.4 mg/dl (2.5-4.5) H 10/15/23 08:56
Albumin 3.6 g/dl (3.5-5.0) 10/15/23 08:56
Physical Exam
-
Vital Signs:
Vital Signs
Temp Pulse Resp BP Pulse Ox
97.9 F 76 18 109/69 96
11/01/23 07:00 11/01/23 09:37 11/01/23 07:00 11/01/23 09:39 11/01/23 07:00
Cardiovascular:: Regular rate and rhythm
Respiratory:: Bilateral: CTA
Lung Excursion:: Normal
Abdomen:: Nontender
Bowel Sounds:: Normal
Extremity Edema:: None: Bilateral:
--- NOTE | 2023-11-01 12:38 | W.PN.HOSP.TC ---
Today's Communication/Plan
-
medically stable
discharge planning
Assessment / Plan
Assessment / Plan
Acute metabolic encephalopathy due to acute seizure and postictal state as well as JEFERSON/rhabdomyolysis - resolved
-Patient was on phenobarbital prior to admission and missed a couple days of dosing.
-active seizure noted (active RUE and facial twitching/ tonic clonic seizure) 10/05, s/p Keppra 2g load
-Intubated for airway protection 10/05, extubated 10/06
-Off of Levophed
-EEG 10/06: Moderate diffuse slowing, no seizures or epileptiform discharges seen
-Currently on regimen of phenobarbital/Vimpat -no reported seizure for last one week.
-Zyprexa dose decreased, psych input noted
Acute kidney injury due to nontraumatic rhabdomyolysis due to acute seizure activity
ESRD ruled out
-renal U/S with medical renal disease
-Right chest tunneled catheter site clean, no erythema/drainage
-Nephrology recommended to discontinue central line as no further hemodialysis would be required
Fever noted 10/05, likely due to active seizure at that time
-Urine and blood culture from 09/28 showed no growth
-blood culture remains negative till date.
-repeat CXR 10/05 after intubation noted slightly increased opacity in the retrocardiac left lower lobe, atelectasis versus pneumonia. Minor infiltrate versus atelectasis in the medial right lung base.
-Procalcitonin not useful in this case with ESRD
-was restarted empiric Abx Ceftriaxone/doxycycline -> continue monitoring off of antibiotics.
-Appreciate ID input
Ventilator dependent respiratory failure -for airway protection - extubated
Acute hypoxic respiratory insufficiency -resolved
-weaned off of o2
Transaminitis due to rhabdomyolysis, resolved
-Unremarkable abdominal ultrasound
Essential hypertension:
-cont Procardia XL to 60mg daily with holding parameter
Hyponatremia
-minimal, observe
Full/Heparin subq
Anticipated Discharge: > 48 hours
Subjective/Interval History
-
Date of Service: November 01, 2023
No reported problems overnight
Objective Data
-
Vital Signs:
Vital Signs
Temp Pulse Resp BP Pulse Ox
97.9 F 76 18 109/69 96
11/01/23 07:00 11/01/23 09:37 11/01/23 07:00 11/01/23 09:39 11/01/23 07:00
I&O
10/31/23 11/01/23 11/02/23
06:59 06:59 06:59
Intake Total 1060 / 1060 1200 / 1200
Output Total 1350 / 1350 875 / 875
Balance -290 / -290 325 / 325
Review of Systems
-
Respiratory: Reports No Symptoms
Cardiac: Reports No Symptoms
Abdomen/GI: Reports No Symptoms
Physical Exam
-
General: No Apparent Distress
Respiratory: Clear to Auscultation
Cardiac: Regular Rhythm and S1/S2; Negative Murmur
GI: Soft, Nontender and Nondistended
Musculoskeletal: No Edema
Skin: Warm and Dry
Neuro: Awake, Alert, Oriented and AO x 3
[2023-11-01 15:00] VITALS: BP 109/75
[2023-11-01] MEDS: ZYPREXA 2.5 MG PO (21:23)
[2023-11-01] MEDS: PROCARDIA XL (EXTENDED RELEASE) 60 MG PO (21:23)
[2023-11-01 23:05] VITALS: BP 134/77
[2023-11-02 06:00] VITALS: BMI 25.3
[2023-11-02 07:40] VITALS: BP 102/72
[2023-11-02] MEDS: LUMINAL 64.8 MG PO ×3 (07:49→21:37)
[2023-11-02] MEDS: HEPARIN 5000 UNITS SC ×3 (07:49→23:11)
[2023-11-02] MEDS: ASPIR LOW (ENTERIC COATED) 81 MG PO (07:50)
[2023-11-02] MEDS: VITAMIN B1 100 MG PO (07:50)
[2023-11-02] MEDS: PROTONIX 40 MG PO (07:50)
[2023-11-02] MEDS: PROCARDIA XL (EXTENDED RELEASE) 60 MG PO (07:50)
[2023-11-02] MEDS: APRESOLINE 25 MG PO ×2 (07:50→19:52)
[2023-11-02] MEDS: VIMPAT 200 MG PO ×2 (07:50→19:54)
[2023-11-02] MEDS: LOTRIMIN 1% CREAM 1 APPLIC TOPICAL ×2 (07:53→19:52)
[2023-11-02 08:05] LABS: Blood Urea Nitrogen 50 mg/dl (9-20); Calcium 9.5 mg/dl (8.4-10.2); Carbon Dioxide 24 mmol/L (22-30); Chloride 105 mmol/L (98-107); Estimated Creatinine Clearance 32 ml/min; Glucose 112 mg/dl (70-99); Potassium 4.3 mmol/L (3.5-5.1); Sodium 139 mmol/L (135-145); eGFR 27.04
--- NOTE | 2023-11-02 11:38 | W.PN.NEPH.PH ---
Today's Communication / Plan
-
follow BMP
Assessment/Plan
-
Assessment
Seizure/epilepsy
Rhabdomyolysis
Metabolic acidosis
Elevated liver function tests
acute kidney injury
Low-grade fever
Oliguria
Plan
no further HD needs
follow BMP
dc planning not sure he can live by himself
-
-
Date of Service: November 02, 2023
CC / HPI / ROS
-
Chief Complaint:
Acute renal failure
History of Present Illness:
Creatinine stable at 2.6
Hemodynamically stable
no new seizures
Review of Systems
no CP/SOB
no dysuria
nonoligurc
walking
Labs
-
Labs:
WBC 5.9 10^3/uL (4.8-10.8) 10/29/23 08:00
RBC 4.01 10^6/uL (4.70-6.10) L 10/29/23 08:00
Hgb 11.7 g/dL (13.0-18.0) L 10/29/23 08:00
Hct 35.1 % (39.0-52.0) L 10/29/23 08:00
Plt Count 200 10^3/uL (130-400) 10/29/23 08:00
Sodium 139 mmol/L (135-145) 11/02/23 07:10
Potassium 4.3 mmol/L (3.5-5.1) 11/02/23 07:10
Chloride 105 mmol/L (98-107) 11/02/23 07:10
Carbon Dioxide 24 mmol/L (22-30) 11/02/23 07:10
BUN 50 mg/dl (9-20) H 11/02/23 07:10
Creatinine 2.6 mg/dL (0.7-1.3) H 11/02/23 07:10
eGFR 27.04 11/02/23 07:10
Glucose 112 mg/dl (70-99) H 11/02/23 07:10
Calcium 9.5 mg/dl (8.4-10.2) 11/02/23 07:10
Phosphorus 6.4 mg/dl (2.5-4.5) H 10/15/23 08:56
Albumin 3.6 g/dl (3.5-5.0) 10/15/23 08:56
Physical Exam
-
Vital Signs:
Vital Signs
Temp Pulse Resp BP Pulse Ox
97.5 F 89 18 102/72 96
11/02/23 07:40 11/02/23 07:40 11/02/23 07:40 11/02/23 07:40 11/02/23 07:40
Cardiovascular:: Regular rate and rhythm
Respiratory:: Bilateral: CTA
Lung Excursion:: Normal
Abdomen:: Nontender and Soft
Bowel Sounds:: Normal
Extremity Edema:: None: Bilateral:
--- NOTE | 2023-11-02 14:24 | W.PN.HOSP.TC ---
Today's Communication/Plan
-
d/c planning rehab
Assessment / Plan
Assessment / Plan
Acute metabolic encephalopathy due to acute seizure and postictal state as well as JEFERSON/rhabdomyolysis - resolved
-Patient was on phenobarbital prior to admission and missed a couple days of dosing.
-active seizure noted (active RUE and facial twitching/ tonic clonic seizure) 10/05, s/p Keppra 2g load
-Intubated for airway protection 10/05, extubated 10/06
-Off of Levophed
-EEG 10/06: Moderate diffuse slowing, no seizures or epileptiform discharges seen
-Currently on regimen of phenobarbital/Vimpat -no reported seizure for last one week.
-Zyprexa dose decreased, psych input noted
Acute kidney injury due to nontraumatic rhabdomyolysis due to acute seizure activity
ESRD ruled out
-renal U/S with medical renal disease
-Right chest tunneled catheter site clean, no erythema/drainage
-Nephrology recommended to discontinue central line as no further hemodialysis would be required
Fever noted 10/05, likely due to active seizure at that time
-Urine and blood culture from 09/28 showed no growth
-blood culture remains negative till date.
-repeat CXR 10/05 after intubation noted slightly increased opacity in the retrocardiac left lower lobe, atelectasis versus pneumonia. Minor infiltrate versus atelectasis in the medial right lung base.
-Procalcitonin not useful in this case with ESRD
-was restarted empiric Abx Ceftriaxone/doxycycline -> continue monitoring off of antibiotics.
-Appreciate ID input
Ventilator dependent respiratory failure -for airway protection - extubated
Acute hypoxic respiratory insufficiency -resolved
-weaned off of o2
Transaminitis due to rhabdomyolysis, resolved
-Unremarkable abdominal ultrasound
Essential hypertension:
-cont Procardia XL to 60mg daily with holding parameter
Hyponatremia
-minimal, observe
Full/Heparin subq
Anticipated Discharge: Within 24 hours
Subjective/Interval History
-
Date of Service: November 02, 2023
No reported problems overnight
Objective Data
-
Labs:
Laboratory Results
11/02/23
07:10
Sodium 139
Potassium 4.3
Chloride 105
Carbon Dioxide 24
BUN 50 H
Creatinine 2.6 H
Glucose 112 H
Calcium 9.5
Vital Signs:
Vital Signs
Temp Pulse Resp BP Pulse Ox
97.5 F 89 18 102/72 96
11/02/23 07:40 11/02/23 07:40 11/02/23 07:40 11/02/23 07:40 11/02/23 07:40
I&O
11/01/23 11/02/23 11/03/23
06:59 06:59 06:59
Intake Total 1200 / 1200 360 / 360
Output Total 875 / 875 200 / 200
Balance 325 / 325 160 / 160
Review of Systems
-
Respiratory: Reports No Symptoms
Cardiac: Reports No Symptoms
Abdomen/GI: Reports No Symptoms
Physical Exam
-
General: No Apparent Distress
Respiratory: Clear to Auscultation
Cardiac: Regular Rhythm and S1/S2; Negative Murmur
GI: Soft, Nontender and Nondistended
Musculoskeletal: No Edema
Skin: Warm and Dry
Neuro: Awake, Alert, Oriented and AO x 3
[2023-11-02 15:00] VITALS: BP 108/76
[2023-11-02] MEDS: PROCARDIA XL (EXTENDED RELEASE) PO (19:53)
[2023-11-02 21:34] LABS: Glucose - Point of Care 109 mg/dl (70-99)
[2023-11-02] MEDS: ZYPREXA 2.5 MG PO (21:37)
[2023-11-02 23:30] VITALS: BP 99/57
[2023-11-03 06:00] VITALS: BMI 25.2
[2023-11-03] MEDS: HEPARIN 5000 UNITS SC ×2 (07:28→16:32)
[2023-11-03] MEDS: ASPIR LOW (ENTERIC COATED) 81 MG PO (07:29)
[2023-11-03] MEDS: LUMINAL 64.8 MG PO ×3 (07:29→20:58)
[2023-11-03] MEDS: VIMPAT 200 MG PO ×2 (07:29→19:56)
[2023-11-03] MEDS: APRESOLINE 25 MG PO ×2 (07:29→19:58)
[2023-11-03] MEDS: PROCARDIA XL (EXTENDED RELEASE) 60 MG PO ×2 (07:29→19:56)
[2023-11-03] MEDS: PROTONIX 40 MG PO (07:29)
[2023-11-03] MEDS: VITAMIN B1 100 MG PO (07:30)
[2023-11-03] MEDS: LOTRIMIN 1% CREAM 1 APPLIC TOPICAL ×2 (07:31→19:59)
[2023-11-03 07:33] VITALS: BP 106/69
--- NOTE | 2023-11-03 09:00 | W.PN.HOSP.TC ---
Today's Communication/Plan
-
Continue current management.
Assessment / Plan
Assessment / Plan
Physical exam:
General: Chronically ill. No apparent distress
HEENT: Normocephalic, Atraumatic and Moist Mucous Membranes
Respiratory: Clear to Auscultation; Negative Wheezes, Rales or Rhonchi
Cardiac: Regular Rhythm and S1/S2
GI: Soft, Nontender and Nondistended
Musculoskeletal: No Clubbing, No Cyanosis and No Edema
Neuro: Awake, Alert and Oriented. No neuro-deficits
Psych: Calm
A/P:
Acute metabolic encephalopathy due to acute seizure and postictal state as well as JEFERSON/rhabdomyolysis - resolved
-Patient was on phenobarbital prior to admission and missed a couple days of dosing.
-active seizure noted (active RUE and facial twitching/ tonic clonic seizure) 10/05, s/p Keppra 2g load
-Intubated for airway protection 10/05, extubated 10/06
-Off of Levophed
-EEG 10/06: Moderate diffuse slowing, no seizures or epileptiform discharges seen
-Currently on regimen of phenobarbital/Vimpat -no reported seizure for last one week.
-Zyprexa dose decreased, psych input noted
Acute kidney injury due to nontraumatic rhabdomyolysis due to acute seizure activity
ESRD ruled out
-renal U/S with medical renal disease
-Right chest tunneled catheter site clean, no erythema/drainage
-Nephrology recommended to discontinue central line as no further hemodialysis would be required
Fever noted 10/05, likely due to active seizure at that time
-Urine and blood culture from 09/28 showed no growth
-blood culture remains negative till date.
-repeat CXR 10/05 after intubation noted slightly increased opacity in the retrocardiac left lower lobe, atelectasis versus pneumonia. Minor infiltrate versus atelectasis in the medial right lung base.
-Procalcitonin not useful in this case with ESRD
-was restarted empiric Abx Ceftriaxone/doxycycline -> continue monitoring off of antibiotics.
-Appreciate ID input
Ventilator dependent respiratory failure -for airway protection - extubated
Acute hypoxic respiratory insufficiency -resolved
-weaned off of o2
Transaminitis due to rhabdomyolysis, resolved
-Unremarkable abdominal ultrasound
Essential hypertension:
-cont Procardia XL to 60mg daily with holding parameter
Hyponatremia
-minimal, observe
Full/Heparin subq
Anticipated Discharge: 24 - 48 hours
Subjective/Interval History
-
Date of Service: November 03, 2023
No new complaints.
Objective Data
-
Labs:
Laboratory Results
11/03/23
07:48
Sodium Pending
Potassium Pending
Chloride Pending
Carbon Dioxide Pending
BUN Pending
Creatinine Pending
Glucose Pending
Calcium Pending
Vital Signs:
Vital Signs
Temp Pulse Resp BP Pulse Ox
97.5 F 70 20 106/69 95
11/03/23 07:33 11/03/23 07:33 11/03/23 07:33 11/03/23 07:33 11/03/23 07:33
I&O
11/02/23 11/03/23 11/04/23
06:59 06:59 06:59
Intake Total 360 / 360 1040 / 1040
Output Total 200 / 200 1100 / 1100
Balance 160 / 160 -60 / -60
[2023-11-03 09:34] LABS: Blood Urea Nitrogen 46 mg/dl (9-20); Calcium 9.5 mg/dl (8.4-10.2); Carbon Dioxide 26 mmol/L (22-30); Chloride 106 mmol/L (98-107); Estimated Creatinine Clearance 35 ml/min; Glucose 108 mg/dl (70-99); Potassium 4.2 mmol/L (3.5-5.1); Sodium 139 mmol/L (135-145); eGFR 29.76
[2023-11-03 12:26] VITALS: BP 114/65; PULSE 74; O2SAT 97
--- NOTE | 2023-11-03 14:58 | CM ---
Addendum entered by Ana Rosa Talbert 11/03/23 15:13:
Spoke with Tamara from [facility], state determination still pending.
Tamara provided a number for [facility]- waiver program, to see if they could help family with placement.
Patients family looking into post hospitalization living situation if patient doesnt qualify for skilled rehab.
Original Note:
Await [facility] determination.
[facility] skilled rehab once stable.
Spoke with sister today re possibility of jail. Will get back to her with suggestions.
Plan: skilled rehab once determination received from [facility] and auth submitted and obtained.
[2023-11-03 15:38] VITALS: BP 132/84
--- NOTE | 2023-11-03 16:08 | W.PN.NEPH.PH ---
Today's Communication / Plan
-
follow labs and await placement
Assessment/Plan
-
Assessment
Seizure/epilepsy
Rhabdomyolysis
Metabolic acidosis
Elevated liver function tests
acute kidney injury
Low-grade fever
Oliguria
Plan
no further HD needs
cr stable at 2.4
BP stable
follow BMP
dc planning not sure he can live by himself
-
-
Date of Service: November 03, 2023
CC / HPI / ROS
-
Chief Complaint:
Acute renal failure
History of Present Illness:
Creatinine stable at 2.4
Hemodynamically stable
no new seizures
Review of Systems
no CP/SOB
no dysuria
nonoligurc
walking
Labs
-
Labs:
WBC 5.9 10^3/uL (4.8-10.8) 10/29/23 08:00
RBC 4.01 10^6/uL (4.70-6.10) L 10/29/23 08:00
Hgb 11.7 g/dL (13.0-18.0) L 10/29/23 08:00
Hct 35.1 % (39.0-52.0) L 10/29/23 08:00
Plt Count 200 10^3/uL (130-400) 10/29/23 08:00
Sodium 139 mmol/L (135-145) 11/03/23 07:48
Potassium 4.2 mmol/L (3.5-5.1) 11/03/23 07:48
Chloride 106 mmol/L (98-107) 11/03/23 07:48
Carbon Dioxide 26 mmol/L (22-30) 11/03/23 07:48
BUN 46 mg/dl (9-20) H 11/03/23 07:48
Creatinine 2.4 mg/dL (0.7-1.3) H 11/03/23 07:48
eGFR 29.76 11/03/23 07:48
Glucose 108 mg/dl (70-99) H 11/03/23 07:48
Calcium 9.5 mg/dl (8.4-10.2) 11/03/23 07:48
Phosphorus 6.4 mg/dl (2.5-4.5) H 10/15/23 08:56
Albumin 3.6 g/dl (3.5-5.0) 10/15/23 08:56
Physical Exam
-
Vital Signs:
Vital Signs
Temp Pulse Resp BP Pulse Ox
97.6 F 77 19 132/84 97
11/03/23 15:38 11/03/23 15:38 11/03/23 15:38 11/03/23 15:38 11/03/23 15:38
Cardiovascular:: Regular rate and rhythm
Respiratory:: Bilateral: CTA
Lung Excursion:: Normal
Abdomen:: Nontender and Soft
Extremity Edema:: None: Bilateral:
Sanchez Catheter: No
[2023-11-03] MEDS: ZYPREXA 2.5 MG PO (20:59)
[2023-11-03 23:20] VITALS: BP 98/63
[2023-11-04] MEDS: HEPARIN 5000 UNITS SC ×3 (00:08→15:04)
[2023-11-04 06:24] VITALS: BMI 25.5
[2023-11-04 07:53] VITALS: BP 108/66
[2023-11-04] MEDS: ASPIR LOW (ENTERIC COATED) 81 MG PO (09:01)
[2023-11-04] MEDS: LUMINAL 64.8 MG PO ×3 (09:01→20:42)
[2023-11-04] MEDS: PROCARDIA XL (EXTENDED RELEASE) PO (09:01)
[2023-11-04] MEDS: VIMPAT 200 MG PO ×2 (09:02→20:42)
[2023-11-04] MEDS: APRESOLINE 25 MG PO ×2 (09:02→20:42)
[2023-11-04] MEDS: LOTRIMIN 1% CREAM 1 APPLIC TOPICAL ×2 (09:02→20:42)
[2023-11-04] MEDS: VITAMIN B1 100 MG PO (09:02)
[2023-11-04] MEDS: PROTONIX 40 MG PO (09:02)
--- NOTE | 2023-11-04 10:51 | W.PN.HOSP.TC ---
Today's Communication/Plan
-
Continue current management
Assessment / Plan
Assessment / Plan
Physical exam:
General: Chronically ill. No apparent distress
HEENT: Normocephalic, Atraumatic and Moist Mucous Membranes
Respiratory: Clear to Auscultation; Negative Wheezes, Rales or Rhonchi
Cardiac: Regular Rhythm and S1/S2
GI: Soft, Nontender and Nondistended
Musculoskeletal: No Clubbing, No Cyanosis and No Edema
Neuro: Awake, Alert and Oriented. No neuro-deficits
Psych: Calm
A/P:
Acute metabolic encephalopathy due to acute seizure and postictal state as well as JEFERSON/rhabdomyolysis - resolved
-Patient was on phenobarbital prior to admission and missed a couple days of dosing.
-active seizure noted (active RUE and facial twitching/ tonic clonic seizure) 10/05, s/p Keppra 2g load
-Intubated for airway protection 10/05, extubated 10/06
-Off of Levophed
-EEG 10/06: Moderate diffuse slowing, no seizures or epileptiform discharges seen
-Currently on regimen of phenobarbital/Vimpat -no reported seizure for last one week.
-Zyprexa dose decreased, psych input noted
-Per case management: skilled rehab once determination received from [employer] and auth submitted and obtained.
Acute kidney injury due to nontraumatic rhabdomyolysis due to acute seizure activity
ESRD ruled out
-renal U/S with medical renal disease
-Right chest tunneled catheter site clean, no erythema/drainage
-Nephrology recommended to discontinue central line as no further hemodialysis would be required
Fever noted 10/05, likely due to active seizure at that time
-Urine and blood culture from 09/28 showed no growth
-blood culture remains negative till date.
-repeat CXR 10/05 after intubation noted slightly increased opacity in the retrocardiac left lower lobe, atelectasis versus pneumonia. Minor infiltrate versus atelectasis in the medial right lung base.
-Procalcitonin not useful in this case with ESRD
-was restarted empiric Abx Ceftriaxone/doxycycline -> continue monitoring off of antibiotics.
-Appreciate ID input
Ventilator dependent respiratory failure -for airway protection - extubated
Acute hypoxic respiratory insufficiency -resolved
-weaned off of o2
Transaminitis due to rhabdomyolysis, resolved
-Unremarkable abdominal ultrasound
Essential hypertension:
-cont Procardia XL to 60mg daily with holding parameter
Hyponatremia
-minimal, observe
Full/Heparin subq
Anticipated Discharge: 24 - 48 hours
Subjective/Interval History
-
Date of Service: November 04, 2023
Patient seen and examined. No new complaint
Objective Data
-
Vital Signs:
Vital Signs
Temp Pulse Resp BP Pulse Ox
97.8 F 80 20 108/66 96
11/04/23 07:53 11/04/23 07:53 11/04/23 07:53 11/04/23 09:01 11/04/23 07:53
I&O
11/03/23 11/04/23 11/05/23
06:59 06:59 06:59
Intake Total 1040 / 1040 2420 / 2420
Output Total 1100 / 1100
Balance -60 / -60 2420 / 2420
--- NOTE | 2023-11-04 14:20 | CM ---
Await [facility] determination.
[facility] skilled rehab once stable.
Spoke with sister yesterday today re possibility of assisted/LTC.
Plan: skilled rehab once determination received from [facility] and auth submitted and obtained.
--- NOTE | 2023-11-04 15:41 | W.PN.NEPH.PH ---
Today's Communication / Plan
-
lower procardia dose
follow BMP tomorrow
Assessment/Plan
-
Assessment
Seizure/epilepsy
Rhabdomyolysis
Metabolic acidosis
Elevated liver function tests
acute kidney injury
Low-grade fever
Oliguria
Plan
no further HD needs
cr stable at 2.4, no labs today
can check QOD
BP softer end, decreased Procardia dose to 30mg bid
follow BMP
dc planning not sure he can live by himself
-
-
Date of Service: November 04, 2023
CC / HPI / ROS
-
Chief Complaint:
Acute renal failure
History of Present Illness:
Creatinine stable at 2.4, no labs today
Hemodynamically stable
no new seizures
Review of Systems
no CP/SOB
no dysuria
nonoligurc
Labs
-
Labs:
WBC 5.9 10^3/uL (4.8-10.8) 10/29/23 08:00
RBC 4.01 10^6/uL (4.70-6.10) L 10/29/23 08:00
Hgb 11.7 g/dL (13.0-18.0) L 10/29/23 08:00
Hct 35.1 % (39.0-52.0) L 10/29/23 08:00
Plt Count 200 10^3/uL (130-400) 10/29/23 08:00
Sodium 139 mmol/L (135-145) 11/03/23 07:48
Potassium 4.2 mmol/L (3.5-5.1) 11/03/23 07:48
Chloride 106 mmol/L (98-107) 11/03/23 07:48
Carbon Dioxide 26 mmol/L (22-30) 11/03/23 07:48
BUN 46 mg/dl (9-20) H 11/03/23 07:48
Creatinine 2.4 mg/dL (0.7-1.3) H 11/03/23 07:48
eGFR 29.76 11/03/23 07:48
Glucose 108 mg/dl (70-99) H 11/03/23 07:48
Calcium 9.5 mg/dl (8.4-10.2) 11/03/23 07:48
Phosphorus 6.4 mg/dl (2.5-4.5) H 10/15/23 08:56
Albumin 3.6 g/dl (3.5-5.0) 10/15/23 08:56
Physical Exam
-
Vital Signs:
Vital Signs
Temp Pulse Resp BP Pulse Ox
97.8 F 80 20 108/66 96
11/04/23 07:53 11/04/23 07:53 11/04/23 07:53 11/04/23 09:01 11/04/23 07:53
Cardiovascular:: Regular rate and rhythm
Respiratory:: Bilateral: CTA
Lung Excursion:: Normal
Abdomen:: Nontender and Soft
Extremity Edema:: None: Bilateral:
Sanchez Catheter: No
[2023-11-04 15:43] VITALS: BP 116/74
[2023-11-04] MEDS: ZYPREXA 2.5 MG PO (20:42)
[2023-11-04] MEDS: PROCARDIA XL (EXTENDED RELEASE) 30 MG PO (20:42)
[2023-11-04 23:26] VITALS: BP 107/68
[2023-11-05] MEDS: HEPARIN 5000 UNITS SC ×3 (00:44→15:21)
[2023-11-05 06:00] VITALS: BMI 25.6
[2023-11-05] MEDS: VITAMIN B1 100 MG PO (08:04)
[2023-11-05] MEDS: PROCARDIA XL (EXTENDED RELEASE) 30 MG PO ×2 (08:04→20:06)
[2023-11-05] MEDS: ASPIR LOW (ENTERIC COATED) 81 MG PO (08:04)
[2023-11-05] MEDS: VIMPAT 200 MG PO ×2 (08:04→20:06)
[2023-11-05] MEDS: PROTONIX 40 MG PO (08:04)
[2023-11-05] MEDS: LOTRIMIN 1% CREAM 1 APPLIC TOPICAL ×2 (08:05→20:06)
[2023-11-05] MEDS: APRESOLINE 25 MG PO ×2 (08:05→20:05)
[2023-11-05] MEDS: LUMINAL 64.8 MG PO ×3 (08:05→21:00)
[2023-11-05 08:09] VITALS: BP 121/70
--- NOTE | 2023-11-05 08:58 | W.PN.HOSP.TC ---
Today's Communication/Plan
-
Continue current management
Assessment / Plan
Assessment / Plan
Physical exam:
General: Chronically ill. No apparent distress
HEENT: Normocephalic, Atraumatic and Moist Mucous Membranes
Respiratory: Clear to Auscultation; Negative Wheezes, Rales or Rhonchi
Cardiac: Regular Rhythm and S1/S2
GI: Soft, Nontender and Nondistended
Musculoskeletal: No Clubbing, No Cyanosis and No Edema
Neuro: Awake, Alert and Oriented. No neuro-deficits
Psych: Calm
A/P:
Acute metabolic encephalopathy due to acute seizure and postictal state as well as JEFERSON/rhabdomyolysis - resolved
-Patient was on phenobarbital prior to admission and missed a couple days of dosing.
-active seizure noted (active RUE and facial twitching/ tonic clonic seizure) 10/05, s/p Keppra 2g load
-Intubated for airway protection 10/05, extubated 10/06
-Off of Levophed
-EEG 10/06: Moderate diffuse slowing, no seizures or epileptiform discharges seen
-Currently on regimen of phenobarbital/Vimpat -no reported seizure for last one week.
-Zyprexa dose decreased, psych input noted
-Per case management: skilled rehab once determination received from [employer] and auth submitted and obtained.
Acute kidney injury due to nontraumatic rhabdomyolysis due to acute seizure activity
ESRD ruled out
-renal U/S with medical renal disease
-Right chest tunneled catheter site clean, no erythema/drainage
-Nephrology recommended to discontinue central line as no further hemodialysis would be required
Fever noted 10/05, likely due to active seizure at that time
-Urine and blood culture from 09/28 showed no growth
-blood culture remains negative till date.
-repeat CXR 10/05 after intubation noted slightly increased opacity in the retrocardiac left lower lobe, atelectasis versus pneumonia. Minor infiltrate versus atelectasis in the medial right lung base.
-Procalcitonin not useful in this case with ESRD
-was restarted empiric Abx Ceftriaxone/doxycycline -> continue monitoring off of antibiotics.
-Appreciate ID input
Ventilator dependent respiratory failure -for airway protection - extubated
Acute hypoxic respiratory insufficiency -resolved
-weaned off of o2
Transaminitis due to rhabdomyolysis, resolved
-Unremarkable abdominal ultrasound
Essential hypertension:
-cont Procardia XL to 60mg daily with holding parameter
Hyponatremia
-minimal, observe
Full/Heparin subq
Anticipated Discharge: 24 - 48 hours
Subjective/Interval History
-
Date of Service: November 05, 2023
Patient does not voice any new complaints
Objective Data
-
Labs:
Laboratory Results
11/05/23
07:38
Sodium Pending
Potassium Pending
Chloride Pending
Carbon Dioxide Pending
BUN Pending
Creatinine Pending
Glucose Pending
Calcium Pending
Vital Signs:
Vital Signs
Temp Pulse Resp BP Pulse Ox
97.5 F 74 19 121/70 94
11/05/23 08:09 11/05/23 08:09 11/05/23 08:09 11/05/23 08:09 11/05/23 08:09
I&O
11/04/23 11/05/23 11/06/23
06:59 06:59 06:59
Intake Total 2420 / 2420 1800 / 1800
Output Total 2600 / 2600
Balance 2420 / 2420 -800 / -800
[2023-11-05 10:30] LABS: Blood Urea Nitrogen 42 mg/dl (9-20); Calcium 9.3 mg/dl (8.4-10.2); Carbon Dioxide 27 mmol/L (22-30); Chloride 103 mmol/L (98-107); Estimated Creatinine Clearance 42 ml/min; Glucose 91 mg/dl (70-99); Potassium 4.9 mmol/L (3.5-5.1); Sodium 135 mmol/L (135-145); eGFR 37.04
--- NOTE | 2023-11-05 11:07 | W.PN.NEPH.PH ---
Today's Communication / Plan
-
observe
Assessment/Plan
-
Assessment
Seizure/epilepsy
Rhabdomyolysis
Metabolic acidosis
Elevated liver function tests
acute kidney injury
Low-grade fever
Oliguria
Plan
no further HD needs
cr stable at 2.0
grossly nonoliguric
can check QOD
BP softer end, decreased Procardia dose to 30mg bid
follow BMP
dc planning not sure he can live by himself
-
-
Date of Service: November 05, 2023
CC / HPI / ROS
-
Chief Complaint:
Acute renal failure
History of Present Illness:
Creatinine stable at 2.4, no labs today
Hemodynamically stable
no new seizures
Review of Systems
no CP/SOB
no dysuria
nonoligurc
Labs
-
Labs:
WBC 5.9 10^3/uL (4.8-10.8) 10/29/23 08:00
RBC 4.01 10^6/uL (4.70-6.10) L 10/29/23 08:00
Hgb 11.7 g/dL (13.0-18.0) L 10/29/23 08:00
Hct 35.1 % (39.0-52.0) L 10/29/23 08:00
Plt Count 200 10^3/uL (130-400) 10/29/23 08:00
Sodium 135 mmol/L (135-145) 11/05/23 07:38
Potassium 4.9 mmol/L (3.5-5.1) 11/05/23 07:38
Chloride 103 mmol/L (98-107) 11/05/23 07:38
Carbon Dioxide 27 mmol/L (22-30) 11/05/23 07:38
BUN 42 mg/dl (9-20) H 11/05/23 07:38
Creatinine 2.0 mg/dL (0.7-1.3) H 11/05/23 07:38
eGFR 37.04 11/05/23 07:38
Glucose 91 mg/dl (70-99) 11/05/23 07:38
Calcium 9.3 mg/dl (8.4-10.2) 11/05/23 07:38
Phosphorus 6.4 mg/dl (2.5-4.5) H 10/15/23 08:56
Albumin 3.6 g/dl (3.5-5.0) 10/15/23 08:56
Physical Exam
-
Vital Signs:
Vital Signs
Temp Pulse Resp BP Pulse Ox
97.5 F 74 19 121/70 94
11/05/23 08:09 11/05/23 08:09 11/05/23 08:09 11/05/23 08:09 11/05/23 08:09
Cardiovascular:: Regular rate and rhythm
Respiratory:: Bilateral: CTA
Lung Excursion:: Normal
Abdomen:: Nontender and Soft
Extremity Edema:: None: Bilateral:
Sanchez Catheter: No
[2023-11-05 15:37] VITALS: BP 95/64
--- NOTE | 2023-11-05 15:57 | CM ---
Level [facility]
Insurance authorization initiated.
Updates to [facility] [employer].
Plan: [facility] when stable.
[2023-11-05] MEDS: ZYPREXA 2.5 MG PO (21:00)
[2023-11-05 23:47] VITALS: BP 107/68
[2023-11-06] MEDS: HEPARIN 5000 UNITS SC ×4 (00:08→23:28)
[2023-11-06 06:00] VITALS: BMI 25.7
--- NOTE | 2023-11-06 07:43 | W.PN.HOSP.TC ---
Addendum entered and electronically signed by Josh Escobedo MD 11/06/23 15:26:
Updated daughter today.
Original Note:
Today's Communication/Plan
-
Continue current management.
Assessment / Plan
Assessment / Plan
Physical exam:
General: Chronically ill. No apparent distress
HEENT: Normocephalic, Atraumatic and Moist Mucous Membranes
Respiratory: Clear to Auscultation; Negative Wheezes, Rales or Rhonchi
Cardiac: Regular Rhythm and S1/S2
GI: Soft, Nontender and Nondistended
Musculoskeletal: No Clubbing, No Cyanosis and No Edema
Neuro: Awake, Alert and Oriented. No neuro-deficits
Psych: Calm
A/P:
Acute metabolic encephalopathy due to acute seizure and postictal state as well as JEFERSON/rhabdomyolysis - resolved
-Patient was on phenobarbital prior to admission and missed a couple days of dosing.
-active seizure noted (active RUE and facial twitching/ tonic clonic seizure) 10/05, s/p Keppra 2g load
-Intubated for airway protection 10/05, extubated 10/06
-Off of Levophed
-EEG 10/06: Moderate diffuse slowing, no seizures or epileptiform discharges seen
-Currently on regimen of phenobarbital/Vimpat -no reported seizure for last one week.
-Zyprexa dose decreased, psych input noted
-Per case management: skilled rehab once determination received from [employer] and auth submitted and obtained.
Acute kidney injury due to nontraumatic rhabdomyolysis due to acute seizure activity
ESRD ruled out
-renal U/S with medical renal disease
-Right chest tunneled catheter site clean, no erythema/drainage
-Nephrology recommended to discontinue central line as no further hemodialysis would be required
Fever noted 10/05, likely due to active seizure at that time
-Urine and blood culture from 09/28 showed no growth
-blood culture remains negative till date.
-repeat CXR 10/05 after intubation noted slightly increased opacity in the retrocardiac left lower lobe, atelectasis versus pneumonia. Minor infiltrate versus atelectasis in the medial right lung base.
-Procalcitonin not useful in this case with ESRD
-was restarted empiric Abx Ceftriaxone/doxycycline -> continue monitoring off of antibiotics.
-Appreciate ID input
Ventilator dependent respiratory failure -for airway protection - extubated
Acute hypoxic respiratory insufficiency -resolved
-weaned off of o2
Transaminitis due to rhabdomyolysis, resolved
-Unremarkable abdominal ultrasound
Essential hypertension:
-cont Procardia XL to 60mg daily with holding parameter
Hyponatremia
-minimal, observe
Full/Heparin subq
Anticipated Discharge: > 48 hours
Subjective/Interval History
-
Date of Service: November 06, 2023
No new complaints.
Objective Data
-
Vital Signs:
Vital Signs
Temp Pulse Resp BP Pulse Ox
97.3 F 80 18 107/68 97
11/05/23 23:47 11/05/23 23:47 11/05/23 23:47 11/05/23 23:47 11/05/23 23:47
I&O
11/05/23 11/06/23 11/07/23
06:59 06:59 06:59
Intake Total 1800 / 1800 1800 / 1800
Output Total 2600 / 2600
Balance -800 / -800 1800 / 1800
[2023-11-06 08:00] VITALS: BP 102/73
[2023-11-06] MEDS: VITAMIN B1 100 MG PO (08:35)
[2023-11-06] MEDS: APRESOLINE 25 MG PO ×2 (08:35→19:58)
[2023-11-06] MEDS: LUMINAL 64.8 MG PO ×3 (08:35→21:45)
[2023-11-06] MEDS: PROCARDIA XL (EXTENDED RELEASE) 30 MG PO (08:35)
[2023-11-06] MEDS: ASPIR LOW (ENTERIC COATED) 81 MG PO (08:35)
[2023-11-06] MEDS: PROTONIX 40 MG PO (08:35)
[2023-11-06] MEDS: VIMPAT 200 MG PO ×2 (08:36→19:48)
[2023-11-06] MEDS: LOTRIMIN 1% CREAM TOPICAL (08:39)
--- NOTE | 2023-11-06 12:19 | CM ---
Level 2 authorization received from [facility].
Insurance authorization pending.
Plan: [facility] when stable.
[2023-11-06 13:26] VITALS: BP 98/60; PULSE 85; O2SAT 99
--- NOTE | 2023-11-06 15:43 | W.PN.NEPH.PH ---
Today's Communication / Plan
-
follow up bmp tomorrow
d/c procardia due to low bp
Assessment/Plan
-
Assessment
Seizure/epilepsy
Rhabdomyolysis
Metabolic acidosis
Elevated liver function tests
acute kidney injury
Low-grade fever
Oliguria
Plan
no further HD needs
cr stable at 2.0
grossly nonoliguric
can check QOD
BP softer end, stop Procardia
follow BMP
dc planning not sure he can live by himself
-
-
Date of Service: November 06, 2023
CC / HPI / ROS
-
Chief Complaint:
Acute renal failure
History of Present Illness:
Creatinine stable at 2 no labs today
Hemodynamically low side
no new seizures
Review of Systems
no CP/SOB
no dysuria
nonoligurc
Labs
-
Labs:
WBC 5.9 10^3/uL (4.8-10.8) 10/29/23 08:00
RBC 4.01 10^6/uL (4.70-6.10) L 10/29/23 08:00
Hgb 11.7 g/dL (13.0-18.0) L 10/29/23 08:00
Hct 35.1 % (39.0-52.0) L 10/29/23 08:00
Plt Count 200 10^3/uL (130-400) 10/29/23 08:00
Sodium 135 mmol/L (135-145) 11/05/23 07:38
Potassium 4.9 mmol/L (3.5-5.1) 11/05/23 07:38
Chloride 103 mmol/L (98-107) 11/05/23 07:38
Carbon Dioxide 27 mmol/L (22-30) 11/05/23 07:38
BUN 42 mg/dl (9-20) H 11/05/23 07:38
Creatinine 2.0 mg/dL (0.7-1.3) H 11/05/23 07:38
eGFR 37.04 11/05/23 07:38
Glucose 91 mg/dl (70-99) 11/05/23 07:38
Calcium 9.3 mg/dl (8.4-10.2) 11/05/23 07:38
Phosphorus 6.4 mg/dl (2.5-4.5) H 10/15/23 08:56
Albumin 3.6 g/dl (3.5-5.0) 10/15/23 08:56
Physical Exam
-
Vital Signs:
Vital Signs
Temp Pulse Resp BP Pulse Ox
97.3 F 80 16 102/73 100
11/06/23 08:00 11/06/23 08:00 11/06/23 08:00 11/06/23 08:00 11/06/23 08:00
Cardiovascular:: Regular rate and rhythm
Respiratory:: Bilateral: CTA
Lung Excursion:: Normal
Abdomen:: Nontender and Soft
Extremity Edema:: None: Bilateral:
Sanchez Catheter: No
[2023-11-06 16:05] VITALS: BP 92/59
[2023-11-06] MEDS: LOTRIMIN 1% CREAM 1 APPLIC TOPICAL (20:00)
[2023-11-06] MEDS: ZYPREXA 2.5 MG PO (21:43)
[2023-11-06 23:06] VITALS: BP 101/78
[2023-11-07 06:00] VITALS: BMI 25.7
[2023-11-07 07:00] VITALS: BP 105/65
--- NOTE | 2023-11-07 08:30 | W.PN.HOSP.TC ---
Today's Communication/Plan
-
Continue current management.
Assessment / Plan
Assessment / Plan
Physical exam:
General: Chronically ill. No apparent distress
HEENT: Normocephalic, Atraumatic and Moist Mucous Membranes
Respiratory: Clear to Auscultation; Negative Wheezes, Rales or Rhonchi
Cardiac: Regular Rhythm and S1/S2
GI: Soft, Nontender and Nondistended
Musculoskeletal: No Clubbing, No Cyanosis and No Edema
Neuro: Awake, Alert and Oriented. No neuro-deficits
Psych: Calm
A/P:
Acute metabolic encephalopathy due to acute seizure and postictal state as well as JEFERSON/rhabdomyolysis - resolved
-Patient was on phenobarbital prior to admission and missed a couple days of dosing.
-active seizure noted (active RUE and facial twitching/ tonic clonic seizure) 10/05, s/p Keppra 2g load
-Intubated for airway protection 10/05, extubated 10/06
-Off of Levophed
-EEG 10/06: Moderate diffuse slowing, no seizures or epileptiform discharges seen
-Currently on regimen of phenobarbital/Vimpat -no reported seizure for last one week.
-Zyprexa dose decreased, psych input noted
-Per case management: skilled rehab [facility] and auth submitted and obtained.
-Discussed with sister over the phone yesterday. She wanted to know about renal function and appears stable so far, also mental status fluctuation which is likely related to delirium, and finally about discharge disposition the will know more about
over the next several days.
Acute kidney injury due to nontraumatic rhabdomyolysis due to acute seizure activity
ESRD ruled out
-renal U/S with medical renal disease
-Right chest tunneled catheter site clean, no erythema/drainage
-Nephrology recommended to discontinue central line as no further hemodialysis would be required
-Renal function has remained stable throughout the last several days with last creatinine down to 2.1 today (creatinine as high as 11.2). Recheck renal function on Friday after the weekend
Fever noted 10/05, likely due to active seizure at that time
-Urine and blood culture from 09/28 showed no growth
-blood culture remains negative till date.
-repeat CXR 10/05 after intubation noted slightly increased opacity in the retrocardiac left lower lobe, atelectasis versus pneumonia. Minor infiltrate versus atelectasis in the medial right lung base.
-Procalcitonin not useful in this case with ESRD
-was restarted empiric Abx Ceftriaxone/doxycycline -> continue monitoring off of antibiotics.
-Appreciate ID input
Ventilator dependent respiratory failure -for airway protection - extubated
Acute hypoxic respiratory insufficiency -resolved
-weaned off of o2
Transaminitis due to rhabdomyolysis, resolved
-Unremarkable abdominal ultrasound
Essential hypertension:
-cont hydralazine 25 mg twice a day with holding parameter. Procardia discontinued prior.
-Blood pressure on the low side but continue to monitor.
-On IV hydralazine as needed
Hyponatremia
-minimal, observe
Full/Heparin subq
Anticipated Discharge: > 48 hours
Subjective/Interval History
-
Date of Service: November 07, 2023
Patient seen and examined today.
Objective Data
-
Labs:
Laboratory Results
11/07/23
07:06
Sodium Pending
Potassium Pending
Chloride Pending
Carbon Dioxide Pending
BUN Pending
Creatinine Pending
Glucose Pending
Calcium Pending
Vital Signs:
Vital Signs
Temp Pulse Resp BP Pulse Ox
97.6 F 79 16 105/65 95
11/07/23 07:00 11/07/23 07:00 11/07/23 07:00 11/07/23 07:00 11/07/23 07:00
I&O
11/06/23 11/07/23 11/08/23
06:59 06:59 06:59
Intake Total 1800 / 1800 1200 / 1200
Balance 1800 / 1800 1200 / 1200
[2023-11-07 08:33] LABS: Blood Urea Nitrogen 43 mg/dl (9-20); Calcium 8.8 mg/dl (8.4-10.2); Carbon Dioxide 22 mmol/L (22-30); Chloride 102 mmol/L (98-107); Estimated Creatinine Clearance 40 ml/min; Glucose 93 mg/dl (70-99); Potassium 4.2 mmol/L (3.5-5.1); Sodium 133 mmol/L (135-145); eGFR 34.93
[2023-11-07] MEDS: ASPIR LOW (ENTERIC COATED) 81 MG PO (08:48)
[2023-11-07] MEDS: PROTONIX 40 MG PO (08:48)
[2023-11-07] MEDS: VIMPAT 200 MG PO ×2 (08:48→20:02)
[2023-11-07] MEDS: LOTRIMIN 1% CREAM 1 APPLIC TOPICAL ×2 (08:48→20:12)
[2023-11-07] MEDS: VITAMIN B1 100 MG PO (08:48)
[2023-11-07] MEDS: LUMINAL PO (08:48)
[2023-11-07] MEDS: HEPARIN 5000 UNITS SC ×3 (08:48→23:10)
[2023-11-07] MEDS: APRESOLINE PO (08:49)
[2023-11-07] MEDS: LUMINAL 64.8 MG PO ×3 (09:34→21:32)
[2023-11-07 13:42] VITALS: BP 104/70; PULSE 92; O2SAT 99
--- NOTE | 2023-11-07 13:52 | CM ---
Patient insurance administrators of [place] denied SNF.
CM called patient's sister Leanne who needs to proceed with completing financial application with [facility]
Spoke with Jose Manuel in admission who will reach out to the sister
Per Jose Manuel no bed available today.
PLAN: Follow up with admissions at [facility] to confirm that financial application was completed.
--- NOTE | 2023-11-07 13:53 | W.PN.NEPH.PH ---
Today's Communication / Plan
-
follow labs periodically
Assessment/Plan
-
Assessment
Seizure/epilepsy
Rhabdomyolysis
Metabolic acidosis
Elevated liver function tests
acute kidney injury
Low-grade fever
Oliguria
Plan
cr stable at 2.1 with out HD
grossly nonoliguric
can check labs periodically
BP softer end,off meds
follow BMP
dc planning not sure he can live by himself
-
-
Date of Service: November 07, 2023
CC / HPI / ROS
-
Chief Complaint:
Acute renal failure
History of Present Illness:
Creatinine stable at 2.1
Hemodynamically low side
no new seizures
Review of Systems
no CP/SOB
nonoligurc
Labs
-
Labs:
WBC 5.9 10^3/uL (4.8-10.8) 10/29/23 08:00
RBC 4.01 10^6/uL (4.70-6.10) L 10/29/23 08:00
Hgb 11.7 g/dL (13.0-18.0) L 10/29/23 08:00
Hct 35.1 % (39.0-52.0) L 10/29/23 08:00
Plt Count 200 10^3/uL (130-400) 10/29/23 08:00
Sodium 133 mmol/L (135-145) L 11/07/23 07:06
Potassium 4.2 mmol/L (3.5-5.1) 11/07/23 07:06
Chloride 102 mmol/L (98-107) 11/07/23 07:06
Carbon Dioxide 22 mmol/L (22-30) 11/07/23 07:06
BUN 43 mg/dl (9-20) H 11/07/23 07:06
Creatinine 2.1 mg/dL (0.7-1.3) H 11/07/23 07:06
eGFR 34.93 11/07/23 07:06
Glucose 93 mg/dl (70-99) 11/07/23 07:06
Calcium 8.8 mg/dl (8.4-10.2) 11/07/23 07:06
Phosphorus 6.4 mg/dl (2.5-4.5) H 10/15/23 08:56
Albumin 3.6 g/dl (3.5-5.0) 10/15/23 08:56
Physical Exam
-
Vital Signs:
Vital Signs
Temp Pulse Resp BP Pulse Ox
97.6 F 79 16 105/65 95
11/07/23 07:00 11/07/23 08:49 11/07/23 07:00 11/07/23 08:49 11/07/23 07:00
Cardiovascular:: Regular rate and rhythm
Respiratory:: Bilateral: CTA
Lung Excursion:: Normal
Abdomen:: Nontender and Soft
Extremity Edema:: None: Bilateral:
Sanchez Catheter: No
[2023-11-07 15:29] VITALS: BP 99/64
[2023-11-07] MEDS: APRESOLINE 25 MG PO (20:02)
[2023-11-07] MEDS: ZYPREXA 2.5 MG PO (21:31)
[2023-11-07 23:02] VITALS: BP 104/64
[2023-11-08 04:51] VITALS: BMI 25.9
[2023-11-08 07:00] VITALS: BP 98/71
[2023-11-08] MEDS: HEPARIN 5000 UNITS SC ×2 (08:32→15:35)
[2023-11-08] MEDS: PROTONIX 40 MG PO (08:32)
[2023-11-08] MEDS: ASPIR LOW (ENTERIC COATED) 81 MG PO (08:32)
[2023-11-08] MEDS: VITAMIN B1 100 MG PO (08:32)
[2023-11-08] MEDS: LUMINAL 64.8 MG PO ×3 (08:32→21:43)
[2023-11-08] MEDS: VIMPAT 200 MG PO ×2 (08:32→19:41)
[2023-11-08] MEDS: APRESOLINE PO (08:33)
[2023-11-08] MEDS: LOTRIMIN 1% CREAM 1 APPLIC TOPICAL ×2 (08:34→19:42)
--- NOTE | 2023-11-08 10:04 | W.PN.HOSP.TC ---
Today's Communication/Plan
-
Monitor urine output and blood pressure and mental status.
Assessment / Plan
Assessment / Plan
Physical exam:
General: Chronically ill. No apparent distress
HEENT: Normocephalic, Atraumatic and Moist Mucous Membranes
Respiratory: Clear to Auscultation; Negative Wheezes, Rales or Rhonchi
Cardiac: Regular Rhythm and S1/S2
GI: Soft, Nontender and Nondistended
Musculoskeletal: No Clubbing, No Cyanosis and No Edema
Neuro: Awake, Alert and Oriented. No neuro-deficits
Psych: Calm
A/P:
Acute metabolic encephalopathy due to acute seizure and postictal state as well as JEFERSON/rhabdomyolysis - resolved
-Patient was on phenobarbital prior to admission and missed a couple days of dosing.
-active seizure noted (active RUE and facial twitching/ tonic clonic seizure) 10/05, s/p Keppra 2g load
-Intubated for airway protection 10/05, extubated 10/06
-Off of Levophed
-EEG 10/06: Moderate diffuse slowing, no seizures or epileptiform discharges seen
-Currently on regimen of phenobarbital/Vimpat -no reported seizure for last one week.
-Zyprexa dose decreased, psych input noted
-Per case management: skilled rehab once determination received from [facility] and auth submitted and obtained.
-Discussed with sister over the phone yesterday. She wanted to know about renal function and appears stable so far, also mental status fluctuation which is likely related to delirium, and finally about discharge disposition the will know more about
over the next several days.
Acute kidney injury due to nontraumatic rhabdomyolysis due to acute seizure activity
ESRD ruled out
-renal U/S with medical renal disease
-Right chest tunneled catheter site clean, no erythema/drainage
-Nephrology recommended to discontinue central line as no further hemodialysis would be required
-Renal function has remained stable throughout the last several days with last creatinine down to 2.1 today (creatinine as high as 11.2). Recheck renal function on Friday after the weekend
Fever noted 10/05, likely due to active seizure at that time
-Urine and blood culture from 09/28 showed no growth
-blood culture remains negative till date.
-repeat CXR 10/05 after intubation noted slightly increased opacity in the retrocardiac left lower lobe, atelectasis versus pneumonia. Minor infiltrate versus atelectasis in the medial right lung base.
-Procalcitonin not useful in this case with ESRD
-was restarted empiric Abx Ceftriaxone/doxycycline -> continue monitoring off of antibiotics.
-Appreciate ID input
Ventilator dependent respiratory failure -for airway protection - extubated
Acute hypoxic respiratory insufficiency -resolved
-weaned off of o2
Transaminitis due to rhabdomyolysis, resolved
-Unremarkable abdominal ultrasound
Elevated blood pressure initially, resolved after renal function improved. Currently hypotension:
Will stop all blood pressure medications for now and monitor
Will reevaluate down the road
Hyponatremia
-minimal, observe
Full/Heparin subq
Anticipated Discharge: > 48 hours
Subjective/Interval History
-
Date of Service: November 08, 2023
No new complaints. Blood pressure on the low side. Afebrile
Objective Data
-
Vital Signs:
Vital Signs
Temp Pulse Resp BP Pulse Ox
97.8 F 71 18 98/71 96
11/08/23 07:00 11/08/23 07:00 11/08/23 07:00 11/08/23 07:00 11/08/23 07:00
I&O
11/07/23 11/08/23 11/09/23
06:59 06:59 06:59
Intake Total 1200 / 1200 1440 / 1440
Balance 1200 / 1200 1440 / 1440
--- NOTE | 2023-11-08 13:44 | W.PN.NEPH.PH ---
Today's Communication / Plan
-
check cortisol, BMP tomorrow
Assessment/Plan
-
Assessment
Seizure/epilepsy
Rhabdomyolysis
Metabolic acidosis
Elevated liver function tests
acute kidney injury
Low-grade fever
Oliguria
Plan
cr stable at 2.1 11/06
grossly nonoliguric
can check labs periodically
BP softer end,off meds, check cortisol
follow BMP
dc planning not sure he can live by himself
-
-
Date of Service: November 08, 2023
CC / HPI / ROS
-
Chief Complaint:
Acute renal failure
History of Present Illness:
Creatinine stable at 2.1, no labs today
Hemodynamically low side
no fever
Review of Systems
no CP/SOB
no n/v
Labs
-
Labs:
WBC 5.9 10^3/uL (4.8-10.8) 10/29/23 08:00
RBC 4.01 10^6/uL (4.70-6.10) L 10/29/23 08:00
Hgb 11.7 g/dL (13.0-18.0) L 10/29/23 08:00
Hct 35.1 % (39.0-52.0) L 10/29/23 08:00
Plt Count 200 10^3/uL (130-400) 10/29/23 08:00
Sodium 133 mmol/L (135-145) L 11/07/23 07:06
Potassium 4.2 mmol/L (3.5-5.1) 11/07/23 07:06
Chloride 102 mmol/L (98-107) 11/07/23 07:06
Carbon Dioxide 22 mmol/L (22-30) 11/07/23 07:06
BUN 43 mg/dl (9-20) H 11/07/23 07:06
Creatinine 2.1 mg/dL (0.7-1.3) H 11/07/23 07:06
eGFR 34.93 11/07/23 07:06
Glucose 93 mg/dl (70-99) 11/07/23 07:06
Calcium 8.8 mg/dl (8.4-10.2) 11/07/23 07:06
Phosphorus 6.4 mg/dl (2.5-4.5) H 10/15/23 08:56
Albumin 3.6 g/dl (3.5-5.0) 10/15/23 08:56
Physical Exam
-
Vital Signs:
Vital Signs
Temp Pulse Resp BP Pulse Ox
97.8 F 71 18 98/71 96
11/08/23 07:00 11/08/23 07:00 11/08/23 07:00 11/08/23 07:00 11/08/23 07:00
Cardiovascular:: Regular rate and rhythm
Respiratory:: Bilateral: CTA
Lung Excursion:: Normal
Abdomen:: Nontender and Soft
Extremity Edema:: None: Bilateral:
Sanchez Catheter: No
[2023-11-08 15:00] VITALS: BP 105/65
[2023-11-08] MEDS: ZYPREXA 2.5 MG PO (21:41)
[2023-11-08 23:30] VITALS: BP 119/70
[2023-11-09] MEDS: HEPARIN 5000 UNITS SC ×4 (00:26→23:41)
[2023-11-09 05:39] VITALS: BMI 25.7
[2023-11-09 07:15] VITALS: BP 115/73
--- NOTE | 2023-11-09 09:20 | W.PN.HOSP.TC ---
Today's Communication/Plan
-
Continue current management. Discharge disposition efforts.
Assessment / Plan
Assessment / Plan
Physical exam:
General: Chronically ill. No apparent distress
HEENT: Normocephalic, Atraumatic and Moist Mucous Membranes
Respiratory: Clear to Auscultation; Negative Wheezes, Rales or Rhonchi
Cardiac: Regular Rhythm and S1/S2
GI: Soft, Nontender and Nondistended
Musculoskeletal: No Clubbing, No Cyanosis and No Edema
Neuro: Awake, Alert and Oriented. No neuro-deficits
Psych: Calm
A/P:
Acute metabolic encephalopathy due to acute seizure and postictal state as well as JEFERSON/rhabdomyolysis - resolved
-Patient was on phenobarbital prior to admission and missed a couple days of dosing.
-active seizure noted (active RUE and facial twitching/ tonic clonic seizure) 10/05, s/p Keppra 2g load
-Intubated for airway protection 10/05, extubated 10/06
-Off of Levophed
-EEG 10/06: Moderate diffuse slowing, no seizures or epileptiform discharges seen
-Currently on regimen of phenobarbital/Vimpat -no reported seizure for last one week.
-Zyprexa dose decreased, psych input noted
-Per case management: skilled rehab [facility] and [facility] submitted and obtained.
-Discussed with sister over the phone.
Acute kidney injury due to nontraumatic rhabdomyolysis due to acute seizure activity
ESRD ruled out
-renal U/S with medical renal disease
-Right chest tunneled catheter site clean, no erythema/drainage
-Nephrology recommended to discontinue central line as no further hemodialysis would be required
-Renal function has remained stable throughout the last several days with last creatinine down to 1.9 today (creatinine as high as 11.2).
Fever noted 10/05, likely due to active seizure at that time
-Urine and blood culture from 09/28 showed no growth
-blood culture remains negative till date.
-repeat CXR 10/05 after intubation noted slightly increased opacity in the retrocardiac left lower lobe, atelectasis versus pneumonia. Minor infiltrate versus atelectasis in the medial right lung base.
-Procalcitonin not useful in this case with ESRD
-was restarted empiric Abx Ceftriaxone/doxycycline -> continue monitoring off of antibiotics.
-Appreciate ID input
Ventilator dependent respiratory failure -for airway protection - extubated
Acute hypoxic respiratory insufficiency -resolved
-weaned off of o2
Transaminitis due to rhabdomyolysis, resolved
-Unremarkable abdominal ultrasound
Elevated blood pressure initially, resolved after renal function improved. Currently normotension:
stopped all blood pressure medications and doing well from BP perspective
Nephrology checked random cortisol level and 10.7 today
Hyponatremia
-minimal, observe-->137 today
Full/Heparin subq
Anticipated Discharge: 24 - 48 hours
Subjective/Interval History
-
Date of Service: November 09, 2023
Patient seen and examined. No new complaints.
Objective Data
-
Labs:
Laboratory Results
11/09/23
06:00
WBC Pending
Hgb Pending
Hct Pending
Plt Count Pending
Sodium Pending
Potassium Pending
Chloride Pending
Carbon Dioxide Pending
BUN Pending
Creatinine Pending
Glucose Pending
Calcium Pending
Total Bilirubin Pending
AST Pending
ALT Pending
Alkaline Phosphatase Pending
Vital Signs:
Vital Signs
Temp Pulse Resp BP Pulse Ox
97.6 F 67 18 115/73 97
11/09/23 07:15 11/09/23 07:15 11/09/23 07:15 11/09/23 07:15 11/09/23 07:15
I&O
11/08/23 11/09/23 11/10/23
06:59 06:59 06:59
Intake Total 1440 / 1440 1899
Balance 1440 / 1440 1899
[2023-11-09] MEDS: LUMINAL 64.8 MG PO ×3 (09:40→21:02)
[2023-11-09] MEDS: VITAMIN B1 100 MG PO (09:40)
[2023-11-09] MEDS: VIMPAT 200 MG PO ×2 (09:41→21:02)
[2023-11-09] MEDS: ASPIR LOW (ENTERIC COATED) 81 MG PO (09:41)
[2023-11-09] MEDS: PROTONIX 40 MG PO (09:41)
[2023-11-09] MEDS: LOTRIMIN 1% CREAM 1 APPLIC TOPICAL ×2 (09:41→21:02)
[2023-11-09 10:25] LABS: % Basophils 0.2 % (0-2); % Eosinophils 2.9 % (0-6); % Immature Granulocytes 0.5 % (0-0.5); % Lymphocytes 13.1 % (20.5-51.1); % Monocytes 8.5 % (1.7-9.3); % Neutrophils 74.8 % (42.2-75.2); Absolute Eosinophils 0.2 10^3/uL (0-0.7); Absolute Lymphocytes 0.7 10^3/uL (1.2-3.4); Absolute Monocytes 0.5 10^3/uL (0.1-0.6); Absolute Neutrophils 4.2 10^3/uL (1.4-6.5); Hematocrit 30.1 % (39.0-52.0); Hemoglobin 10.2 g/dL (13.0-18.0); Mean Corp Hgb Conc. 33.9 g/dL (33.0-37.0); Mean Corpuscular Hgb 29.1 pg (27.0-31.0); Mean Corpuscular Volume 85.8 fL (80.0-94.0); Mean Platelet Volume 10.9 fL (7.4-10.4); Nucleated Red Blood Cells % 0 % (-); Platelet Count 243 10^3/uL (130-400); Red Blood Cell Count 3.51 10^6/uL (4.70-6.10); Red Cell Dist. Width 12.3 % (11.5-14.5); White Blood Cell Count 5.6 10^3/uL (4.8-10.8)
[2023-11-09 10:44] LABS: ALT (SGPT) 44 U/L (0-50); AST (SGOT) 25 U/L (17-59); Albumin 3.7 g/dl (3.5-5.0); Alkaline Phosphatase 139 U/L (38-126); Blood Urea Nitrogen 33 mg/dl (9-20); Calcium 9.1 mg/dl (8.4-10.2); Carbon Dioxide 25 mmol/L (22-30); Chloride 103 mmol/L (98-107); Estimated Creatinine Clearance 44 ml/min; Glucose 139 mg/dl (70-99); Potassium 4.2 mmol/L (3.5-5.1); Sodium 137 mmol/L (135-145); Total Bilirubin 0.3 mg/dl (0.2-1.3); Total Protein 6.1 g/dl (6.3-8.2); eGFR 39.39
[2023-11-09 11:16] LABS: Cortisol, Random 10.7 ug/dl
[2023-11-09 15:08] VITALS: BP 115/76
--- NOTE | 2023-11-09 15:42 | W.PN.NEPH.PH ---
Today's Communication / Plan
-
observe labs
Assessment/Plan
-
Assessment
Seizure/epilepsy
Rhabdomyolysis
Metabolic acidosis
Elevated liver function tests
acute kidney injury
Low-grade fever
Oliguria
Plan
cr stable at 2.1 11/06
grossly nonoliguric
can check labs periodically , cr down to 1.9
BP softer end,off meds, cortisol level ok
if persists consider echo
follow BMP
dc planning not sure he can live by himself
-
-
Date of Service: November 09, 2023
CC / HPI / ROS
-
Chief Complaint:
Acute renal failure
History of Present Illness:
Creatinine down to 1.9,
BP improving
no fever
Review of Systems
no CP/SOB
no n/v
Labs
-
Labs:
WBC 5.6 10^3/uL (4.8-10.8) 11/09/23 09:53
RBC 3.51 10^6/uL (4.70-6.10) L 11/09/23 09:53
Hgb 10.2 g/dL (13.0-18.0) L 11/09/23 09:53
Hct 30.1 % (39.0-52.0) L 11/09/23 09:53
Plt Count 243 10^3/uL (130-400) 11/09/23 09:53
Sodium 137 mmol/L (135-145) 11/09/23 09:53
Potassium 4.2 mmol/L (3.5-5.1) 11/09/23 09:53
Chloride 103 mmol/L (98-107) 11/09/23 09:53
Carbon Dioxide 25 mmol/L (22-30) 11/09/23 09:53
BUN 33 mg/dl (9-20) H 11/09/23 09:53
Creatinine 1.9 mg/dL (0.7-1.3) H 11/09/23 09:53
eGFR 39.39 11/09/23 09:53
Glucose 139 mg/dl (70-99) H 11/09/23 09:53
Calcium 9.1 mg/dl (8.4-10.2) 11/09/23 09:53
Phosphorus 6.4 mg/dl (2.5-4.5) H 10/15/23 08:56
Albumin 3.7 g/dl (3.5-5.0) 11/09/23 09:53
Physical Exam
-
Vital Signs:
Vital Signs
Temp Pulse Resp BP Pulse Ox
97.5 F 73 18 115/76 98
11/09/23 15:08 11/09/23 15:08 11/09/23 15:08 11/09/23 15:08 11/09/23 15:08
Cardiovascular:: Regular rate and rhythm
Respiratory:: Bilateral: CTA
Lung Excursion:: Normal
Abdomen:: Nontender and Soft
Extremity Edema:: None: Bilateral:
Sanhcez Catheter: No
--- NOTE | 2023-11-09 15:44 | CM ---
Addendum entered by Ana Rosa Talbert 11/09/23 15:49:
[facility] updated.
Original Note:
Spoke with sister Tawny riddle.
Sisters have had contact with Babak at [facility] and working on financials.
CM will reach out to [facility] liaison tomorrow to see if bed will be available while waiting on financial information.
Plan: LTC
[2023-11-09] MEDS: ZYPREXA 2.5 MG PO (21:02)
[2023-11-09 23:05] VITALS: BP 111/72
[2023-11-10 06:00] VITALS: BMI 25.9
[2023-11-10 07:00] VITALS: BP 98/62
--- NOTE | 2023-11-10 08:10 | W.PN.HOSP.TC ---
Today's Communication/Plan
-
Continue current management. Plan for echocardiogram.
Assessment / Plan
Assessment / Plan
Physical exam:
General: Chronically ill. No apparent distress
HEENT: Normocephalic, Atraumatic and Moist Mucous Membranes
Respiratory: Clear to Auscultation; Negative Wheezes, Rales or Rhonchi
Cardiac: Regular Rhythm and S1/S2
GI: Soft, Nontender and Nondistended
Musculoskeletal: No Clubbing, No Cyanosis and No Edema
Neuro: Awake, Alert and Oriented. No neuro-deficits
Psych: Calm
A/P:
Acute metabolic encephalopathy due to acute seizure and postictal state as well as JEFERSON/rhabdomyolysis - resolved
-Patient was on phenobarbital prior to admission and missed a couple days of dosing.
-active seizure noted (active RUE and facial twitching/ tonic clonic seizure) 10/05, s/p Keppra 2g load
-Intubated for airway protection 10/05, extubated 10/06
-Off of Levophed
-EEG 10/06: Moderate diffuse slowing, no seizures or epileptiform discharges seen
-Currently on regimen of phenobarbital/Vimpat -no reported seizure for last one week.
-Zyprexa dose decreased, psych input noted
-Per case management: skilled rehab [facility] and [facility] submitted and obtained.
-Discussed with sister over the phone.
Acute kidney injury due to nontraumatic rhabdomyolysis due to acute seizure activity
ESRD ruled out
-renal U/S with medical renal disease
-Right chest tunneled catheter site clean, no erythema/drainage
-Nephrology recommended to discontinue central line as no further hemodialysis would be required
-Renal function has remained stable throughout the last several days with last creatinine down to 1.9 today (creatinine as high as 11.2).
Fever noted 10/05, likely due to active seizure at that time
-Urine and blood culture from 09/28 showed no growth
-blood culture remains negative till date.
-repeat CXR 10/05 after intubation noted slightly increased opacity in the retrocardiac left lower lobe, atelectasis versus pneumonia. Minor infiltrate versus atelectasis in the medial right lung base.
-Procalcitonin not useful in this case with ESRD
-was restarted empiric Abx Ceftriaxone/doxycycline -> continue monitoring off of antibiotics.
-Appreciate ID input
Ventilator dependent respiratory failure -for airway protection - extubated
Acute hypoxic respiratory insufficiency -resolved
-weaned off of o2
Transaminitis due to rhabdomyolysis, resolved
-Unremarkable abdominal ultrasound
Elevated blood pressure initially, resolved after renal function improved. Currently normotension to relative hypotension:
stopped all blood pressure medications and doing well from BP perspective
Nephrology checked random cortisol level and 10.7
Obtain echo
Hyponatremia
-minimal, observe-->137 today
Full/Heparin subq
Anticipated Discharge: 24 - 48 hours
Subjective/Interval History
-
Date of Service: November 10, 2023
No new complaints today. Alert.
Objective Data
-
Vital Signs:
Vital Signs
Temp Pulse Resp BP Pulse Ox
97.5 F 76 14 98/62 96
11/10/23 07:00 11/10/23 07:00 11/10/23 07:00 11/10/23 07:00 11/10/23 07:00
I&O
11/09/23 11/10/23 11/11/23
06:59 06:59 06:59
Intake Total 1900 / 1900 1200 / 1200
Balance 1900 / 1900 1200 / 1200
[2023-11-10] MEDS: LUMINAL 64.8 MG PO ×3 (09:12→21:12)
[2023-11-10] MEDS: VITAMIN B1 100 MG PO (09:12)
[2023-11-10] MEDS: ASPIR LOW (ENTERIC COATED) 81 MG PO (09:12)
[2023-11-10] MEDS: PROTONIX 40 MG PO (09:12)
[2023-11-10] MEDS: HEPARIN 5000 UNITS SC ×2 (09:13→16:00)
[2023-11-10] MEDS: VIMPAT 200 MG PO ×2 (09:13→19:26)
[2023-11-10] MEDS: LOTRIMIN 1% CREAM 1 APPLIC TOPICAL ×2 (09:13→19:26)
--- NOTE | 2023-11-10 11:45 | CM ---
Addendum entered by Ana Rosa Talbert 11/10/23 14:30:
Spoke with patients sister Leanne, she and Jess are meeting with someone from [facility] [employer] at 1 pm to work on financials. Per Leanne the pharmaceutical specialty representative may need to come to the facility to see Marcus.
Per Babak from [facility], after family signs on with [facility] they can accept patient. Possibly tomorrow.
Plan: [facility], possibly tomorrow. will f/u with Debi/liaison for [facility] tomorrow.
Discussed transportation with Leanne, possible WC van if facility cannot transport.
Original Note:
Left VM for [facility], covering for [facility] to see if they can accept patient while waiting on financials.
Await TCB.
Echocardiogram today.
Plan: LTC
--- NOTE | 2023-11-10 14:01 | W.PN.NEPH.PH ---
Today's Communication / Plan
-
- sign off
Assessment/Plan
-
Assessment
Seizure/epilepsy
Rhabdomyolysis
Metabolic acidosis
Elevated liver function tests
acute kidney injury
Low-grade fever
Oliguria
Plan
cr stable at 1.9 on 11/08
grossly nonoliguric
can check labs periodically
BP softer end,off meds, cortisol level ok
if persists consider echo
follow BMP
dc planning per primary team. nephrology will sign off and plan to see him as an outpatient
-
-
Date of Service: November 10, 2023
CC / HPI / ROS
-
Chief Complaint:
Acute renal failure
History of Present Illness:
Creatinine down to 1.9
BP improving
no fever
Review of Systems
no CP/SOB
no n/v
Labs
-
Labs:
WBC 5.6 10^3/uL (4.8-10.8) 11/09/23 09:53
RBC 3.51 10^6/uL (4.70-6.10) L 11/09/23 09:53
Hgb 10.2 g/dL (13.0-18.0) L 11/09/23 09:53
Hct 30.1 % (39.0-52.0) L 11/09/23 09:53
Plt Count 243 10^3/uL (130-400) 11/09/23 09:53
Sodium 137 mmol/L (135-145) 11/09/23 09:53
Potassium 4.2 mmol/L (3.5-5.1) 11/09/23 09:53
Chloride 103 mmol/L (98-107) 11/09/23 09:53
Carbon Dioxide 25 mmol/L (22-30) 11/09/23 09:53
BUN 33 mg/dl (9-20) H 11/09/23 09:53
Creatinine 1.9 mg/dL (0.7-1.3) H 11/09/23 09:53
eGFR 39.39 11/09/23 09:53
Glucose 139 mg/dl (70-99) H 11/09/23 09:53
Calcium 9.1 mg/dl (8.4-10.2) 11/09/23 09:53
Phosphorus 6.4 mg/dl (2.5-4.5) H 10/15/23 08:56
Albumin 3.7 g/dl (3.5-5.0) 11/09/23 09:53
Physical Exam
-
Vital Signs:
Vital Signs
Temp Pulse Resp BP Pulse Ox
97.5 F 76 14 98/62 96
11/10/23 07:00 11/10/23 07:00 11/10/23 07:00 11/10/23 07:00 11/10/23 07:00
Cardiovascular:: Regular rate and rhythm
Respiratory:: Bilateral: CTA
Lung Excursion:: Normal
Abdomen:: Nontender and Soft
Bowel Sounds:: Normal
Extremity Edema:: None: Bilateral:
Sanchez Catheter: No
[2023-11-10 14:24] VITALS: BP 111/71; PULSE 69
[2023-11-10 15:00] VITALS: BP 106/67
[2023-11-10] MEDS: ZYPREXA 2.5 MG PO (21:10)
[2023-11-10 23:30] VITALS: BP 104/61
[2023-11-11] MEDS: HEPARIN 5000 UNITS SC ×2 (00:08→09:22)
[2023-11-11 07:35] VITALS: BP 109/67
[2023-11-11 08:22] LABS: % Basophils 0.5 % (0-2); % Eosinophils 4.3 % (0-6); % Immature Granulocytes 0.7 % (0-0.5); % Lymphocytes 15.5 % (20.5-51.1); Absolute Eosinophils 0.3 10^3/uL (0-0.7); Absolute Lymphocytes 0.9 10^3/uL (1.2-3.4); Absolute Monocytes 0.5 10^3/uL (0.1-0.6); Absolute Neutrophils 4.2 10^3/uL (1.4-6.5); Hematocrit 30.9 % (39.0-52.0); Hemoglobin 10.5 g/dL (13.0-18.0); Mean Corpuscular Volume 88.3 fL (80.0-94.0); Nucleated Red Blood Cells % 0 % (-); Platelet Count 242 10^3/uL (130-400); Red Cell Dist. Width 12.4 % (11.5-14.5); White Blood Cell Count 5.9 10^3/uL (4.8-10.8)
[2023-11-11 08:44] LABS: Blood Urea Nitrogen 30 mg/dl (9-20); Calcium 9.1 mg/dl (8.4-10.2); Carbon Dioxide 24 mmol/L (22-30); Chloride 104 mmol/L (98-107); Estimated Creatinine Clearance 44 ml/min; Glucose 94 mg/dl (70-99); Potassium 4.3 mmol/L (3.5-5.1); Sodium 137 mmol/L (135-145); eGFR 39.39
--- NOTE | 2023-11-11 08:46 | W.PN.HOSP.TC ---
Today's Communication/Plan
-
Continue current management. Discharge planning in progress
Assessment / Plan
Assessment / Plan
Physical exam:
General: Chronically ill. No apparent distress
HEENT: Normocephalic, Atraumatic and Moist Mucous Membranes
Respiratory: Clear to Auscultation; Negative Wheezes, Rales or Rhonchi
Cardiac: Regular Rhythm and S1/S2
GI: Soft, Nontender and Nondistended
Musculoskeletal: No Clubbing, No Cyanosis and No Edema
Neuro: Awake, Alert and Oriented. No neuro-deficits
Psych: Calm
A/P:
Acute metabolic encephalopathy due to acute seizure and postictal state as well as JEFERSON/rhabdomyolysis - resolved
-Patient was on phenobarbital prior to admission and missed a couple days of dosing.
-active seizure noted (active RUE and facial twitching/ tonic clonic seizure) 10/05, s/p Keppra 2g load
-Intubated for airway protection 10/05, extubated 10/06
-Off of Levophed
-EEG 10/06: Moderate diffuse slowing, no seizures or epileptiform discharges seen
-Currently on regimen of phenobarbital/Vimpat -no reported seizure for last one week.
-Zyprexa dose decreased, psych input noted
-Per case management: skilled rehab once determination received from [facility] and auth submitted and obtained.
-Discussed with sister over the phone yesterday
-Discussed with case operator today. Awaiting for case operator to let us know about discharge disposition.
Acute kidney injury due to nontraumatic rhabdomyolysis due to acute seizure activity
ESRD ruled out
-renal U/S with medical renal disease
-Right chest tunneled catheter site clean, no erythema/drainage
-Nephrology recommended to discontinue central line as no further hemodialysis would be required
-Renal function has remained stable throughout the last several days with last creatinine down to 1.9 today (creatinine as high as 11.2).
Fever noted 10/05, likely due to active seizure at that time
-Urine and blood culture from 09/28 showed no growth
-blood culture remains negative till date.
-repeat CXR 10/05 after intubation noted slightly increased opacity in the retrocardiac left lower lobe, atelectasis versus pneumonia. Minor infiltrate versus atelectasis in the medial right lung base.
-Procalcitonin not useful in this case with ESRD
-was restarted empiric Abx Ceftriaxone/doxycycline -> continue monitoring off of antibiotics.
-Appreciate ID input
Ventilator dependent respiratory failure -for airway protection - extubated
Acute hypoxic respiratory insufficiency -resolved
-weaned off of o2
Transaminitis due to rhabdomyolysis, resolved
-Unremarkable abdominal ultrasound
Elevated blood pressure initially, resolved after renal function improved. Currently normotension:
Latest blood pressure 109/67 today
stopped all blood pressure medications and doing well from BP perspective
Nephrology checked random cortisol level and 10.7
Obtain echo and unremarkable
Hyponatremia
-minimal, observe-->137 today
Full/Heparin subq
Anticipated Discharge: 24 - 48 hours
Subjective/Interval History
-
Date of Service: November 11, 2023
Patient alert and coherent. Good urine output. No chest pain or shortness of breath. No lightheadedness. Afebrile
Objective Data
-
Labs:
Laboratory Results
11/11/23
07:15
WBC 5.9
Hgb 10.5 L
Hct 30.9 L
Plt Count 242
Sodium 137
Potassium 4.3
Chloride 104
Carbon Dioxide 24
BUN 30 H
Creatinine 1.9 H
Glucose 94
Calcium 9.1
Vital Signs:
Vital Signs
Temp Pulse Resp BP Pulse Ox
98.1 F 69 18 109/67 96
11/11/23 07:35 11/11/23 07:35 11/11/23 07:35 11/11/23 07:35 11/11/23 07:35
I&O
11/10/23 11/11/23 11/12/23
06:59 06:59 06:59
Intake Total 1200 / 1200
Balance 1200 / 1200
[2023-11-11] MEDS: LOTRIMIN 1% CREAM 1 APPLIC TOPICAL (09:21)
[2023-11-11] MEDS: LUMINAL 64.8 MG PO ×2 (09:22→16:37)
[2023-11-11] MEDS: ASPIR LOW (ENTERIC COATED) 81 MG PO (09:23)
[2023-11-11] MEDS: VITAMIN B1 100 MG PO (09:23)
[2023-11-11] MEDS: VIMPAT 200 MG PO (09:23)
[2023-11-11] MEDS: PROTONIX 40 MG PO (09:23)
--- NOTE | 2023-11-11 15:20 | CM ---
Addendum entered by Cherelle Balderas 11/11/23 15:43:
[facility]
Phone #: [phone]
Fax #: [phone]
Original Note:
Patient sister Leanne met with Brandon at [facility] regarding financial plan.
TT Dr. Escobedo regarding discharge to [facility] today. IMM explained & signed. In chart.
TT liaison regarding phone & fax #'s.
Sister to transport patient to [facility].
PLAN: Discharge to [facility]
Sister Leanne to transport patient
[2023-11-11 15:34] VITALS: BP 122/80
--- NOTE | 2023-11-11 15:37 | W.DCSUMMARY ---
Discharge Summary
Discharge Data
Date of Admission: 09/29/23
Date of Discharge: 11/11/23
-
Pending Results: No
Hospital Course
Patient 63 years old male with history of seizure disorder, probably spectrum disorder, who came into the hospital seizure event. Patient was started on antiseizure medications. He was also noticed to have significant rhabdomyolysis with
subsequent acute kidney injury. He had a prolonged course of more than 40 days in the hospital. Patient was loaded with antiseizure medications but despite that he continued to have seizures so he was intubated. Patient was able to be extubated
and moved out of the ICU eventually. His antiseizure medications were adjusted several times but ultimately the last adjustments worked well for him and he has been seizure-free for several weeks. He also has been tolerating AED without any
problems. For his JEFERSON he is requiring hemodialysis temporarily but HD was able to be stopped and he seems to be recovering in terms of his renal function although appears to have some residual CKD. Patient also developed fevers and treated with
antibiotics. ID consult and antibiotics and subsequently discontinue and he was observed off antibiotics and he did well. Patient also noticed to be hypertensive and antihypertensive medications initiated but after his renal function improved his
blood pressure normalized and actually was on the low side. Antihypertensives were discontinued. Cortisol level in the relatively normal side. Echocardiogram unremarkable. Patient did have some delirium but has been improving overall. He did
have several brain images including brain MRI that was unremarkable. Otherwise, patient hemodynamically stable and has been medically stable for discharge for a while until discharge disposition was safe for him. He is being discharged in
relatively stable condition today.
Discharge duration: 35 minutes
Discharge Plan
-
Patient Disposition: Long Term/SNF
Discharge Diagnosis/Procedures: Seizures. Acute kidney injury. Toxic metabolic encephalopathy.
Diet: Low Cholesterol
Activity: As tolerated
Blood Work: Please PCP to order CBC, BMP within 1 week
Referrals:
Isidro Pa DO [Family Provider] - in less than 1 week
Additional Discharge Medication Instructions: Recommended to get Hep B vaccine as you are not immune to Hepatitis B
Prescriptions:
New
olanzapine 5 mg Tablet
2.5 mg PO HS 30 Days Qty: 15 0RF
thiamine HCl (vitamin B1) 100 mg Tablet
100 mg PO DAILY Qty: 30 0RF
phenobarbital 32.4 mg Tablet
64.8 mg PO TID 30 Days Qty: 180 0RF
lacosamide 200 mg Tablet
200 mg PO BID 30 Days Qty: 60 0RF
famotidine [Pepcid] 20 mg tablet
20 mg PO DAILY Qty: 30 0RF
aspirin 81 mg capsule
81 mg PO DAILY Qty: 30 0RF
Discontinued
phenobarbital 64.8 mg Tablet
194.4 mg PO DAILY
Patient Comments:
patient filled on 08/18 #90
Discharge Orders:
Discharge Patient (As Directed); Ordered 11/11/23
Ordered By: Josh Escobedo
Discharge Date and Time
Print Language: THAI
== END 2023-11-11 17:27 | DRG 100 ==
LOC: 4 WEST ACU 14:32
PROVIDERS: Hospitalist; Internal Medicine; Nurse Practitioner Primary Care; Radiology Diagnostic Radiology; Radiology Vascular & Interventional Radiology; Specialist; Student in an Organized Health Care Education/Training Program; ADMITTING PHYSICIAN Hospitalist; ATTENDING PHYSICIAN Hospitalist; CONSULT PHYSICIAN Internal Medicine; CONSULT PHYSICIAN Psychiatry & Neurology Neurology; CONSULT PHYSICIAN Psychiatry & Neurology Psychiatry; CONSULT PHYSICIAN Specialist; EMERGENCY PHYSICIAN Emergency Medicine; FAMILY PHYSICIAN Family Medicine; OTHER PHYSICIAN Internal Medicine Critical Care Medicine; OTHER PHYSICIAN Internal Medicine Infectious Disease
PROC: 5A1D70Z Performance of Urinary Filtration, Intermittent, Less than 6 Hours Per Day (ICD-10-PCS; 2023-10-01)
PROC: 02HV33Z Insertion of Infusion Device into Superior Vena Cava, Percutaneous Approach (ICD-10-PCS; 2023-10-01)
PROC: 0JH60XZ Insertion of Tunneled Vascular Access Device into Chest Subcutaneous Tissue and Fascia, Open Approach (ICD-10-PCS; 2023-10-05)
PROC: 02H633Z Insertion of Infusion Device into Right Atrium, Percutaneous Approach (ICD-10-PCS; 2023-10-05)
PROC: 0BH17EZ Insertion of Endotracheal Airway into Trachea, Via Natural or Artificial Opening (ICD-10-PCS; 2023-10-06)
PROC: 5A1935Z Respiratory Ventilation, Less than 24 Consecutive Hours (ICD-10-PCS; 2023-10-06)
DX: G40.401 Other generalized epilepsy and epileptic syndromes, not intractable, with status epilepticus (principal); G92.8 Other toxic encephalopathy; N17.0 Acute kidney failure with tubular necrosis; M62.82 Rhabdomyolysis; R47.01 Aphasia; E87.20 Acidosis, unspecified; J98.11 Atelectasis; R50.9 Fever, unspecified; R03.0 Elevated blood-pressure reading, without diagnosis of hypertension; N18.9 Chronic kidney disease, unspecified; R09.02 Hypoxemia; R74.01 Elevation of levels of liver transaminase levels; T42.3X6A Underdosing of barbiturates, initial encounter; Z91.138 Patient's unintentional underdosing of medication regimen for other reason; Z79.899 Other long term (current) drug therapy
CPT/HCPCS: 36556; 36558; 36589; 70450; 70553; 71045; 76700; 76775; 76937; 77001; 80048; 80053; 80069; 80143; 80185; 80306; 81003; 81015; 82077; 82248; 82533; 82550; 82570; 82607; 82805; 82962; 83735; 83935; 84100; 84300; 84478; 85014; 85018; 85025; 85027; 85610; 85730; 86704; 86706; 86708; 86803; 87040; 87070; 87086; 87340; 92526; 92610; 93005; 93306; 93880; 93975; 94002; 94003; 95813; 95816; 96365; 97110; 97116; 97162; 97167; 97530; 97535; 99152; 99153; 99285; A9575; C1750; C9254; G0257; P9047

== ENCOUNTER → 2024-01-16 10:58 | Outpatient (REF) | payer BC, SELFPAY ==
--- NOTE | 2024-01-16 17:38 | EEG.RPT ---
Electroencephalogram Report
Recording
Date of EE01/16/24
Type of EEG: Routine
Length of EEG recordin minutes
Done with Video Recording: Yes
Patient Status: Outpatient
Recording Conditions: Awake and Drowsy
Hyperventilation Performed: Yes
Photic Stimulation Performed: Yes
Report
LESS THAN 1 HOUR EEG INTERPRETATION:
Unremarkable EEG for age
CLINICAL CORRELATION:
A normal EEG does not rule out a diagnosis of epilepsy. If clinical suspicion for seizure persists, a prolonged recording may be warranted.
Clinical correlation is advised.
METHODS:
A 21 channel digitized electroencephalogram (EEG) was performed using the 10/20 international system of electrode placement and one-lead of ECG recorded. The [employer] quantitative EEG system was utilized.
ELECTROENCEPHALOGRAPHER IMPRESSION(S):
Quality of study
Fair
Background
There was an unremarkable anterior-posterior voltage gradient of alpha frequency.
With eye opening the background activity changed to a low voltage mixture of frequencies.
There were no significant asymmetries of background activity noted.
Sleep
Drowsiness present
Stage 1 present
Stage 2 present
Hyperventilation
No activation
Photic Stimulation
No activation
ECG
Normal sinus rhythm
== END ==
LOC: EEG 10:58
PROVIDERS: ATTENDING PHYSICIAN Psychiatry & Neurology Neurology; FAMILY PHYSICIAN Family Medicine
DX: R56.9 Unspecified convulsions (principal)
CPT/HCPCS: 95813